=== PATIENT | male | born 1945 | race Caucasian/White ===

== ENCOUNTER 2019-05-09 08:42 | Emergency (ER) | payer MEDICARE ==
[~2019-05-09] VITALS: Ht 188 cm; Wt 81.6 kg
[2019-05-09] MEDS ORDERED: LIDOCAINE JELLY 2% 10ML URO-JET ONE (09:53)
[2019-05-09 10:19] LABS: BILIRUBIN,URINE NEGATIVE (NEGATIVE); CLARITY,URINE CLOUDY (CLEAR); COLOR,URINE ORANGE (YELLOW); KETONES,URINE NEGATIVE (NEGATIVE); LEUKOCYTE ESTERASE ,URINE NEGATIVE (NEGATIVE); NITRITE,URINE POSITIVE (NEGATIVE); PROTEIN,URINE DIPSTICK 1+ (NEGATIVE); URINE UROBILINOGEN 2 mg/dL (0.2 - 1)
[2019-05-09 10:24] LABS: BASOPHILS % 0.6 % (0.0-1.0); EOSINOPHILS % 0.6 % (0.0-6.0); HEMATOCRIT 43.6 % (38.2-49.6); HEMOGLOBIN 14.6 g/dL (14.0-18.0); LYMPHOCYTES # (AUTO) 0.9 (1.0-3.2); LYMPHOCYTES % 13.4 % (18.0-39.1); MEAN CORPUSCULAR HEMOGLOBIN 30.9 pg (28-32); MEAN CORPUSCULAR HGB CONC 33.5 g/dL (31-35); MEAN CORPUSCULAR VOLUME 92.4 fL (81-99); MONOCYTES # (AUTO) 0.5 (0.2-0.8); MONOCYTES % 7.9 % (4.4-11.3); NEUTROPHILS % 77.2 % (38.7-80.0); PLATELET COUNT 195 x10e3/uL (140-360); RED BLOOD COUNT 4.72 x10e6/uL (4.3-5.7); RED CELL DISTRIBUTION WIDTH 13.3 % (11.7-14.4)
[2019-05-09 10:34] LABS: INR 0.94; PROTHROMBIN TIME 13.1 seconds (11.9-14.5)
[2019-05-09 10:37] LABS: PARTIAL THROMBOPLASTIN TIME 31.8 seconds (23.8-35.5)
[2019-05-09 10:52] LABS: ANION GAP 16.5 mmol/L (8-16); CALCIUM 10.1 mg/dL (8.4-10.2); CREATININE, SERUM 1.51 mg/dL (0.72-1.25); POTASSIUM 3.5 mmol/L (3.5-5.1)
[2019-05-09 10:55] LABS: BACTERIA,URINE RARE /HPF; EPITHELIAL CELLS,URINE RARE /LPF
[2019-05-09] MEDS ORDERED: CEFUROXIME250 MG PO (11:18)
[2019-05-09] MEDS ORDERED: FLOMAX0.4 MG PO (11:18)
[2019-05-09 11:57] VITALS: BP 113/79
== END 2019-05-09 12:29 | disposition home or self-care (01) ==
LOC: ER 08:42
DX: R33.9 Retention of urine, unspecified (principal); N40.1 Benign prostatic hyperplasia with lower urinary tract symptoms; N30.91 Cystitis, unspecified with hematuria
CPT/HCPCS: 36415; 51700; 80053; 81001; 85025; 85610; 85730; 87086; 99283

== ENCOUNTER 2019-09-28 18:11 | Emergency (ER) | payer MEDICARE ==
[~2019-09-28] VITALS: Ht 188 cm; Wt 86.2 kg
[~2019-09-28 18:11] MED LIST: CEFUROXIME250 MG PO; FLOMAX0.4 MG PO
--- OUTSIDE RECORDS SUMMARY | 2019-09-28 18:13 | XMS REPORT ---
Author Author [facility] Address Unknown Phone Unavailable Care Team Providers Care Public Address System Operator Name Role Phone Unavailable Unavailable Payers Payer Name Policy Type Policy Number Effective Date Expiration Date Problems This patient has no known problems. Allergies, Adverse Reactions, Alerts Allergy Name Allergy Type Status Severity Reaction(s) Onset Date Inactive Date Treating Clinician Comments No Known Allergies DA Active U 2019-07-11 00:00:00 Medications This patient has no known medications. Results Test Description Test Time Test Comments Text Results Atomic Results Result Comments BASIC METABOLIC PANEL 2019-07-19 05:05:00 SODIUM (test code=NA) 142 mmol/L 136-145 POTASSIUM (test code=K) 4.6 mmol/L 3.5-5.1 CHLORIDE (test code=CL) 110.0 mmol/L 98-107 CARBON DIOXIDE (test code=CO2) 23.0 mmol/L 21-32 ANION GAP (test code=GAP) 13.6 10-20 GLUCOSE (test code=GLU) 138 mg/dL 74-106 BLOOD UREA NITROGEN (test code=BUN) 12 mg/dL 7-18 GLOMERULAR FILTRATION RATE (test code=GFR) > 60 mL/min >=60 Estimated GFR by using Modified MDRD formula.Chronic kidney disease is defined as either kidney damageor GFR <60 mL/min/1.73 m2 for >3 months. CREATININE (test code=CREAT) 0.90 mg/dL 0.7-1.3 BUN/CREATININE RATIO (test code=BUN/CREA) 13.3 10-20 CALCIUM (test code=CA) 8.7 mg/dL 8.5-10.1 BASIC METABOLIC [id number] 04:52:00* Test Item Value Reference Range Comments SODIUM (test code=NA) 142 mmol/L 136-145 POTASSIUM (test code=K) 4.6 mmol/L 3.5-5.1 CHLORIDE (test code=CL) 110.0 mmol/L 98-107 CARBON DIOXIDE (test code=CO2) mmol/L 21-32 ANION GAP (test code=GAP) 10-20 GLUCOSE (test code=GLU) mg/dL 74-106 BLOOD UREA NITROGEN (test code=BUN) mg/dL 7-18 GLOMERULAR FILTRATION RATE (test code=GFR) mL/min >=60 CREATININE (test code=CREAT) mg/dL 0.7-1.3 BUN/CREATININE RATIO (test code=BUN/CREA) 10-20 CALCIUM (test code=CA) mg/dL 8.5-10.1 CBC W/AUTO [id number] 04:27:00* Test Item Value Reference Range Comments WHITE BLOOD CELL (test code=WBC) 9.3 K/mm3 4.5-12.5 RED BLOOD CELL (test code=RBC) 3.58 mill/mm3 4.0-5.8 HEMOGLOBIN (test code=HGB) 11.0 gram/dL 13.0-17.5 HEMATOCRIT (test code=HCT) 34.1 % 42.0-52.0 MEAN CELL VOLUME (test code=MCV) 95.3 fL 80-98 MEAN CELL HGB (test code=MCH) 30.7 picogram 27.0-33.0 MEAN CELL HGB CONCETRATION (test code=MCHC) 32.3 gram/dL 33.0-36.0 RED CELL DISTRIBUTION WIDTH (test code=RDW) 13.2 % 11.6-16.2 RED CELL DISTRIBUTION WIDTH SD (test code=RDW-SD) 45.6 fL 37.0-51.0 PLATELET COUNT (test code=PLT) 296 K/mm3 150-450 MEAN PLATELET VOLUME (test code=MPV) 9.9 fL 6.7-11.0 NEUTROPHIL % (test code=NT%) 81.0 % 39.0-69.0 IMMATURE GRANULOCYTE % (test code=IG%) 1.3 % 0.0-5.0 LYMPHOCYTE % (test code=LY%) 9.3 % 25.0-55.0 MONOCYTE % (test code=MO%) 6.2 % 0.0-10.0 EOSINOPHIL % (test code=EO%) 1.7 % 0.0-5.0 BASOPHIL % (test code=BA%) 0.5 % 0.0-1.0 NUCLEATED RBC % (test code=NRBC%) 0.0 % 0-0 NEUTROPHIL # (test code=NT#) 7.55 K/mm3 1.8-7.7 IMMATURE GRANULOCYTE # (test code=IG#) 0.12 x10 3/uL 0-0.03 LYMPHOCYTE # (test code=LY#) 0.87 K/mm3 1.0-5.0 MONOCYTE # (test code=MO#) 0.58 K/mm3 0-0.8 EOSINOPHIL # (test code=EO#) 0.16 K/mm3 0.0-0.5 BASOPHIL # (test code=BA#) 0.05 K/mm3 0.0-0.2 NUCLEATED RBC # (test code=NRBC#) 0.00 K/mm3 0.0-0.1 MANUAL DIFF REQUIRED (test code=MDIFF) NO [id number] 12:26:00* Test Item Value Reference Range Comments GLUBED (test code=GLUBED) 167 mg/dL 74-106 Performed by certified radial saw operator at [facility] BASIC METABOLIC [id number] 05:39:00* Test Item Value Reference Range Comments SODIUM (test code=NA) 142 mmol/L 136-145 POTASSIUM (test code=K) 3.9 mmol/L 3.5-5.1 CHLORIDE (test code=CL) 111.0 mmol/L 98-107 CARBON DIOXIDE (test code=CO2) 24.0 mmol/L 21-32 ANION GAP (test code=GAP) 10.9 10-20 GLUCOSE (test code=GLU) 143 mg/dL 74-106 BLOOD UREA NITROGEN (test code=BUN) 15 mg/dL 7-18 GLOMERULAR FILTRATION RATE (test code=GFR) > 60 mL/min >=60 Estimated GFR by using Modified MDRD formula.Chronic kidney disease is defined as either kidney damageor GFR <60 mL/min/1.73 m2 for >3 months. CREATININE (test code=CREAT) 1.10 mg/dL 0.7-1.3 BUN/CREATININE RATIO (test code=BUN/CREA) 13.9 10-20 CALCIUM (test code=CA) 8.1 mg/dL 8.5-10.1 BASIC METABOLIC [id number] 05:29:00* Test Item Value Reference Range Comments SODIUM (test code=NA) 142 mmol/L 136-145 POTASSIUM (test code=K) 3.9 mmol/L 3.5-5.1 CHLORIDE (test code=CL) 111.0 mmol/L 98-107 CARBON DIOXIDE (test code=CO2) mmol/L 21-32 ANION GAP (test code=GAP) 10-20 GLUCOSE (test code=GLU) mg/dL 74-106 BLOOD UREA NITROGEN (test code=BUN) mg/dL 7-18 GLOMERULAR FILTRATION RATE (test code=GFR) mL/min >=60 CREATININE (test code=CREAT) mg/dL 0.7-1.3 BUN/CREATININE RATIO (test code=BUN/CREA) 10-20 CALCIUM (test code=CA) mg/dL 8.5-10.1 CBC W/AUTO [id number] 05:09:00* Test Item Value Reference Range Comments WHITE BLOOD CELL (test code=WBC) 13.7 K/mm3 4.5-12.5 RED BLOOD CELL (test code=RBC) 3.61 mill/mm3 4.0-5.8 HEMOGLOBIN (test code=HGB) 11.3 gram/dL 13.0-17.5 HEMATOCRIT (test code=HCT) 34.1 % 42.0-52.0 MEAN CELL VOLUME (test code=MCV) 94.5 fL 80-98 MEAN CELL HGB (test code=MCH) 31.3 picogram 27.0-33.0 MEAN CELL HGB CONCETRATION (test code=MCHC) 33.1 gram/dL 33.0-36.0 RED CELL DISTRIBUTION WIDTH (test code=RDW) 13.0 % 11.6-16.2 RED CELL DISTRIBUTION WIDTH SD (test code=RDW-SD) 45.2 fL 37.0-51.0 PLATELET COUNT (test code=PLT) 218 K/mm3 150-450 MEAN PLATELET VOLUME (test code=MPV) 10.5 fL 6.7-11.0 NEUTROPHIL % (test code=NT%) 82.6 % 39.0-69.0 IMMATURE GRANULOCYTE % (test code=IG%) 0.9 % 0.0-5.0 LYMPHOCYTE % (test code=LY%) 7.5 % 25.0-55.0 MONOCYTE % (test code=MO%) 8.6 % 0.0-10.0 EOSINOPHIL % (test code=EO%) 0.1 % 0.0-5.0 BASOPHIL % (test code=BA%) 0.3 % 0.0-1.0 NUCLEATED RBC % (test code=NRBC%) 0.0 % 0-0 NEUTROPHIL # (test code=NT#) 11.30 K/mm3 1.8-7.7 IMMATURE GRANULOCYTE # (test code=IG#) 0.12 x10 3/uL 0-0.03 LYMPHOCYTE # (test code=LY#) 1.02 K/mm3 1.0-5.0 MONOCYTE # (test code=MO#) 1.17 K/mm3 0-0.8 EOSINOPHIL # (test code=EO#) 0.01 K/mm3 0.0-0.5 BASOPHIL # (test code=BA#) 0.04 K/mm3 0.0-0.2 NUCLEATED RBC # (test code=NRBC#) 0.00 K/mm3 0.0-0.1 MANUAL DIFF REQUIRED (test code=MDIFF) NO [id number] 18:46:00* Test Item Value Reference Range Comments GLUBED (test code=GLUBED) 104 mg/dL 74-106 Performed by certified radial saw operator at [facility] COMPREHENSIVE METABOLIC [id number] 06:36:00* Test Item Value Reference Range Comments SODIUM (test code=NA) 143 mmol/L 136-145 POTASSIUM (test code=K) 3.6 mmol/L 3.5-5.1 CHLORIDE (test code=CL) 108.0 mmol/L 98-107 CARBON DIOXIDE (test code=CO2) 26.0 mmol/L 21-32 ANION GAP (test code=GAP) 12.6 10-20 GLUCOSE (test code=GLU) 104 mg/dL 74-106 BLOOD UREA NITROGEN (test code=BUN) 22 mg/dL 7-18 GLOMERULAR FILTRATION RATE (test code=GFR) > 60 mL/min >=60 Estimated GFR by using Modified MDRD formula.Chronic kidney disease is defined as either kidney damageor GFR <60 mL/min/1.73 m2 for >3 months. CREATININE (test code=CREAT) 0.90 mg/dL 0.7-1.3 BUN/CREATININE RATIO (test code=BUN/CREA) 24.4 10-20 TOTAL PROTEIN (test code=PROT) 5.9 gram/dL 6.4-8.2 ALBUMIN (test code=ALB) 2.4 g/dL 3.4-5.0 GLOBULIN (test code=GLOB) 3.5 gram/dL 2.7-4.2 ALBUMIN/GLOBULIN RATIO (test code=A/G) 0.7 0.75-1.50 CALCIUM (test code=CA) 8.4 mg/dL 8.5-10.1 BILIRUBIN TOTAL (test code=BILT) 1.20 mg/dL 0.0-1.0 SGOT/AST (test code=AST) 27 IUnit/L 15-37 SGPT/ALT (test code=ALT) 26 IUnit/L 12-78 ALKALINE PHOSPHATASE TOTAL (test code=ALKP) 236 IUnit/L 45-117 Note change in reference range due to change in reagent. COMPREHENSIVE METABOLIC [id number] 06:23:00* Test Item Value Reference Range Comments SODIUM (test code=NA) 143 mmol/L 136-145 POTASSIUM (test code=K) 3.6 mmol/L 3.5-5.1 CHLORIDE (test code=CL) 108.0 mmol/L 98-107 CARBON DIOXIDE (test code=CO2) mmol/L 21-32 ANION GAP (test code=GAP) 10-20 GLUCOSE (test code=GLU) mg/dL 74-106 BLOOD UREA NITROGEN (test code=BUN) mg/dL 7-18 GLOMERULAR FILTRATION RATE (test code=GFR) mL/min >=60 CREATININE (test code=CREAT) mg/dL 0.7-1.3 BUN/CREATININE RATIO (test code=BUN/CREA) 10-20 TOTAL PROTEIN (test code=PROT) gram/dL 6.4-8.2 ALBUMIN (test code=ALB) g/dL 3.4-5.0 GLOBULIN (test code=GLOB) gram/dL 2.7-4.2 ALBUMIN/GLOBULIN RATIO (test code=A/G) 0.75-1.50 CALCIUM (test code=CA) mg/dL 8.5-10.1 BILIRUBIN TOTAL (test code=BILT) mg/dL 0.0-1.0 SGOT/AST (test code=AST) IUnit/L 15-37 SGPT/ALT (test code=ALT) IUnit/L 12-78 ALKALINE PHOSPHATASE TOTAL (test code=ALKP) IUnit/L 45-117 CBC W/AUTO [id number] 06:03:00* Test Item Value Reference Range Comments WHITE BLOOD CELL (test code=WBC) 12.4 K/mm3 4.5-12.5 RED BLOOD CELL (test code=RBC) 3.79 mill/mm3 4.0-5.8 HEMOGLOBIN (test code=HGB) 11.9 gram/dL 13.0-17.5 HEMATOCRIT (test code=HCT) 35.6 % 42.0-52.0 MEAN CELL VOLUME (test code=MCV) 93.9 fL 80-98 MEAN CELL HGB (test code=MCH) 31.4 picogram 27.0-33.0 MEAN CELL HGB CONCETRATION (test code=MCHC) 33.4 gram/dL 33.0-36.0 RED CELL DISTRIBUTION WIDTH (test code=RDW) 12.9 % 11.6-16.2 RED CELL DISTRIBUTION WIDTH SD (test code=RDW-SD) 44.3 fL 37.0-51.0 PLATELET COUNT (test code=PLT) 145 K/mm3 150-450 MEAN PLATELET VOLUME (test code=MPV) 11.1 fL 6.7-11.0 NEUTROPHIL % (test code=NT%) 85.8 % 39.0-69.0 IMMATURE GRANULOCYTE % (test code=IG%) 0.9 % 0.0-5.0 LYMPHOCYTE % (test code=LY%) 7.0 % 25.0-55.0 MONOCYTE % (test code=MO%) 5.7 % 0.0-10.0 EOSINOPHIL % (test code=EO%) 0.4 % 0.0-5.0 BASOPHIL % (test code=BA%) 0.2 % 0.0-1.0 NUCLEATED RBC % (test code=NRBC%) 0.0 % 0-0 NEUTROPHIL # (test code=NT#) 10.59 K/mm3 1.8-7.7 IMMATURE GRANULOCYTE # (test code=IG#) 0.11 x10 3/uL 0-0.03 LYMPHOCYTE # (test code=LY#) 0.87 K/mm3 1.0-5.0 MONOCYTE # (test code=MO#) 0.70 K/mm3 0-0.8 EOSINOPHIL # (test code=EO#) 0.05 K/mm3 0.0-0.5 BASOPHIL # (test code=BA#) 0.03 K/mm3 0.0-0.2 NUCLEATED RBC # (test code=NRBC#) 0.00 K/mm3 0.0-0.1 MANUAL DIFF REQUIRED (test code=MDIFF) NO BASIC METABOLIC [id number] 23:03:00* Test Item Value Reference Range Comments SODIUM (test code=NA) 139 mmol/L 136-145 POTASSIUM (test code=K) 3.5 mmol/L 3.5-5.1 CHLORIDE (test code=CL) 106.0 mmol/L 98-107 CARBON DIOXIDE (test code=CO2) 26.0 mmol/L 21-32 ANION GAP (test code=GAP) 10.5 10-20 GLUCOSE (test code=GLU) 130 mg/dL 74-106 BLOOD UREA NITROGEN (test code=BUN) 24 mg/dL 7-18 GLOMERULAR FILTRATION RATE (test code=GFR) > 60 mL/min >=60 Estimated GFR by using Modified MDRD formula.Chronic kidney disease is defined as either kidney damageor GFR <60 mL/min/1.73 m2 for >3 months. CREATININE (test code=CREAT) 1.00 mg/dL 0.7-1.3 BUN/CREATININE RATIO (test code=BUN/CREA) 24.0 10-20 CALCIUM (test code=CA) 8.4 mg/dL 8.5-10.1 CBC W/AUTO [id number] 22:09:00* Test Item Value Reference Range Comments WHITE BLOOD CELL (test code=WBC) 13.1 K/mm3 4.5-12.5 RED BLOOD CELL (test code=RBC) 3.76 mill/mm3 4.0-5.8 HEMOGLOBIN (test code=HGB) 11.7 gram/dL 13.0-17.5 HEMATOCRIT (test code=HCT) 35.2 % 42.0-52.0 MEAN CELL VOLUME (test code=MCV) 93.6 fL 80-98 MEAN CELL HGB (test code=MCH) 31.1 picogram 27.0-33.0 MEAN CELL HGB CONCETRATION (test code=MCHC) 33.2 gram/dL 33.0-36.0 RED CELL DISTRIBUTION WIDTH (test code=RDW) 13.0 % 11.6-16.2 RED CELL DISTRIBUTION WIDTH SD (test code=RDW-SD) 44.7 fL 37.0-51.0 PLATELET COUNT (test code=PLT) 149 K/mm3 150-450 MEAN PLATELET VOLUME (test code=MPV) 10.4 fL 6.7-11.0 NEUTROPHIL % (test code=NT%) 85.3 % 39.0-69.0 IMMATURE GRANULOCYTE % (test code=IG%) 0.9 % 0.0-5.0 LYMPHOCYTE % (test code=LY%) 7.2 % 25.0-55.0 MONOCYTE % (test code=MO%) 6.2 % 0.0-10.0 EOSINOPHIL % (test code=EO%) 0.2 % 0.0-5.0 BASOPHIL % (test code=BA%) 0.2 % 0.0-1.0 NUCLEATED RBC % (test code=NRBC%) 0.0 % 0-0 NEUTROPHIL # (test code=NT#) 11.12 K/mm3 1.8-7.7 IMMATURE GRANULOCYTE # (test code=IG#) 0.12 x10 3/uL 0-0.03 LYMPHOCYTE # (test code=LY#) 0.94 K/mm3 1.0-5.0 MONOCYTE # (test code=MO#) 0.81 K/mm3 0-0.8 EOSINOPHIL # (test code=EO#) 0.03 K/mm3 0.0-0.5 BASOPHIL # (test code=BA#) 0.03 K/mm3 0.0-0.2 NUCLEATED RBC # (test code=NRBC#) 0.00 K/mm3 0.0-0.1 MANUAL DIFF REQUIRED (test code=MDIFF) NO [id number] 02:01:00* Test Item Value Reference Range Comments TROPONIN-I (test code=TROPI) 0.028 ng/mL 0-0.045 COMMENTS TO BUSINESS OPERATIONS DIRECTOR: COLLECT 3 HOURS AFTER PREVIOUS [id number] 22:29:00* Test Item Value Reference Range Comments TROPONIN-I (test code=TROPI) 0.026 ng/mL 0-0.045 COMMENTS TO BUSINESS OPERATIONS DIRECTOR: COLLECT 3 HOURS AFTER PREVIOUS SAMPLEURINALYSIS [id number] 16:35:00* Test Item Value Reference Range Comments UA COLOR (test code=COLU) YELLOW YELLOW UA APPEARANCE (test code=APPU) Cloudy CLEAR UA GLUCOSE DIPSTICK (test code=DGLUU) NEGATIVE mg/dL NEGATIVE UA BILIRUBIN DIPSTICK (test code=BILU) NEGATIVE mg/dL NEGATIVE UA KETONE DIPSTICK (test code=KETU) NEGATIVE mg/dL NEGATIVE UA SPECIFIC GRAVITY (test code=SGU) 1.014 1.001-1.035 UA BLOOD DIPSTICK (test code=JESSICA) 0.2 mg/dL (2+) mg/dL NEGATIVE UA PH DIPSTICK (test code=NICOLLE) 5.5 5.0-8.0 UA PROTEIN DIPSTICK (test code=PROU) 100 (2+) mg/dL NEGATIVE UA UROBILINIOGEN DIPSTICK (test code=URO) 2.0 (1+) mg/dL NEGATIVE UA NITRITE DIPSTICK (test code=KASSIE) POSITIVE NEGATIVE UA LEUKOCYTE ESTERASE W REFLEX (test code=LEUUR) 250 Antoinette/uL (2+) Antoinette/uL NEGATIVE UA WBC (test code=WBCU) 21-50 per HPF 0-5 UA RBC (test code=RBCU) 6-10 #/HPF 0-5 UA EPITHELIAL CELLS (test code=EPIU) FEW per HPF FEW UA BACTERIA (test code=BACU) MANY #/HPF NONE UA MUCUS (test code=MUCU) FEW #/LPF FEW UA AMORPHOUS SEDIMENT (test code=AMORU) FEW #/LPF Urine Source? Clean CatchDRUGS OF ABUSE SCREEN [id number] 16:35:00* Test Item Value Reference Range Comments URN COCAINE (test code=COCAURN) NEGATIVE <300 ng/mL URN CANNABINOIDS (test code=CANNABURN) NEGATIVE <50 ng/mL URN AMPHETAMINE (test code=AMPHETURN) NEGATIVE <1000 ng/mL URN BARBITURATE (test code=BARBITURN) NEGATIVE <200 ng/mL URN BENZODIAZEPINE (test code=BENZOURN) NEGATIVE <200 ng/mL URN OPIATES (test code=OPIATURN) NEGATIVE <300 ng/mL URN PHENCYCLIDINE (PCP) (test code=PHENCURN) NEGATIVE <25 ng/mL URN METHADONE (test code=METHAURN) NEGATIVE <300 ng/mL Urine Source? Clean CatchURINALYSIS [id number] 16:22:00* Test Item Value Reference Range Comments UA COLOR (test code=COLU) YELLOW YELLOW UA APPEARANCE (test code=APPU) Cloudy CLEAR UA GLUCOSE DIPSTICK (test code=DGLUU) NEGATIVE mg/dL NEGATIVE UA BILIRUBIN DIPSTICK (test code=BILU) NEGATIVE mg/dL NEGATIVE UA KETONE DIPSTICK (test code=KETU) NEGATIVE mg/dL NEGATIVE UA SPECIFIC GRAVITY (test code=SGU) 1.014 1.001-1.035 UA BLOOD DIPSTICK (test code=JESSICA) 0.2 mg/dL (2+) mg/dL NEGATIVE UA PH DIPSTICK (test code=NICOLLE) 5.5 5.0-8.0 UA PROTEIN DIPSTICK (test code=PROU) 100 (2+) mg/dL NEGATIVE UA UROBILINIOGEN DIPSTICK (test code=URO) 2.0 (1+) mg/dL NEGATIVE UA NITRITE DIPSTICK (test code=KASSIE) POSITIVE NEGATIVE UA LEUKOCYTE ESTERASE W REFLEX (test code=LEUUR) 250 Antoinette/uL (2+) Antoinette/uL NEGATIVE UA WBC (test code=WBCU) per HPF 0-5 UA RBC (test code=RBCU) per HPF 0-5 UA EPITHELIAL CELLS (test code=EPIU) per HPF Few UA BACTERIA (test code=BACU) per HPF NONE Urine Source? Clean CatchDRUGS OF ABUSE SCREEN [id number] 16:22:00* Test Item Value Reference Range Comments URN COCAINE (test code=COCAURN) NEGATIVE <300 ng/mL URN CANNABINOIDS (test code=CANNABURN) NEGATIVE <50 ng/mL URN AMPHETAMINE (test code=AMPHETURN) NEGATIVE <1000 ng/mL URN BARBITURATE (test code=BARBITURN) NEGATIVE <200 ng/mL URN BENZODIAZEPINE (test code=BENZOURN) NEGATIVE <200 ng/mL URN OPIATES (test code=OPIATURN) NEGATIVE <300 ng/mL URN PHENCYCLIDINE (PCP) (test code=PHENCURN) NEGATIVE <25 ng/mL URN METHADONE (test code=METHAURN) NEGATIVE <300 ng/mL Urine Source? Clean Catch- CT C-SPINE W/O [id number] 16:21:00 Name: EVANS DANIELSON [facility] : 1945 Age/S: 74 / M [address] [facility] Unit #: [id number] Loc: [place] [address] Phys: Zaid Retana MD Acct: [id number] Di s Date: Status: REG ER PHONE #: Exam Date: 07/11/2019 1534 FAX #: Reason: fall EXAMS: CPT CODE: [id number] CT C-SPINE W/O CONTRAST 22340 HISTORY: fall TECHNIQUE: Noncontrast 2.[address] of the head. Examination acquired within 24 hours of arrival. Automated exposure control for dose reduction. COMPARISON: MRI of the brain May 10, 2018 FINDINGS: No lacerations or contusions of the scalp or facial soft tissues.. Calvarium and skull base are intact. No acute hemorrhage. No intracranial mass, mass effect, or midline shift. No effacement of the sulci or ruiz-white matter interface to suggest acute infarct. Extensive cortical atrophy with microvascular ischemic changes of the white matter. No hydrocephalus.. No extra-axial fluid collection. Visualized paranasal sinuses are clear. Mastoid air cells and middle ear cavities are clear. There is a copious amount of cerumen in the bilateral external auditory canals. Orbital contents are unremarkable. No acute fracture of the cervical spine. No subluxation. Degenerative changes are seen throughout the facet joints in the cervical spine. Vertebral body heights are preserved however there is height loss of multiple intervertebral discs which is most pronounced at C3-C4, C5-C6, and C6-C7. Mild left-sided foraminal narrowing at C2-C 3. Moderate bilateral foraminal narrowing at C3-C4. Severe right-sided for aminal narrowing at C4-C5. Severe bilateral foraminal narrowing at C5-C6 w ith mild central canal narrowing. Severe bilateral foraminal narrowing at C6-C7. No prevertebral or paraspinal soft tissue abnormality. Lung apices are clear. There is diffuse bone demineralization in the spine. PAGE 1 Signed Report (CONTINUED) Name: EVANS DANIELSON [facility] : 1945 Age/S: 74 / M [address] Unit #: [id number] Loc: [place] [address] Phys: Maeve Retana MD Acct: [id number] Dis Date: Status: REG ER PHONE #: [phone] Exam Date: 07/11/20191536 FAX #: [phone] Reason: fall EXAMS: CPT CODE: [id number] CT C-SPINE W/O CONTRAST 05200 < Continued> IMPRESSION: No acute intracranial process. 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 Correlate with physical exam for cortical atrophy. No fracture or subluxation is seen however. at 1621 Reported and signed by: Kael Lobato MD CC: Justen Hahn; Maeve Retana MD Technologist:Catalina Miller RT(R),CT; CTDI: DLP: Trnscb Date/Time: 07/11/2019 (1621) [email or web address] Orig Print D/T: S: 07/11/2019 (5993) PAGE 2 Signed Report - CT HEAD/BRAIN W/O [id number] 16:21:00 Name: EVANS DANIELSON [facility] : 1945 Age/S: 74 / M [address] [facility] Unit #: [id number] Loc: [place] [address] Phys: Maeve Retana MD Acct: [id number] Dis Date: Status: REG ER PHONE #: [phone] Exam Date: 07/11/2019 153 FAX #: [phone] Reason: fall EXAMS: CPT CODE: [id number] CT HEAD/BRAIN W/O CONT 27986 HISTORY: fall TECHNIQUE: Noncontrast 2.[address] of the head. Examination acquired within 24 hours of arrival. Automated exposure control for dose reduction. COMPARISON: MRI of the brain May 10, 2018 FINDINGS: No lacerations or contusions of the scalp or facial soft tissues.. Calvarium and skull base are intact. No acute hemorrhage. No intracranial mass, mass effect, or midline shift. No effacement of the sulci or ruiz-white matter interface to suggest acute infarct. Extensive cortical atrophy with microvascular ischemic changes of the white matter. No hydrocephalus.. No extra-axial fluid collection. Visualized paranasal sinuses are clear. Mastoid air cells and middle ear cavities are clear. There is a copious amount of cerumen in the bilateral external auditory canals. Orbital contents are unremarkable. No acute fracture of the cervical spine. No subluxation. Degenerative changes are seen throughout the facet joints in the cervical spine. Vertebral body heights are preserved however there is height loss of multiple intervertebral discs which is most pronounced at C3-C4, C5-C6, and C6-C7. Mild left-sided foraminal narrowing at C2-C3. Moderate bilateral foraminal narrowing at C3-C4. Severe right-sided foraminal narrowing at C4-C5. Severe bilateral foraminal narrowing at C5-C6 with mild central canal narrowing. Severe bilateral foraminal narrowing at C6-C7. No prevertebral or paraspinal soft tissue abnormality. Lung apices are clear. There is diffuse bone demineralization in the spine. PAGE 1 Signed Report (CONTINUED) Name: EVANS DANIELSON [facility] : 1945 Age/S: 74 / M [address] [facility] Unit #: [id number] Loc: [place] [address] Phys: Maeve Retana MD Acct: [id number] Dis Date: Status: REG ER PHONE #: [phone] Exam Date: 07/11/2019 1537 FAX #: [phone] Reason: fall EXAMS: CPT CODE: [id number] CT HEAD/BRAIN W/O CONT 31990 < Continued> IMPRESSION: No acute intracranial process. 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 Correlate with physical exam for cortical atrophy. No fracture or subluxation is seen however. at 1621 Reported and signed by: Kael Lobato MD CC: Justen Hahn; Maeve Retana MD Technologist:Catalina Miller RT(R),CT; CTDI: DLP: Trnscb Date/Time: 07/11/2019 (328) [email or web address] Orig Print D/T: S: 07/11/2019 (5037) PAGE 2 Signed Report URINALYSIS [id number] 16:07:00* Test Item Value Reference Range Comments UA COLOR (test code=COLU) YELLOW YELLOW UA APPEARANCE (test code=APPU) Cloudy CLEAR UA GLUCOSE DIPSTICK (test code=DGLUU) NEGATIVE mg/dL NEGATIVE UA BILIRUBIN DIPSTICK (test code=BILU) NEGATIVE mg/dL NEGATIVE UA KETONE DIPSTICK (test code=KETU) NEGATIVE mg/dL NEGATIVE UA SPECIFIC GRAVITY (test code=SGU) 1.014 1.001-1.035 UA BLOOD DIPSTICK (test code=JESSICA) 0.2 mg/dL (2+) mg/dL NEGATIVE UA PH DIPSTICK (test code=NICOLLE) 5.5 5.0-8.0 UA PROTEIN DIPSTICK (test code=PROU) 100 (2+) mg/dL NEGATIVE UA UROBILINIOGEN DIPSTICK (test code=URO) 2.0 (1+) mg/dL NEGATIVE UA NITRITE DIPSTICK (test code=KASSIE) POSITIVE NEGATIVE UA LEUKOCYTE ESTERASE W REFLEX (test code=LEUUR) 250 Antoinette/uL (2+) Antoinette/uL NEGATIVE UA WBC (test code=WBCU) per HPF 0-5 UA RBC (test code=RBCU) per HPF 0-5 UA EPITHELIAL CELLS (test code=EPIU) per HPF Few UA BACTERIA (test code=BACU) per HPF NONE Urine Source? Clean CatchDRUGS OF ABUSE SCREEN [id number] 16:07:00* Test Item Value Reference Range Comments URN COCAINE (test code=COCAURN) <300 ng/mL URN CANNABINOIDS (test code=CANNABURN) <50 ng/mL URN AMPHETAMINE (test code=AMPHETURN) <1000 ng/mL URN BARBITURATE (test code=BARBITURN) <200 ng/mL URN BENZODIAZEPINE (test code=BENZOURN) <200 ng/mL URN OPIATES (test code=OPIATURN) <300 ng/mL URN PHENCYCLIDINE (PCP) (test code=PHENCURN) <25 ng/mL URN METHADONE (test code=METHAURN) <300 ng/mL Urine Source? Clean CatchLACTIC [id number] 15:50:00* Test Item Value Reference Range Comments LACTIC ACID (test code=LACT) 2.4 mmol/L 0.4-1.9 Results called to [email or web address] 07/11/19 1550Critical results verified and read back by Nurse? Y BASIC METABOLIC [id number] 15:50:00* Test Item Value Reference Range Comments SODIUM (test code=NA) 137 mmol/L 136-145 POTASSIUM (test code=K) 3.0 mmol/L 3.5-5.1 CHLORIDE (test code=CL) 101.0 mmol/L 98-107 CARBON DIOXIDE (test code=CO2) 25.0 mmol/L 21-32 ANION GAP (test code=GAP) 14.0 10-20 GLUCOSE (test code=GLU) 132 mg/dL 74-106 BLOOD UREA NITROGEN (test code=BUN) 21 mg/dL 7-18 GLOMERULAR FILTRATION RATE (test code=GFR) 59 mL/min >=60 Estimated GFR by using Modified MDRD formula.Chronic kidney disease is defined as either kidney damageor GFR <60 mL/min/1.73 m2 for >3 months. CREATININE (test code=CREAT) 1.20 mg/dL 0.7-1.3 BUN/CREATININE RATIO (test code=BUN/CREA) 17.5 10-20 CALCIUM (test code=CA) 9.2 mg/dL 8.5-10.1 HEPATIC FUNCTION [id number] 15:50:00* Test Item Value Reference Range Comments TOTAL PROTEIN (test code=PROT) 7.5 gram/dL 6.4-8.2 ALBUMIN (test code=ALB) 3.0 g/dL 3.4-5.0 GLOBULIN (test code=GLOB) 4.5 gram/dL 2.7-4.2 ALBUMIN/GLOBULIN RATIO (test code=A/G) 0.7 0.75-1.50 BILIRUBIN TOTAL (test code=BILT) 2.30 mg/dL 0.0-1.0 BILIRUBIN DIRECT (test code=BILD) 1.15 mg/dL 0.0-0.20 SGOT/AST (test code=AST) 17 IUnit/L 15-37 SGPT/ALT (test code=ALT) 21 IUnit/L 12-78 ALKALINE PHOSPHATASE TOTAL (test code=ALKP) 239 IUnit/L 45-117 Note change in reference range due to change in reagent. [id number] 15:50:00* Test Item Value Reference Range Comments LIPASE (test code=LIP) 64 U/L 73.0-393.0 [id number] 15:50:00* Test Item Value Reference Range Comments TROPONIN-I (test code=TROPI) 0.021 ng/mL 0-0.045 [id number] 15:50:00* Test Item Value Reference Range Comments ALCOHOL (test code=ALC) < 3 mg/dL 0.0-3.0 INTERPRETIVE DATA NOTE: POSITIVE SCREENING RESULTS SHOULD BE CONSIDERED PRESUMPTIVE.WHEN COLLECTED FOR MEDICAL PURPOSES ONLY. SPECIMEN WILL NOTBE COLLECTED BY CHAIN OF CUSTODY.IF A CONFIRMATION OF POSITIVE RESULTS IS DESIRED, ACONFIRMATION TEST MUST BE REQUESTED BY THE PHYSICIAN AT ANADDITIONAL CHARGE TO THE PATIENT. PROTHROMBIN [id number] 15:41:00* Test Item Value Reference Range Comments PROTHROMBIN TIME PATIENT (test code=PTP) 14.2 seconds 9.0-14.0 INTERNATIONAL NORMAL RATIO (test code=INR) 1.2 0.8-1.2 The therapeutic range for oral anticoagulant therapy formost indications is an international normalized ratio (INR)of between 2.0 and 3.0. The recommended therapeutic INRrange for various clinical situations is listed below: Clinical Situation INR range Pulmonary e mbolism treatment (2.0-3.0)Venous thrombosis treatmentVenous thrombosis prophylaxis (high risk surgery)Prevention of systemic embolism from: Acute myocardial infarction Valvular heart disease Atrial fibrillation Mechanical prosthetic heart valves (2.5-3.5) IS PATIENT ON ANTICOAGULANTS? NTHROMBOPLASTIN TIME [id number] 15:41:00* Test Item Value Reference Range Comments THROMBOPLASTIN TIME PARTIAL (test code=PTT) 32.4 seconds 25.0-36.5 IS PATIENT ON ANTICOAGULANTS? NCBC W/O [id number] 15:33:00* Test Item Value Reference Range Comments WHITE BLOOD CELL (test code=WBC) 18.5 K/mm3 4.5-12.5 RED BLOOD CELL (test code=RBC) 4.07 mill/mm3 4.0-5.8 HEMOGLOBIN (test code=HGB) 12.6 gram/dL 13.0-17.5 HEMATOCRIT (test code=HCT) 37.7 % 42.0-52.0 MEAN CELL VOLUME (test code=MCV) 92.6 fL 80-98 MEAN CELL HGB (test code=MCH) 31.0 picogram 27.0-33.0 MEAN CELL HGB CONCETRATION (test code=MCHC) 33.4 gram/dL 33.0-36.0 RED CELL DISTRIBUTION WIDTH (test code=RDW) 13.0 % 11.6-16.2 PLATELET COUNT (test code=PLT) 156 K/mm3 150-450 MEAN PLATELET VOLUME (test code=MPV) 10.7 fL 6.7-11.0 - MRI ABDOMEN W WO [id number] 13:08:00 FAX: Justen Bartlett MD [phone] [place]: B St: REG Name: EVANS LANDIS [facility] : [birth year] Age/S: 74/M [address] [facility] Unit #: [id number] Loc: V.MRI [place], [place] [address] Phys: Justen Hahn MD Acct: [id number] Dis Date: Status: REG CLI PHONE #: [phone] Exam Date: 05/27/2019 1130 FAX #: [phone] Reason: R74.8 EXAMS: CPT CODE: [id number] MRI ABDOMEN W WO CONT 05616 HISTORY: Elevated alkaline phospha tase. COMPARISON: None available. MRI abdomen with a nd without contrast: The liver measured 14 cm in length. Homogeneo us enhancement following gadolinium. No architectural distortion. No discr ete mass. No perihepatic fluid. Portal vein and hepatic artery remain silva nt. Gallbladder appears unremarkable. Spleen is not enlarged either at 11 cm. Homogeneous enhancement of the spleen. The stomach diste nds incompletely with small hiatal hernia. Pancreas enhanced homog eneously and is unremarkable. Right adrenal is unremarkable. Hyperplastic left adrenal demonstrated fat suppression on the out of phase sequence sug gesting fatty content. Both kidneys are free from hydroureteroneph rosis. Homogeneous enhancement is noted. Subcentimeter bilateral punctate Bosniak 1 lesions. No perinephric collections. No pathologic adenopathy. Well-opacified abdominal vasculature. No bowel obstruction. M ild wall thickening of the transverse colon and the right colon suggesting mild colitis. Correlate with white cell count. Small bowel loops are unre markable. No free fluid or free air or abscess collection. The subcutaneou s tissues and the musculature demonstrated normal signal. Bone marrow sign al is normal as well. IMPRESSION: Unremarkable liver with homogeneous enhancement. No discrete parenchymal mass or nod ules or architectural distortion. No intra or extrahepatic biliary ducta l dilatation. Incidental note made of circumferential wall thi ckening of the right colon and transverse colon suggesting colitis. Poncho elate clinically. No free fluid or free air or abscess. No pathologic ad enopathy. Small hiatal hernia. at 1308 Reported and signed by: Keven Egnland M.D. PAGE 1 Signed Report (CONTINUED) FAX: Justen Bartlett MD [phone] [facility] [place] [address] [place]: REG Name: EVANS DANIELSON [facility] : 1945 Age/S: 74/M [address] [facility] Unit #: [id number] Loc: V.MRI [place] [address] Ph ys: Justen Hahn MD Acct: [id number] Dis Date: Status: REG CLI PHONE #: [phone] Exam Date: 05/27/2019 1130 FAX #: [phone] Reason: R74.8 EXAMS: CPT CODE: [id number] MRI ABDOMEN W WO CONT 77940 <Continued> CC: Justen Hahn Technologist: PEDRO LUIS HENRIQUEZRT - MRI Trnvtrd Date/Time/By: 05/27/2019 (9295) : By: [email or web address] Orig Print D/T: S: 05/27/2019 (2799) PAGE 2 Signed Report CREATININE W ESTIMATED [id number] 10:01:00* Test Item Value Reference Range Comments BEDSIDE CREATININE (test code=CREATBED) mg/dL 0.7-1.3 GLOMERULAR FILTRATION RATE POC (test code=GFRBED) 57 >60 CREATININE W ESTIMATED [id number] 10:01:00* Test Item Value Reference Range Comments BEDSIDE CREATININE (test code=CREATBED) 1.24 mg/dL 0.7-1.3 GLOMERULAR FILTRATION RATE POC (test code=GFRBED) 60 >60 Previously reported result: 57 Edited by: ANSELMO on 05/27/19:580013 1001: GFRBED previously reported as: 57 *L
[2019-09-28] MEDS ORDERED: MECLIZINE HCL 12.5 MG TAB PO STA (19:14)
[2019-09-28] MEDS ORDERED: MECLIZINE HCL 12.5 MG TAB ONE (19:24)
--- NOTE | 2019-09-28 20:36 | Diagnostic Imaging Report ---
EXAMINATION: CXR 2 VIEW - HOPD INDICATION: Dizziness. COMPARISON: None FINDINGS: TUBES and LINES: None. LUNGS/PLEURA: There are bilateral calcified pleural plaques, left greater than right. Prominent calcified plaque in the left mid hemithorax. There are patchy opacities throughout the left lung. There are bilateral interstitial opacities. HEART AND MEDIASTINUM: No enlargement of the cardiac silhouette. There are atherosclerotic calcifications within the aorta. Tortuous and ectatic thoracic aorta. Small hiatal hernia. BONES AND SOFT TISSUES: No acute osseous abnormality. Diffuse osteopenia. UPPER ABDOMEN: No free air under the diaphragm. IMPRESSION: Findings suggestive of chronic asbestos exposure with pleural based calcified plaques. Patchy opacities within the left lung with bilateral interstitial opacities, which may reflect chronic fibrosis, although superimposed infection is a possibility. A follow-up CT, which could be performed non-emergently, is recommended. Signed by: Dr. Jamar Olivarez MD on 09/28/2019 8:33 PM
--- NOTE | 2019-09-28 20:40 | Diagnostic Imaging Report ---
History: Fall, pain and dizziness Comparison studies:None Technique: Axial images were obtained from the brain and cervical spine. Coronal and sagittal images reconstructed from the axial data. Intravenous contrast: None Dose modulation, iterative reconstruction, and/or weight based adjustment of the mA/kV was utilized to reduce the radiation dose to as low as reasonably achievable. Findings: Head CT: Scalp/skull: No abnormalities. No fractures, blastic or lytic lesions. Brain sulci: Mildly prominent. Ventricles: Mild compensatory dilatation. No hydrocephalus. Parenchyma: Scattered small hypodensities in the supratentorial white matter are small vessel ischemic changes. Left periventricular occipital encephalomalacia. Small chronic lacunar infarcts at the bilateral thalami. No masses, hemorrhage, acute or chronic cortical vascular insults. Sellar/suprasellar region: No abnormalities. Craniocervical junction: Patent foramen magnum. No Chiari one malformation. Incidental findings: Atherosclerotic calcifications in the carotid siphons . Cervical spine CT: Fractures: None. Soft tissues: No gross abnormalities. Atlantoaxial articulation: Degenerative changes without acute abnormality. Alignment: Straightening of the normal lordosis. Minimal grade 1 anterolisthesis of C4 over C5. No scoliosis. Cervicomedullary junction: No abnormalities. Patent foramen magnum. Vertebrae: No infection or neoplasm. Degenerative changes: Obliterated intervertebral space at C3-4 and C5-6. Decreased intervertebral space at C6-7. Degenerative foraminal narrowing, severe right and C4-5, moderate right and severe left at C5-6.. Incidental findings: Calcified pleural subcentimeter nodule at the right apex. Scarring at the left apex.. Impression: Head CT: 1. No acute intracranial abnormality. Cervical spine CT: 1. No acute abnormalities. 2. Cannot exclude ligament, spinal cord and or vascular abnormalities on the basis of this examination. Signed by: DR Reyes Guevara M.D. on 09/28/2019 8:37 PM
[2019-09-28] MEDS ORDERED: POTASSIUM CHLORIDE 20 MEQ TAB CR PO STA (20:54)
[2019-09-28] MEDS ORDERED: POTASSIUM CHLORIDE 20 MEQ TAB CR PO ONE (21:20)
[2019-09-28 21:44] VITALS: BP 180/79
== END 2019-09-28 21:46 | disposition left against medical advice (07) ==
LOC: FSED 18:11
DX: R42 Dizziness and giddiness (principal); S06.0X0A Concussion without loss of consciousness, initial encounter; I48.92 Unspecified atrial flutter; K52.9 Noninfective gastroenteritis and colitis, unspecified; W18.30XA Fall on same level, unspecified, initial encounter; Y92.015 Private garage of single-family (private) house as the place of occurrence of the external cause; E87.6 Hypokalemia; I10 Essential (primary) hypertension; E11.9 Type 2 diabetes mellitus without complications; J44.9 Chronic obstructive pulmonary disease, unspecified; E78.5 Hyperlipidemia, unspecified; F17.210 Nicotine dependence, cigarettes, uncomplicated
CPT/HCPCS: 70450; 71046; 72125; 80053; 81003; 82553; 84484; 85025; 93005; 99284; J8597

== ENCOUNTER 2019-12-02 09:45 | Emergency (ER) | payer MEDICARE ==
[~2019-12-02] VITALS: Ht 188 cm; Wt 81.6 kg
--- NOTE | 2019-12-02 10:25 | NUR ---
ATTEMPTED TO FLUSH CALDWELL WITH IRRIGATION UNABLE TO FLUSH, REMOVED CALDWELL, CALDWELL INTACT, PLACED NEW 18FRENCH CALDWELL, BLADDER DRAINING WITH LIGHT JIM URINE WITH SEDIMENT, 750MLS DRAINED, PT VERBALIZES RELIEF, PT STATED PAIN IS BETTER.
== END 2019-12-02 11:01 | disposition home or self-care (01) ==
LOC: FSED 09:45
DX: R33.9 Retention of urine, unspecified (principal); N40.1 Benign prostatic hyperplasia with lower urinary tract symptoms
CPT/HCPCS: 51700; 51702; 99283

== ENCOUNTER 2019-12-13 18:36 | Emergency (ER) | payer MEDICARE ==
[~2019-12-13] VITALS: Ht 188 cm; Wt 83.2 kg
--- NOTE | 2019-12-13 19:19 | NUR ---
jang cath repositions and is now draining yellow urine. pt states he is to have surgery within a month.
--- NOTE | 2019-12-13 19:30 | NUR ---
jang leg bag changed. jang cath is draining at this time
[2019-12-13] MEDS ORDERED: CEFDINIR300 MG PO (20:51)
[2019-12-13] MEDS ORDERED: CEPHALEXIN 500 MG CAP PO SCH (21:00)
== END 2019-12-13 21:27 | disposition home or self-care (01) ==
LOC: FSED 18:36
DX: R33.9 Retention of urine, unspecified (principal); N30.91 Cystitis, unspecified with hematuria; N40.1 Benign prostatic hyperplasia with lower urinary tract symptoms; E11.65 Type 2 diabetes mellitus with hyperglycemia; I10 Essential (primary) hypertension; F17.210 Nicotine dependence, cigarettes, uncomplicated
CPT/HCPCS: 87086; 87186; 99282

== ENCOUNTER 2020-01-01 09:18 | Observation (INO) | payer MEDICARE ==
[2019-12-30 15:46] LABS: BASOPHILS % 0.4 % (0.0-1.0); EOSINOPHILS # (AUTO) 0.2 (0.0-0.4); EOSINOPHILS % 2.6 % (0.0-6.0); HEMATOCRIT 41.7 % (38.2-49.6); HEMOGLOBIN 13.8 g/dL (14.0-18.0); LYMPHOCYTES # (AUTO) 1.2 (1.0-3.2); LYMPHOCYTES % 15.1 % (18.0-39.1); MEAN CORPUSCULAR HEMOGLOBIN 30.1 pg (28-32); MEAN CORPUSCULAR HGB CONC 33.1 g/dL (31-35); MEAN CORPUSCULAR VOLUME 90.8 fL (81-99); MONOCYTES # (AUTO) 0.6 (0.2-0.8); MONOCYTES % 8.1 % (4.4-11.3); NEUTROPHILS # (AUTO) 5.8 (2.1-6.9); NEUTROPHILS % 73.4 % (38.7-80.0); PLATELET COUNT 199 x10e3/uL (140-360); RED BLOOD COUNT 4.59 x10e6/uL (4.3-5.7); RED CELL DISTRIBUTION WIDTH 14.3 % (11.7-14.4)
[2019-12-30 16:00] LABS: INR 1.06; PARTIAL THROMBOPLASTIN TIME 34.5 seconds (23.8-35.5); PROTHROMBIN TIME 14.5 seconds (11.9-14.5)
[2019-12-30 16:08] LABS: ALBUMIN 3.8 g/dL (3.5-5.0); CALCIUM 9.9 mg/dL (8.4-10.2); CREATININE, SERUM 1.36 mg/dL (0.72-1.25)
--- NOTE | 2019-12-30 16:30 | NUR ---
Dr. Rodriguez notified of creatinine 1.36 and eGFR 51. No new orders at this time.
[~2020-01-01] VITALS: Ht 188 cm; Wt 81.6 kg
[2020-01-01] VITALS (13 sets, daily range): BP systolic 112–197; BP diastolic 69–100
[~2020-01-01 09:18] MED LIST changes: +ASPIRIN325 MG PO; +ATORVASTATIN CA20 MG PO; +CEFDINIR300 MG PO; +EFFER-K 10 MEQ10 MEQ PO; +METOPROLOL TART25 MG PO; +VITAMIN D PO
[2020-01-01] MEDS ORDERED: POTASSIUM CHLO10 ME1 PO (11:07)
[2020-01-01] MEDS ORDERED: ASPIRIN 325 MG TAB ONE (11:40)
--- NOTE | 2020-01-01 12:00 | NUR ---
1200 Complete and ready for procedure. Handoff to Marcelo PRITCHARD ds/rn
[2020-01-01] MEDS ORDERED: FENTANYL CITRATE/PF 100MCG/2 ML INJ ONE (12:06)
[2020-01-01] MEDS ORDERED: MIDAZOLAM HCL 2 MG/2 ML VIAL ONE (12:06)
[2020-01-01] MEDS ORDERED: LIDOCAINE HCL 2% LOCAL 20 ML VIAL ONE (12:06)
[2020-01-01] MEDS ORDERED: IOPAMIDOL 370 MG/ML 200 ML INFUS..BTL INJ ONE (12:07)
[2020-01-01] MEDS ORDERED: SODIUM CHLORIDE 0.9% 1000ML 1,000 ML ONE (12:07)
[2020-01-01] MEDS ORDERED: HEPARIN SOD/SOD CHLORIDE 2,000 ML ONE (12:07)
[2020-01-01] MEDS ORDERED: VERAPAMIL HCL 2.5 MG/ML 2 ML VIAL ONE (12:08)
--- NOTE | 2020-01-01 16:00 | NUR ---
1600p spoke with Dr Rodriguez pt may pull sheath below 180. Ok to have light snack. Report agitation Bladder bag drawing urine. Iv positonal to lseft arm but patent. 1430 ACT 255 1530 ACT 195 Tele Obsv. bed ordered for remainder down time ds/rn
--- NOTE | 2020-01-01 16:30 | NUR ---
1630P Act 175 Notified staff forester. Pt has no gross issues pain,pallor. Bp a little elevated in diastolic do to agitation off and on wanting to eat. House Supv. has bed 109 available. Carole PRITCHARD cath Nursing policy change clerks supervisor aware of situation. ramírez/rn
--- NOTE | 2020-01-01 17:00 | NUR ---
1700p Act 162 informed Labor Arbitrator. Technologist Sheath pull performed 20 min manual pull and Tegaderm dressing and 2x2 applied. Stasis achieved. No gross issues pain,pallor b/p alittle elevated and floor nurse will start home medication for b/p. Aware to call Dr Rodriguez for further assistance.Transported to floor per stretcher Tele report given and handoff to Ezekiel Gtz .Left pt in room with call light at bedside there and bed lock in low position. DC plans given to and reviewed groin site care. Has copies of CD and Md diagram and aware of importance of f/o care. Left iv infused and site to left ac patent.No further flluids necessary. Diet tray in room and will assist aware down till 845pm and may dc home.ramírez/ezekiel
--- NOTE | 2020-01-01 18:15 | NUR ---
received to room pt aaox3 no distress noted updated on poc voiced understanding, dsg to right groin c/d/i, soft nontender, pedal pulses palpable, l ac 20g no ss of infiltration noted, denies pain at this time, call light in reach will continue to monitor
[2020-01-01] MEDS ORDERED: METOPROLOL TARTRATE 25 MG TAB PO SCH (18:45)
--- NOTE | 2020-01-01 19:22 | NUR ---
Received bedside report from day nurse. Patient resting flat in bed, no s/s of distress, bleeding, or c/o pain at this time. All safety measures in place. Family at bedside. Will continue to monitor.
[2020-01-01] MEDS ORDERED: ATORVASTATIN 20 MG TAB PO SCH (21:00)
--- NOTE | 2020-01-01 21:02 | NUR ---
Per MD's written orders, patient okay to DC home after 2044. Patient in stable condition, no s/s of distress or c/o pain at this time. All safety measures in place. Family at bedside. Pending DC home.
[2020-01-02] MEDS ORDERED: POTASSIUM CHLORIDE 10MEQ EA PO SCH (09:00)
[2020-01-02] MEDS ORDERED: ASPIRIN 325 MG TAB PO SCH (09:00)
--- NOTE | 2020-01-02 10:52 | Operative Report ---
DATE OF PROCEDURE: 01/01/2020 SURGEON: Trevor Johnson MD INDICATION: Angina pectoris and abnormal stress test with severe systolic heart failure. PROCEDURE PERFORMED: 1. Left heart catheterization. 2. Selective coronary angiography. ESTIMATED BLOOD LOSS: Less than 15 mL. PROCEDURE SUMMARY: After consent was obtained, the patient was prepped and draped in a sterile fashion. The right femoral site was locally infiltrated with 2% lidocaine and with micropuncture kit, a 6-Latvian sheath was placed. A pigtail catheter was used to cross the aortic valve for the left main, several catheters were used due to wide ascending aorta and with horizontalized position. The following catheters were used, JL4, JL5, XBLAD 4.0. Guide catheters were also attempted, AL2 and AL1. JR4 6-Latvian catheter was used for the right coronary artery. FINDINGS: These were the following findings: 1. LV pressure was 160/8 with end-diastolic pressure of 27. 2. Aortic pressure was 153/86. 3. The ascending aorta seems somewhat dilated and calcified. 4. Left main is large in caliber with luminal irregularities giving an LAD and circumflex. 5. LAD after 1st small caliber diagonal has an area of 70% tubular stenosis following which a medium caliber 2nd diagonal and additional septal perforators arise. The LAD courses to the apex where it wraps around and ends. 6. The left main also gives rise to a circumflex artery, which is medium in caliber with luminal irregularities and gives an obtuse marginal. 7. The right coronary artery is large in caliber in the proximal to mid segment, it has an area of focal eccentric 60 to 70% stenosis. It gives a left posterior descending artery and left PDA. 8. LV-gram reveals severe impairment in left ventricular systolic function with left ventricular ejection fraction of 25%. CONCLUSION: 1. Peripheral arterial disease and severe multivessel coronary artery disease with 70% LAD, 60 to 70% eccentric RCA. 2. Severe systolic heart failure. RECOMMENDATIONS: Outpatient surgical evaluation for consideration of aortocoronary bypass versus high risk PCI with mechanical support. Complex anatomy of left main engagement achieved with some difficulty using an AL2 with best alignment of all other attempted guides. Trevor Johnson MD AFV/JAELYN /[id number]
== END 2020-01-01 21:18 | disposition home or self-care (01) ==
LOC: CATH LAB 09:18 → MED/SURG 16:18
PROVIDERS: ADMIT Internal Medicine Cardiovascular Disease; ATTEND Internal Medicine Cardiovascular Disease
DX: I25.119 Atherosclerotic heart disease of native coronary artery with unspecified angina pectoris (principal); I73.9 Peripheral vascular disease, unspecified; I11.0 Hypertensive heart disease with heart failure; I50.20 Unspecified systolic (congestive) heart failure; E78.5 Hyperlipidemia, unspecified; Z01.812 Encounter for preprocedural laboratory examination; Z79.82 Long term (current) use of aspirin
CPT/HCPCS: 36415; 80053; 80061; 82948; 85025; 85610; 85730; 93458; 99152; 99153; C1769; G0378; J2001; J2250; J3010; J7030; Q9967

== ENCOUNTER 2020-02-22 17:56 | Emergency (ER) | payer MEDICARE ==
[~2020-02-22] VITALS: Ht 188 cm; Wt 81.6 kg
[~2020-02-22 17:56] MED LIST changes: +POTASSIUM CHLO10 ME1 PO
--- NOTE | 2020-02-22 19:05 | NUR ---
REC'D REPORT FROM OFF GOING NS.
[2020-02-22] MEDS ORDERED: GENTAMICIN 80MG/NS 100 ML 50 ML IV SCH (21:00)
[2020-02-22] MEDS ORDERED: AMOXICILLIN/CLAVULANATE K 500 MG TAB PO SCH (21:00)
[2020-02-22] MEDS ORDERED: AMOXICILLIN/CLAVULANATE K 875 MG TAB ONE (21:16)
[2020-02-22] MEDS ORDERED: AMOXICILLIN/CLAVULANATE K 875 MG TAB PO STA (21:28)
[2020-02-22] MEDS ORDERED: GENTAMICIN 80MG/NS 100 ML 200 ML IV SCH (21:30)
[2020-02-22] MEDS ORDERED: GENTAMICIN SULFATE 40 MG/ML 2 ML VIAL ONE (21:36)
[2020-02-22] MEDS ORDERED: GENTAMICIN 80MG/NS 100 ML 100 ML IV SCH (22:00)
[2020-02-22] MEDS ORDERED: SODIUM CHLORIDE 0.9% 200 ML ONE (22:18)
[2020-02-22] MEDS ORDERED: AUGMENTIN 875-1 EACH PO (22:42)
[2020-02-22 23:50] VITALS: BP 161/90
== END 2020-02-22 23:50 | disposition home or self-care (01) ==
LOC: FSED 17:56
DX: R33.9 Retention of urine, unspecified (principal); N30.91 Cystitis, unspecified with hematuria; N40.0 Benign prostatic hyperplasia without lower urinary tract symptoms; I50.22 Chronic systolic (congestive) heart failure; I10 Essential (primary) hypertension
CPT/HCPCS: 80048; 80076; 81003; 85025; 87086; 87186; 96365; 99283; J1580; J7050

== ENCOUNTER 2020-05-28 06:46 | Emergency (ER) | payer MEDICARE ==
[~2020-05-28] VITALS: Ht 188 cm; Wt 81.6 kg
[~2020-05-28 06:46] MED LIST changes: +AUGMENTIN 875-1 EACH PO
[2020-05-28] MEDS ORDERED: SODIUM CHLORIDE 0.9% 500ML 500 ML IV STA (07:27)
[2020-05-28] MEDS ORDERED: MORPHINE SULFATE INJ 4 MG/ML INJ 1ML IV STA (07:27)
[2020-05-28] MEDS ORDERED: PIPER-TAZ 3.375 GM 50 ML IV ONE (07:30)
[2020-05-28] MEDS ORDERED: ONDANSETRON HCL INJ 2MG/ML 2ML 2 MG/ML VIAL IV ONE (07:30)
[2020-05-28] MEDS ORDERED: KETOROLAC TROMETHAMINE 30 MG/ML VIAL IV ONE (07:30)
--- NOTE | 2020-05-28 07:35 | Emergency Department Note ---
History of Present Illnes History of Present Illness Chief Complaint: Genitourinary History of Present Illness This is a 75 year old male hx of UTI, BPH c/o severe bladder pain for several days. Past Medical History Hypertension, Diabetes, CHF, A-Fib Other Medical History BPH Past Surgical History: None . Arrival Mode: Car Litigation Legal Secretary Required: No Onset (how long ago): day(s) Radiation: Reports distal Severity: severe Duration (how long): hour(s) Progression: worsening Relieving factors: none Exacerbating factors: none Treatments prior to arrival: none Previous service: medications given, tests performed Past Medical/Family History Physician Review I have reviewed the patient's past medical and family history. Any updates have been documented here. Past Medical History Recent Fever: No Clinical Suspicion of Infectio: No New/Unexplained Change in Ment: No Past Medical History: Hypertension, Diabetes, CHF, A-Fib Other Medical History: BPH Past Surgical History: None Social History Smoking Cessation: Current every day smoker Counseling Performed: No Alcohol Use: None Any Illegal Drug Use: No Physically hurt or threatened: No Other Last Tetanus: utd Any Pre-Existing Lines (PICC,: No Review of Systems Review of Systems Constitutional: Reports no symptoms EENTM: Reports no symptoms Cardiovascular: Reports no symptoms Respiratory: Reports no symptoms Gastrointestinal: Reports no symptoms Genitourinary: Reports as per HPI, Reports dysuria, Reports pain Musculoskeletal: Reports no symptoms Integumentary: Reports no symptoms Neurological: Reports no symptoms Psychological: Reports no symptoms Endocrine: Reports no symptoms Hematological/Lymphatic: Reports no symptoms Physical Exam Related Data Allergies: Coded Allergies: No Known Allergies (Unverified , 05/09/19) Vital signs reviewed: Yes Physical Exam CONSTITUTIONAL Constitutional: Present well-developed, Present distressed HENT HENT: Present normocephalic, Present atraumatic, Present oropharynx clear/moist, Present nose normal HENT L/R: Present left ext ear normal, Present right ext ear normal EYES Eyes: Reports PERRL, Reports conjunctivae normal NECK Neck: Present ROM normal PULMONARY Pulmonary: Present effort normal, Present breath sounds normal CARDIOVASCULAR Cardiovascular: Present irregular rhythm, Present heart sounds normal, Present capillary refill normal, Present normal rate GASTROINTESTINAL Abdominal: Present soft, Present nontender, Present bowel sounds normal GENITOURINARY Genitourinary: Present penis normal, Present other (Caldwell not flushing) SKIN Skin: Present warm, Present dry MUSCULOSKELETAL Musculoskeletal: Present ROM normal NEUROLOGICAL Neurological: Present alert, Present oriented x 3, Present no gross motor or sensory deficits PSYCHOLOGICAL Psychological: Present mood/affect normal, Present judgement normal Results Laboratory Lab results reviewed: Yes Laboratory comments UTI Assessment & Plan Medical Decision Making MDM MALFUNCTION CALDWELL, NEEDS REPLACEMENT Reassessment Reassessment time: 08:42 Reassessment doing much better after the Caldwell replaced and flushed well Assessment & Plan Final Impression: (1) Hemorrhagic cystitis (2) Obstructed Caldwell catheter Depart Disposition: HOME, SELF-skilled nursing Meds Active Scripts Ondansetron Hcl* (ZOFRAN*) 4 Mg Tablet, 4 MG SL Q6H PRN for NAUSEA, #14 MG 0 Refills Prov:LILY BRIAN MD 05/28/20 Ibuprofen (IBUPROFEN IB) 200 Mg Tablet, 3 TAB PO Q6H PRN for pain, #90 Prov:LILY BRIAN MD 05/28/20 Acetaminophen/Codeine* (TYLENOL # 3*) 1 Ea Tab, 1 TAB PO Q4HR PRN for pain or cough, #30 Prov:LILY BRIAN MD 05/28/20 Amoxicillin/Potassium Clav (AUGMENTIN 875-125 TABLET) 1 Each Tablet, 500 TAB PO TID for urinary tract infection for 10 Days, #30 TAB 0 Refills Prov:JULIA ROMAN MD 02/22/20 Reported Medications Potassium Chloride (POTASSIUM CHLORIDE) 10 Meq Tab.er.prt, 10 MEQ PO DAILY, TAB 01/01/20 Atorvastatin Calcium (ATORVASTATIN CALCIUM) 20 Mg Tablet, 40 MG PO DAILY, #30 TAB 12/30/19 Metoprolol Tartrate (METOPROLOL TARTRATE) 25 Mg Tablet, 25 MG PO BID, TAB 12/30/19 Aspirin (ASPIRIN) 325 Mg Tablet, 325 MG PO DAILY, #30 TAB 12/30/19 Physician Attestation Provider Attestation MANAGER SAP Rx score: no record LILY BRIAN MD May 28, 2020 07:35
[2020-05-28] MEDS ORDERED: ZOFRAN4 MG SL (07:39)
[2020-05-28] MEDS ORDERED: IBUPROFEN IB200 MG PO (07:39)
[2020-05-28] MEDS ORDERED: TYLENOL # 31 EA PO (07:39)
[2020-05-28] MEDS ORDERED: SODIUM CHLORIDE 0.9% 500ML 500 ML ONE (07:44)
--- NOTE | 2020-05-28 08:00 | NUR ---
attempted to flush jang with 20cc ns, unable to flush. MD informed and order to change cath given. after new 18f jang placed 450 cc of dark urine flowing. pt states relief noted.
[2020-05-28 08:49] VITALS: BP 108/70
--- OUTSIDE RECORDS SUMMARY | 2020-05-29 20:32 | XMS REPORT | Continuity of Care Document ---
Author Author [facility] t Organization [facility] Address [address] [place] [address] Phone Unavailable Care Team Providers Care Grain Origination Specialist Name Role Phone MD Benny KRUEGER MD PCP DELPHINE KRAFT Unavailable Payers Payer Name Policy Type Policy Number Effective Date Expiration Date Benny Khan Medicare Replacement [id number] 2017 00:00:00 [facility] Problems Condition Name Condition Details Condition Category Status Onset Date Resolution Date Last Treatment Date Treating Clinician Comments Source Hemorrhagic cystitis Problem Active [facility] Allergies, Adverse Reactions, Alerts Allergy Name Allergy Type Status Severity Reaction(s) Onset Date Inacti ve Date Treating Clinician Comments Source No Known Allergies DA Active U 2019-07-11 00:00:00 [facility] Social History Social Habit Start Date Stop Date Quantity Comments Source Sex Assigned At [birth year] 00[birth year]:00 Male [facility] Medications Ordered Medication Name Filled Medication Name Start Date Stop Da te Current Medication? Ordering Clinician Indication Dosage Frequency Signature (SIG) Comments Components Source Acetaminophen/Codeine Phosphate (Tylenol # 3*) 1 Ea TA B Acetaminophen/Codeine Phosphate (Tylenol # 3*) 1 Ea TAB 2020-05-28 07:39:00 Yes 1 Every 4 Hours as needed for Pain Or Cough [facility] Ibuprofen (Ibuprofen Ib) 200 Mg TABLET Ibuprofen (Ibuprofen Ib) 200 Mg TABLET 2020-05-28 07:39:00 Yes 3 Every 6 Hours as n eeded for Pain [facility] Ondansetron Hcl (Zofran*) 4 Mg TABLET Ondansetron Hcl (Zofra n*) 4 Mg TABLET 2020-05-28 07:39:00 Yes 4 Every 6 Hours as n eeded for Nausea [facility] Amoxicillin/Potassium Clav (Augmentin 875-125 Tablet) 1 Each TABLET Amoxicillin/Potassium Clav (Augmentin 875-125 Tablet) 1 Each TABLET 2020-02-22 22:42:00 Yes 500 Three Times A Day for Urinary Tract Infection [facility] Cefdinir (Omnicef) 300 Mg CAPSULE Cefdinir (Omnicef) 300 Mg CAPSULE 2019-12-13 19:51:00 2019-12-30 00:00:00 No 300 Twice A Day [facility] Cefuroxime Axetil (Cefuroxime) 250 Mg TABLET Cefuroxim e Axetil (Cefuroxime) 250 Mg TABLET 2019-05-09 11:18:00 2019-12-30 00:00:00 No 250 Every 12 Hours [facility] Tamsulosin Hcl (Flomax*) 0.4 Mg CAP Tamsulosin Hcl (Flomax*) 0.4 Mg CAP 2019-05-09 11:18:00 2019-12-30 00:00:00 No .4 Daily [facility] Aspirin Aspirin Yes 325 Daily [facility] Atorvastatin Calcium Atorvastatin Calcium Yes 40 Daily [facility] Metoprolol Tartrate Metoprolol Tartrate Yes 25 Twice A Day [facility] Potassium Chloride Potassium Chloride Yes 10 Da christie [facility] Potassium Bicarbonate/Cit Ac (Effer-K 10 Meq Tablet Ef f) 10 Meq TABLET.EFF Potassium Bicarbonate/Cit Ac (Effer-K 10 Meq Tablet Eff) 10 Meq TABLET.EFF 2020-01-01 00:00:00 No 1 Daily [facility] Tamsulosin Hcl (Flomax*) 0.4 Mg CAP Tamsulosin Hcl (Flomax*) 0.4 Mg CAP 2020-01-01 00:00:00 No .4 Daily [facility] Vitamin D Vitamin D 2019-12-30 00:00:00 No [id number] [facility] Vital Signs Vital Name Observation Time Observation Value Comments Source Weight 2020-05-28 07:27:00 180 [lb_av] [facility] BMI (Body Mass Index) 2020-05-28 07:27:00 23.1 kg/m2 [facility] Body Temperature 2020-02-22 23:50:00 98.6 [degF] [facility] Procedures Procedure Date / Time Performed Performing Clinician Chandu e L HRT ARTERY/VENTRICLE ANGIO 2020-01-01 00:00:00 [facility] INSERT TEMP BLADDER CATH 2019-12-13 00:00:00 [facility] Plan of Care Planned Activity Planned Date Details Comments Source Instructions Urena Catheter Care [facility] Instructions Urinary Tract Infection - Men [facility] Encounters Start Date/Time End Date/Time Encounter Type Admission Type [facility] Care Department Encounter ID Source 2020-05-28 07:35:00 2020-05-28 08:51:00 Departed Emergency Room [facility] [id number] [facility] 2020-02-22 17:56:00 2020-02-22 23:50:00 Departed Emergency Room [facility] [id number] [facility] 2020-01-01 15:18:00 2020-01-01 20:18:00 Discharged Inpatient (obs) [facility] [id number] [facility] edical [place] 2019-12-13 17:36:00 2019-12-13 20:27:00 Departed Emergency Room [facility] [id number] [facility] 2019-12-02 08:45:00 2019-12-02 10:01:00 Departed Emergency Room [facility] [id number] [facility] 2019-09-28 17:11:00 2019-09-28 20:46:00 Departed Emergency Room 1 DELPHINE KRAFT [facility] [id number] JOSE GUADALUPE I [facility] 2019-05-09 08:42:00 2019-05-09 12:29:[address] [facility] [id number] [facility] Results Test Description Test Time Test Comments Results Result Comments Source GLUBED 2020-03-11 15:29:00 Test Item GLUBED (test code = GLUBED) 123 mg/dL 74-106 H Performed by certified pile operator at [facility] [id number] 05:27:00* Test Item Value Reference Range Interpretation Comments GLUBED (test code = GLUBED) 165 mg/dL 74-106 H Performed by certified pile operator at [facility] BASIC METABOLIC [id number] 18:56:00* Test Item Value Reference Range Interpretation Comments SODIUM (test code = NA) 146 mmol/L 136-145 H POTASSIUM (test code = K) 4.1 mmol/L 3.5-5.1 N CHLORIDE (test code = CL) 113.0 mmol/L 98-107 H CARBON DIOXIDE (test code = CO2) 28.0 mmol/L 21-32 N ANION GAP (test code = GAP) 9.1 10-20 L GLUCOSE (test code = GLU) 101 mg/dL 74-106 N BLOOD UREA NITROGEN (test code = BUN) 19 mg/dL 7-18 H GLOMERULAR FILTRATION RATE (test code = GFR) > 60 mL/min >=60 Estimated GFR by using Modified MDRD formula.Chronic kidney disease is defined as either kidney damageor GFR <60 mL/min/1.73 m2 for >3 months. CREATININE (test code = CREAT) 1.10 mg/dL 0.7-1.3 N BUN/CREATININE RATIO (test code = BUN/CREA) 17.3 10-20 N CALCIUM (test code = CA) 8.8 mg/dL 8.5-10.1 N CBC W/AUTO [id number] 18:42:00* Test Item Value Reference Range Interpretation Comments WHITE BLOOD CELL (test code = WBC) 6.2 K/mm3 4.5-12.5 N RED BLOOD CELL (test code = RBC) 4.47 mill/mm3 4.0-5.8 N HEMOGLOBIN (test code = HGB) 13.3 gram/dL 13.0-17.5 N HEMATOCRIT (test code = HCT) 40.8 % 42.0-52.0 L MEAN CELL VOLUME (test code = MCV) 91.3 fL 80-98 N MEAN CELL HGB (test code = MCH) 29.8 picogram 27.0-33.0 N MEAN CELL HGB CONCETRATION (test code = MCHC) 32.6 gram/dL 33.0-36. 0 L RED CELL DISTRIBUTION WIDTH (test code = RDW) 14.2 % 11.6-16. 2 N RED CELL DISTRIBUTION WIDTH SD (test code = RDW-SD) 46.7 fL 37 .0-51.0 N PLATELET COUNT (test code = PLT) 151 K/mm3 150-450 N MEAN PLATELET VOLUME (test code = MPV) 10.3 fL 6.7-11.0 N NEUTROPHIL % (test code = NT%) 67.1 % 39.0-69.0 N IMMATURE GRANULOCYTE % (test code = IG%) 0.5 % 0.0-5.0 N LYMPHOCYTE % (test code = LY%) 20.0 % 25.0-55.0 L MONOCYTE % (test code = MO%) 8.7 % 0.0-10.0 N EOSINOPHIL % (test code = EO%) 3.1 % 0.0-5.0 N BASOPHIL % (test code = BA%) 0.6 % 0.0-1.0 N NUCLEATED RBC % (test code = NRBC%) 0.0 % 0-0 N NEUTROPHIL # (test code = NT#) 4.17 K/mm3 1.8-7.7 N IMMATURE GRANULOCYTE # (test code = IG#) 0.03 x10 3/uL 0-0.03 N LYMPHOCYTE # (test code = LY#) 1.24 K/mm3 1.0-5.0 N MONOCYTE # (test code = MO#) 0.54 K/mm3 0-0.8 N EOSINOPHIL # (test code = EO#) 0.19 K/mm3 0.0-0.5 N BASOPHIL # (test code = BA#) 0.04 K/mm3 0.0-0.2 N NUCLEATED RBC # (test code = NRBC#) 0.00 K/mm3 0.0-0.1 N [id number] 17:59:00* Test Item Value Reference Range Interpretation Comments GLUBED (test code = GLUBED) 91 mg/dL 74-106 N Performed by certified pile operator at [facility] [id number] 13:40:00* Test Item Value Reference Range Interpretation Comments GLUBED (test code = GLUBED) 140 mg/dL 74-106 H Performed by certified pile operator at [facility] Novel Coronavirus 2019 [id number] 13:40:00* Test Item Value Reference Range Interpretation Comments Novel Coronavirus 2019 Inhouse (test code = COVNONPUI) Negative Negative Testing Criteria: Preprocedure ScreeningNovel Coronavirus 2019 Inhouse 2020-03-10 13:40:00* Test Item Value Reference Range Interpretation Comments Novel Coronavirus 2019 Inhouse (test code = COVNONPUI) Negative Negative SENT TO 03/09/20Testing Criteria: Preprocedure ScreeningTesting Criteria: Preprocedure ScreeningCOAGULATION TIME [id number] 11:58:00* Test Item Value Reference Range Interpretation Comments COAGULATION TIME ACTIVATED (test code = ACT) 275 seconds 62.8-88.0 H COAGULATION TIME [id number] 11:58:00* Test Item Value Reference Range Interpretation Comments COAGULATION TIME ACTIVATED (test code = ACT) 286 seconds 62.8-88.0 H [id number] 10:48:00* Test Item Value Reference Range Interpretation Comments GLUBED (test code = GLUBED) 99 mg/dL 74-106 N Performed by certified pile operator at [facility] Coronavirus 2019 nCoV [id number] 10:01:00* Test Item Value Reference Range Interpretation Comments Coronavirus 2019 nCoV Bedside (test code = COVNONPUIBED) Negative COMPREHENSIVE METABOLIC [id number] 11:21:00* Test Item Value Reference Range Interpretation Comments SODIUM (test code = NA) 140 mmol/L 136-145 N POTASSIUM (test code = K) 3.7 mmol/L 3.5-5.1 N CHLORIDE (test code = CL) 106.0 mmol/L 98-107 N CARBON DIOXIDE (test code = CO2) 27.0 mmol/L 21-32 N ANION GAP (test code = GAP) 10.7 10-20 N GLUCOSE (test code = GLU) 110 mg/dL 74-106 H BLOOD UREA NITROGEN (test code = BUN) 17 mg/dL 7-18 N GLOMERULAR FILTRATION RATE (test code = GFR) 59 mL/min >=60 Estimated GFR by using Modified MDRD formula.Chronic kidney disease is defined as either kidney damageor GFR <60 mL/min/1.73 m2 for >3 months. CREATININE (test code = CREAT) 1.20 mg/dL 0.7-1.3 N BUN/CREATININE RATIO (test code = BUN/CREA) 14.2 10-20 N TOTAL PROTEIN (test code = PROT) 8.4 gram/dL 6.4-8.2 H ALBUMIN (test code = ALB) 3.9 g/dL 3.4-5.0 N GLOBULIN (test code = GLOB) 4.5 gram/dL 2.7-4.2 H ALBUMIN/GLOBULIN RATIO (test code = A/G) 0.9 0.75-1.50 N CALCIUM (test code = CA) 9.4 mg/dL 8.5-10.1 N BILIRUBIN TOTAL (test code = BILT) 0.90 mg/dL 0.0-1.0 N SGOT/AST (test code = AST) 28 IUnit/L 15-37 N SGPT/ALT (test code = ALT) 26 IUnit/L 12-78 N ALKALINE PHOSPHATASE TOTAL (test code = ALKP) 246 IUnit/L 45-117 H Note change in reference range due to change in reagent. LIPID PROFILE (CORONARY RISK)2020-03-09 11:21:00* Test Item Value Reference Range Interpretation Comments TRIGLYCERIDES (test code = TRIG) 100 mg/dL 20-150 N CHOLESTEROL (test code = CHOL) 122 mg/dL 0-200 N CHOLESTEROL/HDL RATIO (test code = CHOLHDL) 2.0 RATIO 0-4.9 N RISK ASSOCIATED WITH CHOL/HDL RATIOS: Risk Male Female1/2 AVERAGE 3.43 3.27AVERAGE 4.97 4.442X AVERAGE 9.55 7.053X AVERAGE 23.39 11.04 REFERENCE VALUE IS RELATED TO RISK LEVELS ASRECOMMENDED BY THE [facility]. HEART, LUNG, AND BLOOD INST. HDL CHOLESTEROL (test code = HDL) 42 mg/dL 40-60 N LIPOPROTEIN LDL (test code = LDL) 64 mg/dL 100-129 L Reference Interval: mg/dL mmol/L Optimal <100 <2.6Near/above optimal 100-129 2.6- 3.3Borderline High 130-159 3.4-4.1High 160-189 4.1-4.9Very High >=190 >=4.9========= This LDL result is a direct measurement.========= PROTHROMBIN [id number] 11:17:00* Test Item Value Reference Range Interpretation Comments PROTHROMBIN TIME PATIENT (test code = PTP) 12.9 seconds 9.0-14.0 N INTERNATIONAL NORMAL RATIO (test code = INR) 1.1 0.8-1.2 N The therapeutic range for oral anticoagulant therapy [...] (2.5-3.5) IS PATIENT ON ANTICOAGULANTS? NTHROMBOPLASTIN TIME [id number] 11:17:00* Test Item Value Reference Range Interpretation Comments THROMBOPLASTIN TIME PARTIAL (test code = PTT) 37.0 seconds 23.0-37. 0 N IS PATIENT ON ANTICOAGULANTS? NCOMPREHENSIVE METABOLIC [id number] 11:06:00 * Test Item Value Reference Range Interpretation Comments SODIUM (test code = NA) 140 mmol/L 136-145 N POTASSIUM (test code = K) 3.7 mmol/L 3.5-5.1 N CHLORIDE (test code = CL) 106.0 mmol/L 98-107 N CARBON DIOXIDE (test code = CO2) mmol/L 21-32 ANION GAP (test code = GAP) 10-20 GLUCOSE (test code = GLU) mg/dL 74-106 BLOOD UREA NITROGEN (test code = BUN) mg/dL 7-18 GLOMERULAR FILTRATION RATE (test code = GFR) mL/min >=60 CREATININE (test code = CREAT) mg/dL 0.7-1.3 BUN/CREATININE RATIO (test code = BUN/CREA) 10-20 TOTAL PROTEIN (test code = PROT) gram/dL 6.4-8.2 ALBUMIN (test code = ALB) g/dL 3.4-5.0 GLOBULIN (test code = GLOB) gram/dL 2.7-4.2 ALBUMIN/GLOBULIN RATIO (test code = A/G) 0.75-1.50 CALCIUM (test code = CA) mg/dL 8.5-10.1 BILIRUBIN TOTAL (test code = BILT) mg/dL 0.0-1.0 SGOT/AST (test code = AST) IUnit/L 15-37 SGPT/ALT (test code = ALT) IUnit/L 12-78 ALKALINE PHOSPHATASE TOTAL (test code = ALKP) IUnit/L 45-117 LIPID PROFILE (CORONARY RISK)2020-03-09 11:06:00* Test Item Value Reference Range Interpretation Comments TRIGLYCERIDES (test code = TRIG) mg/dL 20-150 CHOLESTEROL (test code = CHOL) mg/dL 0-200 CHOLESTEROL/HDL RATIO (test code = CHOLHDL) RATIO 0-4.9 HDL CHOLESTEROL (test code = HDL) mg/dL 40-60 LIPOPROTEIN LDL (test code = LDL) mg/dL 100-129 CBC W/AUTO [id number] 11:05:00* Test Item Value Reference Range Interpretation Comments WHITE BLOOD CELL (test code = WBC) 7.1 K/mm3 4.5-12.5 N RED BLOOD CELL (test code = RBC) 5.01 mill/mm3 4.0-5.8 N HEMOGLOBIN (test code = HGB) 14.8 gram/dL 13.0-17.5 N HEMATOCRIT (test code = HCT) 44.8 % 42.0-52.0 N MEAN CELL VOLUME (test code = MCV) 89.4 fL 80-98 N MEAN CELL HGB (test code = MCH) 29.5 picogram 27.0-33.0 N MEAN CELL HGB CONCETRATION (test code = MCHC) 33.0 gram/dL 33.0-36. 0 N RED CELL DISTRIBUTION WIDTH (test code = RDW) 13.9 % 11.6-16. 2 N RED CELL DISTRIBUTION WIDTH SD (test code = RDW-SD) 44.9 fL 37 .0-51.0 N PLATELET COUNT (test code = PLT) 182 K/mm3 150-450 N MEAN PLATELET VOLUME (test code = MPV) 10.6 fL 6.7-11.0 N NEUTROPHIL % (test code = NT%) 73.2 % 39.0-69.0 H IMMATURE GRANULOCYTE % (test code = IG%) 0.3 % 0.0-5.0 N LYMPHOCYTE % (test code = LY%) 17.0 % 25.0-55.0 L MONOCYTE % (test code = MO%) 7.0 % 0.0-10.0 N EOSINOPHIL % (test code = EO%) 1.8 % 0.0-5.0 N BASOPHIL % (test code = BA%) 0.7 % 0.0-1.0 N NUCLEATED RBC % (test code = NRBC%) 0.0 % 0-0 N NEUTROPHIL # (test code = NT#) 5.20 K/mm3 1.8-7.7 N IMMATURE GRANULOCYTE # (test code = IG#) 0.02 x10 3/uL 0-0.03 N LYMPHOCYTE # (test code = LY#) 1.21 K/mm3 1.0-5.0 N MONOCYTE # (test code = MO#) 0.50 K/mm3 0-0.8 N EOSINOPHIL # (test code = EO#) 0.13 K/mm3 0.0-0.5 N BASOPHIL # (test code = BA#) 0.05 K/mm3 0.0-0.2 N NUCLEATED RBC # (test code = NRBC#) 0.00 K/mm3 0.0-0.1 N MANUAL DIFF REQUIRED (test code = MDIFF) NO CBC W/AUTO [id number] 11:04:00* Test Item Value Reference Range Interpretation Comments WHITE BLOOD CELL (test code = WBC) K/mm3 4.5-12.5 RED BLOOD CELL (test code = RBC) mill/mm3 4.0-5.8 HEMOGLOBIN (test code = HGB) 14.8 gram/dL 13.0-17.5 N HEMATOCRIT (test code = HCT) 44.8 % 42.0-52.0 N MEAN CELL VOLUME (test code = MCV) fL 80-98 MEAN CELL HGB (test code = MCH) picogram 27.0-33.0 MEAN CELL HGB CONCETRATION (test code = MCHC) gram/dL 33.0-36. 0 RED CELL DISTRIBUTION WIDTH (test code = RDW) % 11.6-16. 2 RED CELL DISTRIBUTION WIDTH SD (test code = RDW-SD) fL 37 .0-51.0 PLATELET COUNT (test code = PLT) K/mm3 150-450 MEAN PLATELET VOLUME (test code = MPV) fL 6.7-11.0 NEUTROPHIL % (test code = NT%) % 39.0-69.0 IMMATURE GRANULOCYTE % (test code = IG%) % 0.0-5.0 LYMPHOCYTE % (test code = LY%) % 25.0-55.0 MONOCYTE % (test code = MO%) % 0.0-10.0 EOSINOPHIL % (test code = EO%) % 0.0-5.0 BASOPHIL % (test code = BA%) % 0.0-1.0 NEUTROPHIL # (test code = NT#) K/mm3 1.8-7.7 LYMPHOCYTE # (test code = LY#) K/mm3 1.0-5.0 MONOCYTE # (test code = MO#) K/mm3 0-0.8 EOSINOPHIL # (test code = EO#) K/mm3 0.0-0.5 BASOPHIL # (test code = BA#) K/mm3 0.0-0.2 Bacterial urine [id number] 20:36:00* Test Item Value Reference Range Interpretation Comments Urine Culture (test code = 630-4) PSEUDOMONAS AERUGINOSA [facility] [id number] 20:29:00* Test Item Value Reference Range Interpretation Comments Bedside Glucose (test code = 92835-6) 175 70-120 H Meter ID: [id number] General HospitalCapillary blood glucose measurement by glucometer (mass/volume)2020-01-01 18:03:00* Test Item Value Reference Range Interpretation Comments Bedside Glucose (test code = 12102-4) 175 70-120 Meter ID: [id number] General HospitalTriglycerides Level 2019-12-30 16:21:00* Test Item Value Reference Range Interpretation Comments Triglycerides Level (test code = 2571-8) 81 0-149 [facility] HospitalCholesterol [id number] 16:21:00* Test Item Value Reference Range Interpretation Comments Cholesterol Level (test code = 2093-3) 112 0-199 Less than 200 mg/dL Low Gnvt362 - 239 mg/dL Borderline Arka901 m g/dl and greater High Risk [facility] HospitalLDL [id number] 16:21:00* Test Item Value Reference Range Interpretation Comments LDL Cholesterol (test code = 2089-1) 59 60-130 L [facility] HospitalHDL [id number] 16:21:00* Test Item Value Reference Range Interpretation Comments HDL Cholesterol (test code = 2085-9) 37 40-60 L [facility] HospitalCholesterol/HDL [id number] 16:21:00 * Test Item Value Reference Range Interpretation Comments Cholesterol/HDL Ratio (test code = 9830-1) 3.0 3.9-4.7 [facility] [id number] 16:18:00* Test Item Value Reference Range Interpretation Comments Sodium Level (test code = 2951-2) 137 136-145 [facility] HospitalPotassium [id number] 16:18:00* Test Item Value Reference Range Interpretation Comments Potassium Level (test code = 2823-3) 4.0 3.5-5.1 [facility] HospitalChloride [id number] 16:18:00* Test Item Value Reference Range Interpretation Comments Chloride Level (test code = 2075-0) 104 98-107 [facility] HospitalCarbon Dioxide [id number] 16:18:00* Test Item Value Reference Range Interpretation Comments Carbon Dioxide Level (test code = 2028-9) 26 22-29 [facility] HospitalAnion [id number] 16:18:00* Test Item Value Reference Range Interpretation Comments Anion Gap (test code = 01336-1) 11.0 8-16 [facility] HospitalBlood Urea [id number] 16:18:00* Test Item Value Reference Range Interpretation Comments Blood Urea Nitrogen (test code = 3094-0) 19 7-26 [facility] HospitalCreatinine2020-03-02 16:18:00* Test Item Value Reference Range Interpretation Comments Creatinine (test code = 2160-0) 1.36 0.72-1.25 H [facility] HospitalBUN/Creatinine [id number] 16:18:00* Test Item Value Reference Range Interpretation Comments BUN/Creatinine Ratio (test code = 3097-3) 14 6-25 [facility] HospitalEstimat Glomerular Filtration Rate 2019-12-30 16:18:00* Test Item Value Reference Range Interpretation Comments Estimat Glomerular Filtration Rate (test code = 310908165) 51 >60 L Ranges were taken from the National Kidney Disease Education Program and the [facility] literature.Reference ranges:60 or greater: Vxjkkl19-93 ( for 3 consecutive months): Chronic kidney disease 15 or less: Kidney failureNocona General HospitalGlucose Pnnku2029-80-99 16:18:00* Test Item Value Reference Range Interpretation Comments Glucose Level (test code = SYV5629) 214 74-118 H [facility] HospitalCalcium [id number] 16:18:00* Test Item Value Reference Range Interpretation Comments Calcium Level (test code = 83538-9) 9.9 8.4-10.2 [facility] HospitalTotal Iwudourjg9980-95-85 16:18:00* Test Item Value Reference Range Interpretation Comments Total Bilirubin (test code = 1975-2) 0.8 0.2-1.2 [facility] HospitalAspartate Amino Transf (AST/SGOT) 2019-12-30 16:18:00* Test Item Value Reference Range Interpretation Comments Aspartate Amino Transf (AST/SGOT) (test code = Aspartate Amino Transf (AST/SGOT)) 21 5-34 [facility] HospitalAlanine Aminotransferase (ALT/SGPT) 2019-12-30 16:18:00* Test Item Value Reference Range Interpretation Comments Alanine Aminotransferase (ALT/SGPT) (test code = 1742-6) 18 0-55 [facility] HospitalTotal [id number] 16:18:00* Test Item Value Reference Range Interpretation Comments Total Protein (test code = 2885-2) 7.7 6.5-8.1 [facility] HospitalAlbumin2020-03-02 16:18:00* Test Item Value Reference Range Interpretation Comments Albumin (test code = 1751-7) 3.8 3.5-5.0 [facility] HospitalGlobulin2020-03-02 16:18:00* Test Item Value Reference Range Interpretation Comments Globulin (test code = 74634-0) 3.9 2.3-3.5 H [facility] HospitalAlbumin/Globulin [id number] 16:18:00 * Test Item Value Reference Range Interpretation Comments Albumin/Globulin Ratio (test code = 1759-0) 1.0 0.8-2.0 [facility] HospitalAlkaline Tjhgbdblkhw6544-47-13 16:18:00* Test Item Value Reference Range Interpretation Comments Alkaline Phosphatase (test code = 6768-6) 280 40-150 H [facility] HospitalProthrombin [id number] 16:01:00* Test Item Value Reference Range Interpretation Comments Prothrombin Time (test code = 5902-2) 14.5 11.9-14.5 [facility] HospitalProthromb Time International Ratio 2019-12-30 16:01:00* Test Item Value Reference Range Interpretation Comments Prothromb Time International Ratio (test code = 6301-6) 1.06 Oral Anticoagulant Therapy INR Values:1. Low Intensity Therapy 1.5 - 2.02 . Moderate Intensity Therapy 2.0 - 3.03. High Intensity Therapy(1) 2.5 - 3. 54. High Intensity Therapy(2) 3.0 - 4.05. Panic Value INR > 5.0 [facility] HospitalActivated Partial Thromboplast Time 2019-12-30 16:01:00* Test Item Value Reference Range Interpretation Comments Activated Partial Thromboplast Time (test code = 07152-0) 34.5 23.8-35.5 [facility] HospitalWhite Blood Hoxsa4099-97-69 15:54:00* Test Item Value Reference Range Interpretation Comments White Blood Count (test code = 6690-2) 7.94 4.8-10.8 [facility] HospitalRed Blood Fctoq7189-43-66 15:54:00* Test Item Value Reference Range Interpretation Comments Red Blood Count (test code = 789-8) 4.59 4.3-5.7 [facility] HospitalHemoglobin2020-03-02 15:54:00* Test Item Value Reference Range Interpretation Comments Hemoglobin (test code = 40241-7) 13.8 14.0-18.0 L [facility] HospitalHematocrit2020-03-02 15:54:00* Test Item Value Reference Range Interpretation Comments Hematocrit (test code = 4544-3) 41.7 38.2-49.6 [facility] HospitalMean Corpuscular Vejhsz2385-10-29 15:54:00* Test Item Value Reference Range Interpretation Comments Mean Corpuscular Volume (test code = 787-2) 90.8 81-99 [facility] HospitalMean Corpuscular Ggntewvrup9379-98-82 15:54:00* Test Item Value Reference Range Interpretation Comments Mean Corpuscular Hemoglobin (test code = 785-6) 30.1 28-32 [facility] HospitalMean Corpuscular Hemoglobin Concent 2019-12-30 15:54:00* Test Item Value Reference Range Interpretation Comments Mean Corpuscular Hemoglobin Concent (test code = 786-4) 33.1 31-35 [facility] [id number] 15:54:00* Test Item Value Reference Range Interpretation Comments Red Cell Distribution Width (test code = 00128-0) 14.3 11.7 -14.4 [facility]Plate[facility] [id number] 15:54:00* Test Item Value Reference Range Interpretation Comments Platelet Count (test code = 777-3) 199 140-360 [facility]ils (%) (Auto)2019-12-30 15:54:00 * Test Item Value Reference Range Interpretation Comments Neutrophils (%) (Auto) (test code = 56062-7) 73.4 38.7-80.0 [facility] HospitalLymphocytes (%) (Auto)2019-12-30 15:54:00 * Test Item Value Reference Range Interpretation Comments Lymphocytes (%) (Auto) (test code = 736-9) 15.1 18.0-39.1 L [facility] (%) (Auto)2019-12-30 15:54:00* Test Item Value Reference Range Interpretation Comments Monocytes (%) (Auto) (test code = 5905-5) 8.1 4.4-11.3 [facility]Eosinophils (%) (Auto)2019-12-30 15:54:00 * Test Item Value Reference Range Interpretation Comments Eosinophils (%) (Auto) (test code = 713-8) 2.6 0.0-6.0 [facility]Basophils (%) (Auto)2019-12-30 15:54:00* Test Item Value Reference Range Interpretation Comments Basophils (%) (Auto) (test code = 706-2) 0.4 0.0-1.0 [facility] HospitalIM GRANULOCYTES %2019-12-30 15:54:00* Test Item Value Reference Range Interpretation Comments IM GRANULOCYTES % (test code = IM GRANULOCYTES %) 0.4 0.0- 1.0 [facility] HospitalNeutrophils # (Auto)2019-12-30 15:54:00* Test Item Value Reference Range Interpretation Comments Neutrophils # (Auto) (test code = 751-8) 5.8 2.1-6.9 [facility] HospitalLymphocytes # (Auto)2019-12-30 15:54:00* Test Item Value Reference Range Interpretation Comments Lymphocytes # (Auto) (test code = 04579-5) 1.2 1.0-3.2 [facility] HospitalMonocytes # (Auto)2019-12-30 15:54:00* Test Item Value Reference Range Interpretation Comments Monocytes # (Auto) (test code = 742-7) 0.6 0.2-0.8 [facility]Eosinophils # (Auto)2019-12-30 15:54:00* Test Item Value Reference Range Interpretation Comments Eosinophils # (Auto) (test code = 711-2) 0.2 0.0-0.4 [facility]Basophils # (Auto)2019-12-30 15:54:00* Test Item Value Reference Range Interpretation Comments Basophils # (Auto) (test code = 704-7) 0.0 0.0-0.1 [facility] HospitalAbsolute Immature Granulocyte (auto 2019-12-30 15:54:00* Test Item Value Reference Range Interpretation Comments Absolute Immature Granulocyte (auto (sara t code = Absolute Immature Granulocyte (auto) 0.03 0-0.1 [facility] HospitalBlood leukocytes automated count (number/volume)2019-12-30 14:20:00* Test Item Value Reference Range Interpretation Comments White Blood Count (test code = 6690-2) 7.94 4.8-10.8 [facility] HospitalBlood erythrocytes automated count (number/volume)2019-12-30 14:20:00* Test Item Value Reference Range Interpretation Comments Red Blood Count (test code = 789-8) 4.59 4.3-5.7 [facility] hemoglobin measurement (moles/volume)2019-12-30 14:20:00* Test Item Value Reference Range Interpretation Comments Hemoglobin (test code = 75656-4) 13.8 14.0-18.0 [facility] HospitalAutomated blood hematocrit (volume fraction)2019-12-30 14:20:00* Test Item Value Reference Range Interpretation Comments Hematocrit (test code = 4544-3) 41.7 38.2-49.6 [facility] HospitalAutomated erythrocyte mean corpuscular ursfav9198-26-51 14:20:00* Test Item Value Reference Range Interpretation Comments Mean Corpuscular Volume (test code = 787-2) 90.8 81-99 [facility] HospitalAutomated erythrocyte mean corpuscular hemoglobin (mass per erythrocyte)2019-12-30 14:20:00* Test Item Value Reference Range Interpretation Comments Mean Corpuscular Hemoglobin (test code = 785-6) 30.1 28-32 [facility] HospitalAutomated erythrocyte mean corpuscular hemoglobin concentration measurement (mass/volume)2019-12-30 14:20:00* Test Item Value Reference Range Interpretation Comments Mean Corpuscular Hemoglobin Concent (test code = 786-4) 33.1 31-35 [facility] HospitalRDW QltZc-Vwl5577-95-02 14:20:00* Test Item Value Reference Range Interpretation Comments Red Cell Distribution Width (test code = 21116-4) 14.3 11.7 -14.4 [facility] HospitalAutw[facility] hospitaled blood platelet count (count/volume)2019-12-30 14:20:00* Test Item Value Reference Range Interpretation Comments Platelet Count (test code = 777-3) 199 140-360 [facility] segmented neutrophil count as percentage of total dlkhikuixa8482-24-77 14:20:00* Test Item Value Reference Range Interpretation Comments Neutrophils (%) (Auto) (test code = 82622-4) 73.4 38.7-80.0 [facility] HospitalAutomated blood lymphocyte count as percentage ot total xinxbznwsr7357-76-25 14:20:00* Test Item Value Reference Range Interpretation Comments Lymphocytes (%) (Auto) (test code = 736-9) 15.1 18.0-39.1 [facility] HospitalAutomated blood monocyte count as percentage of total cqzkzyprro1478-74-97 14:20:00* Test Item Value Reference Range Interpretation Comments Monocytes (%) (Auto) (test code = 5905-5) 8.1 4.4-11.3 [facility] HospitalAutomated blood eosinophil count as percentage of total zacaoiyplg3742-64-98 14:20:00* Test Item Value Reference Range Interpretation Comments Eosinophils (%) (Auto) (test code = 713-8) 2.6 0.0-6.0 [facility] HospitalAutomated blood basophil count as percentage of total qmntbokggl9596-54-03 14:20:00* Test Item Value Reference Range Interpretation Comments Basophils (%) (Auto) (test code = 706-2) 0.4 0.0-1.0 [facility] HospitalFluoroscopic procedure less than one hour sipaqlbh8254-59-78 14:20:00* Test Item Value Reference Range Interpretation Comments IM GRANULOCYTES % (test code = IM GRANULOCYTES %) 0.4 0.0- 1.0 [facility] HospitalAutomated blood neutrophil count 2019-12-30 14:20:00* Test Item Value Reference Range Interpretation Comments Neutrophils # (Auto) (test code = 751-8) 5.8 2.1-6.9 [facility] HospitalBlood lymphocytes count (number/volume) 2019-12-30 14:20:00* Test Item Value Reference Range Interpretation Comments Lymphocytes # (Auto) (test code = 38750-3) 1.2 1.0-3.2 [facility] HospitalBlood monocytes automated count (number/volume)2019-12-30 14:20:00* Test Item Value Reference Range Interpretation Comments Monocytes # (Auto) (test code = 742-7) 0.6 0.2-0.8 [facility] HospitalAutomated blood eosinophil count 2019-12-30 14:20:00* Test Item Value Reference Range Interpretation Comments Eosinophils # (Auto) (test code = 711-2) 0.2 0.0-0.4 [facility] HospitalAutomated blood basophil count (count/volume)2019-12-30 14:20:00* Test Item Value Reference Range Interpretation Comments Basophils # (Auto) (test code = 704-7) 0.0 0.0-0.1 [facility] HospitalFluoroscopic procedure less than one hour nqirpxxc2263-53-54 14:20:00* Test Item Value Reference Range Interpretation Comments Absolute Immature Granulocyte (auto (sara t code = Absolute Immature Granulocyte (auto) 0.03 0-0.1 [facility] HospitalProthrombin time (PT) in platelet poor plasma by coagulation nejhv8770-07-28 14:20:00* Test Item Value Reference Range Interpretation Comments Prothrombin Time (test code = 5902-2) 14.5 11.9-14.5 [facility] HospitalINR in Platelet poor plasma by Coagulation pyzqk5958-78-87 14:20:00* Test Item Value Reference Range Interpretation Comments Prothromb Time International Ratio (test code = 6301-6) 1.06 Oral Anticoagulant Therapy INR Values:1. Low Intensity Therapy 1.5 - 2.02 . Moderate Intensity Therapy 2.0 - 3.03. High Intensity Therapy(1) 2.5 - 3. 54. High Intensity Therapy(2) 3.0 - 4.05. Panic Value INR > 5.0 [facility] HospitalActivated partial thromboplastin time (aPTT) in platelet poor plasma by coagulation vudwq5431-68-32 14:20:00* Test Item Value Reference Range Interpretation Comments Activated Partial Thromboplast Time (test code = 97985-7) 34.5 23.8-35.5 [facility] sodium measurement (moles/volume)2019-12-30 14:20:00* Test Item Value Reference Range Interpretation Comments Sodium Level (test code = 2951-2) 137 136-145 [facility] Hospitalerum or plasma potassium measurement (moles/volume)2019-12-30 14:20:00* Test Item Value Reference Range Interpretation Comments Potassium Level (test code = 2823-3) 4.0 3.5-5.1 [facility] Hospitalerum or plasma chloride measurement (moles/volume)2019-12-30 14:20:00* Test Item Value Reference Range Interpretation Comments Chloride Level (test code = 2075-0) 104 98-107 [facility] Hospitalerum or plasma carbon dioxide, total measurement (moles/volume)2019-12-30 14:20:00* Test Item Value Reference Range Interpretation Comments Carbon Dioxide Level (test code = 2028-9) 26 22-29 [facility] Hospitalerum or plasma anion tvo1200-64-16 14:20:00* Test Item Value Reference Range Interpretation Comments Anion Gap (test code = 84563-4) 11.0 8-16 [facility] Hospitalerum or plasma urea nitrogen measurement (mass/volume)2019-12-30 14:20:00* Test Item Value Reference Range Interpretation Comments Blood Urea Nitrogen (test code = 3094-0) 19 7-26 [facility] Hospitalerum or plasma creatinine measurement (mass/volume)2019-12-30 14:20:00* Test Item Value Reference Range Interpretation Comments Creatinine (test code = 2160-0) 1.36 0.72-1.25 [facility] Hospitalerum or plasma urea nitrogen/creatinine mass gknbj7199-98-34 14:20:00* Test Item Value Reference Range Interpretation Comments BUN/Creatinine Ratio (test code = 3097-3) 14 6-25 [facility] HospitalEstimated glomerular filtration rate (GFR) tsgaamcvvmjkh6623-48-55 14:20:00* Test Item Value Reference Range Interpretation Comments Estimat Glomerular Filtration Rate (test code = 025281763) 51 >60 Ranges were taken from the National Kidney Disease Education Program and the [facility] literature.Reference ranges:60 or greater: Qcksoj12-56 ( for 3 consecutive months): Chronic kidney disease 15 or less: Kidney failureNocona General HospitalGlucose kqulkygxxwu3100-22-02 14:20:00* Test Item Value Reference Range Interpretation Comments Glucose Level (test code = SHY3244) 214 74-118 [facility] Hospitalerum or plasma calcium measurement (mass/volume)2019-12-30 14:20:00* Test Item Value Reference Range Interpretation Comments Calcium Level (test code = 21802-9) 9.9 8.4-10.2 [facility] Hospitalerum or plasma total bilirubin measurement (mass/volume)2019-12-30 14:20:00* Test Item Value Reference Range Interpretation Comments Total Bilirubin (test code = 1975-2) 0.8 0.2-1.2 [facility] HospitalFluoroscopic procedure less than one hour ohlkhhkz6011-66-68 14:20:00* Test Item Value Reference Range Interpretation Comments Aspartate Amino Transf (AST/SGOT) (test code = Aspartate Amino Transf (AST/SGOT)) 21 5-34 [facility] Hospitalerum or plasma alanine aminotransferase measurement (enzymatic activity/volume)2019-12-30 14:20:00* Test Item Value Reference Range Interpretation Comments Alanine Aminotransferase (ALT/SGPT) (test code = 1742-6) 18 0-55 [facility] Hospitalerum or plasma protein measurement (mass/volume)2019-12-30 14:20:00* Test Item Value Reference Range Interpretation Comments Total Protein (test code = 2885-2) 7.7 6.5-8.1 [facility] Hospitalerum or plasma albumin measurement (mass/volume)2019-12-30 14:20:00* Test Item Value Reference Range Interpretation Comments Albumin (test code = 1751-7) 3.8 3.5-5.0 [facility] HospitalPlasma globulin measurement (mass/volume) 2019-12-30 14:20:00* Test Item Value Reference Range Interpretation Comments Globulin (test code = 73192-9) 3.9 2.3-3.5 [facility] Hospitalerum or plasma albumin/globulin mass xfoca5788-66-74 14:20:00* Test Item Value Reference Range Interpretation Comments Albumin/Globulin Ratio (test code = 1759-0) 1.0 0.8-2.0 [facility] Hospitalerum or plasma alkaline phosphatase measurement (enzymatic activity/volume)2019-12-30 14:20:00* Test Item Value Reference Range Interpretation Comments Alkaline Phosphatase (test code = 6768-6) 280 40-150 [facility] Hospitalerum or plasma triglyceride measurement (mass/volume)2019-12-30 14:20:00* Test Item Value Reference Range Interpretation Comments Triglycerides Level (test code = 2571-8) 81 0-149 [facility] Hospitalerum or plasma cholesterol measurement (mass/volume)2019-12-30 14:20:00* Test Item Value Reference Range Interpretation Comments Cholesterol Level (test code = 2093-3) 112 0-199 Less than 200 mg/dL Low Asko033 - 239 mg/dL Borderline Lavv898 m g/dl and greater High Risk [facility] Hospitalerum or plasma cholesterol in LDL measurement (mass/volume) 2019-12-30 14:20:00* Test Item Value Reference Range Interpretation Comments LDL Cholesterol (test code = 2089-1) 59 60-130 [facility] Hospitalerum or plasma cholesterol in HDL measurement (mass/volume)2019-12-30 14:20:00* Test Item Value Reference Range Interpretation Comments HDL Cholesterol (test code = 2085-9) 37 40-60 [facility] Hospitalerum or plasma total cholesterol/cholesterol in HDL mass zrorj8081-64-31 14:20:00* Test Item Value Reference Range Interpretation Comments Cholesterol/HDL Ratio (test code = 9830-1) 3.0 3.9-4.7 [facility] HospitalUrine Zhbwocg9747-23-78 11:43:00* Test Item Value Reference Range Interpretation Comments Urine Culture (test code = 630-4) No Result Data Provided [facility] HospitalBacterial urine pkydnil8753-16-18 01:21:00* Test Item Value Reference Range Interpretation Comments Urine Culture (test code = 630-4) PSEUDOMONAS AERUGINOSA [facility] HospitalCT C-SPINE W/O - [id number] 20:28:00 [facility] [address] [address] Patient Name: EVANS DANIELSON MR #: [id number] : [birth year] Age/Sex: 74/M Req #: [id number] Adm Physician: Ordered by: DELPHINE KRAFT MD Report #: [id number] Location: [facility] Room/Bed: Procedure: [id number] H OPD/CT C-SPINE W/O - HOPD Exam Date: 09/28/19 Exam T gisela: 1952 REPORT STATUS: Signed History: Fall, pain and dizziness Comparison studies:None Technique: Ax ial images were obtained from the brain and cervical spine. Coronal and sagitt al images reconstructed from the axial data. Intravenous contrast: None Dose modulation, iterative reconstruction, and/or weight based adjustment of the m A/kV was utilized to reduce the radiation dose to as low as reasonably achieva ble. Findings: Head CT: Scalp/skull: No abnormalities. No frac tures, blastic or lytic lesions. Brain sulci: Mildly prominent. Ventricle s: Mild compensatory dilatation. No hydrocephalus. Parenchyma: Scattered small hypodensities in the supratentorial white matter are small vessel ische dunia changes. Left periventricular occipital encephalomalacia. 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 No masses, hemorrhage, acute or chron ic cortical vascular insults. Sellar/suprasellar region: No abnormalities. Craniocervical junction: Patent foramen magnum. No Chiari one malformation. Incidental findings: Atherosclerotic calcifications in the carotid siphons . Cervical spine CT: Fractures: None. Soft tissues: No gross abn ormalities. Atlantoaxial articulation: Degenerative changes without acute a bnormality. Alignment: Straightening of the normal lordosis. Minimal grade 1 anterolisthesis of C4 over C5. No scoliosis. Cervicomedullary junction: No ab normalities. Patent foramen magnum. Vertebrae: No infection or neoplasm. Degenerative changes: Obliterated intervertebral space at C3-4 and C5-6 . Decreased intervertebral space at C6-7. Degenerative foraminal narrowing, se [place] right and C4-5, moderate right and severe left at C5-6.. Incidental findings: Calcified pleural subcentimeter nodule at the right apex. Scarring a t the left apex.. Impression: Head CT: 1. No acute intracranial a bnormality. Cervical spine CT: 1. No acute abnormalities. 2. Reyes ot exclude ligament, spinal cord and or vascular abnormalities on the basis of this examination. Signed by: DR Reyes Guevara M.D. on 09/28/2019 8 :37 PM Dictated By: REYES ROMERO MD 36 Transcribed By: DAGMAR on 09/28/192036 COPY TO: DELPHINE KRAFT MD CT BRAIN [id number] 20:28:00 [address] [address] Patient Name: EVANS DANIELSON MR #: [id number] : 1945 Age/Sex: 74/M Req #: [id number] Adm Physician: Ordered by: DELPHINE KRAFT MD Report #: [id number] Location: [facility] Room/Bed: Procedure: [id number] H OPD/CT BRAIN WO-HOPD Exam Date: 09/28/19 Exam Time: 1949 REPORT STATUS: Signed Histo ry: Fall, pain and dizziness Comparison studies:None Technique: Axial i mages were obtained from the brain and cervical spine. Coronal and sagittal im ages reconstructed from the axial data. Intravenous contrast: None Dose modu lation, iterative reconstruction, and/or weight based adjustment of the mA/kV was utilized to reduce the radiation dose to as low as reasonably achievable. Findings: Head CT: Scalp/skull: No abnormalities. No fractures , blastic or lytic lesions. Brain sulci: Mildly prominent. Ventricles: Mi ld compensatory dilatation. No hydrocephalus. Parenchyma: Scattered smal l hypodensities in the supratentorial white matter are small vessel ischemic c hanges. Left periventricular occipital encephalomalacia. Small chronic lacunar infarcts at the bilateral thalami. No masses, hemorrhage, acute or chronic co rtical vascular insults. Sellar/suprasellar region: No abnormalities. [place] niocervical junction: Patent foramen magnum. No Chiari one malformation. I ncidental findings: Atherosclerotic calcifications in the carotid siphons . Cervical spine CT: Fractures: None. Soft tissues: No gross abnormal ities. Atlantoaxial articulation: Degenerative changes without acute abnorm ality. Alignment: Straightening of the normal lordosis. Minimal grade 1 ante rolisthesis of C4 over C5. No scoliosis. Cervicomedullary junction: No abnorma lities. Patent foramen magnum. Vertebrae: No infection or neoplasm. Degenerative changes: Obliterated intervertebral space at C3-4 and C5-6. Dec reased intervertebral space at C6-7. Degenerative foraminal narrowing, severe right and C4-5, moderate right and severe left at C5-6.. Incidental findi ngs: Calcified pleural subcentimeter nodule at the right apex. Scarring at the left apex.. Impression: Head CT: 1. No acute intracranial abnorm ality. Cervical spine CT: 1. No acute abnormalities. 2. Cannot ex clude ligament, spinal cord and or vascular abnormalities on the basis of this examination. Signed by: DR Reyes Guevara M.D. on 09/28/2019 8:37 P M Dictated By: REYES ROMERO MD 36 Transcribed By: DAGMAR on 09/28/192036 CO PY TO: DELPHINE KRAFT MD CXR 2 VIEW - [id number] 20:24:00 [facility] [address] [address] Patient Name: EVANS DANIELSON MR #: [id number] : 1945 Age/Sex: 74/M Req #: [id number] Adm Physician: Ordered by: DELPHINE KRAFT MD Report #: [id number] Location: [facility] Room/Bed: Procedure: [id number] H OPD/CXR 2 VIEW - HOPD Exam Date: 09/28/19 Exam Time: 1949 REPORT STATUS: Signed EXAM INATION: CXR 2 VIEW - HOPD INDICATION: Dizziness. COMPARISON: N one FINDINGS: TUBES and LINES: None. LUNGS/PLEURA: There are b ilateral calcified pleural plaques, left greater than right. Prominent calcifi ed plaque in the left mid hemithorax. There are patchy opacities throughout th e left lung. There are bilateral interstitial opacities. HEART AND MEDIASTI NUM: No enlargement of the cardiac silhouette. There are atherosclerotic calci fications within the aorta. Tortuous and ectatic thoracic aorta. Small hiatal hernia. BONES AND SOFT TISSUES: No acute osseous abnormality. Diffuse oste openia. UPPER ABDOMEN: No free air under the diaphragm. IMPRESSION : Findings suggestive of chronic asbestos exposure with pleural based calcifi ed plaques. Patchy opacities within the left lung with bilateral interstitial opacities, which may reflect chronic fibrosis, although superimposed infection is a possibility. A follow-up CT, which could be performed non-emergently, is recommended. Signed by: Dr. Tennille Mohan MD on 09/28/2019 8:33 PM Dictated By: TENNILLE MOHAN MD 32 Transcribed By: DAGMAR on 09/28/192032 COPY TO: DELPHINE KRAFT MD BASIC METABOLIC [id number] 05:05:00* Test Item Value Reference Range Interpretation Comments SODIUM (test code = NA) 142 mmol/L 136-145 N POTASSIUM (test code = K) 4.6 mmol/L 3.5-5.1 N CHLORIDE (test code = CL) 110.0 mmol/L 98-107 H CARBON DIOXIDE (test code = CO2) 23.0 mmol/L 21-32 N ANION GAP (test code = GAP) 13.6 10-20 N GLUCOSE (test code = GLU) 138 mg/dL 74-106 H BLOOD UREA NITROGEN (test code = BUN) 12 mg/dL 7-18 N GLOMERULAR FILTRATION RATE (test code = GFR) > 60 mL/min >=60 Estimated GFR by using Modified MDRD formula.Chronic kidney disease is defined as either kidney damageor GFR <60 mL/min/1.73 m2 for >3 months. CREATININE (test code = CREAT) 0.90 mg/dL 0.7-1.3 N BUN/CREATININE RATIO (test code = BUN/CREA) 13.3 10-20 N CALCIUM (test code = CA) 8.7 mg/dL 8.5-10.1 N BASIC METABOLIC [id number] 04:52:00* Test Item Value Reference Range Interpretation Comments SODIUM (test code = NA) 142 mmol/L 136-145 N POTASSIUM (test code = K) 4.6 mmol/L 3.5-5.1 N CHLORIDE (test code = CL) 110.0 mmol/L 98-107 H CARBON DIOXIDE (test code = CO2) mmol/L 21-32 ANION GAP (test code = GAP) 10-20 GLUCOSE (test code = GLU) mg/dL 74-106 BLOOD UREA NITROGEN (test code = BUN) mg/dL 7-18 GLOMERULAR FILTRATION RATE (test code = GFR) mL/min >=60 CREATININE (test code = CREAT) mg/dL 0.7-1.3 BUN/CREATININE RATIO (test code = BUN/CREA) 10-20 CALCIUM (test code = CA) mg/dL 8.5-10.1 CBC W/AUTO [id number] 04:27:00* Test Item Value Reference Range Interpretation Comments WHITE BLOOD CELL (test code = WBC) 9.3 K/mm3 4.5-12.5 N RED BLOOD CELL (test code = RBC) 3.58 mill/mm3 4.0-5.8 L HEMOGLOBIN (test code = HGB) 11.0 gram/dL 13.0-17.5 L HEMATOCRIT (test code = HCT) 34.1 % 42.0-52.0 L MEAN CELL VOLUME (test code = MCV) 95.3 fL 80-98 N MEAN CELL HGB (test code = MCH) 30.7 picogram 27.0-33.0 N MEAN CELL HGB CONCETRATION (test code = MCHC) 32.3 gram/dL 33.0-36. 0 L RED CELL DISTRIBUTION WIDTH (test code = RDW) 13.2 % 11.6-16. 2 N RED CELL DISTRIBUTION WIDTH SD (test code = RDW-SD) 45.6 fL 37 .0-51.0 N PLATELET COUNT (test code = PLT) 296 K/mm3 150-450 N MEAN PLATELET VOLUME (test code = MPV) 9.9 fL 6.7-11.0 N NEUTROPHIL % (test code = NT%) 81.0 % 39.0-69.0 H IMMATURE GRANULOCYTE % (test code = IG%) 1.3 % 0.0-5.0 N LYMPHOCYTE % (test code = LY%) 9.3 % 25.0-55.0 L MONOCYTE % (test code = MO%) 6.2 % 0.0-10.0 N EOSINOPHIL % (test code = EO%) 1.7 % 0.0-5.0 N BASOPHIL % (test code = BA%) 0.5 % 0.0-1.0 N NUCLEATED RBC % (test code = NRBC%) 0.0 % 0-0 N NEUTROPHIL # (test code = NT#) 7.55 K/mm3 1.8-7.7 N IMMATURE GRANULOCYTE # (test code = IG#) 0.12 x10 3/uL 0-0.03 H LYMPHOCYTE # (test code = LY#) 0.87 K/mm3 1.0-5.0 L MONOCYTE # (test code = MO#) 0.58 K/mm3 0-0.8 N EOSINOPHIL # (test code = EO#) 0.16 K/mm3 0.0-0.5 N BASOPHIL # (test code = BA#) 0.05 K/mm3 0.0-0.2 N NUCLEATED RBC # (test code = NRBC#) 0.00 K/mm3 0.0-0.1 N MANUAL DIFF REQUIRED (test code = MDIFF) NO [id number] 12:26:00* Test Item Value Reference Range Interpretation Comments GLUBED (test code = GLUBED) 167 mg/dL 74-106 H Performed by certified pile operator at [facility] BASIC METABOLIC [id number] 05:39:00* Test Item Value Reference Range Interpretation Comments SODIUM (test code = NA) 142 mmol/L 136-145 N POTASSIUM (test code = K) 3.9 mmol/L 3.5-5.1 N CHLORIDE (test code = CL) 111.0 mmol/L 98-107 H CARBON DIOXIDE (test code = CO2) 24.0 mmol/L 21-32 N ANION GAP (test code = GAP) 10.9 10-20 N GLUCOSE (test code = GLU) 143 mg/dL 74-106 H BLOOD UREA NITROGEN (test code = BUN) 15 mg/dL 7-18 N GLOMERULAR FILTRATION RATE (test code = GFR) > 60 mL/min >=60 Estimated GFR by using Modified MDRD formula.Chronic kidney disease is defined as either kidney damageor GFR <60 mL/min/1.73 m2 for >3 months. CREATININE (test code = CREAT) 1.10 mg/dL 0.7-1.3 N BUN/CREATININE RATIO (test code = BUN/CREA) 13.9 10-20 N CALCIUM (test code = CA) 8.1 mg/dL 8.5-10.1 L BASIC METABOLIC [id number] 05:29:00* Test Item Value Reference Range Interpretation Comments SODIUM (test code = NA) 142 mmol/L 136-145 N POTASSIUM (test code = K) 3.9 mmol/L 3.5-5.1 N CHLORIDE (test code = CL) 111.0 mmol/L 98-107 H CARBON DIOXIDE (test code = CO2) mmol/L 21-32 ANION GAP (test code = GAP) 10-20 GLUCOSE (test code = GLU) mg/dL 74-106 BLOOD UREA NITROGEN (test code = BUN) mg/dL 7-18 GLOMERULAR FILTRATION RATE (test code = GFR) mL/min >=60 CREATININE (test code = CREAT) mg/dL 0.7-1.3 BUN/CREATININE RATIO (test code = BUN/CREA) 10-20 CALCIUM (test code = CA) mg/dL 8.5-10.1 CBC W/AUTO [id number] 05:09:00* Test Item Value Reference Range Interpretation Comments WHITE BLOOD CELL (test code = WBC) 13.7 K/mm3 4.5-12.5 H RED BLOOD CELL (test code = RBC) 3.61 mill/mm3 4.0-5.8 L HEMOGLOBIN (test code = HGB) 11.3 gram/dL 13.0-17.5 L HEMATOCRIT (test code = HCT) 34.1 % 42.0-52.0 L MEAN CELL VOLUME (test code = MCV) 94.5 fL 80-98 N MEAN CELL HGB (test code = MCH) 31.3 picogram 27.0-33.0 N MEAN CELL HGB CONCETRATION (test code = MCHC) 33.1 gram/dL 33.0-36. 0 N RED CELL DISTRIBUTION WIDTH (test code = RDW) 13.0 % 11.6-16. 2 N RED CELL DISTRIBUTION WIDTH SD (test code = RDW-SD) 45.2 fL 37 .0-51.0 N PLATELET COUNT (test code = PLT) 218 K/mm3 150-450 N MEAN PLATELET VOLUME (test code = MPV) 10.5 fL 6.7-11.0 N NEUTROPHIL % (test code = NT%) 82.6 % 39.0-69.0 H IMMATURE GRANULOCYTE % (test code = IG%) 0.9 % 0.0-5.0 N LYMPHOCYTE % (test code = LY%) 7.5 % 25.0-55.0 L MONOCYTE % (test code = MO%) 8.6 % 0.0-10.0 N EOSINOPHIL % (test code = EO%) 0.1 % 0.0-5.0 N BASOPHIL % (test code = BA%) 0.3 % 0.0-1.0 N NUCLEATED RBC % (test code = NRBC%) 0.0 % 0-0 N NEUTROPHIL # (test code = NT#) 11.30 K/mm3 1.8-7.7 H IMMATURE GRANULOCYTE # (test code = IG#) 0.12 x10 3/uL 0-0.03 H LYMPHOCYTE # (test code = LY#) 1.02 K/mm3 1.0-5.0 N MONOCYTE # (test code = MO#) 1.17 K/mm3 0-0.8 H EOSINOPHIL # (test code = EO#) 0.01 K/mm3 0.0-0.5 N BASOPHIL # (test code = BA#) 0.04 K/mm3 0.0-0.2 N NUCLEATED RBC # (test code = NRBC#) 0.00 K/mm3 0.0-0.1 N MANUAL DIFF REQUIRED (test code = MDIFF) NO [id number] 18:46:00* Test Item Value Reference Range Interpretation Comments GLUBED (test code = GLUBED) 104 mg/dL 74-106 N Performed by certified pile operator at [facility] COMPREHENSIVE METABOLIC [id number] 06:36:00* Test Item Value Reference Range Interpretation Comments SODIUM (test code = NA) 143 mmol/L 136-145 N POTASSIUM (test code = K) 3.6 mmol/L 3.5-5.1 N CHLORIDE (test code = CL) 108.0 mmol/L 98-107 H CARBON DIOXIDE (test code = CO2) 26.0 mmol/L 21-32 N ANION GAP (test code = GAP) 12.6 10-20 N GLUCOSE (test code = GLU) 104 mg/dL 74-106 N BLOOD UREA NITROGEN (test code = BUN) 22 mg/dL 7-18 H GLOMERULAR FILTRATION RATE (test code = GFR) > 60 mL/min >=60 Estimated GFR by using Modified MDRD formula.Chronic kidney disease is defined as either kidney damageor GFR <60 mL/min/1.73 m2 for >3 months. CREATININE (test code = CREAT) 0.90 mg/dL 0.7-1.3 N BUN/CREATININE RATIO (test code = BUN/CREA) 24.4 10-20 H TOTAL PROTEIN (test code = PROT) 5.9 gram/dL 6.4-8.2 L ALBUMIN (test code = ALB) 2.4 g/dL 3.4-5.0 L GLOBULIN (test code = GLOB) 3.5 gram/dL 2.7-4.2 N ALBUMIN/GLOBULIN RATIO (test code = A/G) 0.7 0.75-1.50 L CALCIUM (test code = CA) 8.4 mg/dL 8.5-10.1 L BILIRUBIN TOTAL (test code = BILT) 1.20 mg/dL 0.0-1.0 H SGOT/AST (test code = AST) 27 IUnit/L 15-37 N SGPT/ALT (test code = ALT) 26 IUnit/L 12-78 N ALKALINE PHOSPHATASE TOTAL (test code = ALKP) 236 IUnit/L 45-117 H Note change in reference range due to change in reagent. COMPREHENSIVE METABOLIC [id number] 06:23:00* Test Item Value Reference Range Interpretation Comments SODIUM (test code = NA) 143 mmol/L 136-145 N POTASSIUM (test code = K) 3.6 mmol/L 3.5-5.1 N CHLORIDE (test code = CL) 108.0 mmol/L 98-107 H CARBON DIOXIDE (test code = CO2) mmol/L 21-32 ANION GAP (test code = GAP) 10-20 GLUCOSE (test code = GLU) mg/dL 74-106 BLOOD UREA NITROGEN (test code = BUN) mg/dL 7-18 GLOMERULAR FILTRATION RATE (test code = GFR) mL/min >=60 CREATININE (test code = CREAT) mg/dL 0.7-1.3 BUN/CREATININE RATIO (test code = BUN/CREA) 10-20 TOTAL PROTEIN (test code = PROT) gram/dL 6.4-8.2 ALBUMIN (test code = ALB) g/dL 3.4-5.0 GLOBULIN (test code = GLOB) gram/dL 2.7-4.2 ALBUMIN/GLOBULIN RATIO (test code = A/G) 0.75-1.50 CALCIUM (test code = CA) mg/dL 8.5-10.1 BILIRUBIN TOTAL (test code = BILT) mg/dL 0.0-1.0 SGOT/AST (test code = AST) IUnit/L 15-37 SGPT/ALT (test code = ALT) IUnit/L 12-78 ALKALINE PHOSPHATASE TOTAL (test code = ALKP) IUnit/L 45-117 CBC W/AUTO [id number] 06:03:00* Test Item Value Reference Range Interpretation Comments WHITE BLOOD CELL (test code = WBC) 12.4 K/mm3 4.5-12.5 N RED BLOOD CELL (test code = RBC) 3.79 mill/mm3 4.0-5.8 L HEMOGLOBIN (test code = HGB) 11.9 gram/dL 13.0-17.5 L HEMATOCRIT (test code = HCT) 35.6 % 42.0-52.0 L MEAN CELL VOLUME (test code = MCV) 93.9 fL 80-98 N MEAN CELL HGB (test code = MCH) 31.4 picogram 27.0-33.0 N MEAN CELL HGB CONCETRATION (test code = MCHC) 33.4 gram/dL 33.0-36. 0 N RED CELL DISTRIBUTION WIDTH (test code = RDW) 12.9 % 11.6-16. 2 N RED CELL DISTRIBUTION WIDTH SD (test code = RDW-SD) 44.3 fL 37 .0-51.0 N PLATELET COUNT (test code = PLT) 145 K/mm3 150-450 L MEAN PLATELET VOLUME (test code = MPV) 11.1 fL 6.7-11.0 H NEUTROPHIL % (test code = NT%) 85.8 % 39.0-69.0 H IMMATURE GRANULOCYTE % (test code = IG%) 0.9 % 0.0-5.0 N LYMPHOCYTE % (test code = LY%) 7.0 % 25.0-55.0 L MONOCYTE % (test code = MO%) 5.7 % 0.0-10.0 N EOSINOPHIL % (test code = EO%) 0.4 % 0.0-5.0 N BASOPHIL % (test code = BA%) 0.2 % 0.0-1.0 N NUCLEATED RBC % (test code = NRBC%) 0.0 % 0-0 N NEUTROPHIL # (test code = NT#) 10.59 K/mm3 1.8-7.7 H IMMATURE GRANULOCYTE # (test code = IG#) 0.11 x10 3/uL 0-0.03 H LYMPHOCYTE # (test code = LY#) 0.87 K/mm3 1.0-5.0 L MONOCYTE # (test code = MO#) 0.70 K/mm3 0-0.8 N EOSINOPHIL # (test code = EO#) 0.05 K/mm3 0.0-0.5 N BASOPHIL # (test code = BA#) 0.03 K/mm3 0.0-0.2 N NUCLEATED RBC # (test code = NRBC#) 0.00 K/mm3 0.0-0.1 N MANUAL DIFF REQUIRED (test code = MDIFF) NO BASIC METABOLIC [id number] 23:03:00* Test Item Value Reference Range Interpretation Comments SODIUM (test code = NA) 139 mmol/L 136-145 N POTASSIUM (test code = K) 3.5 mmol/L 3.5-5.1 N CHLORIDE (test code = CL) 106.0 mmol/L 98-107 N CARBON DIOXIDE (test code = CO2) 26.0 mmol/L 21-32 N ANION GAP (test code = GAP) 10.5 10-20 N GLUCOSE (test code = GLU) 130 mg/dL 74-106 H BLOOD UREA NITROGEN (test code = BUN) 24 mg/dL 7-18 H GLOMERULAR FILTRATION RATE (test code = GFR) > 60 mL/min >=60 Estimated GFR by using Modified MDRD formula.Chronic kidney disease is defined as either kidney damageor GFR <60 mL/min/1.73 m2 for >3 months. CREATININE (test code = CREAT) 1.00 mg/dL 0.7-1.3 N BUN/CREATININE RATIO (test code = BUN/CREA) 24.0 10-20 H CALCIUM (test code = CA) 8.4 mg/dL 8.5-10.1 L CBC W/AUTO [id number] 22:09:00* Test Item Value Reference Range Interpretation Comments WHITE BLOOD CELL (test code = WBC) 13.1 K/mm3 4.5-12.5 H RED BLOOD CELL (test code = RBC) 3.76 mill/mm3 4.0-5.8 L HEMOGLOBIN (test code = HGB) 11.7 gram/dL 13.0-17.5 L HEMATOCRIT (test code = HCT) 35.2 % 42.0-52.0 L MEAN CELL VOLUME (test code = MCV) 93.6 fL 80-98 N MEAN CELL HGB (test code = MCH) 31.1 picogram 27.0-33.0 N MEAN CELL HGB CONCETRATION (test code = MCHC) 33.2 gram/dL 33.0-36. 0 N RED CELL DISTRIBUTION WIDTH (test code = RDW) 13.0 % 11.6-16. 2 N RED CELL DISTRIBUTION WIDTH SD (test code = RDW-SD) 44.7 fL 37 .0-51.0 N PLATELET COUNT (test code = PLT) 149 K/mm3 150-450 L MEAN PLATELET VOLUME (test code = MPV) 10.4 fL 6.7-11.0 N NEUTROPHIL % (test code = NT%) 85.3 % 39.0-69.0 H IMMATURE GRANULOCYTE % (test code = IG%) 0.9 % 0.0-5.0 N LYMPHOCYTE % (test code = LY%) 7.2 % 25.0-55.0 L MONOCYTE % (test code = MO%) 6.2 % 0.0-10.0 N EOSINOPHIL % (test code = EO%) 0.2 % 0.0-5.0 N BASOPHIL % (test code = BA%) 0.2 % 0.0-1.0 N NUCLEATED RBC % (test code = NRBC%) 0.0 % 0-0 N NEUTROPHIL # (test code = NT#) 11.12 K/mm3 1.8-7.7 H IMMATURE GRANULOCYTE # (test code = IG#) 0.12 x10 3/uL 0-0.03 H LYMPHOCYTE # (test code = LY#) 0.94 K/mm3 1.0-5.0 L MONOCYTE # (test code = MO#) 0.81 K/mm3 0-0.8 H EOSINOPHIL # (test code = EO#) 0.03 K/mm3 0.0-0.5 N BASOPHIL # (test code = BA#) 0.03 K/mm3 0.0-0.2 N NUCLEATED RBC # (test code = NRBC#) 0.00 K/mm3 0.0-0.1 N MANUAL DIFF REQUIRED (test code = MDIFF) NO [id number] 02:01:00* Test Item Value Reference Range Interpretation Comments TROPONIN-I (test code = TROPI) 0.028 ng/mL 0-0.045 N COMMENTS TO DIETARY COOK: COLLECT 3 HOURS AFTER PREVIOUS [id number] 22:29:00* Test Item Value Reference Range Interpretation Comments TROPONIN-I (test code = TROPI) 0.026 ng/mL 0-0.045 N COMMENTS TO DIETARY COOK: COLLECT 3 HOURS AFTER PREVIOUS SAMPLEURINALYSIS [id number] 16:35:00* Test Item Value Reference Range Interpretation Comments UA COLOR (test code = COLU) YELLOW YELLOW UA APPEARANCE (test code = APPU) Cloudy CLEAR A UA GLUCOSE DIPSTICK (test code = DGLUU) NEGATIVE mg/dL NEGATIVE UA BILIRUBIN DIPSTICK (test code = BILU) NEGATIVE mg/dL NEGATIVE UA KETONE DIPSTICK (test code = KETU) NEGATIVE mg/dL NEGATIVE UA SPECIFIC GRAVITY (test code = SGU) 1.014 1.001-1.035 UA BLOOD DIPSTICK (test code = JESSICA) 0.2 mg/dL (2+) mg/dL NEGATIVE A UA PH DIPSTICK (test code = NICOLLE) 5.5 5.0-8.0 UA PROTEIN DIPSTICK (test code = PROU) 100 (2+) mg/dL NEGATIVE A UA UROBILINIOGEN DIPSTICK (test code = URO) 2.0 (1+) mg/dL NEGATIVE A UA NITRITE DIPSTICK (test code = KASSIE) POSITIVE NEGATIVE A UA LEUKOCYTE ESTERASE W REFLEX (test code = LEUUR) 250 Antoinette/u L (2+) Antoinette/uL NEGATIVE A UA WBC (test code = WBCU) 21-50 per HPF 0-5 A UA RBC (test code = RBCU) 6-10 #/HPF 0-5 A UA EPITHELIAL CELLS (test code = EPIU) FEW per HPF FEW UA BACTERIA (test code = BACU) MANY #/HPF NONE A UA MUCUS (test code = MUCU) FEW #/LPF FEW UA AMORPHOUS SEDIMENT (test code = AMORU) FEW #/LPF Urine Source? Clean CatchDRUGS OF ABUSE SCREEN [id number] 16:35:00* Test Item Value Reference Range Interpretation Comments URN COCAINE (test code = COCAURN) NEGATIVE <300 ng/mL URN CANNABINOIDS (test code = CANNABURN) NEGATIVE <50 ng/mL URN AMPHETAMINE (test code = AMPHETURN) NEGATIVE <1000 ng/mL URN BARBITURATE (test code = BARBITURN) NEGATIVE <200 ng/mL URN BENZODIAZEPINE (test code = BENZOURN) NEGATIVE <200 ng/mL URN OPIATES (test code = OPIATURN) NEGATIVE <300 ng/mL URN PHENCYCLIDINE (PCP) (test code = PHENCURN) NEGATIVE <25 ng/ mL URN METHADONE (test code = METHAURN) NEGATIVE <300 ng/mL Urine Source? Clean CatchURINALYSIS [id number] 16:22:00* Test Item Value Reference Range Interpretation Comments UA COLOR (test code = COLU) YELLOW YELLOW UA APPEARANCE (test code = APPU) Cloudy CLEAR A UA GLUCOSE DIPSTICK (test code = DGLUU) NEGATIVE mg/dL NEGATIVE UA BILIRUBIN DIPSTICK (test code = BILU) NEGATIVE mg/dL NEGATIVE UA KETONE DIPSTICK (test code = KETU) NEGATIVE mg/dL NEGATIVE UA SPECIFIC GRAVITY (test code = SGU) 1.014 1.001-1.035 UA BLOOD DIPSTICK (test code = JESSICA) 0.2 mg/dL (2+) mg/dL NEGATIVE A UA PH DIPSTICK (test code = NICOLLE) 5.5 5.0-8.0 UA PROTEIN DIPSTICK (test code = PROU) 100 (2+) mg/dL NEGATIVE A UA UROBILINIOGEN DIPSTICK (test code = URO) 2.0 (1+) mg/dL NEGATIVE A UA NITRITE DIPSTICK (test code = KASSIE) POSITIVE NEGATIVE A UA LEUKOCYTE ESTERASE W REFLEX (test code = LEUUR) 250 Antoinette/u L (2+) Antoinette/uL NEGATIVE A UA WBC (test code = WBCU) per HPF 0-5 UA RBC (test code = RBCU) per HPF 0-5 UA EPITHELIAL CELLS (test code = EPIU) per HPF Few UA BACTERIA (test code = BACU) per HPF NONE Urine Source? Clean CatchDRUGS OF ABUSE SCREEN [id number] 16:22:00* Test Item Value Reference Range Interpretation Comments URN COCAINE (test code = COCAURN) NEGATIVE <300 ng/mL URN CANNABINOIDS (test code = CANNABURN) NEGATIVE <50 ng/mL URN AMPHETAMINE (test code = AMPHETURN) NEGATIVE <1000 ng/mL URN BARBITURATE (test code = BARBITURN) NEGATIVE <200 ng/mL URN BENZODIAZEPINE (test code = BENZOURN) NEGATIVE <200 ng/mL URN OPIATES (test code = OPIATURN) NEGATIVE <300 ng/mL URN PHENCYCLIDINE (PCP) (test code = PHENCURN) NEGATIVE <25 ng/ mL URN METHADONE (test code = METHAURN) NEGATIVE <300 ng/mL Urine Source? Clean Catch- CT C-SPINE W/O [id number] 16:21:00 Name: EVANS DANIELSON [facility] : 1945 Age/S: 74 / M [address] [facility] Unit #: [id number] Loc: [place], [place] [address] Phys: Zaid Retana MD Acct: [id number] Di s Date: Status: REG ER PHONE #: [phone] Exam Date: 07/11/2019 1539 FAX #: Reason: fall EXAMS: CPT CODE: [id number] CT C-SPINE W/ O CONTRAST 11987 HISTORY: fall TECHNIQUE: Noncontrast 2.[address] of the head. Examination acquir ed within 24 hours of arrival. Automated exposure control for dose reducti on. COMPARISON: MRI of the brain May 10, 2018 FINDI NGS: No lacerations or contusions of the scalp or facial soft tiss ues.. Calvarium and skull base are intact. No acute hemorrh age. No intracranial mass, mass effect, or midline shift. No effacement of the sulci or ruiz-white matter interface to suggest acute infarct. Extensive cortical atrophy with microvascular ischemic changes of the white matter. No hydrocephalus.. No extra-axial fluid collect ion. Visualized paranasal sinuses are clear. Mastoid air c ells and middle ear cavities are clear. There is a copious amount of cerum en in the bilateral external auditory canals. Orbital contents are unremar kable. No acute fracture of the cervical spine. No subluxation. Degenerative changes are seen throughout the facet joints in the cerv ical spine. Vertebral body heights are preserved however [...] C6-C7. No prevertebral or paraspinal soft tissue abnormality . Lung apices are clear. There is diffuse bone demineralization in the spine. PAGE 1 Signed Report (CONTINUED) Name: EVANS DANIELSON [facility] : 1945 Age/S: 74 / M [address] [place] Unit #: [id number] Loc: [place] [address] Phys: Maeve Retana MD Acct: [id number] Dis Date: Status: REG ER PHONE #: [phone] Exam Date: 07/11/2019 1537 FAX #: [phone] Reason: fall EXAMS: CPT CODE: [id number] CT C-SPINE W/O CONTRAST 32726 < Continued> IMPRESSION: No acute intracranial process. 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 Correlate with physical exam for cortical atrophy. No fracture or subluxation is seen however. at 1621 Reported and signed by: Kael Lobato MD CC: Justen Krueger; Maeve Retana MD Technologist:Catalina Miller RT(R),CT; CTDI: DLP: Trnscb Date/Time: 07/11/2019 (1621) [email or web address] Orig Print D/T: S: 07/11/2019 (2332) PAGE 2 Signed Report - CT HEAD/BRAIN W/O [id number] 16:21:00 Name: EVANS DANIELSON [facility] : 1945 Age/S: 74 / M [address] [place] Unit #: [id number] Loc: [place] [address] Phys: Maeve Retana MD Acct: [id number] Dis Date: Status: REG ER PHONE #: [phone] Exam Date: 07/11/2019 1536 FAX #: [phone] Reason: fall EXAMS: CPT CODE: [id number] CT HEAD/BRAIN W/O CONT 85236 HISTORY: fall TECHNIQUE: Noncontrast 2.5 mm axial [...] shift. No effacement of the sulci or ruiz- white matter interface to suggest acute infarct. Extensive [...] discs which is most pronounced at C3-C4, C5- C6, and C6-C7. Mild left-sided foraminal narrowing at [...] 1 Signed Report (CONTINUED) Name: EVANS DANIELSON [facility] : 1945 Age/S: 74 / M [address] [facility] Unit #: [id number] Loc: [place] [address] Phys: Maeve Retana MD Acct: [id number] Dis Date: Status: REG ER PHONE #: [phone] Exam Date: 07/11/2019 6405 FAX #: [phone] Reason: fall EXAMS: CPT CODE: [id number] CT HEAD/BRAIN W/O CONT 83587 < Continued> IMPRESSION: No acute intracranial process. 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 Correlate with physical exam for cortical atrophy. No fracture or subluxation is seen however. at 1621 Reported and signed by: Kael Lobato MD CC: Justen Krueger Jessica D MD Technologist:Catalina Miller RT(R),CT; CTDI: DLP: Trnscb Date/Time: 07/11/2019 (4373) [id number] Orig Print D/T: S: 07/11/2019 (0820) PAGE 2 Signed Report URINALYSIS [id number] 16:07:00* Test Item Value Reference Range Interpretation Comments UA COLOR (test code = COLU) YELLOW YELLOW UA APPEARANCE (test code = APPU) Cloudy CLEAR A UA GLUCOSE DIPSTICK (test code = DGLUU) NEGATIVE mg/dL NEGATIVE UA BILIRUBIN DIPSTICK (test code = BILU) NEGATIVE mg/dL NEGATIVE UA KETONE DIPSTICK (test code = KETU) NEGATIVE mg/dL NEGATIVE UA SPECIFIC GRAVITY (test code = SGU) 1.014 1.001-1.035 UA BLOOD DIPSTICK (test code = JESSICA) 0.2 mg/dL (2+) mg/dL NEGATIVE A UA PH DIPSTICK (test code = NICOLLE) 5.5 5.0-8.0 UA PROTEIN DIPSTICK (test code = PROU) 100 (2+) mg/dL NEGATIVE A UA UROBILINIOGEN DIPSTICK (test code = URO) 2.0 (1+) mg/dL NEGATIVE A UA NITRITE DIPSTICK (test code = KASSIE) POSITIVE NEGATIVE A UA LEUKOCYTE ESTERASE W REFLEX (test code = LEUUR) 250 Antoinette/u L (2+) Antoinette/uL NEGATIVE A UA WBC (test code = WBCU) per HPF 0-5 UA RBC (test code = RBCU) per HPF 0-5 UA EPITHELIAL CELLS (test code = EPIU) per HPF Few UA BACTERIA (test code = BACU) per HPF NONE Urine Source? Clean CatchDRUGS OF ABUSE SCREEN [id number] 16:07:00* Test Item Value Reference Range Interpretation Comments URN COCAINE (test code = COCAURN) <300 ng/mL URN CANNABINOIDS (test code = CANNABURN) <50 ng/mL URN AMPHETAMINE (test code = AMPHETURN) <1000 ng/mL URN BARBITURATE (test code = BARBITURN) <200 ng/mL URN BENZODIAZEPINE (test code = BENZOURN) <200 ng/mL URN OPIATES (test code = OPIATURN) <300 ng/mL URN PHENCYCLIDINE (PCP) (test code = PHENCURN) <25 ng/ mL URN METHADONE (test code = METHAURN) <300 ng/mL Urine Source? Clean CatchLACTIC [id number] 15:50:00* Test Item Value Reference Range Interpretation Comments LACTIC ACID (test code = LACT) 2.4 mmol/L 0.4-1.9 HH Results called to [email or web address] [email or web address] 07/11/19 1550Critical results verified and read back by Nurse? Y BASIC METABOLIC [id number] 15:50:00* Test Item Value Reference Range Interpretation Comments SODIUM (test code = NA) 137 mmol/L 136-145 N POTASSIUM (test code = K) 3.0 mmol/L 3.5-5.1 L CHLORIDE (test code = CL) 101.0 mmol/L 98-107 N CARBON DIOXIDE (test code = CO2) 25.0 mmol/L 21-32 N ANION GAP (test code = GAP) 14.0 10-20 N GLUCOSE (test code = GLU) 132 mg/dL 74-106 H BLOOD UREA NITROGEN (test code = BUN) 21 mg/dL 7-18 H GLOMERULAR FILTRATION RATE (test code = GFR) 59 mL/min >=60 Estimated GFR by using Modified MDRD formula.Chronic kidney disease is defined as either kidney damageor GFR <60 mL/min/1.73 m2 for >3 months. CREATININE (test code = CREAT) 1.20 mg/dL 0.7-1.3 N BUN/CREATININE RATIO (test code = BUN/CREA) 17.5 10-20 N CALCIUM (test code = CA) 9.2 mg/dL 8.5-10.1 N HEPATIC FUNCTION [id number] 15:50:00* Test Item Value Reference Range Interpretation Comments TOTAL PROTEIN (test code = PROT) 7.5 gram/dL 6.4-8.2 N ALBUMIN (test code = ALB) 3.0 g/dL 3.4-5.0 L GLOBULIN (test code = GLOB) 4.5 gram/dL 2.7-4.2 H ALBUMIN/GLOBULIN RATIO (test code = A/G) 0.7 0.75-1.50 L BILIRUBIN TOTAL (test code = BILT) 2.30 mg/dL 0.0-1.0 H BILIRUBIN DIRECT (test code = BILD) 1.15 mg/dL 0.0-0.20 H SGOT/AST (test code = AST) 17 IUnit/L 15-37 N SGPT/ALT (test code = ALT) 21 IUnit/L 12-78 N ALKALINE PHOSPHATASE TOTAL (test code = ALKP) 239 IUnit/L 45-117 H Note change in reference range due to change in reagent. [id number] 15:50:00* Test Item Value Reference Range Interpretation Comments LIPASE (test code = LIP) 64 U/L 73.0-393.0 L [id number] 15:50:00* Test Item Value Reference Range Interpretation Comments TROPONIN-I (test code = TROPI) 0.021 ng/mL 0-0.045 N [id number] 15:50:00* Test Item Value Reference Range Interpretation Comments ALCOHOL (test code = ALC) < 3 mg/dL 0.0-3.0 N -- INTERPRETIVE DATA NOTE: POSITIVE SCREENING RESULTS SHOULD BE CONSIDERED PRESUMPTIVE.WHEN COLLECTED FOR MEDICAL PURPOSES ONLY. SPECIMEN WILL NOTBE COLLECTED BY CHAIN OF CUSTODY.IF A CONFIRMATION OF POSITIVE RESULTS IS DESIRED, ACONFIRMATION TEST MUST BE REQUESTED BY THE PHYSICIAN AT ANADDITIONAL CHARGE TO THE PATIENT. PROTHROMBIN [id number] 15:41:00* Test Item Value Reference Range Interpretation Comments PROTHROMBIN TIME PATIENT (test code = PTP) 14.2 seconds 9.0-14.0 H INTERNATIONAL NORMAL RATIO (test code = INR) 1.2 0.8-1.2 N The therapeutic range for oral anticoagulant therapy [...] (2.5-3.5) IS PATIENT ON ANTICOAGULANTS? NTHROMBOPLASTIN TIME [id number] 15:41:00* Test Item Value Reference Range Interpretation Comments THROMBOPLASTIN TIME PARTIAL (test code = PTT) 32.4 seconds 25.0-36. 5 N IS PATIENT ON ANTICOAGULANTS? NCBC W/O [id number] 15:33:00* Test Item Value Reference Range Interpretation Comments WHITE BLOOD CELL (test code = WBC) 18.5 K/mm3 4.5-12.5 H RED BLOOD CELL (test code = RBC) 4.07 mill/mm3 4.0-5.8 N HEMOGLOBIN (test code = HGB) 12.6 gram/dL 13.0-17.5 L HEMATOCRIT (test code = HCT) 37.7 % 42.0-52.0 L MEAN CELL VOLUME (test code = MCV) 92.6 fL 80-98 N MEAN CELL HGB (test code = MCH) 31.0 picogram 27.0-33.0 N MEAN CELL HGB CONCETRATION (test code = MCHC) 33.4 gram/dL 33.0-36. 0 N RED CELL DISTRIBUTION WIDTH (test code = RDW) 13.0 % 11.6-16. 2 N PLATELET COUNT (test code = PLT) 156 K/mm3 150-450 N MEAN PLATELET VOLUME (test code = MPV) 10.7 fL 6.7-11.0 N - MRI ABDOMEN W WO [id number] 13:08:00 FAX: Justen Bartlett MD [phone] [place]: B St: REG Name: [facility] : [birth year] Age/S: 74/M [address] [facility] Unit #: [id number] Loc: [place] [address] Phys: Justen Krueger MD Acct: [id number] Dis Date: Status: REG CLI PHONE #: [phone] Exam Date: 05/27/2019 1130 FAX #: [phone] Reason: R74.8 EXAMS: CPT CODE: [id number] MRI ABDOMEN W [place] CONT [id number] HISTORY: Elevated alkaline phospha tase. COMPARISON: None [...] at 1308 Reported and signed by: Keven England M.D. PAGE 1 Signed Report (CONTINUED) FAX: Justen Bartlett MD [phone] [facility] s: B St: REG Name: [facility] : 1945 Age/S: 74/M [address] [facility] Unit #: [id number] Loc: [place] [address] Ph ys: Justen Krueger MD Acct: [id number] Dis Date: Status: REG CLI PHONE #: [phone] Exam Date: 05/27/2019 1130 FAX #: [phone] Reason: R74.8 EXAMS: CPT CODE: [id number] MRI ABDOMEN W WO CONT [id number] <Continued> CC: Justen Krueger Technologist: PEDRO LUIS HENRIQUEZRT - MRI Trnscrd Date/Time/By: 05/27/2019 (9500) : By: [email or web address] Orig Print D/T: S: 05/27/2019 (4036) PAGE 2 Signed Report CREATININE W ESTIMATED GFR 2019-05-27 10:01:00* Test Item Value Reference Range Interpretation Comments BEDSIDE CREATININE (test code = CREATBED) mg/dL 0.7-1.3 N GLOMERULAR FILTRATION RATE POC (test code = GFRBED) 57 >6 0 LL CREATININE W ESTIMATED [id number] 10:01:00* Test Item Value Reference Range Interpretation Comments BEDSIDE CREATININE (test code = CREATBED) 1.24 mg/dL 0.7-1.3 N GLOMERULAR FILTRATION RATE POC (test code = GFRBED) 60 >6 0 Previously reported result: 57 Edited by: ANSELMO on 05/27/19:484148 1001: GFRBED previously reported as: 57 *L Sodium [id number] 10:56:00* Test Item Value Reference Range Interpretation Comments Sodium Level (test code = 2951-2) 141 136-145 [facility] Thwka1012-39-59 10:56:00* Test Item Value Reference Range Interpretation Comments Potassium Level (test code = 2823-3) 3.5 3.5-5.1 [facility] Asmit9125-31-32 10:56:00* Test Item Value Reference Range Interpretation Comments Chloride Level (test code = 2075-0) 104 98-107 [facility] Dioxide Oqqat0951-58-33 10:56:00* Test Item Value Reference Range Interpretation Comments Carbon Dioxide Level (test code = 2028-9) 24 22-29 [facility] [id number] 10:56:00* Test Item Value Reference Range Interpretation Comments Anion Gap (test code = 14067-6) 16.5 8-16 [facility] Urea Mxkxamxb8677-77-19 10:56:00* Test Item Value Reference Range Interpretation Comments Blood Urea Nitrogen (test code = 3094-0) 27 7-26 [facility]2019-07-11 10:56:00* Test Item Value Reference Range Interpretation Comments Creatinine (test code = 2160-0) 1.51 0.72-1.25 [facility]Creatinine Hyedp3456-85-10 10:56:00* Test Item Value Reference Range Interpretation Comments BUN/Creatinine Ratio (test code = 3097-3) 18 6-25 [facility] Glomerular Filtration Rate 2019-05-09 10:56:00* Test Item Value Reference Range Interpretation Comments Estimat Glomerular Filtration Rate (test code = 942417592) 45 >60 L Ranges were taken from the National Kidney Disease Education Program and the [place] [facility] literature.Reference ranges:60 or greater: Bbewjt40-77 ( for 3 consecutive months): Chronic kidney disease 15 or less: Kid[facility] failureCH[facility] CenterGlucose Drqaf2090-65-04 10:56:00* Test Item Value Reference Range Interpretation Comments Glucose Level (test code = EVP5693) 156 74-118 [facility]Cal[facility] Kdpma6370-98-17 10:56:00* Test Item Value Reference Range Interpretation Comments Calcium Level (test code = 92789-3) 10.1 8.4-10.2 [facility] Cyjnfzmdr6643-43-05 10:56:00* Test Item Value Reference Range Interpretation Comments Total Bilirubin (test code = 1975-2) 1.2 0.2-1.2 [facility] HospitalAspartate Amino Transf (AST/SGOT) 2019-05-09 10:56:00* Test Item Value Reference Range Interpretation Comments Aspartate Amino Transf (AST/SGOT) (test code = Aspartate Amino Transf (AST/SGOT)) 26 5-34 [facility] HospitalAlanine Aminotransferase (ALT/SGPT) 2019-05-09 10:56:00* Test Item Value Reference Range Interpretation Comments Alanine Aminotransferase (ALT/SGPT) (test code = 1742-6) 21 0-55 [facility]Total Jpruvlr6806-88-27 10:56:00* Test Item Value Reference Range Interpretation Comments Total Protein (test code = 2885-2) 7.9 6.5-8.1 [facility] HospitalAlbumin2019-07-11 10:56:00* Test Item Value Reference Range Interpretation Comments Albumin (test code = 1751-7) 4.0 3.5-5.0 [facility] HospitalGlobulin2019-07-11 10:56:00* Test Item Value Reference Range Interpretation Comments Globulin (test code = 23521-5) 3.9 2.3-3.5 [facility] HospitalAlbumin/Globulin Nbtjl7896-50-13 10:56:00 * Test Item Value Reference Range Interpretation Comments Albumin/Globulin Ratio (test code = 1759-0) 1.0 0.8-2.0 [facility] HospitalAlkaline Xirzdcrlrho7181-80-47 10:56:00* Test Item Value Reference Range Interpretation Comments Alkaline Phosphatase (test code = 6768-6) 253 40-150 [facility] Enzqm1155-24-78 10:56:00* Test Item Value Reference Range Interpretation Comments Sodium Level (test code = 2951-2) 141 136-145 [facility]Potassium Gfroh2935-00-24 10:56:00* Test Item Value Reference Range Interpretation Comments Potassium Level (test code = 2823-3) 3.5 3.5-5.1 [facility] HospitalChloride Qqhyc4419-79-32 10:56:00* Test Item Value Reference Range Interpretation Comments Chloride Level (test code = 2075-0) 104 98-107 [facility] HospitalCarbon Dioxide Llsnb3706-34-83 10:56:00* Test Item Value Reference Range Interpretation Comments Carbon Dioxide Level (test code = 2028-9) 24 22-29 [facility] HospitalAnion Xyq0546-23-43 10:56:00* Test Item Value Reference Range Interpretation Comments Anion Gap (test code = 20410-8) 16.5 8-16 [facility] HospitalBlood Urea Inchqall7818-81-26 10:56:00* Test Item Value Reference Range Interpretation Comments Blood Urea Nitrogen (test code = 3094-0) 27 7-26 [facility] HospitalCreatinine2019-07-11 10:56:00* Test Item Value Reference Range Interpretation Comments Creatinine (test code = 2160-0) 1.51 0.72-1.25 [facility] HospitalBUN/Creatinine Fcdgm8807-81-46 10:56:00* Test Item Value Reference Range Interpretation Comments BUN/Creatinine Ratio (test code = 3097-3) 18 6-25 [facility] HospitalEstimat Glomerular Filtration Rate 2019-05-09 10:56:00* Test Item Value Reference Range Interpretation Comments Estimat Glomerular Filtration Rate (test code = 267818222) 45 >60 L Ranges were taken from the National Kidney Disease Education Program and the [place] [facility] literature.Reference ranges:60 or greater: Wbtmas98-51 ( for 3 consecutive months): Chronic kidney disease 15 or less: Kidney failureNocona [facility] HospitalGlucose Fwmfh1532-85-02 10:56:00* Test Item Value Reference Range Interpretation Comments Glucose Level (test code = XCA9090) 156 74-118 [facility] HospitalCalcium Twxif9030-30-62 10:56:00* Test Item Value Reference Range Interpretation Comments Calcium Level (test code = 21459-9) 10.1 8.4-10.2 [facility]Total Mkugrxapj7376-00-63 10:56:00* Test Item Value Reference Range Interpretation Comments Total Bilirubin (test code = 1975-2) 1.2 0.2-1.2 [facility] HospitalAspartate Amino Transf (AST/SGOT) 2019-05-09 10:56:00* Test Item Value Reference Range Interpretation Comments Aspartate Amino Transf (AST/SGOT) (test code = Aspartate Amino Transf (AST/SGOT)) 26 5-34 [facility] HospitalAlanine Aminotransferase (ALT/SGPT) 2019-05-09 10:56:00* Test Item Value Reference Range Interpretation Comments Alanine Aminotransferase (ALT/SGPT) (test code = 1742-6) 21 0-55 [facility] Wrdnhqu5290-21-57 10:56:00* Test Item Value Reference Range Interpretation Comments Total Protein (test code = 2885-2) 7.9 6.5-8.1 [facility] HospitalAlbumin2019-07-11 10:56:00* Test Item Value Reference Range Interpretation Comments Albumin (test code = 1751-7) 4.0 3.5-5.0 [facility] HospitalGlobulin2019-07-11 10:56:00* Test Item Value Reference Range Interpretation Comments Globulin (test code = 24790-4) 3.9 2.3-3.5 [facility] HospitalAlbumin/Globulin Rcrjp1780-44-96 10:56:00 * Test Item Value Reference Range Interpretation Comments Albumin/Globulin Ratio (test code = 1759-0) 1.0 0.8-2.0 [facility] HospitalAlkaline Zravyjlmozt0383-89-31 10:56:00* Test Item Value Reference Range Interpretation Comments Alkaline Phosphatase (test code = 6768-6) 253 40-150 [facility] Lddlw2859-65-92 10:56:00* Test Item Value Reference Range Interpretation Comments Sodium Level (test code = 2951-2) 141 136-145 [facility] HospitalPotassium Gwaiu5092-88-84 10:56:00* Test Item Value Reference Range Interpretation Comments Potassium Level (test code = 2823-3) 3.5 3.5-5.1 [facility] HospitalChloride Vjkjn6347-47-56 10:56:00* Test Item Value Reference Range Interpretation Comments Chloride Level (test code = 2075-0) 104 98-107 [facility] HospitalCarbon Dioxide Qqyiz2285-46-21 10:56:00* Test Item Value Reference Range Interpretation Comments Carbon Dioxide Level (test code = 2028-9) 24 22-29 [facility] HospitalAnion Sme8919-50-34 10:56:00* Test Item Value Reference Range Interpretation Comments Anion Gap (test code = 60786-3) 16.5 8-16 [facility] HospitalBlood Urea Ekmejvkf6556-09-68 10:56:00* Test Item Value Reference Range Interpretation Comments Blood Urea Nitrogen (test code = 3094-0) 27 7-26 [facility] HospitalCreatinine2019-07-11 10:56:00* Test Item Value Reference Range Interpretation Comments Creatinine (test code = 2160-0) 1.51 0.72-1.25 [facility] HospitalBUN/Creatinine Qvtrk7907-29-28 10:56:00* Test Item Value Reference Range Interpretation Comments BUN/Creatinine Ratio (test code = 3097-3) 18 6-25 [facility] HospitalEstimat Glomerular Filtration Rate 2019-05-09 10:56:00* Test Item Value Reference Range Interpretation Comments Estimat Glomerular Filtration Rate (test code = 324023673) 45 >60 L Ranges were taken from the National Kidney Disease Education Program and the [facility] literature.Reference ranges:60 or greater: Ehlvdx17-59 ( for 3 consecutive months): Chronic kidney disease 15 or less: Kidney failureNocona General HospitalGlucose Zasfc6555-28-67 10:56:00* Test Item Value Reference Range Interpretation Comments Glucose Level (test code = YMB8553) 156 74-118 [facility] HospitalCalcium Wmcyw4830-43-75 10:56:00* Test Item Value Reference Range Interpretation Comments Calcium Level (test code = 96104-5) 10.1 8.4-10.2 [facility] HospitalTotal Onzwcpaol5143-74-36 10:56:00* Test Item Value Reference Range Interpretation Comments Total Bilirubin (test code = 1975-2) 1.2 0.2-1.2 [facility] HospitalAspartate Amino Transf (AST/SGOT) 2019-05-09 10:56:00* Test Item Value Reference Range Interpretation Comments Aspartate Amino Transf (AST/SGOT) (test code = Aspartate Amino Transf (AST/SGOT)) 26 5-34 [facility] HospitalAlanine Aminotransferase (ALT/SGPT) 2019-05-09 10:56:00* Test Item Value Reference Range Interpretation Comments Alanine Aminotransferase (ALT/SGPT) (test code = 1742-6) 21 0-55 [facility] Fepqade2315-60-18 10:56:00* Test Item Value Reference Range Interpretation Comments Total Protein (test code = 2885-2) 7.9 6.5-8.1 [facility] HospitalAlbumin2019-07-11 10:56:00* Test Item Value Reference Range Interpretation Comments Albumin (test code = 1751-7) 4.0 3.5-5.0 [facility] HospitalGlobulin2019-07-11 10:56:00* Test Item Value Reference Range Interpretation Comments Globulin (test code = 60520-8) 3.9 2.3-3.5 [facility] HospitalAlbumin/Globulin Nqkzq4289-86-94 10:56:00 * Test Item Value Reference Range Interpretation Comments Albumin/Globulin Ratio (test code = 1759-0) 1.0 0.8-2.0 [facility] HospitalAlkaline Bfqhsveahxi3588-40-92 10:56:00* Test Item Value Reference Range Interpretation Comments Alkaline Phosphatase (test code = 6768-6) 253 40-150 [facility]odium Dhlnm2324-76-07 10:56:00* Test Item Value Reference Range Interpretation Comments Sodium Level (test code = 2951-2) 141 136-145 [facility] HospitalPotassium Mzuhi8424-23-11 10:56:00* Test Item Value Reference Range Interpretation Comments Potassium Level (test code = 2823-3) 3.5 3.5-5.1 [facility] HospitalChloride Iboak2417-91-33 10:56:00* Test Item Value Reference Range Interpretation Comments Chloride Level (test code = 2075-0) 104 98-107 [facility] HospitalCarbon Dioxide Sjqdt3803-43-29 10:56:00* Test Item Value Reference Range Interpretation Comments Carbon Dioxide Level (test code = 2028-9) 24 22-29 [facility] HospitalAnion Eod0513-57-08 10:56:00* Test Item Value Reference Range Interpretation Comments Anion Gap (test code = 70541-4) 16.5 8-16 [facility] HospitalBlood Urea Ijpgqsvf6881-61-59 10:56:00* Test Item Value Reference Range Interpretation Comments Blood Urea Nitrogen (test code = 3094-0) 27 7-26 [facility] HospitalCreatinine2019-07-11 10:56:00* Test Item Value Reference Range Interpretation Comments Creatinine (test code = 2160-0) 1.51 0.72-1.25 [facility] HospitalBUN/Creatinine Ftatg6467-42-28 10:56:00* Test Item Value Reference Range Interpretation Comments BUN/Creatinine Ratio (test code = 3097-3) 18 6-25 [facility] HospitalEstimat Glomerular Filtration Rate 2019-05-09 10:56:00* Test Item Value Reference Range Interpretation Comments Estimat Glomerular Filtration Rate (test code = 671869929) 45 >60 L Ranges were taken from the National Kidney Disease Education Program and the [place] [facility] Kidney Foundation literature.Reference ranges:60 or greater: Ovkfjv98-33 ( for 3 consecutive months): Chronic kidney disease 15 or less: Kidney failureNocona General HospitalGlucose Nsfvu8777-93-42 10:56:00* Test Item Value Reference Range Interpretation Comments Glucose Level (test code = MLH7350) 156 74-118 [facility] HospitalCalcium Xqaaa7692-59-19 10:56:00* Test Item Value Reference Range Interpretation Comments Calcium Level (test code = 96427-5) 10.1 8.4-10.2 [facility] HospitalTotal Memahgnei2732-97-24 10:56:00* Test Item Value Reference Range Interpretation Comments Total Bilirubin (test code = 1975-2) 1.2 0.2-1.2 [facility] HospitalAspartate Amino Transf (AST/SGOT) 2019-05-09 10:56:00* Test Item Value Reference Range Interpretation Comments Aspartate Amino Transf (AST/SGOT) (test code = Aspartate Amino Transf (AST/SGOT)) 26 5-34 [facility] HospitalAlanine Aminotransferase (ALT/SGPT) 2019-05-09 10:56:00* Test Item Value Reference Range Interpretation Comments Alanine Aminotransferase (ALT/SGPT) (test code = 1742-6) 21 0-55 [facility] HospitalTotal Xeysrru1362-03-18 10:56:00* Test Item Value Reference Range Interpretation Comments Total Protein (test code = 2885-2) 7.9 6.5-8.1 [facility] HospitalAlbumin2019-07-11 10:56:00* Test Item Value Reference Range Interpretation Comments Albumin (test code = 1751-7) 4.0 3.5-5.0 [facility] HospitalGlobulin2019-07-11 10:56:00* Test Item Value Reference Range Interpretation Comments Globulin (test code = 58197-2) 3.9 2.3-3.5 [facility] HospitalAlbumin/Globulin Bicti2825-02-67 10:56:00 * Test Item Value Reference Range Interpretation Comments Albumin/Globulin Ratio (test code = 1759-0) 1.0 0.8-2.0 [facility] HospitalAlkaline Yzpzzbczhqb7796-50-07 10:56:00* Test Item Value Reference Range Interpretation Comments Alkaline Phosphatase (test code = 6768-6) 253 40-150 [facility] HospitalUrine SPN3674-53-33 10:55:00* Test Item Value Reference Range Interpretation Comments Urine WBC (test code = 5821-4) NONE 0-5 [facility] HospitalU[facility] JGB3750-76-43 10:55:00* Test Item Value Reference Range Interpretation Comments Urine RBC (test code = 54572-8) 6-10 0-5 [facility] HospitalUrine Ncxojqit8402-82-19 10:55:00* Test Item Value Reference Range Interpretation Comments Urine Bacteria (test code = 26150-8) RARE NONE [facility] HospitalU[facility] Epithelial Bizem3461-53-33 10:55:00 * Test Item Value Reference Range Interpretation Comments Urine Epithelial Cells (test code = 77587-2) RARE NONE [facility] HospitalU[facility] Hyaline Cjplw6882-30-68 10:55:00* Test Item Value Reference Range Interpretation Comments Urine Hyaline Casts (test code = 71293-8) 2-5 0-1 [facility] HospitalU[facility] YKH8524-62-22 10:55:00* Test Item Value Reference Range Interpretation Comments Urine WBC (test code = 5821-4) NONE 0-5 [facility] HospitalU[facility] CUK0311-72-47 10:55:00* Test Item Value Reference Range Interpretation Comments Urine RBC (test code = 16366-5) 6-10 0-5 [facility] HospitalU[facility] Qypqxfey4415-46-16 10:55:00* Test Item Value Reference Range Interpretation Comments Urine Bacteria (test code = 34657-8) RARE NONE [facility] Epithelial Vafrq3476-73-73 10:55:00 * Test Item Value Reference Range Interpretation Comments Urine Epithelial Cells (test code = 82166-0) RARE NONE [facility] Hyaline Afeyc8547-29-26 10:55:00* Test Item Value Reference Range Interpretation Comments Urine Hyaline Casts (test code = 75627-0) 2-5 0-1 [facility] HospitalU[facility] VNA5948-86-18 10:55:00* Test Item Value Reference Range Interpretation Comments Urine WBC (test code = 5821-4) NONE 0-5 [facility] UKT3542-63-98 10:55:00* Test Item Value Reference Range Interpretation Comments Urine RBC (test code = 08529-4) 6-10 0-5 [facility] HospitalU[facility] Ezzifjxo5598-51-50 10:55:00* Test Item Value Reference Range Interpretation Comments Urine Bacteria (test code = 64308-4) RARE NONE [facility] Epithelial Htdbs3898-22-64 10:55:00 * Test Item Value Reference Range Interpretation Comments Urine Epithelial Cells (test code = 42934-7) RARE NONE [facility] HospitalU[facility] Hyaline Yfepr9651-51-97 10:55:00* Test Item Value Reference Range Interpretation Comments Urine Hyaline Casts (test code = 23645-6) 2-5 0-1 [facility] HospitalU[facility] XIR1206-09-12 10:55:00* Test Item Value Reference Range Interpretation Comments Urine WBC (test code = 5821-4) NONE 0-5 [facility] OFK8721-21-67 10:55:00* Test Item Value Reference Range Interpretation Comments Urine RBC (test code = 70253-4) 6-10 0-5 [facility] Hemejhly8713-63-10 10:55:00* Test Item Value Reference Range Interpretation Comments Urine Bacteria (test code = 31052-5) RARE NONE [facility] Epithelial Xtvef7640-95-76 10:55:00 * Test Item Value Reference Range Interpretation Comments Urine Epithelial Cells (test code = 72982-4) RARE NONE [facility] Hyaline Nbzgq5878-31-46 10:55:00* Test Item Value Reference Range Interpretation Comments Urine Hyaline Casts (test code = 02931-0) 2-5 0-1 [facility] PPD1156-77-72 10:55:00* Test Item Value Reference Range Interpretation Comments Urine WBC (test code = 5821-4) NONE 0-5 [facility] RGI4158-85-41 10:55:00* Test Item Value Reference Range Interpretation Comments Urine RBC (test code = 76712-4) 6-10 0-5 [facility] Switqhxw1136-11-80 10:55:00* Test Item Value Reference Range Interpretation Comments Urine Bacteria (test code = 93571-0) RARE NONE [facility] Epithelial Ghqli8142-23-09 10:55:00 * Test Item Value Reference Range Interpretation Comments Urine Epithelial Cells (test code = 60503-8) RARE NONE [facility] Hyaline Kwnkh3559-61-03 10:55:00* Test Item Value Reference Range Interpretation Comments Urine Hyaline Casts (test code = 78060-5) 2-5 0-1 [facility] Xcfzy0337-91-75 10:47:00* Test Item Value Reference Range Interpretation Comments Urine Color (test code = 5778-6) ORANGE YELLOW [facility] Wtddrvg2799-93-88 10:47:00* Test Item Value Reference Range Interpretation Comments Urine Clarity (test code = 28426-9) CLOUDY CLEAR [facility] HospitalU[facility] Specific Kxqkfuq8025-22-48 10:47:00 * Test Item Value Reference Range Interpretation Comments Urine Specific [place] (test code = 5811-5) 1.010 1.010-1.02 5 [facility] rZ9794-32-87 10:47:00* Test Item Value Reference Range Interpretation Comments Urine pH (test code = 57314-7) 5.5 5-7 [facility] Leukocyte Lzvpclqj0195-68-86 10:47:00* Test Item Value Reference Range Interpretation Comments Urine Leukocyte Esterase (test code = 48755-8) NEGATIVE NEGATIV E [facility] Srayyrd1548-07-36 10:47:00* Test Item Value Reference Range Interpretation Comments Urine Nitrite (test code = 18018-4) POSITIVE NEGATIVE H [facility] Tjwxlvo7687-06-59 10:47:00* Test Item Value Reference Range Interpretation Comments Urine Protein (test code = 17090-7) 1+ NEGATIVE [facility] Glucose (UA)2019-05-09 10:47:00* Test Item Value Reference Range Interpretation Comments Urine Glucose (UA) (test code = 79945-4) 1+ NEGATIVE [facility] Yxosjbv4223-93-81 10:47:00* Test Item Value Reference Range Interpretation Comments Urine Ketones (test code = 57206-3) NEGATIVE NEGATIVE [facility] Dmvkcyajwgkz0644-69-63 10:47:00* Test Item Value Reference Range Interpretation Comments Urine Urobilinogen (test code = 60097-9) 2 0.2-1 [facility] Zgffamynk3278-78-38 10:47:00* Test Item Value Reference Range Interpretation Comments Urine Bilirubin (test code = 1977-8) NEGATIVE NEGATIVE [facility] Dgjxb0555-38-22 10:47:00* Test Item Value Reference Range Interpretation Comments Urine Blood (test code = 52965-3) TRACE NEGATIVE [facility] Chqns2511-08-86 10:47:00* Test Item Value Reference Range Interpretation Comments Urine Color (test code = 5778-6) ORANGE YELLOW [facility] Zbwtitv4764-83-90 10:47:00* Test Item Value Reference Range Interpretation Comments Urine Clarity (test code = 24005-7) CLOUDY CLEAR H [facility] Specific Hviawip1654-46-31 10:47:00 * Test Item Value Reference Range Interpretation Comments Urine Specific [place] (test code = 5811-5) 1.010 1.010-1.02 5 [facility] qH7597-23-87 10:47:00* Test Item Value Reference Range Interpretation Comments Urine pH (test code = 50242-1) 5.5 5-7 [facility] Leukocyte Ednlkolt9661-71-40 10:47:00* Test Item Value Reference Range Interpretation Comments Urine Leukocyte Esterase (test code = 72600-9) NEGATIVE NEGATIV E [facility] Dofecsj8626-44-44 10:47:00* Test Item Value Reference Range Interpretation Comments Urine Nitrite (test code = 66137-6) POSITIVE NEGATIVE H [facility] Iihwjks3899-91-08 10:47:00* Test Item Value Reference Range Interpretation Comments Urine Protein (test code = 28733-7) 1+ NEGATIVE [facility] Glucose (UA)2019-05-09 10:47:00* Test Item Value Reference Range Interpretation Comments Urine Glucose (UA) (test code = 78097-3) 1+ NEGATIVE [facility] Yqbveet1446-21-11 10:47:00* Test Item Value Reference Range Interpretation Comments Urine Ketones (test code = 71237-8) NEGATIVE NEGATIVE [facility] Ivmuxsydyqcm3441-54-96 10:47:00* Test Item Value Reference Range Interpretation Comments Urine Urobilinogen (test code = 95340-2) 2 0.2-1 [facility] Lggyygtsw7232-22-68 10:47:00* Test Item Value Reference Range Interpretation Comments Urine Bilirubin (test code = 1977-8) NEGATIVE NEGATIVE [facility] Nquav2301-34-89 10:47:00* Test Item Value Reference Range Interpretation Comments Urine Blood (test code = 52041-9) TRACE NEGATIVE [facility] Oafff3697-18-58 10:47:00* Test Item Value Reference Range Interpretation Comments Urine Color (test code = 5778-6) ORANGE YELLOW [facility] Mdqcpqz9573-64-41 10:47:00* Test Item Value Reference Range Interpretation Comments Urine Clarity (test code = 64448-5) CLOUDY CLEAR H [facility] Specific Pijbbco8390-44-16 10:47:00 * Test Item Value Reference Range Interpretation Comments Urine Specific [place] (test code = 5811-5) 1.010 1.010-1.02 5 [facility] cC4312-08-13 10:47:00* Test Item Value Reference Range Interpretation Comments Urine pH (test code = 26180-8) 5.5 5-7 [facility] Leukocyte Clnfzcpk6648-38-63 10:47:00* Test Item Value Reference Range Interpretation Comments Urine Leukocyte Esterase (test code = 91801-4) NEGATIVE NEGATIV E [facility] Kxcqbej9453-93-64 10:47:00* Test Item Value Reference Range Interpretation Comments Urine Nitrite (test code = 41574-3) POSITIVE NEGATIVE [facility] Clvptit8085-37-87 10:47:00* Test Item Value Reference Range Interpretation Comments Urine Protein (test code = 43946-5) 1+ NEGATIVE [facility] Glucose (UA)2019-05-09 10:47:00* Test Item Value Reference Range Interpretation Comments Urine Glucose (UA) (test code = 66935-3) 1+ NEGATIVE [facility] Cnxjhgl4236-82-10 10:47:00* Test Item Value Reference Range Interpretation Comments Urine Ketones (test code = 41701-4) NEGATIVE NEGATIVE [facility] Ztavcvuqbhlm2934-54-07 10:47:00* Test Item Value Reference Range Interpretation Comments Urine Urobilinogen (test code = 87209-4) 2 0.2-1 [facility] Gsdqjhvet0610-61-06 10:47:00* Test Item Value Reference Range Interpretation Comments Urine Bilirubin (test code = 1977-8) NEGATIVE NEGATIVE [facility] Ooxyz3627-40-50 10:47:00* Test Item Value Reference Range Interpretation Comments Urine Blood (test code = 85344-6) TRACE NEGATIVE [facility] Bdptk3229-80-10 10:47:00* Test Item Value Reference Range Interpretation Comments Urine Color (test code = 5778-6) ORANGE YELLOW H [facility] Frbszem4588-92-75 10:47:00* Test Item Value Reference Range Interpretation Comments Urine Clarity (test code = 62567-3) CLOUDY CLEAR H [facility] Specific Fhgtxgb8972-53-35 10:47:00 * Test Item Value Reference Range Interpretation Comments Urine Specific [place] (test code = 5811-5) 1.010 1.010-1.02 5 [facility] mK8556-87-54 10:47:00* Test Item Value Reference Range Interpretation Comments Urine pH (test code = 01283-3) 5.5 5-7 [facility] Leukocyte Qjjlqirb7369-51-18 10:47:00* Test Item Value Reference Range Interpretation Comments Urine Leukocyte Esterase (test code = 98281-1) NEGATIVE NEGATIV E [facility] Eghceux1578-93-79 10:47:00* Test Item Value Reference Range Interpretation Comments Urine Nitrite (test code = 13265-6) POSITIVE NEGATIVE H [facility] Pdwsquk2872-67-21 10:47:00* Test Item Value Reference Range Interpretation Comments Urine Protein (test code = 70017-8) 1+ NEGATIVE H [facility] Glucose (UA)2019-05-09 10:47:00* Test Item Value Reference Range Interpretation Comments Urine Glucose (UA) (test code = 00861-9) 1+ [facility]GATIVE [facility] Oqlqkcv0620-72-35 10:47:00* Test Item Value Reference Range Interpretation Comments Urine Ketones (test code = 79220-3) NEGATIVE NEGATIVE [facility] Ctiimhybdyum0311-42-56 10:47:00* Test Item Value Reference Range Interpretation Comments Urine Urobilinogen (test code = 06966-1) 2 0.2-1 [facility] Yczpcqnqi9636-03-94 10:47:00* Test Item Value Reference Range Interpretation Comments Urine Bilirubin (test code = 1977-8) NEGATIVE NEGATIVE [facility] Iorxy3674-19-45 10:47:00* Test Item Value Reference Range Interpretation Comments Urine Blood (test code = 00632-8) TRACE NEGATIVE [facility] Lxaxn9850-59-51 10:47:00* Test Item Value Reference Range Interpretation Comments Urine Color (test code = 5778-6) ORANGE YELLOW H [facility] Obofmvc9256-71-20 10:47:00* Test Item Value Reference Range Interpretation Comments Urine Clarity (test code = 24072-2) CLOUDY CLEAR H [facility] Specific Akmieph4964-73-66 10:47:00 * Test Item Value Reference Range Interpretation Comments Urine Specific [place] (test code = 5811-5) 1.010 1.010-1.02 5 [facility] jY3600-75-42 10:47:00* Test Item Value Reference Range Interpretation Comments Urine pH (test code = 48056-1) 5.5 5-7 [facility] Leukocyte Thrsfwwn1532-44-57 10:47:00* Test Item Value Reference Range Interpretation Comments Urine Leukocyte Esterase (test code = 46986-9) NEGATIVE NEGATIV E [facility] Nebyyvk3717-81-34 10:47:00* Test Item Value Reference Range Interpretation Comments Urine Nitrite (test code = 89537-6) POSITIVE NEGATIVE H [facility] Tcdqzqc1365-24-15 10:47:00* Test Item Value Reference Range Interpretation Comments Urine Protein (test code = 91806-7) 1+ NEGATIVE H [facility] Glucose (UA)2019-05-09 10:47:00* Test Item Value Reference Range Interpretation Comments Urine Glucose (UA) (test code = 19237-8) 1+ NEGATIVE H [facility] Krxzgiz8855-75-03 10:47:00* Test Item Value Reference Range Interpretation Comments Urine Ketones (test code = 24176-8) NEGATIVE NEGATIVE [facility] Jznwvdgpsyvm9255-56-81 10:47:00* Test Item Value Reference Range Interpretation Comments Urine Urobilinogen (test code = 99800-0) 2 0.2-1 [facility] Lzjimgbnj3256-57-72 10:47:00* Test Item Value Reference Range Interpretation Comments Urine Bilirubin (test code = 1977-8) NEGATIVE NEGATIVE [facility] Wxnef3108-13-00 10:47:00* Test Item Value Reference Range Interpretation Comments Urine Blood (test code = 42005-1) TRACE NEGATIVE [facility] HospitalProthrombin Ftwj3780-21-64 10:46:00* Test Item Value Reference Range Interpretation Comments Prothrombin Time (test code = 5902-2) 13.1 11.9-14.5 [facility] HospitalProthromb Time International Ratio 2019-05-09 10:46:00* Test Item Value Reference Range Interpretation Comments Prothromb Time International Ratio (test code = 6301-6) 0.94 Oral Anticoagulant Therapy INR Values:1. Low Intensity Therapy 1.5 - 2.02 . Moderate Intensity Therapy 2.0 - 3.03. High Intensity Therapy(1) 2.5 - 3. 54. High Intensity Therapy(2) 3.0 - 4.05. Panic Value INR > 5.0 [facility] HospitalActivated Partial Thromboplast Time 2019-05-09 10:46:00* Test Item Value Reference Range Interpretation Comments Activated Partial Thromboplast Time (test code = 49030-3) 31.8 23.8-35.5 [facility] HospitalProthrombin Nicy6488-94-69 10:46:00* Test Item Value Reference Range Interpretation Comments Prothrombin Time (test code = 5902-2) 13.1 11.9-14.5 [facility] HospitalProthromb Time International Ratio 2019-05-09 10:46:00* Test Item Value Reference Range Interpretation Comments Prothromb Time International Ratio (test code = 6301-6) 0.94 Oral Anticoagulant Therapy INR Values:1. Low Intensity Therapy 1.5 - 2.02 . Moderate Intensity Therapy 2.0 - 3.03. High Intensity Therapy(1) 2.5 - 3. 54. High Intensity Therapy(2) 3.0 - 4.05. Panic Value INR > 5.0 [facility] HospitalAct[facility] Partial Thromboplast Time 2019-05-09 10:46:00* Test Item Value Reference Range Interpretation Comments Activated Partial Thromboplast Time (test code = 83945-3) 31.8 23.8-35.5 [facility] HospitalProthrombin Mike7253-51-81 10:46:00* Test Item Value Reference Range Interpretation Comments Prothrombin Time (test code = 5902-2) 13.1 11.9-14.5 [facility] HospitalProthromb Time International Ratio 2019-05-09 10:46:00* Test Item Value Reference Range Interpretation Comments Prothromb Time International Ratio (test code = 6301-6) 0.94 Oral Anticoagulant Therapy INR Values:1. Low Intensity Therapy 1.5 - 2.02 . Moderate Intensity Therapy 2.0 - 3.03. High Intensity Therapy(1) 2.5 - 3. 54. High Intensity Therapy(2) 3.0 - 4.05. Panic Value INR > 5.0 [facility] HospitalAct[facility] Partial Thromboplast Time 2019-05-09 10:46:00* Test Item Value Reference Range Interpretation Comments Activated Partial Thromboplast Time (test code = 95066-1) 31.8 23.8-35.5 [facility] HospitalProthrombin Eqts9044-25-56 10:46:00* Test Item Value Reference Range Interpretation Comments Prothrombin Time (test code = 5902-2) 13.1 11.9-14.5 [facility] HospitalProthromb Time International Ratio 2019-05-09 10:46:00* Test Item Value Reference Range Interpretation Comments Prothromb Time International Ratio (test code = 6301-6) 0.94 Oral Anticoagulant Therapy INR Values:1. Low Intensity Therapy 1.5 - 2.02 . Moderate Intensity Therapy 2.0 - 3.03. High Intensity Therapy(1) 2.5 - 3. 54. High Intensity Therapy(2) 3.0 - 4.05. Panic Value INR > 5.0 [facility] HospitalAct[facility] Partial Thromboplast Time 2019-05-09 10:46:00* Test Item Value Reference Range Interpretation Comments Activated Partial Thromboplast Time (test code = 42327-6) 31.8 23.8-35.5 [facility] HospitalWhite Blood Pddmy8445-26-62 10:41:00* Test Item Value Reference Range Interpretation Comments White Blood Count (test code = 6690-2) 6.48 4.8-10.8 [facility] HospitalRed Blood Cesmt5749-92-64 10:41:00* Test Item Value Reference Range Interpretation Comments Red Blood Count (test code = 789-8) 4.72 4.3-5.7 [facility] HospitalHemoglobin2019-07-11 10:41:00* Test Item Value Reference Range Interpretation Comments Hemoglobin (test code = 36843-5) 14.6 14.0-18.0 [facility] HospitalHematocrit2019-07-11 10:41:00* Test Item Value Reference Range Interpretation Comments Hematocrit (test code = 4544-3) 43.6 38.2-49.6 [facility] HospitalMean Corpuscular Sduxfa1356-64-93 10:41:00* Test Item Value Reference Range Interpretation Comments Mean Corpuscular Volume (test code = 787-2) 92.4 81-99 [facility] HospitalMean Corpuscular Zmdnpikwat4678-51-61 10:41:00* Test Item Value Reference Range Interpretation Comments Mean Corpuscular Hemoglobin (test code = 785-6) 30.9 28-32 [facility] HospitalMean Corpuscular Hemoglobin Concent 2019-05-09 10:41:00* Test Item Value Reference Range Interpretation Comments Mean Corpuscular Hemoglobin Concent (test code = 786-4) 33.5 31-35 [facility] HospitalRed Cell Distribution Wiqzo7421-73-48 10:41:00* Test Item Value Reference Range Interpretation Comments Red Cell Distribution Width (test code = 32541-8) 13.3 11.7 -14.4 [facility] HospitalPlatelet Aqcpo8625-28-61 10:41:00* Test Item Value Reference Range Interpretation Comments Platelet Count (test code = 777-3) 195 140-360 [facility] HospitalNeutrophils (%) (Auto)2019-05-09 10:41:00 * Test Item Value Reference Range Interpretation Comments Neutrophils (%) (Auto) (test code = 12673-4) 77.2 38.7-80.0 [facility] HospitalLymphocytes (%) (Auto)2019-05-09 10:41:00 * Test Item Value Reference Range Interpretation Comments Lymphocytes (%) (Auto) (test code = 736-9) 13.4 18.0-39.1 L [facility] HospitalMonocytes (%) (Auto)2019-05-09 10:41:00* Test Item Value Reference Range Interpretation Comments Monocytes (%) (Auto) (test code = 5905-5) 7.9 4.4-11.3 [facility] HospitalEosinophils (%) (Auto)2019-05-09 10:41:00 * Test Item Value Reference Range Interpretation Comments Eosinophils (%) (Auto) (test code = 713-8) 0.6 0.0-6.0 [facility] HospitalBasophils (%) (Auto)2019-05-09 10:41:00* Test Item Value Reference Range Interpretation Comments Basophils (%) (Auto) (test code = 706-2) 0.6 0.0-1.0 [facility] HospitalIM GRANULOCYTES %2019-05-09 10:41:00* Test Item Value Reference Range Interpretation Comments IM GRANULOCYTES % (test code = IM GRANULOCYTES %) 0.3 0.0- 1.0 [facility] HospitalNeutrophils # (Auto)2019-05-09 10:41:00* Test Item Value Reference Range Interpretation Comments Neutrophils # (Auto) (test code = 751-8) 5.0 2.1-6.9 [facility] HospitalLymphocytes # (Auto)2019-05-09 10:41:00* Test Item Value Reference Range Interpretation Comments Lymphocytes # (Auto) (test code = 19194-8) 0.9 1.0-3.2 L [facility] HospitalMonocytes # (Auto)2019-05-09 10:41:00* Test Item Value Reference Range Interpretation Comments Monocytes # (Auto) (test code = 742-7) 0.5 0.2-0.8 [facility] HospitalEosinophils # (Auto)2019-05-09 10:41:00* Test Item Value Reference Range Interpretation Comments Eosinophils # (Auto) (test code = 711-2) 0.0 0.0-0.4 [facility] HospitalBasophils # (Auto)2019-05-09 10:41:00* Test Item Value Reference Range Interpretation Comments Basophils # (Auto) (test code = 704-7) 0.0 0.0-0.1 [facility] HospitalAbsolute Immature Granulocyte (auto 2019-05-09 10:41:00* Test Item Value Reference Range Interpretation Comments Absolute Immature Granulocyte (auto (sara t code = Absolute Immature Granulocyte (auto) 0.02 0-0.1 [facility] HospitalWhite Blood Kwghb9043-22-12 10:41:00* Test Item Value Reference Range Interpretation Comments White Blood Count (test code = 6690-2) 6.48 4.8-10.8 [facility] HospitalRed Blood Jnuyc6200-10-59 10:41:00* Test Item Value Reference Range Interpretation Comments Red Blood Count (test code = 789-8) 4.72 4.3-5.7 [facility] HospitalHemoglobin2019-07-11 10:41:00* Test Item Value Reference Range Interpretation Comments Hemoglobin (test code = 11941-7) 14.6 14.0-18.0 [facility] HospitalHematocrit2019-07-11 10:41:00* Test Item Value Reference Range Interpretation Comments Hematocrit (test code = 4544-3) 43.6 38.2-49.6 [facility] HospitalMean Corpuscular Byuzpw5844-78-77 10:41:00* Test Item Value Reference Range Interpretation Comments Mean Corpuscular Volume (test code = 787-2) 92.4 81-99 [facility] HospitalMean Corpuscular Nxmjzlwbaq9109-28-12 10:41:00* Test Item Value Reference Range Interpretation Comments Mean Corpuscular Hemoglobin (test code = 785-6) 30.9 28-32 [facility] HospitalMean Corpuscular Hemoglobin Concent 2019-05-09 10:41:00* Test Item Value Reference Range Interpretation Comments Mean Corpuscular Hemoglobin Concent (test code = 786-4) 33.5 31-35 [facility] HospitalRed Cell Distribution Tpwyv9712-53-27 10:41:00* Test Item Value Reference Range Interpretation Comments Red Cell Distribution Width (test code = 42321-9) 13.3 11.7 -14.4 [facility] HospitalPlatelet Uyjll3761-39-76 10:41:00* Test Item Value Reference Range Interpretation Comments Platelet Count (test code = 777-3) 195 140-360 [facility] HospitalNeutrophils (%) (Auto)2019-05-09 10:41:00 * Test Item Value Reference Range Interpretation Comments Neutrophils (%) (Auto) (test code = 82337-4) 77.2 38.7-80.0 [facility] HospitalLymphocytes (%) (Auto)2019-05-09 10:41:00 * Test Item Value Reference Range Interpretation Comments Lymphocytes (%) (Auto) (test code = 736-9) 13.4 18.0-39.1 L [facility] HospitalMonocytes (%) (Auto)2019-05-09 10:41:00* Test Item Value Reference Range Interpretation Comments Monocytes (%) (Auto) (test code = 5905-5) 7.9 4.4-11.3 [facility] HospitalEosinophils (%) (Auto)2019-05-09 10:41:00 * Test Item Value Reference Range Interpretation Comments Eosinophils (%) (Auto) (test code = 713-8) 0.6 0.0-6.0 [facility] HospitalBasophils (%) (Auto)2019-05-09 10:41:00* Test Item Value Reference Range Interpretation Comments Basophils (%) (Auto) (test code = 706-2) 0.6 0.0-1.0 [facility] HospitalIM GRANULOCYTES %2019-05-09 10:41:00* Test Item Value Reference Range Interpretation Comments IM GRANULOCYTES % (test code = IM GRANULOCYTES %) 0.3 0.0- 1.0 [facility] HospitalNeutrophils # (Auto)2019-05-09 10:41:00* Test Item Value Reference Range Interpretation Comments Neutrophils # (Auto) (test code = 751-8) 5.0 2.1-6.9 [facility] HospitalLymphocytes # (Auto)2019-05-09 10:41:00* Test Item Value Reference Range Interpretation Comments Lymphocytes # (Auto) (test code = 78298-1) 0.9 1.0-3.2 L [facility] HospitalMonocytes # (Auto)2019-05-09 10:41:00* Test Item Value Reference Range Interpretation Comments Monocytes # (Auto) (test code = 742-7) 0.5 0.2-0.8 [facility] HospitalEosinophils # (Auto)2019-05-09 10:41:00* Test Item Value Reference Range Interpretation Comments Eosinophils # (Auto) (test code = 711-2) 0.0 0.0-0.4 [facility] HospitalBasophils # (Auto)2019-05-09 10:41:00* Test Item Value Reference Range Interpretation Comments Basophils # (Auto) (test code = 704-7) 0.0 0.0-0.1 [facility] HospitalAbsolute Immature Granulocyte (auto 2019-05-09 10:41:00* Test Item Value Reference Range Interpretation Comments Absolute Immature Granulocyte (auto (sara t code = Absolute Immature Granulocyte (auto) 0.02 0-0.1 [facility] HospitalWhite Blood Nedvc6508-79-26 10:41:00* Test Item Value Reference Range Interpretation Comments White Blood Count (test code = 6690-2) 6.48 4.8-10.8 [facility] HospitalRed Blood Qevne6911-79-76 10:41:00* Test Item Value Reference Range Interpretation Comments Red Blood Count (test code = 789-8) 4.72 4.3-5.7 [facility] HospitalHemoglobin2019-07-11 10:41:00* Test Item Value Reference Range Interpretation Comments Hemoglobin (test code = 89455-3) 14.6 14.0-18.0 [facility] HospitalHematocrit2019-07-11 10:41:00* Test Item Value Reference Range Interpretation Comments Hematocrit (test code = 4544-3) 43.6 38.2-49.6 [facility] HospitalMean Corpuscular Vknjll8789-87-91 10:41:00* Test Item Value Reference Range Interpretation Comments Mean Corpuscular Volume (test code = 787-2) 92.4 81-99 [facility] HospitalMean Corpuscular Utsvvvsddi6186-97-80 10:41:00* Test Item Value Reference Range Interpretation Comments Mean Corpuscular Hemoglobin (test code = 785-6) 30.9 28-32 [facility] HospitalMean Corpuscular Hemoglobin Concent 2019-05-09 10:41:00* Test Item Value Reference Range Interpretation Comments Mean Corpuscular Hemoglobin Concent (test code = 786-4) 33.5 31-35 [facility] HospitalRed Cell Distribution Agoop2104-53-42 10:41:00* Test Item Value Reference Range Interpretation Comments Red Cell Distribution Width (test code = 76447-4) 13.3 11.7 -14.4 [facility] HospitalPlatelet Fvtlg3151-90-38 10:41:00* Test Item Value Reference Range Interpretation Comments Platelet Count (test code = 777-3) 195 140-360 [facility] HospitalNeutrophils (%) (Auto)2019-05-09 10:41:00 * Test Item Value Reference Range Interpretation Comments Neutrophils (%) (Auto) (test code = 75325-0) 77.2 38.7-80.0 [facility] HospitalLymphocytes (%) (Auto)2019-05-09 10:41:00 * Test Item Value Reference Range Interpretation Comments Lymphocytes (%) (Auto) (test code = 736-9) 13.4 18.0-39.1 L [facility] HospitalMonocytes (%) (Auto)2019-05-09 10:41:00* Test Item Value Reference Range Interpretation Comments Monocytes (%) (Auto) (test code = 5905-5) 7.9 4.4-11.3 [facility] HospitalEosinophils (%) (Auto)2019-05-09 10:41:00 * Test Item Value Reference Range Interpretation Comments Eosinophils (%) (Auto) (test code = 713-8) 0.6 0.0-6.0 [facility] HospitalBasophils (%) (Auto)2019-05-09 10:41:00* Test Item Value Reference Range Interpretation Comments Basophils (%) (Auto) (test code = 706-2) 0.6 0.0-1.0 [facility] HospitalIM GRANULOCYTES %2019-05-09 10:41:00* Test Item Value Reference Range Interpretation Comments IM GRANULOCYTES % (test code = IM GRANULOCYTES %) 0.3 0.0- 1.0 [facility] HospitalNeutrophils # (Auto)2019-05-09 10:41:00* Test Item Value Reference Range Interpretation Comments Neutrophils # (Auto) (test code = 751-8) 5.0 2.1-6.9 [facility] HospitalLymphocytes # (Auto)2019-05-09 10:41:00* Test Item Value Reference Range Interpretation Comments Lymphocytes # (Auto) (test code = 89916-0) 0.9 1.0-3.2 L [facility] HospitalMonocytes # (Auto)2019-05-09 10:41:00* Test Item Value Reference Range Interpretation Comments Monocytes # (Auto) (test code = 742-7) 0.5 0.2-0.8 [facility] HospitalEosinophils # (Auto)2019-05-09 10:41:00* Test Item Value Reference Range Interpretation Comments Eosinophils # (Auto) (test code = 711-2) 0.0 0.0-0.4 [facility] HospitalBasophils # (Auto)2019-05-09 10:41:00* Test Item Value Reference Range Interpretation Comments Basophils # (Auto) (test code = 704-7) 0.0 0.0-0.1 [facility] HospitalAbsolute Immature Granulocyte (auto 2019-05-09 10:41:00* Test Item Value Reference Range Interpretation Comments Absolute Immature Granulocyte (auto (sara t code = Absolute Immature Granulocyte (auto) 0.02 0-0.1 [facility] HospitalWhite Blood Sukhf3119-43-57 10:41:00* Test Item Value Reference Range Interpretation Comments White Blood Count (test code = 6690-2) 6.48 4.8-10.8 [facility] HospitalRed Blood Yzmlc8872-49-32 10:41:00* Test Item Value Reference Range Interpretation Comments Red Blood Count (test code = 789-8) 4.72 4.3-5.7 [facility] HospitalHemoglobin2019-07-11 10:41:00* Test Item Value Reference Range Interpretation Comments Hemoglobin (test code = 87547-6) 14.6 14.0-18.0 [facility] HospitalHematocrit2019-07-11 10:41:00* Test Item Value Reference Range Interpretation Comments Hematocrit (test code = 4544-3) 43.6 38.2-49.6 [facility] HospitalMean Corpuscular Zzuelc1894-33-44 10:41:00* Test Item Value Reference Range Interpretation Comments Mean Corpuscular Volume (test code = 787-2) 92.4 81-99 [facility] HospitalMean Corpuscular Ynrirxinql2859-75-33 10:41:00* Test Item Value Reference Range Interpretation Comments Mean Corpuscular Hemoglobin (test code = 785-6) 30.9 28-32 [facility] HospitalMean Corpuscular Hemoglobin Concent 2019-05-09 10:41:00* Test Item Value Reference Range Interpretation Comments Mean Corpuscular Hemoglobin Concent (test code = 786-4) 33.5 31-35 [facility] HospitalRed Cell Distribution Nrmah8529-95-99 10:41:00* Test Item Value Reference Range Interpretation Comments Red Cell Distribution Width (test code = 80917-4) 13.3 11.7 -14.4 [facility] HospitalPlatelet Mzjuo4988-50-98 10:41:00* Test Item Value Reference Range Interpretation Comments Platelet Count (test code = 777-3) 195 140-360 [facility] HospitalNeutrophils (%) (Auto)2019-05-09 10:41:00 * Test Item Value Reference Range Interpretation Comments Neutrophils (%) (Auto) (test code = 21926-0) 77.2 38.7-80.0 [facility] HospitalLymphocytes (%) (Auto)2019-05-09 10:41:00 * Test Item Value Reference Range Interpretation Comments Lymphocytes (%) (Auto) (test code = 736-9) 13.4 18.0-39.1 L [facility] HospitalMonocytes (%) (Auto)2019-05-09 10:41:00* Test Item Value Reference Range Interpretation Comments Monocytes (%) (Auto) (test code = 5905-5) 7.9 4.4-11.3 [facility] HospitalEosinophils (%) (Auto)2019-05-09 10:41:00 * Test Item Value Reference Range Interpretation Comments Eosinophils (%) (Auto) (test code = 713-8) 0.6 0.0-6.0 [facility] HospitalBasophils (%) (Auto)2019-05-09 10:41:00* Test Item Value Reference Range Interpretation Comments Basophils (%) (Auto) (test code = 706-2) 0.6 0.0-1.0 [facility] HospitalIM GRANULOCYTES %2019-05-09 10:41:00* Test Item Value Reference Range Interpretation Comments IM GRANULOCYTES % (test code = IM GRANULOCYTES %) 0.3 0.0- 1.0 [facility] HospitalNeutrophils # (Auto)2019-05-09 10:41:00* Test Item Value Reference Range Interpretation Comments Neutrophils # (Auto) (test code = 751-8) 5.0 2.1-6.9 [facility] HospitalLymphocytes # (Auto)2019-05-09 10:41:00* Test Item Value Reference Range Interpretation Comments Lymphocytes # (Auto) (test code = 59973-6) 0.9 1.0-3.2 L [facility] HospitalMonocytes # (Auto)2019-05-09 10:41:00* Test Item Value Reference Range Interpretation Comments Monocytes # (Auto) (test code = 742-7) 0.5 0.2-0.8 [facility] HospitalEosinophils # (Auto)2019-05-09 10:41:00* Test Item Value Reference Range Interpretation Comments Eosinophils # (Auto) (test code = 711-2) 0.0 0.0-0.4 [facility] HospitalBasophils # (Auto)2019-05-09 10:41:00* Test Item Value Reference Range Interpretation Comments Basophils # (Auto) (test code = 704-7) 0.0 0.0-0.1 [facility] HospitalAbsolute Immature Granulocyte (auto 2019-05-09 10:41:00* Test Item Value Reference Range Interpretation Comments Absolute Immature Granulocyte (auto (sara t code = Absolute Immature Granulocyte (auto) 0.02 0-0.1 [facility]
== END 2020-05-28 08:51 | disposition home or self-care (01) ==
LOC: FSED 07:35
DX: T83.091A Other mechanical complication of indwelling urethral catheter, initial encounter (principal); N30.91 Cystitis, unspecified with hematuria; I10 Essential (primary) hypertension; E11.9 Type 2 diabetes mellitus without complications; I48.91 Unspecified atrial fibrillation; I50.9 Heart failure, unspecified; F17.210 Nicotine dependence, cigarettes, uncomplicated
CPT/HCPCS: 51702; 80053; 81003; 85025; 87086; 87186; 96374; 96375; 96376; 99284; J1885; J2270; J2405; J2543; J7040; 51700

== ENCOUNTER → 2020-06-26 | Day surgery (SDC) | payer MEDICARE, OTHER ==
--- NOTE | 2020-06-24 14:05 | Diagnostic Imaging Report ---
EXAMINATION: CHEST 2 VIEWS INDICATION: Pre-operative COMPARISON: Chest radiograph 09/28/2019 FINDINGS: LINES/TUBES:None LUNGS:The lungs are well-inflated. No focal consolidation or pulmonary edema. PLEURA:Unchanged bilateral calcified pleural plaques. Unchanged left apical pleural parenchymal thickening/scarring. MEDIASTINUM:The cardiomediastinal silhouette appears normal in size and shape. BONES/SOFT TISSUES:No acute osseous injury. ABDOMEN:No free air under the diaphragm. IMPRESSION: Unchanged bilateral pleural-based calcifications and left apical pleural parenchymal thickening/scarring. No focal pneumonia or pulmonary edema. Signed by: Mathieu Mccarthy MD on 06/24/2020 2:02 PM
[2020-06-24 14:06] LABS: BASOPHILS # (AUTO) 0.1 (0.0-0.1); BASOPHILS % 0.8 % (0.0-1.0); EOSINOPHILS # (AUTO) 0.3 (0.0-0.4); EOSINOPHILS % 4.1 % (0.0-6.0); HEMATOCRIT 43.6 % (38.2-49.6); HEMOGLOBIN 14.2 g/dL (14.0-18.0); LYMPHOCYTES # (AUTO) 1.3 (1.0-3.2); LYMPHOCYTES % 20.6 % (18.0-39.1); MEAN CORPUSCULAR HEMOGLOBIN 29.8 pg (28-32); MEAN CORPUSCULAR HGB CONC 32.6 g/dL (31-35); MEAN CORPUSCULAR VOLUME 91.6 fL (81-99); MONOCYTES # (AUTO) 0.6 (0.2-0.8); MONOCYTES % 8.6 % (4.4-11.3); NEUTROPHILS # (AUTO) 4.2 (2.1-6.9); NEUTROPHILS % 65.6 % (38.7-80.0); PLATELET COUNT 166 x10e3/uL (140-360); RED BLOOD COUNT 4.76 x10e6/uL (4.3-5.7); RED CELL DISTRIBUTION WIDTH 14.3 % (11.7-14.4)
[2020-06-24 14:23] LABS: ANION GAP 16.7 mmol/L (8-16); CALCIUM 9.8 mg/dL (8.4-10.2); CREATININE, SERUM 1.21 mg/dL (0.72-1.25); POTASSIUM 3.7 mmol/L (3.5-5.1)
[~2020-06-26] MED LIST changes: +B&O 60MG R/S 60 MG SUPP PR ONE; +ETOMIDATE 2 MG/ML 10 ML INJ IV ONE; +FENTANYL CITRATE/PF 100MCG/2 ML INJ ONE; +GENTAMICIN 80MG/NS 100 ML 100 ML IV ONE; +IBUPROFEN IB200 MG PO; +IOPAMIDOL 300MG/ML 50ML INFUS..BTL IV ONE; +LIDOCAINE HCL 2% JELLY 5 ML TUBE ONE; +LOSARTAN POTASS25 MG PO; +MIDAZOLAM HCL 2 MG/2 ML VIAL ONE; +MULTI-VITAMIN1 EACH PO; +PIPER-TAZ 3.375 GM 50 ML ONE; +PLAVIX75 MG PO; +SEVOFLURANE INHAL SOLN 250 ML PEN BTL ONE; +TYLENOL # 31 EA PO; +VIT D PO; +ZOFRAN4 MG SL; +[UNRECOGNIZED DRUG - OTHER]
[2020-06-26 15:54] VITALS: BP 177/93
--- NOTE | 2020-06-27 04:12 | Operative Report ---
DATE OF PROCEDURE: 06/26/2020 SURGEON: Kwesi Block MD POSTOPERATIVE DIAGNOSES: 1. Obstructive benign prostatic hypertrophy. 2. Urinary tract infections. POSTOPERATIVE DIAGNOSES: 1. Obstructive benign prostatic hypertrophy. 2. Urinary tract infections. 3. 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 4. Potential for renal colic due to resection of bladder tumor near the ureteral orifice. OPERATIONS PERFORMED: 1. Cystourethroscopy with bilateral ureteral catheterization and retrograde ureteropyelography (separate procedure performed for the urinary tract infections). 2. Interpretation of retrograde ureteropyelography, no radiologist present. 3. Supervision of fluoroscopy, no radiologist was present. 4. Cystourethroscopy with transurethral resection of small bladder tumor (separate procedure performed for the diagnosis of bladder tumor). 5. Cystourethroscopy with insertion of right indwelling ureteral stent (separate procedure performed to prevent renal colic from bladder tumor management). 6. Cystourethroscopy with photoselective vaporization of the prostate utilizing the GreenLight laser (separately procedure performed for the obstructive BPH). ANESTHESIA: General. COMPLICATIONS: None. CLINICAL SUMMARY: Jovani Kenney is a 75-year-old man with the above preoperative diagnoses. He has urinary retention and Urena catheter in situ. He has failed voiding trial, but does seem to have bladder function on urodynamic study. He is brought for laser prostatectomy in hopes of rendering him catheter free. He has significant cardiac disease and is believed to be as optimized as possible for this procedure. He is aware of the risks of bleeding, infection, injury to adjacent structures, incontinence, impotence, retrograde ejaculation, need for additional procedures and elected to proceed. PROCEDURE IN DETAIL: Informed consent was verified. Jovani Kenney was properly identified, taken to the operating room, placed on the cystoscopy table in supine position. Anesthesia was uneventfully begun. The patient was then carefully and gently repositioned in the dorsal lithotomy position. All pressure points were padded. His genitalia were prepared and draped in usual sterile fashion. The continuous-flow cystoscope sheath was inserted under direct vision. It was guided down the unremarkable urethra through the normal sphincteric region into the prostate bed, which was significant for trilobar prostatic hypertrophy with obstructing median lobe. We entered the patient's bladder where there were grade 1-2 trabeculations, normal left ureteral orifice. The right ureteral orifice was not easily seen due to papillary tumor in its vicinity. 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 Ureteral catheter was used to cannulate each ureter and retrograde ureteropyelograms were performed. With cystoscopic and fluoroscopic guidance, a right-sided indwelling ureteral stent was then placed. It was coiled to the patient's kidneys as well as the patient's bladder. We then utilized cold cup biopsy forceps to resect the superficial tumor right next to the stent. We utilized the GreenLight laser on the coagulation setting in order to fulgurate the region where we resected. Care was taken to avoid injuring the ureteral orifice directly. We then utilized the GreenLight laser to vaporize the median lobe and eliminated. We then worked on both lateral lobes from the bladder neck to maneuver past the verumontanum. We worked on this patient for a total of an hour prior to determining that we should adhere to the predetermined 1 hour long surgery time, especially in light of his cardiac history. We had a relatively open prostatic bed with excellent hemostasis after delivering 59,884 joules of energy over total laser time of 13 minutes and 39 seconds. The cystoscope was withdrawn. Urena catheter was placed. It was irrigated to and fro to ensure it worked properly. It was placed on continuous irrigation for the recovery room in plan. A belladonna and Opium suppository were placed revealing a large prostate, smooth, nonfluctuant without any nodules. The patient was then uneventfully reversed from anesthesia and taken to recovery room in stable condition. There were no complications to the procedure. The patient tolerated the procedure well. Explicit postop instructions were given. We will bring the patient back to the office in a couple of weeks to follow up on his pathology report and remove his Urena catheter. Plans will be at that visit to proceed with a filling of the bladder and perform uroflowmetry and bladder ultrasonography. The patient will need to return to the operating room to remove his stent. He may need additional laser prostatectomy in the future as the time constraints prevented us from being able to fully open up his prostatic urethra. Kwesi Block MD [facility]/MODL /[id number] cc: Justen Hahn MD
== END | disposition home or self-care (01) ==
LOC: OR 10:17
PROVIDERS: ATTEND Urology
DX: N40.0 Benign prostatic hyperplasia without lower urinary tract symptoms (principal); N13.8 Other obstructive and reflux uropathy; C67.9 Malignant neoplasm of bladder, unspecified; N39.0 Urinary tract infection, site not specified; E11.22 Type 2 diabetes mellitus with diabetic chronic kidney disease; I13.0 Hypertensive heart and chronic kidney disease with heart failure and stage 1 through stage 4 chronic kidney disease, or unspecified chronic kidney disease; N18.9 Chronic kidney disease, unspecified; I50.9 Heart failure, unspecified; J44.9 Chronic obstructive pulmonary disease, unspecified; I25.10 Atherosclerotic heart disease of native coronary artery without angina pectoris; I48.91 Unspecified atrial fibrillation; I25.2 Old myocardial infarction; M19.90 Unspecified osteoarthritis, unspecified site; H91.90 Unspecified hearing loss, unspecified ear; F32.9 Major depressive disorder, single episode, unspecified; Z01.810 Encounter for preprocedural cardiovascular examination; Z01.812 Encounter for preprocedural laboratory examination; Z01.818 Encounter for other preprocedural examination; Z11.59 Encounter for screening for other viral diseases; Z79.02 Long term (current) use of antithrombotics/antiplatelets; Z79.82 Long term (current) use of aspirin; D49.4 Neoplasm of unspecified behavior of bladder; Z86.73 Personal history of transient ischemic attack (TIA), and cerebral infarction without residual deficits
CPT/HCPCS: 36415 ×2; 52234; 52332; 52648; 71046; 74420; 80048; 82948; 85025; 88307; 93005; C1758; C1769; C2617; J1580; J2001; J2250; J2543; J3010; Q9967; U0002; 88305

== ENCOUNTER 2020-07-01 12:37 | Emergency (ER) | payer MEDICARE, OTHER ==
[~2020-07-01] VITALS: Ht 188 cm; Wt 81.6 kg
[~2020-07-01 12:37] MED LIST changes: -B&O 60MG R/S 60 MG SUPP PR ONE; -ETOMIDATE 2 MG/ML 10 ML INJ IV ONE; -FENTANYL CITRATE/PF 100MCG/2 ML INJ ONE; -GENTAMICIN 80MG/NS 100 ML 100 ML IV ONE; -IOPAMIDOL 300MG/ML 50ML INFUS..BTL IV ONE; -LIDOCAINE HCL 2% JELLY 5 ML TUBE ONE; -MIDAZOLAM HCL 2 MG/2 ML VIAL ONE; -PIPER-TAZ 3.375 GM 50 ML ONE; -SEVOFLURANE INHAL SOLN 250 ML PEN BTL ONE; -[UNRECOGNIZED DRUG - OTHER]
[2020-07-01] MEDS ORDERED: SODIUM CHLORIDE 0.9% 500ML 500 ML IV STA (13:28)
--- OUTSIDE RECORDS SUMMARY | 2020-07-01 13:32 | XMS REPORT | Continuity of Care Document ---
Author Author [facility] t Organization [facility] Address [address] [place] [address] Phone Unavailable Care Team Providers Care Web Marketing Coordinator Name Role Phone MD Benny KRUEGER MD PCP NAFISA YODER Attphys Unavailable DELPHINE KRAFT Attphys Unavailable Payers Payer Name Policy Type Policy Number Effective Date Expiration Date Benny Khan Medicare Replacement [id number] 2017 00:00:00 [facility] Problems Condition Name Condition Details Condition Category Status Onset Date Resolution Date Last Treatment Date Treating Clinician Comments Source Hemorrhagic cystitis Problem Active [facility] Allergies, Adverse Reactions, Alerts Allergy Name Allergy Type Status Severity Reaction(s) Onset Date Inacti ve Date Treating Clinician Comments Source No Known Allergies DA Active U 2019-07-11 00:00:00 [facility] Social History Social Habit Start Date Stop Date Quantity Comments Source Sex Assigned At 1945 00:00:00 1945 00[birth year]:00 Male [facility] Medications Ordered Medication Name Filled Medication Name Start Date Stop Da te Current Medication? Ordering Clinician Indication Dosage Frequency Signature (SIG) Comments Components Source Acetaminophen/Codeine Phosphate (Tylenol # 3*) 1 Ea TA B Acetaminophen/Codeine Phosphate (Tylenol # 3*) 1 Ea TAB 2020-05-28 07:39:00 Yes 1 Every 4 Hours as needed for Pain Or Cough [facility] Ibuprofen (Ibuprofen Ib) 200 Mg TABLET Ibuprofen (Ibuprofen Ib) 200 Mg TABLET 2020-05-28 07:39:00 Yes 3 Every 6 Hours as n eeded for Pain [facility] Ondansetron Hcl (Zofran*) 4 Mg TABLET Ondansetron Hcl (Zofra n*) 4 Mg TABLET 2020-05-28 07:39:00 Yes 4 Every 6 Hours as n eeded for Nausea [facility] Amoxicillin/Potassium Clav (Augmentin 875-125 Tablet) 1 Each TABLET Amoxicillin/Potassium Clav (Augmentin 875-125 Tablet) 1 Each TABLET 2020-02-22 22:42:00 Yes 500 Three Times A Day for Urinary Tract Infection [facility] Cefdinir (Omnicef) 300 Mg CAPSULE Cefdinir (Omnicef) 300 Mg CAPSULE 2019-12-13 19:51:00 2019-12-30 00:00:00 No 300 Twice A Day [facility] Cefuroxime Axetil (Cefuroxime) 250 Mg TABLET Cefuroxim e Axetil (Cefuroxime) 250 Mg TABLET 2019-05-09 11:18:00 2019-12-30 00:00:00 No 250 Every 12 Hours [facility] Tamsulosin Hcl (Flomax*) 0.4 Mg CAP Tamsulosin Hcl (Flomax*) 0.4 Mg CAP 2019-05-09 11:18:00 2019-12-30 00:00:00 No .4 Daily [facility] Aspirin Aspirin Yes 325 Daily [facility] Atorvastatin Calcium Atorvastatin Calcium Yes 40 Daily [facility] Metoprolol Tartrate Metoprolol Tartrate Yes 25 Twice A Day [facility] Potassium Chloride Potassium Chloride Yes 10 [place] [facility] Potassium Bicarbonate/Cit Ac (Effer-K 10 Meq Tablet Ef f) 10 Meq TABLET.EFF Potassium Bicarbonate/Cit Ac (Effer-K 10 Meq Tablet Eff) 10 Meq TABLET.EFF 2020-01-01 00:00:00 No 1 Daily [facility] Tamsulosin Hcl (Flomax*) 0.4 Mg CAP Tamsulosin Hcl (Flomax*) 0.4 Mg CAP 2020-01-01 00:00:00 No .4 Daily [facility] Vitamin D Vitamin D 2019-12-30 00:00:00 No [address] [facility] Vital Signs Vital Name Observation Time Observation Value Comments Source Weight 2020-05-28 07:27:00 180 [lb_av] [facility] BMI (Body Mass Index) 2020-05-28 07:27:00 23.1 kg/m2 [facility] Body Temperature 2020-02-22 23:50:00 98.6 [degF] [facility] Procedures Procedure Date / Time Performed Performing Clinician Chandu e L HRT ARTERY/VENTRICLE ANGIO 2020-01-01 00:00:00 [facility] INSERT TEMP BLADDER CATH 2019-12-13 00:00:00 [facility] Plan of Care Planned Activity Planned Date Details Comments Source Instructions Urena Catheter Care [facility] Instructions Urinary Tract Infection - Men [facility] Encounters Start Date/Time End Date/Time En[facility] ID Source 2020-05-28 07:35:00 2020-05-28 08:51:00 Departed Emergency Room [facility] [id number] [facility] 2020-02-22 17:56:00 2020-02-22 23:50:00 Departed Emergency Room [facility] [id number] [facility] 2020-01-01 15:18:00 2020-01-01 20:18:00 Discharged Inpatient (obs) [facility] [id number] [facility] [place] 2019-12-13 17:36:00 2019-12-13 20:27:00 Departed Emergency Room [facility] [id number] [facility] 2019-12-02 08:45:00 2019-12-02 10:01:00 Departed Emergency Room [facility] [id number] [facility] 2019-09-28 17:11:00 2019-09-28 20:46:00 Departed Emergency Room 1 DELPHINE KRAFT [facility] [id number] [facility] 2019-05-09 08:42:00 2019-05-09 12:29:00 Departed Emergency Room [facility] [id number] [facility] Results Test Description Test Time Test Comments Results Result Comments Source CHEST 2 VIEWS 2020-06-24 14:00:00 [place] [address] Patient Name: EVANS DANIELSON MR #: [id number] : 1945 Age/Sex: 75/M Req #: [id number] Adm Physician: Ordered by: NAFISA YODER MD Report #: [id number] Location: OR Room/Bed: Procedure: [id number] DX/CHEST 2 VIEWS Exam Date: 06/24/20 Exam Time: 1340 REPORT STATUS: Signed EXAMINATION: CHEST 2 VIEWS INDICATION: Pre-operative COMPARISON: Chest radiograph 09/28/2019 FINDINGS: LINES/TUBES:None LUNGS:The lungs are well-inflated. No focal consolidation or pulmonary edema. PLEURA:Unchanged bilateral calcified pleural plaques. Unchanged left apical pleural parenchymal thickening/scarring. MEDIASTINUM:The cardiomediastinal silhouette appears normal in size and shape. BONES/SOFT TISSUES:No acute osseous injury. ABDOMEN:No free air under the diaphragm. IMPRESSION: Unchanged bilateral pleural-based calcifications and left apical pleural parenchymal thickening/scarring. No focal pneumonia or pulmonary edema. Signed by: Tushar Tang MD on 06/24/2020 2:02 PM Dictated By: TUSHAR TANG MD 01 Transcribed By: DAGMAR on 06/24/201401 COPY TO: NAFISA YODER MD GLUBED 2020-03-11 15:29:00 Test Item GLUBED (test code = GLUBED) 123 mg/dL 74-106 H Performed by certified photocopy operator at [facility] [id number] 05:27:00* Test Item Value Reference Range Interpretation Comments GLUBED (test code = GLUBED) 165 mg/dL 74-106 H Performed by certified photocopy operator at [facility] BASIC METABOLIC [id number] 18:56:00* Test Item Value Reference Range Interpretation [...] CA) 8.8 mg/dL 8.5-10.1 N CBC W/AUTO [id number] 18:42:00* Test Item Value Reference Range Interpretation [...] code = NRBC#) 0.00 K/mm3 0.0-0.1 N [id number] 17:59:00* Test Item Value Reference Range Interpretation Comments GLUBED (test code = GLUBED) 91 mg/dL 74-106 N Performed by certified photocopy operator at [facility] [id number] 13:40:00* Test Item Value Reference Range Interpretation Comments GLUBED (test code = GLUBED) 140 mg/dL 74-106 H Performed by certified photocopy operator at [facility] Novel Coronavirus 2019 [id number] 13:40:00* Test Item Value Reference Range Interpretation Comments Novel Coronavirus 2019 Inhouse (test code = COVNONPUI) Negative Negative Testing Criteria: Preprocedure ScreeningNovel Coronavirus 2019 Inhouse 2020-03-10 13:40:00* Test Item Value Reference Range Interpretation Comments Novel Coronavirus 2019 Inhouse (test code = COVNONPUI) Negative Negative SENT TO 03/09/20Testing Criteria: Preprocedure ScreeningTesting Criteria: Preprocedure ScreeningCOAGULATION TIME [id number] 11:58:00* Test Item Value Reference Range Interpretation Comments COAGULATION TIME ACTIVATED (test code = ACT) 275 seconds 62.8-88.0 H COAGULATION TIME [id number] 11:58:00* Test Item Value Reference Range Interpretation Comments COAGULATION TIME ACTIVATED (test code = ACT) 286 seconds 62.8-88.0 H [id number] 10:48:00* Test Item Value Reference Range Interpretation Comments GLUBED (test code = GLUBED) 99 mg/dL 74-106 N Performed by certified photocopy operator at [facility] Coronavirus 2019 nCoV [id number] 10:01:00* Test Item Value Reference Range Interpretation Comments Coronavirus 2019 nCoV Bedside (test code = COVNONPUIBED) Negative COMPREHENSIVE METABOLIC [id number] 11:21:00* Test Item Value Reference Range Interpretation [...] LDL result is a direct measurement.========= PROTHROMBIN [id number] 11:17:00* Test Item Value Reference Range Interpretation [...] (2.5-3.5) IS PATIENT ON ANTICOAGULANTS? NTHROMBOPLASTIN TIME [id number] 11:17:00* Test Item Value Reference Range Interpretation Comments THROMBOPLASTIN TIME PARTIAL (test code = PTT) 37.0 seconds 23.0-37. 0 N IS PATIENT ON ANTICOAGULANTS? NCOMPREHENSIVE METABOLIC [id number] 11:06:00 * Test Item Value Reference Range [...] code = LDL) mg/dL 100-129 CBC W/AUTO [id number] 11:05:00* Test Item Value Reference Range Interpretation [...] (test code = MDIFF) NO CBC W/AUTO [id number] 11:04:00* Test Item Value Reference Range Interpretation [...] code = BA#) K/mm3 0.0-0.2 Bacterial urine [id number] 20:36:00* Test Item Value Reference Range Interpretation Comments Urine Culture (test code = 630-4) PSEUDOMONAS AERUGINOSA [facility] CenterBedside Ypfoeiz4085-97-08 20:29:00* Test Item Value Reference Range Interpretation Comments Bedside Glucose (test code = 68926-7) 175 70-120 H Meter ID: [id number] [facility] CenterCapillary blood glucose measurement by glucometer (mass/volume)2020-01-01 18:03:00* Test Item Value Reference Range Interpretation Comments Bedside Glucose (test code = 47267-6) 175 70-120 Meter ID: [id number] [facility] CenterTriglycerides Level 2019-12-30 16:21:00* Test Item Value Reference Range Interpretation Comments Triglycerides Level (test code = 2571-8) 81 0-149 [facility] CenterCholesterol [id number] 16:21:00* Test Item Value Reference Range Interpretation Comments Cholesterol Level (test code = 2093-3) 112 0-199 Less than 200 mg/dL Low Cytc297 - 239 mg/dL Borderline Fzjo892 m g/dl and greater High Risk [facility] CenterLDL Qdypfcsmghv8828-89-75 16:21:00* Test Item Value Reference Range Interpretation Comments LDL Cholesterol (test code = 2089-1) 59 60-130 L [facility] CenterHDL Bohjqlqyywq1879-88-18 16:21:00* Test Item Value Reference Range Interpretation Comments HDL Cholesterol (test code = 2085-9) 37 40-60 L [facility] CenterCholesterol/HDL Ywzhr1616-06-26 16:21:00 * Test Item Value Reference Range Interpretation Comments Cholesterol/HDL Ratio (test code = 9830-1) 3.0 3.9-4.7 L [facility]leodium [id number] 16:18:00* Test Item Value Reference Range Interpretation Comments Sodium Level (test code = 2951-2) 137 136-145 [facility] CenterPotassium Uvaap5389-86-88 16:18:00* Test Item Value Reference Range Interpretation Comments Potassium Level (test code = 2823-3) 4.0 3.5-5.1 [facility] CenterChloride Tgksa4721-30-91 16:18:00* Test Item Value Reference Range Interpretation Comments Chloride Level (test code = 2075-0) 104 98-107 [facility] CenterCarbon Dioxide Ibovc2086-09-12 16:18:00* Test Item Value Reference Range Interpretation Comments Carbon Dioxide Level (test code = 2028-9) 26 22-29 [facility] CenterAnion [id number] 16:18:00* Test Item Value Reference Range Interpretation Comments Anion Gap (test code = 84418-7) 11.0 8-16 [facility] CenterBlood Urea Vrmybgdw2394-93-40 16:18:00* Test Item Value Reference Range Interpretation Comments Blood Urea Nitrogen (test code = 3094-0) 19 7-26 [facility] CenterCreatinine2020-03-02 16:18:00* Test Item Value Reference Range Interpretation Comments Creatinine (test code = 2160-0) 1.36 0.72-1.25 H [facility] CenterBUN/Creatinine Pqypm6279-27-15 16:18:00* Test Item Value Reference Range Interpretation Comments BUN/Creatinine Ratio (test code = 3097-3) 14 6-25 [facility] CenterEstimat Glomerular Filtration Rate 2019-12-30 16:18:00* Test Item Value Reference Range Interpretation Comments Estimat Glomerular Filtration Rate (test code = 398980102) 51 >60 L Ranges were taken from the National Kidney Disease Education Program and the [facility] [facility] [employer] literature.Reference ranges:60 or greater: Fvmgxz74-36 ( for 3 consecutive months): Chronic kidney disease 15 or less: Kidney failureThe Hospital at Westlake Medical CenterGlucose Ugffr3284-16-06 16:18:00* Test Item Value Reference Range Interpretation Comments Glucose Level (test code = FRY4884) 214 74-118 H [facility] CenterCalcium Vzpvp5845-78-29 16:18:00* Test Item Value Reference Range Interpretation Comments Calcium Level (test code = 84991-1) 9.9 8.4-10.2 [facility] CenterTotal Lzqntaqxr2771-71-34 16:18:00* Test Item Value Reference Range Interpretation Comments Total Bilirubin (test code = 1975-2) 0.8 0.2-1.2 [facility] CenterAspartate Amino Transf (AST/SGOT) 2019-12-30 16:18:00* Test Item Value Reference Range Interpretation Comments Aspartate Amino Transf (AST/SGOT) (test code = Aspartate Amino Transf (AST/SGOT)) 21 5-34 [facility] CenterAlanine Aminotransferase (ALT/SGPT) 2019-12-30 16:18:00* Test Item Value Reference Range Interpretation Comments Alanine Aminotransferase (ALT/SGPT) (test code = 1742-6) 18 0-55 [facility] CenterTotal Mvwwtwv6826-40-35 16:18:00* Test Item Value Reference Range Interpretation Comments Total Protein (test code = 2885-2) 7.7 6.5-8.1 [facility] CenterAlbumin2020-03-02 16:18:00* Test Item Value Reference Range Interpretation Comments Albumin (test code = 1751-7) 3.8 3.5-5.0 [facility] CenterGlobulin2020-03-02 16:18:00* Test Item Value Reference Range Interpretation Comments Globulin (test code = 60675-8) 3.9 2.3-3.5 H [facility] CenterAlbumin/Globulin Mherc6089-87-10 16:18:00 * Test Item Value Reference Range Interpretation Comments Albumin/Globulin Ratio (test code = 1759-0) 1.0 0.8-2.0 [facility] CenterAlkaline Zoudmaertvp4063-16-68 16:18:00* Test Item Value Reference Range Interpretation Comments Alkaline Phosphatase (test code = 6768-6) 280 40-150 H [facility] CenterProthrombin Hklo0298-90-64 16:01:00* Test Item Value Reference Range Interpretation Comments Prothrombin Time (test code = 5902-2) 14.5 11.9-14.5 [facility] CenterProthromb Time International Ratio 2019-12-30 16:01:00* Test Item Value Reference Range Interpretation Comments Prothromb Time International Ratio (test code = 6301-6) 1.06 Oral Anticoagulant Therapy INR Values:1. Low Intensity Therapy 1.5 - 2.02 . Moderate Intensity Therapy 2.0 - 3.03. High Intensity Therapy(1) 2.5 - 3. 54. High Intensity Therapy(2) 3.0 - 4.05. Panic Value INR > 5.0 [facility] CenterActivated Partial Thromboplast Time 2019-12-30 16:01:00* Test Item Value Reference Range Interpretation Comments Activated Partial Thromboplast Time (test code = 09465-2) 34.5 23.8-35.5 [facility] CenterWhite Blood Ukuqk3053-30-90 15:54:00* Test Item Value Reference Range Interpretation Comments White Blood Count (test code = 6690-2) 7.94 4.8-10.8 [facility] CenterRed Blood Rbmar6137-57-76 15:54:00* Test Item Value Reference Range Interpretation Comments Red Blood Count (test code = 789-8) 4.59 4.3-5.7 [facility] CenterHemoglobin2020-03-02 15:54:00* Test Item Value Reference Range Interpretation Comments Hemoglobin (test code = 16269-0) 13.8 14.0-18.0 L [facility] CenterHematocrit2020-03-02 15:54:00* Test Item Value Reference Range Interpretation Comments Hematocrit (test code = 4544-3) 41.7 38.2-49.6 [facility] CenterMean Corpuscular Hmztne3467-53-51 15:54:00* Test Item Value Reference Range Interpretation Comments Mean Corpuscular Volume (test code = 787-2) 90.8 81-99 [facility] CenterMean Corpuscular Rbfdebjaar2466-69-88 15:54:00* Test Item Value Reference Range Interpretation Comments Mean Corpuscular Hemoglobin (test code = 785-6) 30.1 28-32 [facility] CenterMean Corpuscular Hemoglobin Concent 2019-12-30 15:54:00* Test Item Value Reference Range Interpretation Comments Mean Corpuscular Hemoglobin Concent (test code = 786-4) 33.1 31-35 [facility] CenterRed Cell Distribution Ognlb3814-51-23 15:54:00* Test Item Value Reference Range Interpretation Comments Red Cell Distribution Width (test code = 71611-8) 14.3 11.7 -14.4 [facility] CenterPlatelet Wpcxu9250-70-42 15:54:00* Test Item Value Reference Range Interpretation Comments Platelet Count (test code = 777-3) 199 140-360 [facility] CenterNeutrophils (%) (Auto)2019-12-30 15:54:00 * Test Item Value Reference Range Interpretation Comments Neutrophils (%) (Auto) (test code = 61702-2) 73.4 38.7-80.0 [facility] CenterLymphocytes (%) (Auto)2019-12-30 15:54:00 * Test Item Value Reference Range Interpretation Comments Lymphocytes (%) (Auto) (test code = 736-9) 15.1 18.0-39.1 L [facility] CenterMonocytes (%) (Auto)2019-12-30 15:54:00* Test Item Value Reference Range Interpretation Comments Monocytes (%) (Auto) (test code = 5905-5) 8.1 4.4-11.3 [facility] CenterEosinophils (%) (Auto)2019-12-30 15:54:00 * Test Item Value Reference Range Interpretation Comments Eosinophils (%) (Auto) (test code = 713-8) 2.6 0.0-6.0 [facility] CenterBasophils (%) (Auto)2019-12-30 15:54:00* Test Item Value Reference Range Interpretation Comments Basophils (%) (Auto) (test code = 706-2) 0.4 0.0-1.0 [facility] CenterIM GRANULOCYTES %2019-12-30 15:54:00* Test Item Value Reference Range Interpretation Comments IM GRANULOCYTES % (test code = IM GRANULOCYTES %) 0.4 0.0- 1.0 [facility] CenterNeutrophils # (Auto)2019-12-30 15:54:00* Test Item Value Reference Range Interpretation Comments Neutrophils # (Auto) (test code = 751-8) 5.8 2.1-6.9 [facility] CenterLymphocytes # (Auto)2019-12-30 15:54:00* Test Item Value Reference Range Interpretation Comments Lymphocytes # (Auto) (test code = 93200-8) 1.2 1.0-3.2 [facility] CenterMonocytes # (Auto)2019-12-30 15:54:00* Test Item Value Reference Range Interpretation Comments Monocytes # (Auto) (test code = 742-7) 0.6 0.2-0.8 [facility] CenterEosinophils # (Auto)2019-12-30 15:54:00* Test Item Value Reference Range Interpretation Comments Eosinophils # (Auto) (test code = 711-2) 0.2 0.0-0.4 [facility] CenterBasophils # (Auto)2019-12-30 15:54:00* Test Item Value Reference Range Interpretation Comments Basophils # (Auto) (test code = 704-7) 0.0 0.0-0.1 [facility] CenterAbsolute Immature Granulocyte (auto 2019-12-30 15:54:00* Test Item Value Reference Range Interpretation Comments Absolute Immature Granulocyte (auto (sara t code = Absolute Immature Granulocyte (auto) 0.03 0-0.1 [facility] CenterBlood leukocytes automated count (number/volume)2019-12-30 14:20:00* Test Item Value Reference Range Interpretation Comments White Blood Count (test code = 6690-2) 7.94 4.8-10.8 [facility] CenterBlood erythrocytes automated count (number/volume)2019-12-30 14:20:00* Test Item Value Reference Range Interpretation Comments Red Blood Count (test code = 789-8) 4.59 4.3-5.7 [facility] CenterBlood hemoglobin measurement (moles/volume)2019-12-30 14:20:00* Test Item Value Reference Range Interpretation Comments Hemoglobin (test code = 29622-4) 13.8 14.0-18.0 [facility] CenterAutomated blood hematocrit (volume fraction)2019-12-30 14:20:00* Test Item Value Reference Range Interpretation Comments Hematocrit (test code = 4544-3) 41.7 38.2-49.6 [facility] CenterAutomated erythrocyte mean corpuscular wgapef1349-40-28 14:20:00* Test Item Value Reference Range Interpretation Comments Mean Corpuscular Volume (test code = 787-2) 90.8 81-99 [facility] CenterAutomated erythrocyte mean corpuscular hemoglobin (mass per erythrocyte)2019-12-30 14:20:00* Test Item Value Reference Range Interpretation Comments Mean Corpuscular Hemoglobin (test code = 785-6) 30.1 28-32 [facility] CenterAutomated erythrocyte mean corpuscular hemoglobin concentration measurement (mass/volume)2019-12-30 14:20:00* Test Item Value Reference Range Interpretation Comments Mean Corpuscular Hemoglobin Concent (test code = 786-4) 33.1 31-35 [facility] CenterRDW PbhYr-Nwp8694-70-02 14:20:00* Test Item Value Reference Range Interpretation Comments Red Cell Distribution Width (test code = 42274-0) 14.3 11.7 -14.4 [facility] CenterAutomated blood platelet count (count/volume)2019-12-30 14:20:00* Test Item Value Reference Range Interpretation Comments Platelet Count (test code = 777-3) 199 140-360 [facility] neutrophil count as percentage of total esenrjrdmm0452-25-39 14:20:00* Test Item Value Reference Range Interpretation Comments Neutrophils (%) (Auto) (test code = 45722-4) 73.4 38.7-80.0 [facility] CenterAutomated blood lymphocyte count as percentage ot total enksoezuqd2471-64-53 14:20:00* Test Item Value Reference Range Interpretation Comments Lymphocytes (%) (Auto) (test code = 736-9) 15.1 18.0-39.1 [facility] CenterAutomated blood monocyte count as percentage of total rrxuzrwdhf3975-44-84 14:20:00* Test Item Value Reference Range Interpretation Comments Monocytes (%) (Auto) (test code = 5905-5) 8.1 4.4-11.3 [facility] CenterAutomated blood eosinophil count as percentage of total cjdihlzsid0230-36-41 14:20:00* Test Item Value Reference Range Interpretation Comments Eosinophils (%) (Auto) (test code = 713-8) 2.6 0.0-6.0 [facility] CenterAutomated blood basophil count as percentage of total elazdsbhzy2193-76-57 14:20:00* Test Item Value Reference Range Interpretation Comments Basophils (%) (Auto) (test code = 706-2) 0.4 0.0-1.0 [facility] CenterFluoroscopic procedure less than one hour mjqjcvhs4463-03-80 14:20:00* Test Item Value Reference Range Interpretation Comments IM GRANULOCYTES % (test code = IM GRANULOCYTES %) 0.4 0.0- 1.0 [facility] CenterAutomated blood neutrophil count 2019-12-30 14:20:00* Test Item Value Reference Range Interpretation Comments Neutrophils # (Auto) (test code = 751-8) 5.8 2.1-6.9 [facility] CenterBlood lymphocytes count (number/volume) 2019-12-30 14:20:00* Test Item Value Reference Range Interpretation Comments Lymphocytes # (Auto) (test code = 93983-9) 1.2 1.0-3.2 [facility] CenterBlood monocytes automated count (number/volume)2019-12-30 14:20:00* Test Item Value Reference Range Interpretation Comments Monocytes # (Auto) (test code = 742-7) 0.6 0.2-0.8 [facility] CenterAutomated blood eosinophil count 2019-12-30 14:20:00* Test Item Value Reference Range Interpretation Comments Eosinophils # (Auto) (test code = 711-2) 0.2 0.0-0.4 [facility] CenterAutomated blood basophil count (count/volume)2019-12-30 14:20:00* Test Item Value Reference Range Interpretation Comments Basophils # (Auto) (test code = 704-7) 0.0 0.0-0.1 [facility] CenterFluoroscopic procedure less than one hour rtzkrjmc7151-80-08 14:20:00* Test Item Value Reference Range Interpretation Comments Absolute Immature Granulocyte (auto (sara t code = Absolute Immature Granulocyte (auto) 0.03 0-0.1 [facility] CenterProthrombin time (PT) in platelet poor plasma by coagulation wokch5327-86-94 14:20:00* Test Item Value Reference Range Interpretation Comments Prothrombin Time (test code = 5902-2) 14.5 11.9-14.5 [facility] CenterINR in Platelet poor plasma by Coagulation zuszv4264-15-46 14:20:00* Test Item Value Reference Range Interpretation Comments Prothromb Time International Ratio (test code = 6301-6) 1.06 Oral Anticoagulant Therapy INR Values:1. Low Intensity Therapy 1.5 - 2.02 . Moderate Intensity Therapy 2.0 - 3.03. High Intensity Therapy(1) 2.5 - 3. 54. High Intensity Therapy(2) 3.0 - 4.05. Panic Value INR > 5.0 [facility] CenterActivated partial thromboplastin time (aPTT) in platelet poor plasma by coagulation xakoh4556-17-12 14:20:00* Test Item Value Reference Range Interpretation Comments Activated Partial Thromboplast Time (test code = 64289-1) 34.5 23.8-35.5 [facility]le[facility] plasma sodium measurement (moles/volume)2019-12-30 14:20:00* Test Item Value Reference Range Interpretation Comments Sodium Level (test code = 2951-2) 137 136-145 [facility]leerum or plasma potassium measurement (moles/volume)2019-12-30 14:20:00* Test Item Value Reference Range Interpretation Comments Potassium Level (test code = 2823-3) 4.0 3.5-5.1 [facility]leerum or plasma chloride measurement (moles/volume)2019-12-30 14:20:00* Test Item Value Reference Range Interpretation Comments Chloride Level (test code = 2075-0) 104 98-107 [facility] Azleerum or plasma carbon dioxide, total measurement (moles/volume)2019-12-30 14:20:00* Test Item Value Reference Range Interpretation Comments Carbon Dioxide Level (test code = 2028-9) 26 22-29 [facility] Azleerum or plasma anion oov9444-49-26 14:20:00* Test Item Value Reference Range Interpretation Comments Anion Gap (test code = 61658-2) 11.0 8-16 [facility]leerum or plasma urea nitrogen measurement (mass/volume)2019-12-30 14:20:00* Test Item Value Reference Range Interpretation Comments Blood Urea Nitrogen (test code = 3094-0) 19 7-26 [facility]leerum or plasma creatinine measurement (mass/volume)2019-12-30 14:20:00* Test Item Value Reference Range Interpretation Comments Creatinine (test code = 2160-0) 1.36 0.72-1.25 [facility]leerum or plasma urea nitrogen/creatinine mass oyzhb0276-13-20 14:20:00* Test Item Value Reference Range Interpretation Comments BUN/Creatinine Ratio (test code = 3097-3) 14 6-25 [facility] CenterEstimated glomerular filtration rate (GFR) nvuwclqogiake9005-12-14 14:20:00* Test Item Value Reference Range Interpretation Comments Estimat Glomerular Filtration Rate (test code = 075438901) 51 >60 Ranges were taken from the National Kidney Disease Education Program and the [place] [facility] literature.Reference ranges:60 or greater: Hdcjrr13-60 ( for 3 consecutive months): Chronic kidney disease 15 or less: Kidney failureThe [facility] CenterGlucose bwzocdtjscp3589-27-27 14:20:00* Test Item Value Reference Range Interpretation Comments Glucose Level (test code = LRZ4679) 214 74-118 [facility] Azleerum or plasma calcium measurement (mass/volume)2019-12-30 14:20:00* Test Item Value Reference Range Interpretation Comments Calcium Level (test code = 15697-1) 9.9 8.4-10.2 [facility]leerum or plasma total bilirubin measurement (mass/volume)2019-12-30 14:20:00* Test Item Value Reference Range Interpretation Comments Total Bilirubin (test code = 1975-2) 0.8 0.2-1.2 [facility] CenterFluoroscopic procedure less than one hour zztlrokv8850-90-73 14:20:00* Test Item Value Reference Range Interpretation Comments Aspartate Amino Transf (AST/SGOT) (test code = Aspartate Amino Transf (AST/SGOT)) 21 5-34 [facility] Azleerum or plasma alanine aminotransferase measurement (enzymatic activity/volume)2019-12-30 14:20:00* Test Item Value Reference Range Interpretation Comments Alanine Aminotransferase (ALT/SGPT) (test code = 1742-6) 18 0-55 [facility] Azleerum or plasma protein measurement (mass/volume)2019-12-30 14:20:00* Test Item Value Reference Range Interpretation Comments Total Protein (test code = 2885-2) 7.7 6.5-8.1 [facility] Azleerum or plasma albumin measurement (mass/volume)2019-12-30 14:20:00* Test Item Value Reference Range Interpretation Comments Albumin (test code = 1751-7) 3.8 3.5-5.0 [facility] CenterPlasma globulin measurement (mass/volume) 2019-12-30 14:20:00* Test Item Value Reference Range Interpretation Comments Globulin (test code = 35577-7) 3.9 2.3-3.5 [facility]leerum or plasma albumin/globulin mass tsfod7370-96-35 14:20:00* Test Item Value Reference Range Interpretation Comments Albumin/Globulin Ratio (test code = 1759-0) 1.0 0.8-2.0 [facility]leerum or plasma alkaline phosphatase measurement (enzymatic activity/volume)2019-12-30 14:20:00* Test Item Value Reference Range Interpretation Comments Alkaline Phosphatase (test code = 6768-6) 280 40-150 [facility] Azleerum or plasma triglyceride measurement (mass/volume)2019-12-30 14:20:00* Test Item Value Reference Range Interpretation Comments Triglycerides Level (test code = 2571-8) 81 0-149 [facility] Azleerum or plasma cholesterol measurement (mass/volume)2019-12-30 14:20:00* Test Item Value Reference Range Interpretation Comments Cholesterol Level (test code = 2093-3) 112 0-199 Less than 200 mg/dL Low Dgch968 - 239 mg/dL Borderline Kkpu235 m g/dl and greater High Risk [facility] Azleerum or plasma cholesterol in LDL measurement (mass/volume) 2019-12-30 14:20:00* Test Item Value Reference Range Interpretation Comments LDL Cholesterol (test code = 2089-1) 59 60-130 [facility] Azleerum or plasma cholesterol in HDL measurement (mass/volume)2019-12-30 14:20:00* Test Item Value Reference Range Interpretation Comments HDL Cholesterol (test code = 2085-9) 37 40-60 [facility] Azleerum or plasma total cholesterol/cholesterol in HDL mass kaxtv7057-19-08 14:20:00* Test Item Value Reference Range Interpretation Comments Cholesterol/HDL Ratio (test code = 9830-1) 3.0 3.9-4.7 [facility] CenterUrine Fkbueir3452-39-12 11:43:00* Test Item Value Reference Range Interpretation Comments Urine Culture (test code = 630-4) No Result Data Provided [facility] CenterBacterial urine ynbithj6746-90-05 01:21:00* Test Item Value Reference Range Interpretation Comments Urine Culture (test code = 630-4) PSEUDOMONAS AERUGINOSA [facility] CenterCT C-SPINE W/O - VRGN1504-78-18 20:28:00 [facility] [address] [address] Patient Name: EVANS DANIELSON MR #: [id number] : [birth year] Age/Sex: 74/M Req #: [id number] [facility] Physician: Ordered by: DELPHINE KRAFT MD Report #: [id number] Location: [facility] Room/Bed: Procedure: [id number] H OPD/CT C-SPINE W/O - HOPD Exam [...] COPY TO: DELPHINE KRAFT MD CT BRAIN WD-LFFL9846-43-30 20:28:[address] [address] Patient Name: EVANS DANIELSON MR #: [id number] : 1945 Age/Sex: 74/M Req #: [id number] Adm Physician: Ordered by: DELPHINE KRAFT MD Report #: [id number] Location: [facility] Room/Bed: Procedure: [id number] H OPD/CT BRAIN WO-HOPD Exam Date: 09/28/19 [...] rtical vascular insults. Sellar/suprasellar region: No abnormalities. Website Admin niocervical junction: Patent foramen magnum. No Chiari [...] DELPHINE KRAFT MD CXR 2 VIEW - INFU4220-31-11 20:24:00 [address] [address] Patient Name: EVANS DANIELSON MR #: [id number] : 1945 Age/Sex: 74/M Req #: [id number] Adm Physician: Ordered by: DELPHINE KRAFT MD Report #: [id number] Location: [facility] Room/Bed: Procedure: [id number] H OPD/CXR 2 VIEW - HOPD Exam [...] COPY TO: DELPHINE KRAFT MD BASIC METABOLIC ZUWHY3430-11-45 05:05:00* Test Item Value Reference Range Interpretation [...] CA) 8.7 mg/dL 8.5-10.1 N BASIC METABOLIC SIYFH1993-27-33 04:52:00* Test Item Value Reference Range Interpretation [...] code = CA) mg/dL 8.5-10.1 CBC W/AUTO PRAW6835-17-77 04:27:00* Test Item Value Reference Range Interpretation [...] DIFF REQUIRED (test code = MDIFF) NO ITMELA3620-86-99 12:26:00* Test Item Value Reference Range Interpretation Comments GLUBED (test code = GLUBED) 167 mg/dL 74-106 H Performed by certified photocopy operator at [facility] BASIC METABOLIC KJGAN3627-52-35 05:39:00* Test Item Value Reference Range Interpretation [...] CA) 8.1 mg/dL 8.5-10.1 L BASIC METABOLIC BAQOX6916-31-30 05:29:00* Test Item Value Reference Range Interpretation [...] code = CA) mg/dL 8.5-10.1 CBC W/AUTO UPDD4113-20-42 05:09:00* Test Item Value Reference Range Interpretation [...] DIFF REQUIRED (test code = MDIFF) NO SQPZLG2186-65-24 18:46:00* Test Item Value Reference Range Interpretation Comments GLUBED (test code = GLUBED) 104 mg/dL 74-106 N Performed by certified photocopy operator at [facility]) COMPREHENSIVE METABOLIC LOLTX0134-86-70 06:36:00* Test Item Value Reference Range Interpretation [...] due to change in reagent. COMPREHENSIVE METABOLIC WSGPC1596-12-16 06:23:00* Test Item Value Reference Range Interpretation [...] code = ALKP) IUnit/L 45-117 CBC W/AUTO FQSQ0551-23-67 06:03:00* Test Item Value Reference Range Interpretation [...] (test code = MDIFF) NO BASIC METABOLIC MQMZA4017-89-09 23:03:00* Test Item Value Reference Range Interpretation [...] CA) 8.4 mg/dL 8.5-10.1 L CBC W/AUTO GWVC9550-92-90 22:09:00* Test Item Value Reference Range Interpretation [...] DIFF REQUIRED (test code = MDIFF) NO [id number]-[id number] 02:01:00* Test Item Value Reference Range Interpretation Comments TROPONIN-I (test code = TROPI) 0.028 ng/mL 0-0.045 N COMMENTS TO SUPERVISOR METAL FURNITURE FABRICATION: COLLECT 3 HOURS AFTER PREVIOUS THARSMYBTBRZHE-G5412-04-12 22:29:00* Test Item Value Reference Range Interpretation Comments TROPONIN-I (test code = TROPI) 0.026 ng/mL 0-0.045 N COMMENTS TO SUPERVISOR MET[employer] FURNITURE FABRICATION: COLLECT 3 HOURS AFTER PREVIOUS SAMPLEURINALYSIS ONTMUCJX2054-58-34 16:35:00* Test Item Value Reference Range Interpretation [...] Urine Source? Clean CatchDRUGS OF ABUSE SCREEN CU8882-30-09 16:35:00* Test Item Value Reference Range Interpretation [...] NEGATIVE <300 ng/mL Urine Source? Clean CatchURINALYSIS HADALSLF2332-90-66 16:22:00* Test Item Value Reference Range Interpretation [...] Urine Source? Clean CatchDRUGS OF ABUSE SCREEN EW1266-83-25 16:22:00* Test Item Value Reference Range Interpretation [...] Urine Source? Clean Catch- CT C-SPINE W/O MXYILERG5809-10-97 16:21:00 Name: EVANS DANIELSON [facility] : 1945 Age/S: 74 / M [address] Unit #: [id number] Loc: [place] [address] Phys: Zaid Retana MD Acct: [id number] Di s Date: Status: REG ER PHONE #: Exam Date: 07/11/2019 0445 FAX #: Reason: fall EXAMS: CPT CODE: [id number] CT C-SPINE W/ O CONTRAST 61422 HISTORY: fall TECHNIQUE: Noncontrast 2.5 mm axial [...] 1 Signed Report (CONTINUED) Name: EVANS DANIELSON [facility] : 1945 Age/S: 74 / M [address] Unit #: [id number] Loc: [place] [address] Phys: Maeve Retana MD Acct: [id number] Dis Date: Status: REG ER PHONE #: [phone] Exam Date: 07/11/2019 1537 FAX #: [phone] Reason: fall EXAMS: CPT CODE: [id number] CT C-SPINE W/O CONTRAST 05787 < Continued> IMPRESSION: No acute intracranial process. [...] Miller RT(R),CT; CTDI: DLP: Trnscb Date/Time: 07/11/2019 (4641) t.SDR.RR31 Orig Print D/T: S: 07/11/2019 (5504) PAGE 2 Signed Report - CT HEAD/BRAIN W/O [id number] 16:21:00 Name: EVANS DANIELSON [facility] : 1945 Age/S: 74 / M [address] [facility] Unit #: [id number] Loc: [place] [address] Phys: Maeve Retana MD Acct: [id number] Dis Date: Status: REG ER PHONE #: [phone] Exam Date: 07/11/2019 1537 FAX #: [phone] Reason: fall EXAMS: CPT CODE: [id number] CT HEAD/BRAIN W/O CONT 11802 HISTORY: fall TECHNIQUE: Noncontrast 2.5 mm axial [...] 1 Signed Report (CONTINUED) Name: EVANS DANIELSON [facility] : 1945 Age/S: 74 / M [address] [facility] Unit #: [id number] Loc: [place] [address] Phys: Maeve Retana MD Acct: [id number] Dis Date: Status: REG ER PHONE #: [phone] Exam Date: 07/11/2019 1537 FAX #: [phone] Reason: fall EXAMS: CPT CODE: [id number] CT HEAD/BRAIN W/O CONT 71719 < Continued> IMPRESSION: No acute intracranial process. [...] RT(R),CT; CTDI: DLP: Trnscb Date/Time: 07/11/2019 (1621) ShirleyRR31 Orig Print D/T: S: 07/11/2019 (0757) PAGE 2 Signed Report URINALYSIS [id number] 16:07:00* Test Item Value Reference Range Interpretation [...] Urine Source? Clean CatchDRUGS OF ABUSE SCREEN [id number] 16:07:00* Test Item Value Reference Range Interpretation [...] [place]) <300 ng/mL Urine Source? Clean CatchLACTIC BZYZ9508-98-66 15:50:00* Test Item Value Reference Range Interpretation Comments LACTIC ACID (test code = LACT) 2.4 mmol/L 0.4-1.9 HH Results called to [id number]/Jaylon Goel.LAB.SPR 07/11/19 1550Critical results verified and read back by Nurse? Y BASIC METABOLIC EUBGP8633-23-72 15:50:00* Test Item Value Reference Range Interpretation [...] CA) 9.2 mg/dL 8.5-10.1 N HEPATIC FUNCTION [id number] 15:50:00* Test Item Value Reference Range Interpretation [...] reference range due to change in reagent. VOEJZE4235-68-64 15:50:00* Test Item Value Reference Range Interpretation Comments LIPASE (test code = LIP) 64 U/L 73.0-393.0 L [id number]-[id number] 15:50:00* Test Item Value Reference Range Interpretation Comments TROPONIN-I (test code = TROPI) 0.021 ng/mL 0-0.045 N LVKLIPJ5677-69-05 15:50:00* Test Item Value Reference Range Interpretation [...] AT ANADDITIONAL CHARGE TO THE PATIENT. PROTHROMBIN [id number] 15:41:00* Test Item Value Reference Range Interpretation [...] (2.5-3.5) IS PATIENT ON ANTICOAGULANTS? NTHROMBOPLASTIN TIME PJTWMQJ7001-97-29 15:41:00* Test Item Value Reference Range Interpretation Comments THROMBOPLASTIN TIME PARTIAL (test code = PTT) 32.4 seconds 25.0-36. 5 N IS PATIENT ON ANTICOAGULANTS? NCBC W/O [id number] 15:33:00* Test Item Value Reference Range Interpretation [...] 6.7-11.0 N - MRI ABDOMEN W WO [id number] 13:08:00 FAX: Justen Bartlett MD [phone] [place]: B St: REG Name: EVANS LANDIS [facility]: [birth year] [facility]S: 74[facility] [address] [facility]: [id number] Loc: V.MRI [place], [place] [address] Phys: Justen Krueger MD Acct: [id number] Dis Date: Status: REG CLI PHONE #: [phone] Exam Date: 05/27/2019 1130 FAX #: [phone] Reason: R74.8 EXAMS: CPT CODE: [id number] MRI ABDOMEN W WO CONT 19347 HISTORY: Elevated alkaline phospha tase. COMPARISON: None [...] Signed Report (CONTINUED) FAX: Justen Bartlett MD [phone] [facility] s: B St: REG Name: EVANS DANIELSON [facility] : 1945 Age/S: 74/M [address] [facility] Unit #: [id number] Loc: [place] [address] Ph ys: Justen Krueger MD Acct: [id number] Dis Date: Status: REG CLI PHONE #: [phone] Exam Date: 05/27/2019 1130 FAX #: [phone] Reason: R74.8 EXAMS: CPT CODE: [id number] MRI ABDOMEN W WO CONT 29127 <Continued> CC: Justen Krueger Technologist: PEDRO LUIS HENRIQUEZRT - MRI Trnscrd Date/Time/By: 05/27/2019 (1308) : By: [email or web address] Orig Print D/T: S: 05/27/2019 (7505) PAGE 2 Signed Report CREATININE W ESTIMATED GFR 2019-05-27 10:01:00* Test Item Value Reference Range Interpretation Comments BEDSIDE CREATININE (test code = CREATBED) mg/dL 0.7-1.3 N GLOMERULAR FILTRATION RATE POC (test code = GFRBED) 57 >6 0 LL CREATININE W ESTIMATED [id number] 10:01:00* Test Item Value Reference Range Interpretation Comments BEDSIDE CREATININE (test code = CREATBED) 1.24 mg/dL 0.7-1.3 N GLOMERULAR FILTRATION RATE POC (test code = GFRBED) 60 >6 0 Previously reported result: 57 Edited by: ANSELMO on 05/27/19:012235 1001: GFRBED previously reported as: 57 *L Sodium Mqzae4431-67-54 10:56:00* Test Item Value Reference Range Interpretation Comments Sodium Level (test code = 2951-2) 141 136-145 [facility] CenterPotassium Htdmi0645-28-13 10:56:00* Test Item Value Reference Range Interpretation Comments Potassium Level (test code = 2823-3) 3.5 3.5-5.1 [facility] CenterChloride Hopoq2311-05-21 10:56:00* Test Item Value Reference Range Interpretation Comments Chloride Level (test code = 2075-0) 104 98-107 [facility] CenterCarbon Dioxide Jijvz9418-13-19 10:56:00* Test Item Value Reference Range Interpretation Comments Carbon Dioxide Level (test code = 2028-9) 24 22-29 [facility] CenterAnion Zsr0905-24-03 10:56:00* Test Item Value Reference Range Interpretation Comments Anion Gap (test code = 18958-4) 16.5 8-16 H [facility] CenterBlood Urea Nnljxiwk7664-70-63 10:56:00* Test Item Value Reference Range Interpretation Comments Blood Urea Nitrogen (test code = 3094-0) 27 7-26 H [facility] CenterCreatinine2019-07-11 10:56:00* Test Item Value Reference Range Interpretation Comments Creatinine (test code = 2160-0) 1.51 0.72-1.25 H [facility] CenterBUN/Creatinine Nidil9342-99-25 10:56:00* Test Item Value Reference Range Interpretation Comments BUN/Creatinine Ratio (test code = 3097-3) 18 6-25 [facility] CenterEstimat Glomerular Filtration Rate 2019-05-09 10:56:00* Test Item Value Reference Range Interpretation Comments Estimat Glomerular Filtration Rate (test code = 668739124) 45 >60 L Ranges were taken from the National Kidney Disease Education Program and the [place] [facility] literature.Reference ranges:60 or greater: Amveml62-87 ( for 3 consecutive months): Chronic kidney disease 15 or less: Kidney failureThe Hospital at Westlake Medical CenterGlucose Bpyri1557-73-46 10:56:00* Test Item Value Reference Range Interpretation Comments Glucose Level (test code = INM2839) 156 74-118 H [facility] CenterCalcium Duwjw6553-10-74 10:56:00* Test Item Value Reference Range Interpretation Comments Calcium Level (test code = 04735-9) 10.1 8.4-10.2 [facility] CenterTotal Njosukrbl4892-90-91 10:56:00* Test Item Value Reference Range Interpretation Comments Total Bilirubin (test code = 1975-2) 1.2 0.2-1.2 [facility] CenterAspartate Amino Transf (AST/SGOT) 2019-05-09 10:56:00* Test Item Value Reference Range Interpretation Comments Aspartate Amino Transf (AST/SGOT) (test code = Aspartate Amino Transf (AST/SGOT)) 26 5-34 [facility] CenterAlanine Aminotransferase (ALT/SGPT) 2019-05-09 10:56:00* Test Item Value Reference Range Interpretation Comments Alanine Aminotransferase (ALT/SGPT) (test code = 1742-6) 21 0-55 [facility] CenterTotal Basghjx4071-36-43 10:56:00* Test Item Value Reference Range Interpretation Comments Total Protein (test code = 2885-2) 7.9 6.5-8.1 [facility] CenterAlbumin2019-07-11 10:56:00* Test Item Value Reference Range Interpretation Comments Albumin (test code = 1751-7) 4.0 3.5-5.0 [facility] CenterGlobulin2019-07-11 10:56:00* Test Item Value Reference Range Interpretation Comments Globulin (test code = 52781-7) 3.9 2.3-3.5 H [facility] CenterAlbumin/Globulin Vrwle6128-25-53 10:56:00 * Test Item Value Reference Range Interpretation Comments Albumin/Globulin Ratio (test code = 1759-0) 1.0 0.8-2.0 [facility] CenterAlkaline Lknhucugwjf2168-81-20 10:56:00* Test Item Value Reference Range Interpretation Comments Alkaline Phosphatase (test code = 6768-6) 253 40-150 H [facility] Azleodium Xhpic1395-18-62 10:56:00* Test Item Value Reference Range Interpretation Comments Sodium Level (test code = 2951-2) 141 136-145 [facility] CenterPotassium Qtqvc4682-16-50 10:56:00* Test Item Value Reference Range Interpretation Comments Potassium Level (test code = 2823-3) 3.5 3.5-5.1 [facility] CenterChloride Garps8106-45-47 10:56:00* Test Item Value Reference Range Interpretation Comments Chloride Level (test code = 2075-0) 104 98-107 [facility] CenterCarbon Dioxide Bcaor8164-61-45 10:56:00* Test Item Value Reference Range Interpretation Comments Carbon Dioxide Level (test code = 2028-9) 24 22-29 [facility] CenterAnion Utn3634-40-08 10:56:00* Test Item Value Reference Range Interpretation Comments Anion Gap (test code = 45188-1) 16.5 8-16 H [facility] CenterBlood Urea Qpqpysxf5539-43-89 10:56:00* Test Item Value Reference Range Interpretation Comments Blood Urea Nitrogen (test code = 3094-0) 27 7-26 H [facility] CenterCreatinine2019-07-11 10:56:00* Test Item Value Reference Range Interpretation Comments Creatinine (test code = 2160-0) 1.51 0.72-1.25 H [facility] CenterBUN/Creatinine Ktczr8343-38-09 10:56:00* Test Item Value Reference Range Interpretation Comments BUN/Creatinine Ratio (test code = 3097-3) 18 6-25 [facility] CenterEstimat Glomerular Filtration Rate 2019-05-09 10:56:00* Test Item Value Reference Range Interpretation Comments Estimat Glomerular Filtration Rate (test code = 347618712) 45 >60 L Ranges were taken from the National Kidney Disease Education Program and the [place] [facility] literature.Reference ranges:60 or greater: Mtzdku61-98 ( for 3 consecutive months): Chronic kidney disease 15 or less: Kidney failureThe Hospital at Westlake Medical CenterGlucose Emsmf2160-39-79 10:56:00* Test Item Value Reference Range Interpretation Comments Glucose Level (test code = DQV7543) 156 74-118 H [facility] CenterCalcium Jqcze8995-38-43 10:56:00* Test Item Value Reference Range Interpretation Comments Calcium Level (test code = 92697-2) 10.1 8.4-10.2 [facility] CenterTotal Jnosjiful5376-00-83 10:56:00* Test Item Value Reference Range Interpretation Comments Total Bilirubin (test code = 1975-2) 1.2 0.2-1.2 [facility] CenterAspartate Amino Transf (AST/SGOT) 2019-05-09 10:56:00* Test Item Value Reference Range Interpretation Comments Aspartate Amino Transf (AST/SGOT) (test code = Aspartate Amino Transf (AST/SGOT)) 26 5-34 [facility] CenterAlanine Aminotransferase (ALT/SGPT) 2019-05-09 10:56:00* Test Item Value Reference Range Interpretation Comments Alanine Aminotransferase (ALT/SGPT) (test code = 1742-6) 21 0-55 [facility] Kdnarpt3782-20-62 10:56:00* Test Item Value Reference Range Interpretation Comments Total Protein (test code = 2885-2) 7.9 6.5-8.1 [facility] CenterAlbumin2019-07-11 10:56:00* Test Item Value Reference Range Interpretation Comments Albumin (test code = 1751-7) 4.0 3.5-5.0 [facility] CenterGlobulin2019-07-11 10:56:00* Test Item Value Reference Range Interpretation Comments Globulin (test code = 59780-5) 3.9 2.3-3.5 H [facility] CenterAlbumin/Globulin Dhvjd6862-77-20 10:56:00 * Test Item Value Reference Range Interpretation Comments Albumin/Globulin Ratio (test code = 1759-0) 1.0 0.8-2.0 [facility] CenterAlkaline Urvpuhgarzx2838-55-19 10:56:00* Test Item Value Reference Range Interpretation Comments Alkaline Phosphatase (test code = 6768-6) 253 40-150 [facility]odium Dyrga6685-82-11 10:56:00* Test Item Value Reference Range Interpretation Comments Sodium Level (test code = 2951-2) 141 136-145 [facility] CenterPotassium Spqsb5704-11-65 10:56:00* Test Item Value Reference Range Interpretation Comments Potassium Level (test code = 2823-3) 3.5 3.5-5.1 [facility] CenterChloride Cnqld3988-22-47 10:56:00* Test Item Value Reference Range Interpretation Comments Chloride Level (test code = 2075-0) 104 98-107 [facility] CenterCarbon Dioxide Bwvfq4600-39-87 10:56:00* Test Item Value Reference Range Interpretation Comments Carbon Dioxide Level (test code = 2028-9) 24 22-29 [facility] CenterAnion Nqr9023-58-46 10:56:00* Test Item Value Reference Range Interpretation Comments Anion Gap (test code = 63783-2) 16.5 8-16 H [facility] CenterBlood Urea Xnjyxhbv6930-62-83 10:56:00* Test Item Value Reference Range Interpretation Comments Blood Urea Nitrogen (test code = 3094-0) 27 7-26 H [facility] CenterCreatinine2019-07-11 10:56:00* Test Item Value Reference Range Interpretation Comments Creatinine (test code = 2160-0) 1.51 0.72-1.25 H [facility] CenterBUN/Creatinine Yehhy2762-57-57 10:56:00* Test Item Value Reference Range Interpretation Comments BUN/Creatinine Ratio (test code = 3097-3) 18 6-25 [facility] CenterEstimat Glomerular Filtration Rate 2019-05-09 10:56:00* Test Item Value Reference Range Interpretation Comments Estimat Glomerular Filtration Rate (test code = 229373547) 45 >60 L Ranges were taken from the National Kidney Disease Education Program and the [facility] literature.Reference ranges:60 or greater: Fcnkcv75-49 ( for 3 consecutive months): Chronic kidney disease 15 or less: Kidney failureThe [facility] at [facility] Medical CenterGlucose Sikxu5113-16-68 10:56:00* Test Item Value Reference Range Interpretation Comments Glucose Level (test code = ICN9770) 156 74-118 H [facility] CenterCalcium Fqejo6559-94-08 10:56:00* Test Item Value Reference Range Interpretation Comments Calcium Level (test code = 42007-7) 10.1 8.4-10.2 [facility] CenterTotal Lzehczoyx5202-43-06 10:56:00* Test Item Value Reference Range Interpretation Comments Total Bilirubin (test code = 1975-2) 1.2 0.2-1.2 [facility] CenterAspartate Amino Transf (AST/SGOT) 2019-05-09 10:56:00* Test Item Value Reference Range Interpretation Comments Aspartate Amino Transf (AST/SGOT) (test code = Aspartate Amino Transf (AST/SGOT)) 26 5-34 [facility] CenterAlanine Aminotransferase (ALT/SGPT) 2019-05-09 10:56:00* Test Item Value Reference Range Interpretation Comments Alanine Aminotransferase (ALT/SGPT) (test code = 1742-6) 21 0-55 [facility] CenterTotal Uchvmib0935-53-15 10:56:00* Test Item Value Reference Range Interpretation Comments Total Protein (test code = 2885-2) 7.9 6.5-8.1 [facility] CenterAlbumin2019-07-11 10:56:00* Test Item Value Reference Range Interpretation Comments Albumin (test code = 1751-7) 4.0 3.5-5.0 [facility] CenterGlobulin2019-07-11 10:56:00* Test Item Value Reference Range Interpretation Comments Globulin (test code = 32062-7) 3.9 2.3-3.5 H [facility] CenterAlbumin/Globulin Rrabg8774-60-78 10:56:00 * Test Item Value Reference Range Interpretation Comments Albumin/Globulin Ratio (test code = 1759-0) 1.0 0.8-2.0 [facility] CenterAlkaline Kjxchbsoafh6164-35-99 10:56:00* Test Item Value Reference Range Interpretation Comments Alkaline Phosphatase (test code = 6768-6) 253 40-150 [facility] Jxipr2910-70-05 10:56:00* Test Item Value Reference Range Interpretation Comments Sodium Level (test code = 2951-2) 141 136-145 [facility] CenterPotassium Snkrs8408-68-32 10:56:00* Test Item Value Reference Range Interpretation Comments Potassium Level (test code = 2823-3) 3.5 3.5-5.1 [facility] CenterChloride Siwyz0222-00-48 10:56:00* Test Item Value Reference Range Interpretation Comments Chloride Level (test code = 2075-0) 104 98-107 [facility] CenterCarbon Dioxide Qilxk0531-74-36 10:56:00* Test Item Value Reference Range Interpretation Comments Carbon Dioxide Level (test code = 2028-9) 24 22-29 [facility] CenterAnion Tva1803-65-75 10:56:00* Test Item Value Reference Range Interpretation Comments Anion Gap (test code = 79853-1) 16.5 8-16 H [facility] CenterBlood Urea Onstghqd9508-29-56 10:56:00* Test Item Value Reference Range Interpretation Comments Blood Urea Nitrogen (test code = 3094-0) 27 7-26 H [facility] CenterCreatinine2019-07-11 10:56:00* Test Item Value Reference Range Interpretation Comments Creatinine (test code = 2160-0) 1.51 0.72-1.25 H [facility] CenterBUN/Creatinine Etpij2816-87-48 10:56:00* Test Item Value Reference Range Interpretation Comments BUN/Creatinine Ratio (test code = 3097-3) 18 6-25 [facility] CenterEstimat Glomerular Filtration Rate 2019-05-09 10:56:00* Test Item Value Reference Range Interpretation Comments Estimat Glomerular Filtration Rate (test code = 155978189) 45 >60 L Ranges were taken from the National Kidney Disease Education Program and the [place] [facility] literature.Reference ranges:60 or greater: Csgpiw84-59 ( for 3 consecutive months): Chronic kidney disease 15 or less: Kidney failureThe [facility] at [facility] Medical CenterGlucose Poiqm2379-12-19 10:56:00* Test Item Value Reference Range Interpretation Comments Glucose Level (test code = RCP4697) 156 74-118 H [facility] CenterCalcium Iaxpd2216-51-86 10:56:00* Test Item Value Reference Range Interpretation Comments Calcium Level (test code = 38569-0) 10.1 8.4-10.2 [facility] CenterTotal Sggkxnfbm0655-68-95 10:56:00* Test Item Value Reference Range Interpretation Comments Total Bilirubin (test code = 1975-2) 1.2 0.2-1.2 [facility] CenterAspartate Amino Transf (AST/SGOT) 2019-05-09 10:56:00* Test Item Value Reference Range Interpretation Comments Aspartate Amino Transf (AST/SGOT) (test code = Aspartate Amino Transf (AST/SGOT)) 26 5-34 [facility] CenterAlanine Aminotransferase (ALT/SGPT) 2019-05-09 10:56:00* Test Item Value Reference Range Interpretation Comments Alanine Aminotransferase (ALT/SGPT) (test code = 1742-6) 21 0-55 [facility] CenterTotal Pwgzofx0665-57-71 10:56:00* Test Item Value Reference Range Interpretation Comments Total Protein (test code = 2885-2) 7.9 6.5-8.1 [facility] CenterAlbumin2019-07-11 10:56:00* Test Item Value Reference Range Interpretation Comments Albumin (test code = 1751-7) 4.0 3.5-5.0 [facility] CenterGlobulin2019-07-11 10:56:00* Test Item Value Reference Range Interpretation Comments Globulin (test code = 30347-7) 3.9 2.3-3.5 H [facility] CenterAlbumin/Globulin Cnlie7211-26-58 10:56:00 * Test Item Value Reference Range Interpretation Comments Albumin/Globulin Ratio (test code = 1759-0) 1.0 0.8-2.0 [facility] CenterAlkaline Bugleawrnhy4523-06-40 10:56:00* Test Item Value Reference Range Interpretation Comments Alkaline Phosphatase (test code = 6768-6) 253 40-150 H [facility] CenterUrine IQY3541-84-76 10:55:00* Test Item Value Reference Range Interpretation Comments Urine WBC (test code = 5821-4) NONE 0-5 [facility] CenterUrine AWG7443-89-04 10:55:00* Test Item Value Reference Range Interpretation Comments Urine RBC (test code = 87856-6) 6-10 0-5 H [facility] CenterUrine Wlxgcmrs6899-20-91 10:55:00* Test Item Value Reference Range Interpretation Comments Urine Bacteria (test code = 52523-5) RARE NONE [facility] CenterUrine Epithelial Txzsj0362-32-19 10:55:00 * Test Item Value Reference Range Interpretation Comments Urine Epithelial Cells (test code = 00902-5) RARE NONE [facility] CenterUrine Hyaline Cignm1245-70-94 10:55:00* Test Item Value Reference Range Interpretation Comments Urine Hyaline Casts (test code = 72691-5) 2-5 0-1 H [facility] CenterUrine QQE3984-03-27 10:55:00* Test Item Value Reference Range Interpretation Comments Urine WBC (test code = 5821-4) NONE 0-5 [facility] CenterUrine IGW0692-34-25 10:55:00* Test Item Value Reference Range Interpretation Comments Urine RBC (test code = 43991-2) 6-10 0-5 H [facility] CenterUrine Bbuzytjy8651-29-57 10:55:00* Test Item Value Reference Range Interpretation Comments Urine Bacteria (test code = 87555-4) RARE NONE [facility] CenterUrine Epithelial Iuhdf2423-38-59 10:55:00 * Test Item Value Reference Range Interpretation Comments Urine Epithelial Cells (test code = 19149-1) RARE NONE [facility] CenterUrine Hyaline Ikfux6529-88-82 10:55:00* Test Item Value Reference Range Interpretation Comments Urine Hyaline Casts (test code = 88648-4) 2-5 0-1 H [facility] IIZ6837-92-68 10:55:00* Test Item Value Reference Range Interpretation Comments Urine WBC (test code = 5821-4) NONE 0-5 [facility] CenterU[facility] MGE0270-39-72 10:55:00* Test Item Value Reference Range Interpretation Comments Urine RBC (test code = 20471-9) 6-10 0-5 H [facility] CenterUrine Mplfwwtx6809-47-71 10:55:00* Test Item Value Reference Range Interpretation Comments Urine Bacteria (test code = 64317-0) RARE NONE [facility] CenterU[facility] Epithelial Hfkwp0962-29-14 10:55:00 * Test Item Value Reference Range Interpretation Comments Urine Epithelial Cells (test code = 08494-8) RARE NONE [facility] CenterU[facility] Hyaline Gyzya3034-23-25 10:55:00* Test Item Value Reference Range Interpretation Comments Urine Hyaline Casts (test code = 09335-6) 2-5 0-1 H [facility] CenterUrine DBS4629-73-08 10:55:00* Test Item Value Reference Range Interpretation Comments Urine WBC (test code = 5821-4) NONE 0-5 [facility] CenterU[facility] ZXM5778-72-01 10:55:00* Test Item Value Reference Range Interpretation Comments Urine RBC (test code = 35520-5) 6-10 0-5 H [facility] CenterU[facility] Yuzijghw6468-01-84 10:55:00* Test Item Value Reference Range Interpretation Comments Urine Bacteria (test code = 06884-8) RARE NONE [facility] CenterU[facility] Epithelial Kxfsf9405-76-05 10:55:00 * Test Item Value Reference Range Interpretation Comments Urine Epithelial Cells (test code = 11729-2) RARE NONE [facility] CenterU[facility] Hyaline Ozqyk3640-89-04 10:55:00* Test Item Value Reference Range Interpretation Comments Urine Hyaline Casts (test code = 79902-7) 2-5 0-1 H [facility] VRS4907-28-37 10:55:00* Test Item Value Reference Range Interpretation Comments Urine WBC (test code = 5821-4) NONE 0-5 [facility] VXP1765-00-39 10:55:00* Test Item Value Reference Range Interpretation Comments Urine RBC (test code = 75409-0) 6-10 0-5 H [facility] CenterU[facility] Pbncydfq5983-52-12 10:55:00* Test Item Value Reference Range Interpretation Comments Urine Bacteria (test code = 06965-2) RARE NONE [facility] CenterU[facility] Epithelial Ewwji4581-63-88 10:55:00 * Test Item Value Reference Range Interpretation Comments Urine Epithelial Cells (test code = 17469-3) RARE NONE [facility] CenterU[facility] Hyaline Ezdgo3180-97-82 10:55:00* Test Item Value Reference Range Interpretation Comments Urine Hyaline Casts (test code = 54306-0) 2-5 0-1 H [facility] CenterU[facility] Gvuzk6799-11-55 10:47:00* Test Item Value Reference Range Interpretation Comments Urine Color (test code = 5778-6) ORANGE YELLOW H [facility] CenterUrine Eukwpcb6930-25-74 10:47:00* Test Item Value Reference Range Interpretation Comments Urine Clarity (test code = 23144-5) CLOUDY CLEAR H [facility] CenterUrine Specific Rxlryxx5888-31-31 10:47:00 * Test Item Value Reference Range Interpretation Comments Urine Specific Martin (test code = 5811-5) 1.010 1.010-1.02 5 [facility] CenterU[facility] nD5520-15-15 10:47:00* Test Item Value Reference Range Interpretation Comments Urine pH (test code = 20857-8) 5.5 5-7 [facility] CenterU[facility] Leukocyte Jgqmgyco4662-68-53 10:47:00* Test Item Value Reference Range Interpretation Comments Urine Leukocyte Esterase (test code = 90023-4) NEGATIVE NEGATIV E [facility] CenterU[facility] Pwqnomn2528-42-63 10:47:00* Test Item Value Reference Range Interpretation Comments Urine Nitrite (test code = 89572-0) POSITIVE NEGATIVE H [facility] CenterU[facility] Kfbysax2224-21-17 10:47:00* Test Item Value Reference Range Interpretation Comments Urine Protein (test code = 19586-2) 1+ NEGATIVE H [facility] CenterU[facility] Glucose (UA)2019-05-09 10:47:00* Test Item Value Reference Range Interpretation Comments Urine Glucose (UA) (test code = 82818-8) 1+ NEGATIVE H [facility] CenterU[facility] Sjejopd8208-73-72 10:47:00* Test Item Value Reference Range Interpretation Comments Urine Ketones (test code = 49213-2) NEGATIVE NEGATIVE [facility] CenterU[facility] Kxnectlwtzgf7177-20-58 10:47:00* Test Item Value Reference Range Interpretation Comments Urine Urobilinogen (test code = 84877-8) 2 0.2-1 [facility] CenterU[facility] Jsjxxyfnd3301-46-01 10:47:00* Test Item Value Reference Range Interpretation Comments Urine Bilirubin (test code = 1977-8) NEGATIVE NEGATIVE [facility] CenterU[facility] Tfeff3971-58-49 10:47:00* Test Item Value Reference Range Interpretation Comments Urine Blood (test code = 76017-6) TRACE NEGATIVE [facility] CenterU[facility] Pnqxs7377-95-21 10:47:00* Test Item Value Reference Range Interpretation Comments Urine Color (test code = 5778-6) ORANGE YELLOW H [facility] CenterU[facility] Kowtgmk5212-03-63 10:47:00* Test Item Value Reference Range Interpretation Comments Urine Clarity (test code = 79909-3) CLOUDY CLEAR H [facility] CenterU[facility] Specific Vnydwac1067-23-97 10:47:00 * Test Item Value Reference Range Interpretation Comments Urine Specific Martin (test code = 5811-5) 1.010 1.010-1.02 5 [facility] CenterU[facility] mG3372-19-01 10:47:00* Test Item Value Reference Range Interpretation Comments Urine pH (test code = 93190-5) 5.5 5-7 [facility] CenterU[facility] Leukocyte Tjvtgjtj7657-91-30 10:47:00* Test Item Value Reference Range Interpretation Comments Urine Leukocyte Esterase (test code = 85586-7) NEGATIVE NEGATIV E [facility] CenterU[facility] Gsmrvss9971-99-83 10:47:00* Test Item Value Reference Range Interpretation Comments Urine Nitrite (test code = 91547-6) POSITIVE NEGATIVE H [facility] CenterU[facility] Gyfbhds0405-71-06 10:47:00* Test Item Value Reference Range Interpretation Comments Urine Protein (test code = 63739-7) 1+ NEGATIVE H [facility] CenterU[facility] Glucose (UA)2019-05-09 10:47:00* Test Item Value Reference Range Interpretation Comments Urine Glucose (UA) (test code = 40722-6) 1+ NEGATIVE H [facility] CenterU[facility] Ofbvpmg7747-68-01 10:47:00* Test Item Value Reference Range Interpretation Comments Urine Ketones (test code = 30383-3) NEGATIVE NEGATIVE [facility] Zxnykdecixpv0972-94-79 10:47:00* Test Item Value Reference Range Interpretation Comments Urine Urobilinogen (test code = 60825-4) 2 0.2-1 [facility] Ifacqqppd2678-49-61 10:47:00* Test Item Value Reference Range Interpretation Comments Urine Bilirubin (test code = 1977-8) NEGATIVE NEGATIVE [facility] Meqpb4788-02-28 10:47:00* Test Item Value Reference Range Interpretation Comments Urine Blood (test code = 94175-6) TRACE NEGATIVE [facility] Center[facility] Uovbn1670-32-93 10:47:00* Test Item Value Reference Range Interpretation Comments Urine Color (test code = 5778-6) ORANGE YELLOW H [facility] CenterU[facility] Gcgmsby0918-40-22 10:47:00* Test Item Value Reference Range Interpretation Comments Urine Clarity (test code = 93551-8) CLOUDY CLEAR H [facility] CenterU[facility] Specific Svhfeqn4037-35-86 10:47:00 * Test Item Value Reference Range Interpretation Comments Urine Specific Martin (test code = 5811-5) 1.010 1.010-1.02 5 [facility] CenterU[facility] qU2017-69-66 10:47:00* Test Item Value Reference Range Interpretation Comments Urine pH (test code = 16219-3) 5.5 5-7 [facility] CenterU[facility] Leukocyte Dxqeooca6161-54-54 10:47:00* Test Item Value Reference Range Interpretation Comments Urine Leukocyte Esterase (test code = 82851-1) NEGATIVE NEGATIV E [facility] CenterU[facility] Lecncbj0133-08-61 10:47:00* Test Item Value Reference Range Interpretation Comments Urine Nitrite (test code = 18096-2) POSITIVE NEGATIVE H [facility] Sqikqjc5430-02-11 10:47:00* Test Item Value Reference Range Interpretation Comments Urine Protein (test code = 22214-4) 1+ NEGATIVE H [facility] Glucose (UA)2019-05-09 10:47:00* Test Item Value Reference Range Interpretation Comments Urine Glucose (UA) (test code = 95124-4) 1+ NEGATIVE H [facility] Center[facility] Tzkasns6854-52-91 10:47:00* Test Item Value Reference Range Interpretation Comments Urine Ketones (test code = 54488-3) NEGATIVE NEGATIVE [facility] Juhdjpdpjwic2598-91-11 10:47:00* Test Item Value Reference Range Interpretation Comments Urine Urobilinogen (test code = 38901-3) 2 0.2-1 [facility] Rvukcjqgr1489-90-71 10:47:00* Test Item Value Reference Range Interpretation Comments Urine Bilirubin (test code = 1977-8) NEGATIVE NEGATIVE [facility] Dotkg0336-27-83 10:47:00* Test Item Value Reference Range Interpretation Comments Urine Blood (test code = 91580-9) TRACE NEGATIVE [facility] Qdulr5886-11-72 10:47:00* Test Item Value Reference Range Interpretation Comments Urine Color (test code = 5778-6) ORANGE YELLOW H [facility] CenterU[facility] Bjkaglz8658-40-15 10:47:00* Test Item Value Reference Range Interpretation Comments Urine Clarity (test code = 34948-3) CLOUDY CLEAR H [facility] CenterU[facility] Specific Krzkfef9070-75-94 10:47:00 * Test Item Value Reference Range Interpretation Comments Urine Specific Martin (test code = 5811-5) 1.010 1.010-1.02 5 [facility] aY6277-34-20 10:47:00* Test Item Value Reference Range Interpretation Comments Urine pH (test code = 88809-3) 5.5 5-7 [facility] Leukocyte Doqhnvmh9501-25-08 10:47:00* Test Item Value Reference Range Interpretation Comments Urine Leukocyte Esterase (test code = 42087-2) NEGATIVE NEGATIV E [facility] Center[facility] Njvwomp8418-17-32 10:47:00* Test Item Value Reference Range Interpretation Comments Urine Nitrite (test code = 74395-5) POSITIVE NEGATIVE H [facility] Tgjofdc0437-02-47 10:47:00* Test Item Value Reference Range Interpretation Comments Urine Protein (test code = 93929-9) 1+ NEGATIVE H [facility] CenterU[facility] Glucose (UA)2019-05-09 10:47:00* Test Item Value Reference Range Interpretation Comments Urine Glucose (UA) (test code = 09518-1) 1+ NEGATIVE H [facility] Kpihnsz2692-21-35 10:47:00* Test Item Value Reference Range Interpretation Comments Urine Ketones (test code = 39630-8) NEGATIVE NEGATIVE [facility] CenterU[facility] Hpknybyvyyeo6538-49-03 10:47:00* Test Item Value Reference Range Interpretation Comments Urine Urobilinogen (test code = 64650-8) 2 0.2-1 [facility] Keufvoaar8647-18-76 10:47:00* Test Item Value Reference Range Interpretation Comments Urine Bilirubin (test code = 1977-8) NEGATIVE NEGATIVE [facility] Fnlqt4653-54-05 10:47:00* Test Item Value Reference Range Interpretation Comments Urine Blood (test code = 33981-5) TRACE NEGATIVE [facility] Wjfni3429-50-93 10:47:00* Test Item Value Reference Range Interpretation Comments Urine Color (test code = 5778-6) ORANGE YELLOW H [facility] CenterU[facility] Vatvzyu2621-80-91 10:47:00* Test Item Value Reference Range Interpretation Comments Urine Clarity (test code = 74964-2) CLOUDY CLEAR H [facility] CenterU[facility] Specific Swcnjyo1590-45-91 10:47:00 * Test Item Value Reference Range Interpretation Comments Urine Specific Martin (test code = 5811-5) 1.010 1.010-1.02 5 [facility] Center[facility] eL4505-30-00 10:47:00* Test Item Value Reference Range Interpretation Comments Urine pH (test code = 95995-4) 5.5 5-7 [facility] Leukocyte Facsahkt0749-68-98 10:47:00* Test Item Value Reference Range Interpretation Comments Urine Leukocyte Esterase (test code = 70108-7) NEGATIVE NEGATIV E [facility] Uavrqym1440-76-39 10:47:00* Test Item Value Reference Range Interpretation Comments Urine Nitrite (test code = 86914-2) POSITIVE NEGATIVE H [facility] Hfclquu7996-09-02 10:47:00* Test Item Value Reference Range Interpretation Comments Urine Protein (test code = 12970-8) 1+ NEGATIVE H [facility] Glucose (UA)2019-05-09 10:47:00* Test Item Value Reference Range Interpretation Comments Urine Glucose (UA) (test code = 22506-3) 1+ NEGATIVE H [facility] Lbafavz7494-17-11 10:47:00* Test Item Value Reference Range Interpretation Comments Urine Ketones (test code = 91596-3) NEGATIVE NEGATIVE [facility] Jxyzuvuhswia5920-09-25 10:47:00* Test Item Value Reference Range Interpretation Comments Urine Urobilinogen (test code = 77524-0) 2 0.2-1 [facility] Frjmapyjw1049-39-58 10:47:00* Test Item Value Reference Range Interpretation Comments Urine Bilirubin (test code = 1977-8) NEGATIVE NEGATIVE [facility] CenterUrine [id number] 10:47:00* Test Item Value Reference Range Interpretation Comments Urine Blood (test code = 27238-2) TRACE NEGATIVE [facility] CenterProthrombin [id number] 10:46:00* Test Item Value Reference Range Interpretation Comments Prothrombin Time (test code = 5902-2) 13.1 11.9-14.5 [facility] CenterProthromb Time International Ratio 2019-05-09 10:46:00* Test Item Value Reference Range Interpretation Comments Prothromb Time International Ratio (test code = 6301-6) 0.94 Oral Anticoagulant Therapy INR Values:1. Low Intensity Therapy 1.5 - 2.02 . Moderate Intensity Therapy 2.0 - 3.03. High Intensity Therapy(1) 2.5 - 3. 54. High Intensity Therapy(2) 3.0 - 4.05. Panic Value INR > 5.0 [facility] CenterActivated Partial Thromboplast Time 2019-05-09 10:46:00* Test Item Value Reference Range Interpretation Comments Activated Partial Thromboplast Time (test code = 47775-1) 31.8 23.8-35.5 [facility] CenterProthrombin Sgfp8110-12-40 10:46:00* Test Item Value Reference Range Interpretation Comments Prothrombin Time (test code = 5902-2) 13.1 11.9-14.5 [facility] CenterProthromb Time International Ratio 2019-05-09 10:46:00* Test Item Value Reference Range Interpretation Comments Prothromb Time International Ratio (test code = 6301-6) 0.94 Oral Anticoagulant Therapy INR Values:1. Low Intensity Therapy 1.5 - 2.02 . Moderate Intensity Therapy 2.0 - 3.03. High Intensity Therapy(1) 2.5 - 3. 54. High Intensity Therapy(2) 3.0 - 4.05. Panic Value INR > 5.0 [facility] CenterActivated Partial Thromboplast Time 2019-05-09 10:46:00* Test Item Value Reference Range Interpretation Comments Activated Partial Thromboplast Time (test code = 56154-1) 31.8 23.8-35.5 [facility] CenterProthrombin Wvgl0443-52-35 10:46:00* Test Item Value Reference Range Interpretation Comments Prothrombin Time (test code = 5902-2) 13.1 11.9-14.5 [facility] CenterProthromb Time International Ratio 2019-05-09 10:46:00* Test Item Value Reference Range Interpretation Comments Prothromb Time International Ratio (test code = 6301-6) 0.94 Oral Anticoagulant Therapy INR Values:1. Low Intensity Therapy 1.5 - 2.02 . Moderate Intensity Therapy 2.0 - 3.03. High Intensity Therapy(1) 2.5 - 3. 54. High Intensity Therapy(2) 3.0 - 4.05. Panic Value INR > 5.0 [facility] CenterActivated Partial Thromboplast Time 2019-05-09 10:46:00* Test Item Value Reference Range Interpretation Comments Activated Partial Thromboplast Time (test code = 52978-8) 31.8 23.8-35.5 [facility] CenterProthrombin Hosq9538-38-25 10:46:00* Test Item Value Reference Range Interpretation Comments Prothrombin Time (test code = 5902-2) 13.1 11.9-14.5 [facility] CenterProthromb Time International Ratio 2019-05-09 10:46:00* Test Item Value Reference Range Interpretation Comments Prothromb Time International Ratio (test code = 6301-6) 0.94 Oral Anticoagulant Therapy INR Values:1. Low Intensity Therapy 1.5 - 2.02 . Moderate Intensity Therapy 2.0 - 3.03. High Intensity Therapy(1) 2.5 - 3. 54. High Intensity Therapy(2) 3.0 - 4.05. Panic Value INR > 5.0 [facility] CenterActivated Partial Thromboplast Time 2019-05-09 10:46:00* Test Item Value Reference Range Interpretation Comments Activated Partial Thromboplast Time (test code = 43871-5) 31.8 23.8-35.5 [facility] CenterWhite Blood Svann2301-68-70 10:41:00* Test Item Value Reference Range Interpretation Comments White Blood Count (test code = 6690-2) 6.48 4.8-10.8 [facility] CenterRed Blood Qttnk3147-88-83 10:41:00* Test Item Value Reference Range Interpretation Comments Red Blood Count (test code = 789-8) 4.72 4.3-5.7 [facility] CenterHemoglobin2019-07-11 10:41:00* Test Item Value Reference Range Interpretation Comments Hemoglobin (test code = 06664-7) 14.6 14.0-18.0 [facility] CenterHematocrit2019-07-11 10:41:00* Test Item Value Reference Range Interpretation Comments Hematocrit (test code = 4544-3) 43.6 38.2-49.6 [facility] CenterMean Corpuscular Ivkzoc6087-91-14 10:41:00* Test Item Value Reference Range Interpretation Comments Mean Corpuscular Volume (test code = 787-2) 92.4 81-99 [facility] CenterMean Corpuscular Kedvobnwal7293-67-65 10:41:00* Test Item Value Reference Range Interpretation Comments Mean Corpuscular Hemoglobin (test code = 785-6) 30.9 28-32 [facility] CenterMean Corpuscular Hemoglobin Concent 2019-05-09 10:41:00* Test Item Value Reference Range Interpretation Comments Mean Corpuscular Hemoglobin Concent (test code = 786-4) 33.5 31-35 [facility] CenterRed Cell Distribution Rpdcd8638-99-47 10:41:00* Test Item Value Reference Range Interpretation Comments Red Cell Distribution Width (test code = 58843-8) 13.3 11.7 -14.4 [facility] CenterPlatelet Lwsyh2452-90-87 10:41:00* Test Item Value Reference Range Interpretation Comments Platelet Count (test code = 777-3) 195 140-360 [facility] CenterNeutrophils (%) (Auto)2019-05-09 10:41:00 * Test Item Value Reference Range Interpretation Comments Neutrophils (%) (Auto) (test code = 60853-3) 77.2 38.7-80.0 [facility] CenterLymphocytes (%) (Auto)2019-05-09 10:41:00 * Test Item Value Reference Range Interpretation Comments Lymphocytes (%) (Auto) (test code = 736-9) 13.4 18.0-39.1 L [facility] CenterMonocytes (%) (Auto)2019-05-09 10:41:00* Test Item Value Reference Range Interpretation Comments Monocytes (%) (Auto) (test code = 5905-5) 7.9 4.4-11.3 [facility] CenterEosinophils (%) (Auto)2019-05-09 10:41:00 * Test Item Value Reference Range Interpretation Comments Eosinophils (%) (Auto) (test code = 713-8) 0.6 0.0-6.0 [facility] CenterBasophils (%) (Auto)2019-05-09 10:41:00* Test Item Value Reference Range Interpretation Comments Basophils (%) (Auto) (test code = 706-2) 0.6 0.0-1.0 [facility] CenterIM GRANULOCYTES %2019-05-09 10:41:00* Test Item Value Reference Range Interpretation Comments IM GRANULOCYTES % (test code = IM GRANULOCYTES %) 0.3 0.0- 1.0 [facility] CenterNeutrophils # (Auto)2019-05-09 10:41:00* Test Item Value Reference Range Interpretation Comments Neutrophils # (Auto) (test code = 751-8) 5.0 2.1-6.9 [facility] CenterLymphocytes # (Auto)2019-05-09 10:41:00* Test Item Value Reference Range Interpretation Comments Lymphocytes # (Auto) (test code = 59879-6) 0.9 1.0-3.2 L [facility] CenterMonocytes # (Auto)2019-05-09 10:41:00* Test Item Value Reference Range Interpretation Comments Monocytes # (Auto) (test code = 742-7) 0.5 0.2-0.8 [facility] CenterEosinophils # (Auto)2019-05-09 10:41:00* Test Item Value Reference Range Interpretation Comments Eosinophils # (Auto) (test code = 711-2) 0.0 0.0-0.4 [facility] CenterBasophils # (Auto)2019-05-09 10:41:00* Test Item Value Reference Range Interpretation Comments Basophils # (Auto) (test code = 704-7) 0.0 0.0-0.1 [facility] CenterAbsolute Immature Granulocyte (auto 2019-05-09 10:41:00* Test Item Value Reference Range Interpretation Comments Absolute Immature Granulocyte (auto (sara t code = Absolute Immature Granulocyte (auto) 0.02 0-0.1 [facility] CenterWhite Blood Dmvhn0874-79-92 10:41:00* Test Item Value Reference Range Interpretation Comments White Blood Count (test code = 6690-2) 6.48 4.8-10.8 [facility] CenterRed Blood Ppyig0682-72-80 10:41:00* Test Item Value Reference Range Interpretation Comments Red Blood Count (test code = 789-8) 4.72 4.3-5.7 [facility] CenterHemoglobin2019-07-11 10:41:00* Test Item Value Reference Range Interpretation Comments Hemoglobin (test code = 36688-6) 14.6 14.0-18.0 [facility] CenterHematocrit2019-07-11 10:41:00* Test Item Value Reference Range Interpretation Comments Hematocrit (test code = 4544-3) 43.6 38.2-49.6 [facility] CenterMean Corpuscular Oxvivd3901-54-51 10:41:00* Test Item Value Reference Range Interpretation Comments Mean Corpuscular Volume (test code = 787-2) 92.4 81-99 [facility] CenterMean Corpuscular Lzovewzftj6815-03-62 10:41:00* Test Item Value Reference Range Interpretation Comments Mean Corpuscular Hemoglobin (test code = 785-6) 30.9 28-32 [facility] CenterMean Corpuscular Hemoglobin Concent 2019-05-09 10:41:00* Test Item Value Reference Range Interpretation Comments Mean Corpuscular Hemoglobin Concent (test code = 786-4) 33.5 31-35 [facility] CenterRed Cell Distribution Cecay8915-35-80 10:41:00* Test Item Value Reference Range Interpretation Comments Red Cell Distribution Width (test code = 34508-8) 13.3 11.7 -14.4 [facility] CenterPlatelet Rpfgs1731-47-29 10:41:00* Test Item Value Reference Range Interpretation Comments Platelet Count (test code = 777-3) 195 140-360 [facility] CenterNeutrophils (%) (Auto)2019-05-09 10:41:00 * Test Item Value Reference Range Interpretation Comments Neutrophils (%) (Auto) (test code = 74871-3) 77.2 38.7-80.0 [facility] CenterLymphocytes (%) (Auto)2019-05-09 10:41:00 * Test Item Value Reference Range Interpretation Comments Lymphocytes (%) (Auto) (test code = 736-9) 13.4 18.0-39.1 L [facility] CenterMonocytes (%) (Auto)2019-05-09 10:41:00* Test Item Value Reference Range Interpretation Comments Monocytes (%) (Auto) (test code = 5905-5) 7.9 4.4-11.3 [facility] CenterEosinophils (%) (Auto)2019-05-09 10:41:00 * Test Item Value Reference Range Interpretation Comments Eosinophils (%) (Auto) (test code = 713-8) 0.6 0.0-6.0 [facility] CenterBasophils (%) (Auto)2019-05-09 10:41:00* Test Item Value Reference Range Interpretation Comments Basophils (%) (Auto) (test code = 706-2) 0.6 0.0-1.0 [facility] CenterIM GRANULOCYTES %2019-05-09 10:41:00* Test Item Value Reference Range Interpretation Comments IM GRANULOCYTES % (test code = IM GRANULOCYTES %) 0.3 0.0- 1.0 [facility] CenterNeutrophils # (Auto)2019-05-09 10:41:00* Test Item Value Reference Range Interpretation Comments Neutrophils # (Auto) (test code = 751-8) 5.0 2.1-6.9 [facility] CenterLymphocytes # (Auto)2019-05-09 10:41:00* Test Item Value Reference Range Interpretation Comments Lymphocytes # (Auto) (test code = 48256-1) 0.9 1.0-3.2 L [facility] CenterMonocytes # (Auto)2019-05-09 10:41:00* Test Item Value Reference Range Interpretation Comments Monocytes # (Auto) (test code = 742-7) 0.5 0.2-0.8 [facility] CenterEosinophils # (Auto)2019-05-09 10:41:00* Test Item Value Reference Range Interpretation Comments Eosinophils # (Auto) (test code = 711-2) 0.0 0.0-0.4 [facility] CenterBasophils # (Auto)2019-05-09 10:41:00* Test Item Value Reference Range Interpretation Comments Basophils # (Auto) (test code = 704-7) 0.0 0.0-0.1 [facility] CenterAbsolute Immature Granulocyte (auto 2019-05-09 10:41:00* Test Item Value Reference Range Interpretation Comments Absolute Immature Granulocyte (auto (sara t code = Absolute Immature Granulocyte (auto) 0.02 0-0.1 [facility] CenterWhite Blood Iljuq5716-32-23 10:41:00* Test Item Value Reference Range Interpretation Comments White Blood Count (test code = 6690-2) 6.48 4.8-10.8 [facility] CenterRed Blood Mtafk8024-82-88 10:41:00* Test Item Value Reference Range Interpretation Comments Red Blood Count (test code = 789-8) 4.72 4.3-5.7 [facility] CenterHemoglobin2019-07-11 10:41:00* Test Item Value Reference Range Interpretation Comments Hemoglobin (test code = 13552-1) 14.6 14.0-18.0 [facility] CenterHematocrit2019-07-11 10:41:00* Test Item Value Reference Range Interpretation Comments Hematocrit (test code = 4544-3) 43.6 38.2-49.6 [facility] CenterMean Corpuscular Dnyjoa9359-88-74 10:41:00* Test Item Value Reference Range Interpretation Comments Mean Corpuscular Volume (test code = 787-2) 92.4 81-99 [facility] CenterMean Corpuscular Ycklbdwsmi4514-93-74 10:41:00* Test Item Value Reference Range Interpretation Comments Mean Corpuscular Hemoglobin (test code = 785-6) 30.9 28-32 [facility] CenterMean Corpuscular Hemoglobin Concent 2019-05-09 10:41:00* Test Item Value Reference Range Interpretation Comments Mean Corpuscular Hemoglobin Concent (test code = 786-4) 33.5 31-35 [facility] CenterRed Cell Distribution Ompin9165-64-04 10:41:00* Test Item Value Reference Range Interpretation Comments Red Cell Distribution Width (test code = 54734-8) 13.3 11.7 -14.4 [facility] CenterPlatelet Exlma1092-20-07 10:41:00* Test Item Value Reference Range Interpretation Comments Platelet Count (test code = 777-3) 195 140-360 [facility] CenterNeutrophils (%) (Auto)2019-05-09 10:41:00 * Test Item Value Reference Range Interpretation Comments Neutrophils (%) (Auto) (test code = 99494-8) 77.2 38.7-80.0 [facility] CenterLymphocytes (%) (Auto)2019-05-09 10:41:00 * Test Item Value Reference Range Interpretation Comments Lymphocytes (%) (Auto) (test code = 736-9) 13.4 18.0-39.1 L [facility] CenterMonocytes (%) (Auto)2019-05-09 10:41:00* Test Item Value Reference Range Interpretation Comments Monocytes (%) (Auto) (test code = 5905-5) 7.9 4.4-11.3 [facility] CenterEosinophils (%) (Auto)2019-05-09 10:41:00 * Test Item Value Reference Range Interpretation Comments Eosinophils (%) (Auto) (test code = 713-8) 0.6 0.0-6.0 [facility] CenterBasophils (%) (Auto)2019-05-09 10:41:00* Test Item Value Reference Range Interpretation Comments Basophils (%) (Auto) (test code = 706-2) 0.6 0.0-1.0 [facility] CenterIM GRANULOCYTES %2019-05-09 10:41:00* Test Item Value Reference Range Interpretation Comments IM GRANULOCYTES % (test code = IM GRANULOCYTES %) 0.3 0.0- 1.0 [facility] CenterNeutrophils # (Auto)2019-05-09 10:41:00* Test Item Value Reference Range Interpretation Comments Neutrophils # (Auto) (test code = 751-8) 5.0 2.1-6.9 [facility] CenterLymphocytes # (Auto)2019-05-09 10:41:00* Test Item Value Reference Range Interpretation Comments Lymphocytes # (Auto) (test code = 13755-6) 0.9 1.0-3.2 L [facility] CenterMonocytes # (Auto)2019-05-09 10:41:00* Test Item Value Reference Range Interpretation Comments Monocytes # (Auto) (test code = 742-7) 0.5 0.2-0.8 [facility] CenterEosinophils # (Auto)2019-05-09 10:41:00* Test Item Value Reference Range Interpretation Comments Eosinophils # (Auto) (test code = 711-2) 0.0 0.0-0.4 [facility] CenterBasophils # (Auto)2019-05-09 10:41:00* Test Item Value Reference Range Interpretation Comments Basophils # (Auto) (test code = 704-7) 0.0 0.0-0.1 [facility] CenterAbsolute Immature Granulocyte (auto 2019-05-09 10:41:00* Test Item Value Reference Range Interpretation Comments Absolute Immature Granulocyte (auto (sara t code = Absolute Immature Granulocyte (auto) 0.02 0-0.1 [facility] CenterWhite Blood Cflgv8095-63-69 10:41:00* Test Item Value Reference Range Interpretation Comments White Blood Count (test code = 6690-2) 6.48 4.8-10.8 [facility] CenterRed Blood Qwqst2438-79-56 10:41:00* Test Item Value Reference Range Interpretation Comments Red Blood Count (test code = 789-8) 4.72 4.3-5.7 [facility] CenterHemoglobin2019-07-11 10:41:00* Test Item Value Reference Range Interpretation Comments Hemoglobin (test code = 61965-3) 14.6 14.0-18.0 [facility] CenterHematocrit2019-07-11 10:41:00* Test Item Value Reference Range Interpretation Comments Hematocrit (test code = 4544-3) 43.6 38.2-49.6 [facility] CenterMean Corpuscular Aftkaa7449-70-39 10:41:00* Test Item Value Reference Range Interpretation Comments Mean Corpuscular Volume (test code = 787-2) 92.4 81-99 [facility] CenterMean Corpuscular Ujpcsgqtxh8638-81-14 10:41:00* Test Item Value Reference Range Interpretation Comments Mean Corpuscular Hemoglobin (test code = 785-6) 30.9 28-[address] [facility] Hemoglobin Concent 2019-05-09 10:41:00* Test Item Value Reference Range Interpretation Comments Mean Corpuscular Hemoglobin Concent (test code = 786-4) 33.5 31-35 [facility] CenterRed Cell Distribution Aotkh9327-93-65 10:41:00* Test Item Value Reference Range Interpretation Comments Red Cell Distribution Width (test code = 84076-6) 13.3 11.7 -14.4 [facility] CenterPlatelet Expss6297-89-39 10:41:00* Test Item Value Reference Range Interpretation Comments Platelet Count (test code = 777-3) 195 140-360 [facility] CenterNeutrophils (%) (Auto)2019-05-09 10:41:00 * Test Item Value Reference Range Interpretation Comments Neutrophils (%) (Auto) (test code = 45576-3) 77.2 38.7-80.0 [facility] CenterLymphocytes (%) (Auto)2019-05-09 10:41:00 * Test Item Value Reference Range Interpretation Comments Lymphocytes (%) (Auto) (test code = 736-9) 13.4 18.0-39.1 L [facility] CenterMonocytes (%) (Auto)2019-05-09 10:41:00* Test Item Value Reference Range Interpretation Comments Monocytes (%) (Auto) (test code = 5905-5) 7.9 4.4-11.3 [facility] CenterEosinophils (%) (Auto)2019-05-09 10:41:00 * Test Item Value Reference Range Interpretation Comments Eosinophils (%) (Auto) (test code = 713-8) 0.6 0.0-6.0 [facility] CenterBasophils (%) (Auto)2019-05-09 10:41:00* Test Item Value Reference Range Interpretation Comments Basophils (%) (Auto) (test code = 706-2) 0.6 0.0-1.0 [facility] CenterIM GRANULOCYTES %2019-05-09 10:41:00* Test Item Value Reference Range Interpretation Comments IM GRANULOCYTES % (test code = IM GRANULOCYTES %) 0.3 0.0- 1.0 [facility] CenterNeutrophils # (Auto)2019-05-09 10:41:00* Test Item Value Reference Range Interpretation Comments Neutrophils # (Auto) (test code = 751-8) 5.0 2.1-6.9 [facility] CenterLymphocytes # (Auto)2019-05-09 10:41:00* Test Item Value Reference Range Interpretation Comments Lymphocytes # (Auto) (test code = 23882-3) 0.9 1.0-3.2 L [facility] CenterMonocytes # (Auto)2019-05-09 10:41:00* Test Item Value Reference Range Interpretation Comments Monocytes # (Auto) (test code = 742-7) 0.5 0.2-0.8 [facility] CenterEosinophils # (Auto)2019-05-09 10:41:00* Test Item Value Reference Range Interpretation Comments Eosinophils # (Auto) (test code = 711-2) 0.0 0.0-0.4 [facility] CenterBasophils # (Auto)2019-05-09 10:41:00* Test Item Value Reference Range Interpretation Comments Basophils # (Auto) (test code = 704-7) 0.0 0.0-0.1 [facility] CenterAbsolute Immature Granulocyte (auto 2019-05-09 10:41:00* Test Item Value Reference Range Interpretation Comments Absolute Immature Granulocyte (auto (sara t code = Absolute Immature Granulocyte (auto) 0.02 0-0.1 [facility]
--- NOTE | 2020-07-01 14:02 | Emergency Department Note ---
History of Present Illnes History of Present Illness Chief Complaint: General Medicine Complaints History of Present Illness This is a 75 year old male Chief Complaint Comment 75y/o male presents to ED via with c/o of abdominal pain. Pt had bladder procedure with Dr. Block on the , pt now reports he has not had BM since. Pt reports only small little smears on undergarments. Pt asking for more pain medication. Historian: Patient, Family Member Nuclear Reactor Technician Required: No Onset (how long ago): day(s) (2) Location: Lower Quality: Sharp Radiation: Reports non-radiation Severity: mild Onset quality: gradual Duration (how long): day(s) (2) Timing of current episode: constant Progression: worsening Chronicity: new Context: Reports recent surgery; Denies recent illness Relieving factors: none Exacerbating factors: none Associated symptoms: Reports denies other symptoms Treatments prior to arrival: none Past Medical/Family History Physician Review I have reviewed the patient's past medical and family history. Any updates have been documented here. Past Medical History Recent Fever: No Clinical Suspicion of Infectio: No New/Unexplained Change in Ment: No Past Medical History: Hypertension, Diabetes, CHF, A-Fib Other Medical History: BPH Past Surgical History: None Social History Physically hurt or threatened: No Other Last Tetanus: utd Review of Systems Review of Systems Constitutional: Reports no symptoms EENTM: Reports no symptoms Cardiovascular: Reports no symptoms Respiratory: Reports no symptoms Gastrointestinal: Reports as per HPI, Reports abdominal pain Genitourinary: Reports no symptoms Musculoskeletal: Reports no symptoms Integumentary: Reports no symptoms Neurological: Reports no symptoms Psychological: Reports no symptoms Endocrine: Reports no symptoms Hematological/Lymphatic: Reports no symptoms Physical Exam Related Data Allergies: Coded Allergies: No Known Allergies (Unverified , 05/09/19) Triage Vital Signs Vital Signs Date Time Temp Pulse Resp B/P (MAP) Pulse Ox O2 Delivery O2 Flow Rate FiO2 07/01/20 13:31 98.2 104 20 125/81 100 Room Air Vital signs reviewed: Yes Physical Exam CONSTITUTIONAL Constitutional: Present well-developed, Present well-nourished HENT HENT: Present normocephalic, Present atraumatic, Present oropharynx clear/moist, Present nose normal HENT L/R: Present left ext ear normal, Present right ext ear normal EYES Eyes: Reports PERRL, Reports conjunctivae normal NECK Neck: Present ROM normal PULMONARY Pulmonary: Present effort normal, Present breath sounds normal CARDIOVASCULAR Cardiovascular: Present regular rhythm, Present heart sounds normal, Present capillary refill normal, Present normal rate GASTROINTESTINAL Abdominal: Present soft, Present nontender, Present bowel sounds normal, Present tender (Bilateral lower) GENITOURINARY Genitourinary: Present exam deferred SKIN Skin: Present warm, Present dry MUSCULOSKELETAL Musculoskeletal: Present ROM normal NEUROLOGICAL Neurological: Present alert, Present oriented x 3, Present no gross motor or sensory deficits PSYCHOLOGICAL Psychological: Present mood/affect normal, Present judgement normal Procedures 12 Lead ECG Interpretation ECG Interpretation : Nuclear Reactor Technician: Interpreted by ED physician Date: Jul 01, 2020 Prior ECG tracings: reviewed Rhythm: atrial fibrillation Ectopy: PVC's Rate: normal BPM: 82 QRS axis: normal ST segments normal: Yes T waves normal: Yes Clinical Impression: abnormal ECG Assessment & Plan Medical Decision Making MDM 75 y.o M presents for abd pain and constipation. recent urologic procedure w/ Dr. Block. CT scan shows constipation. He was given Mag Citrate and lactulose here in ED and instructed to take Miralax at home. Discussed with Dr. Block who agrees and will see him in 1 week. patient is appropriate for DC. Reassessment Reassessment time: 16:36 Reassessment Well appearing, NAD Assessment & Plan Final Impression: (1) Constipation Depart Disposition: HOME, SELF-CARE Last Vital Signs Date Time Temp Pulse Resp B/P (MAP) Pulse Ox O2 Delivery O2 Flow Rate FiO2 07/01/20 13:31 98.2 104 20 125/81 100 Room Air Home Meds Reported Medications Clopidogrel Bisulfate* (PLAVIX) 75 Mg Tablet, 75 MG PO DAILY, #30 TAB 06/24/20 Losartan Potassium (LOSARTAN POTASSIUM) 25 Mg Tablet, PO DAILY 06/24/20 Multivitamin (MULTI-VITAMIN DAILY) 1 Each Tablet, PO DAILY 06/24/20 [Vit D] No Conflict Check, PO DAILY 06/24/20 Potassium Chloride (POTASSIUM CHLORIDE) 10 Meq Tab.er.prt, 10 MEQ PO BID, TAB 01/01/20 Atorvastatin Calcium (ATORVASTATIN CALCIUM) 20 Mg Tablet, 40 MG PO DAILY, #30 TAB 12/30/19 Metoprolol Tartrate (METOPROLOL TARTRATE) 25 Mg Tablet, 25 MG PO BID, TAB 12/30/19 Aspirin (ASPIRIN) 325 Mg Tablet, 325 MG PO DAILY, #30 TAB 12/30/19 Discontinued Scripts Ondansetron Hcl* (ZOFRAN*) 4 Mg Tablet, 4 MG SL Q6H PRN for NAUSEA, #14 MG 0 Refills Prov:LILY BRIAN MD 05/28/20 Ibuprofen (IBUPROFEN IB) 200 Mg Tablet, 3 TAB PO Q6H PRN for pain, #90 Prov:LILY BRIAN MD 05/28/20 Acetaminophen/Codeine* (TYLENOL # 3*) 1 Ea Tab, 1 TAB PO Q4HR PRN for pain or cough, #30 Prov:LILY BRIAN MD 05/28/20 Amoxicillin/Potassium Clav (AUGMENTIN 875-125 TABLET) 1 Each Tablet, 500 TAB PO TID for urinary tract infection for 10 Days, #30 TAB 0 Refills Prov:JULIA ROMAN MD 02/22/20 Medications in the ED Sodium Chloride 500 ml @ 0 mls/hr Q0M STAT IV ; Start 07/01/20 at 13:28; Stop 07/01/20 at 13:30; Status DC TOY LESLIE MD Jul 01, 2020 14:02
[2020-07-01 14:11] LABS: BASOPHILS # (AUTO) 0.1 (0.0-0.1); BASOPHILS % 0.7 % (0.0-1.0); EOSINOPHILS # (AUTO) 0.2 (0.0-0.4); EOSINOPHILS % 2.5 % (0.0-6.0); HEMATOCRIT 41.2 % (38.2-49.6); HEMOGLOBIN 13.5 g/dL (14.0-18.0); LYMPHOCYTES # (AUTO) 0.8 (1.0-3.2); LYMPHOCYTES % 11.3 % (18.0-39.1); MEAN CORPUSCULAR HEMOGLOBIN 29.9 pg (28-32); MEAN CORPUSCULAR HGB CONC 32.8 g/dL (31-35); MEAN CORPUSCULAR VOLUME 91.2 fL (81-99); MONOCYTES # (AUTO) 0.6 (0.2-0.8); MONOCYTES % 8.5 % (4.4-11.3); NEUTROPHILS # (AUTO) 5.4 (2.1-6.9); NEUTROPHILS % 76.6 % (38.7-80.0); PLATELET COUNT 191 x10e3/uL (140-360); RED BLOOD COUNT 4.52 x10e6/uL (4.3-5.7); RED CELL DISTRIBUTION WIDTH 14.6 % (11.7-14.4)
[2020-07-01 14:29] LABS: CLARITY,URINE TURBID (CLEAR); COLOR,URINE RED (YELLOW)
[2020-07-01 14:30] LABS: BILIRUBIN,URINE NEGATIVE (NEGATIVE); KETONES,URINE NEGATIVE (NEGATIVE); LEUKOCYTE ESTERASE ,URINE 1+ (NEGATIVE); NITRITE,URINE NEGATIVE (NEGATIVE); PROTEIN,URINE DIPSTICK 3+ (NEGATIVE); URINE UROBILINOGEN 0.2 mg/dL (0.2 - 1)
[2020-07-01 14:33] LABS: ALBUMIN 4.2 g/dL (3.5-5.0); ALBUMIN/GLOBULIN RATIO 1.3 (0.8-2.0); ANION GAP 16.5 mmol/L (8-16); CALCIUM 9.4 mg/dL (8.4-10.2); CREATININE, SERUM 1.41 mg/dL (0.72-1.25); POTASSIUM 3.5 mmol/L (3.5-5.1)
[2020-07-01 14:44] LABS: BACTERIA,URINE FEW /HPF; RBC,URINE >50 /HPF (0-5)
[2020-07-01] MEDS ORDERED: IOPAMIDOL 370 MG/ML 200 ML INFUS..BTL INJ ONE (15:17)
[2020-07-01] MEDS ORDERED: SODIUM CHLORIDE 0.9% 50ML 50 ML ONE (15:17)
--- NOTE | 2020-07-01 16:03 | Diagnostic Imaging Report ---
CT of the abdomen and pelvis with contrast TECHNIQUE: CT of the abdomen and pelvis WITH intravenous contrast and WITHOUT oral contrast. Dose modulation, iterative reconstruction, and/or weight-based adjustment of the mA/kV was utilized to reduce the radiation dose to as low as reasonably achievable. IV CONTRAST: 100 mL of Isovue-370 ORAL CONTRAST: None RADIATION DOSE: Total DLP: 932 mGy*cm COMPLICATIONS: None INDICATION: ^abd pain ^[id number] ^1515. COMPARISON: None. FINDINGS: LOWER THORAX: Multiple calcified pleural plaques are noted at the lung bases. HEPATOBILIARY: No focal hepatic lesions. Gallbladder is unremarkable. No biliary ductal dilatation. SPLEEN: No splenomegaly. PANCREAS: No focal masses or ductal dilatation. ADRENALS: Left adrenal nodularity/thickening is noted. Right adrenal gland is unremarkable. No discrete measurable nodule is noted of the left adrenal gland. KIDNEYS/URETERS: Right double-J internal ureteral stent is noted with proximal and distal loops in appropriate position. There is moderate right and mild left hydronephrosis. Negative for perinephric fluid collection. Delayed imaging damages early excretion of contrast into the bilateral renal pelvises. PELVIC ORGANS/BLADDER: Postsurgical changes are identified within the pelvis from laser vaporization of the prostate. A Urena catheter is noted within the urinary bladder which is decompressed limiting evaluation. Posterior and to the left of the urinary bladder there is ill-defined area of hypoenhancement axial image 85 measuring up to 1.7 cm, nonspecific. PERITONEUM/RETROPERITONEUM: No free air or fluid. LYMPH NODES: No lymphadenopathy. VESSELS: Severe atherosclerotic changes of the infrarenal abdominal aorta are noted without aneurysmal dilatation. GI TRACT: Bowel loops are suboptimally evaluated without oral contrast. Normal appendix is noted. A large amount of stool is noted with the level of the rectum with questionable foci of air within the rectal wall. Negative for pneumoperitoneum. Negative for small bowel obstruction. No surrounding inflammatory changes are identified. BONES AND SOFT TISSUES: Negative for acute osseous abnormality. Mild to moderate multilevel degenerative changes of the lower thoracic and lumbar spine are noted. No suspicious lytic or blastic lesion. IMPRESSION: 1. Postsurgical changes from laser vaporization of the prostate. There is a hypoenhancing region within the left aspect of the surgical bed measuring up to 2.0 cm which is concerning for possible developing abscess versus normal postoperative change. 2. Indwelling Urena catheter within the decompressed bladder. Right double-J ureteral stent appears to be in anatomic positioning. Moderate right and mild left hydronephrosis is noted. The Urena catheter was clamped during the CT. Delayed imaging demonstrated early excretion of contrast into the renal pelvis however the ureters and bladder are not opacified by contrast. 3. Large amount of stool at the level of the rectum with moderate proximal colonic stool retention. Findings are concerning for constipation/possible impaction at the level of the rectum. 4. Calcified pleural plaques at the lung bases concerning for prior asbestos exposure. 5. Nonspecific left adrenal thickening. Signed by: Arturo Griffin MD on 07/01/2020 4:00 PM
[2020-07-01] MEDS ORDERED: LACTULOSE SYRUP 20 GM/30 ML UDC PO ONE (16:30)
[2020-07-01] MEDS ORDERED: CITRATE OF MAGNESIA 300ML BOTTLE PO ONE (17:00)
[2020-07-01] MEDS ORDERED: MINERAL OIL 132 ML BTL PR ONE (17:00)
[2020-07-01] MEDS ORDERED: SODIUM CHLORIDE 0.9% 500ML 500 ML ONE (17:01)
[2020-07-01 18:01] VITALS: BP 108/68
== END 2020-07-01 18:30 | disposition home or self-care (01) ==
LOC: ER 12:55
DX: K59.00 Constipation, unspecified (principal); I10 Essential (primary) hypertension; E11.9 Type 2 diabetes mellitus without complications; I50.9 Heart failure, unspecified; I48.91 Unspecified atrial fibrillation; R94.31 Abnormal electrocardiogram [ECG] [EKG]
CPT/HCPCS: 36415; 74177; 80053; 81001; 84484; 85025; 93005; 99284; J7040; Q9967

== ENCOUNTER 2020-07-07 12:42 | Inpatient (IN) | payer MEDICARE, OTHER ==
[~2020-07-07] VITALS: Ht 188 cm; Wt 79.4 kg
--- OUTSIDE RECORDS SUMMARY | 2020-07-07 13:39 | XMS REPORT | Continuity of Care Document ---
Author Author [facility] t Organization [facility] Address [address] [place] [address] Phone Unavailable Care Team Providers Care Tongue And Groove Machine Setter Name Role Phone MD Benny KRUEGER MD PCP Mumtaz Raymond Attphys Unavailable NAFISA YODER Attphys Unavailable DELPHINE KRAFT Attphys Unavailable Payers Payer Name Policy Type Policy Number Effective Date Expiration Date Benny daley Aegurpreet Medicare Replacement [id number] 2017 00:00:00 [facility] Cdc Review Covid19 [id number] [facility] Problems Condition Name Condition Details Condition Category Status Onset Date Resolution Date Last Treatment Date Treating Clinician Comments Source Hemorrhagic cystitis Problem Active [facility] Obstruction of Urena catheter Problem Active [facility] Constipation Problem Active [facility] Allergies, Adverse Reactions, Alerts Allergy Name Allergy Type Status Severity Reaction(s) Onset Date Inacti ve Date Treating Clinician Comments Source No Known Allergies DA Active U 2019-07-11 00:00:00 [facility] Social History Social Habit Start Date Stop Date Quantity Comments Source Sex Assigned At 1945 00:00:00 1945 00:[birth year]:00 Male [facility] Medications Ordered Medication Name Filled Medication Name Start Date Stop Da te Current Medication? Ordering Clinician Indication Dosage Frequency Signature (SIG) Comments Components Source Acetaminophen/Codeine Phosphate (Tylenol # 3*) 1 Ea TA B Acetaminophen/Codeine Phosphate (Tylenol # 3*) 1 Ea TAB 2020-05-28 07:39:00 2020-06-24 00:00:00 No 1 Every 4 Hours as needed for Pain Or Cough [facility] Ibuprofen (Ibuprofen Ib) 200 Mg TABLET Ibuprofen (Ibuprofen Ib) 200 Mg TABLET 2020-05-28 07:39:00 2020-06-24 00:00:00 No 3 Every 6 Hours as needed for Pain [facility] Ondansetron Hcl (Zofran*) 4 Mg TABLET Ondansetron Hcl (Zofra n*) 4 Mg TABLET 2020-05-28 07:39:00 2020-06-24 00:00:00 No 4 Every 6 Hours as needed for Nausea [facility] Amoxicillin/Potassium Clav (Augmentin 875-125 Tablet) 1 Each TABLET Amoxicillin/Potassium Clav (Augmentin 875-125 Tablet) 1 Each TABLET 2020-02-22 22:42:00 2020-06-24 00:00:00 No 500 Three Times A Day for Urinary Tract Infection [facility] Cefdinir (Omnicef) 300 Mg CAPSULE Cefdinir (Omnicef) 300 Mg CAPSULE 2019-12-13 19:51:00 2019-12-30 00:00:00 No 300 Twice A Day [facility] Cefuroxime Axetil (Cefuroxime) 250 Mg TABLET Cefuroxim e Axetil (Cefuroxime) 250 Mg TABLET 2019-05-09 11:18:00 2019-12-30 00:00:00 No 250 Every 12 Hours [facility] Tamsulosin Hcl (Flomax*) 0.4 Mg CAP Tamsulosin Hcl (Flomax*) 0.4 Mg CAP 2019-05-09 11:18:00 2019-12-30 00:00:00 No .4 Daily [facility] Aspirin Aspirin Yes 325 Daily [facility] Atorvastatin Calcium Atorvastatin Calcium Yes 40 Daily [facility] Clopidogrel Bisulfate (Plavix) 75 Mg TABLET Clopidogre l Bisulfate (Plavix) 75 Mg TABLET Yes 75 Daily [facility] Losartan Potassium Losartan Potassium Yes Da christie [facility] Metoprolol Tartrate Metoprolol Tartrate Yes 25 Twice A Day [facility] Multivitamin (Multi-Vitamin Daily) 1 Each TABLET Multi vitamin (Multi-Vitamin Daily) 1 Each TABLET Yes Daily [facility] Potassium Chloride Potassium Chloride Yes 10 Tw ice A Day [facility] Vit D Vit D Yes Daily [facility] Potassium Bicarbonate/Cit Ac (Effer-K 10 Meq Tablet Ef f) 10 Meq TABLET.EFF Potassium Bicarbonate/Cit Ac (Effer-K 10 Meq Tablet Eff) 10 Meq TABLET.EFF 2020-01-01 00:00:00 No 1 Daily [facility] Tamsulosin Hcl (Flomax*) 0.4 Mg CAP Tamsulosin Hcl (Flomax*) 0.4 Mg CAP 2020-01-01 00:00:00 No .4 Daily [facility] Vitamin D Vitamin D 2019-12-30 00:00:00 No [id number] [facility] Vital Signs Vital Name Observation Time Observation Value Comments Source Body Temperature 2020-07-01 18:01:00 98.7 [degF] [facility] Weight 2020-07-01 13:31:00 180 [lb_av] [facility] BMI (Body Mass Index) 2020-07-01 13:31:00 23.1 kg/m2 [facility] Weight 2020-05-28 07:27:00 180 [lb_av] [facility] BMI (Body Mass Index) 2020-05-28 07:27:00 23.1 kg/m2 [facility] Body Temperature 2020-02-22 23:50:00 98.6 [degF] [facility] Procedures Procedure Date / Time Performed Performing Clinician [facility] Computed tomography of abdomen and pelvis with contrast 00:00:00 [facility] X-ray of chest, two views 2020-06-24 00:00:00 [facility] INSERT TEMP BLADDER CATH 2020-05-28 00:00:00 [facility] L HRT ARTERY/VENTRICLE ANGIO 2020-01-01 00:00:00 [facility] INSERT TEMP BLADDER CATH 2019-12-13 00:00:00 [facility] Plan of Care Planned Activity Planned Date Details Comments Source Instructions Constipation - Adult [facility] Encounters Start Date/Time End Date/Time Encounter Type Admission Type [facility] Care Department Encounter ID Source 2020-07-01 12:55:00 2020-07-01 18:30:00 Departed Emergency Room 1 Toy Raymond [facility] [id number] [facility] 2020-06-26 10:17:00 2020-06-26 10:17:00 Registered Surgical Day Car e 3 NAFISA YODER [facility] [id number] [facility] 2020-05-28 07:35:00 2020-05-28 08:51:00 Departed Emergency Room [facility] [id number] [facility] 2020-02-22 17:56:00 2020-02-22 23:50:00 Departed Emergency Room [facility] [id number] [facility] 2020-01-01 15:18:00 2020-01-01 20:18:00 Discharged Inpatient (obs) [facility] [id number] [facility] [place] 2019-12-13 17:36:00 2019-12-13 20:27:00 Departed Emergency [facility] [id number] [facility] 2019-12-02 08:45:00 2019-12-02 10:01:00 Departed Emergency Room [facility] [id number] [facility]ical [place] 2019-09-28 17:11:00 2019-09-28 20:46:00 Departed Emergency Room 1 DELPHINE KRAFT [facility] [id number] [facility] 2019-05-09 08:42:00 2019-05-09 12:29:[address] [facility] [id number] [facility] Results Test Description Test Time Test Comments Results Result Comments Source CT ABDOMEN/PELVIS W 2020-07-01 15:44:00 [facility] [address] [address] Patient Name: EVANS DANIELSON MR #: [id number] : 1945 Age/Sex: 75/M Req #: [id number] Adm Physician: Ordered by: Toy Raymond MD Report #: [id number] Location: ER Room/Bed: Procedure: CT/CT ABDOMEN/PELVIS W Exam Date: 07/01/20 Exam Time: 1514 REPORT STATUS: Signed CT of the abdomen and pelvis with contrast TECHNIQUE: CT of the abdomen and pelvis WITH intravenous contrast and WITHOUT oral contrast. Dose modulation, iterative reconstruction, and/or weight-based adjustment of the mA/kV was utilized to reduce the ra diation dose to as low as reasonably achievable. IV CONTRAST: 100 mL of Isovue-370 ORAL CONTRAST: None RADIATION DOSE: Total DLP: 932 mGy*cm COMPLICATIONS: None INDICATION: abd pain 20200701. COMPARISON: None. FINDINGS: LOWER THORAX: Multiple calcified pleural plaques are noted at the lung bases. HEPATOBILIARY: No focal hepatic lesions. Gallbladder is unremarkable. No biliary ductal dilatation. SPLEEN: No splenomegaly. PANCREAS: No focal masses or ductal dilatation. ADRENALS: Left adrenal nodularity/thickening is noted. Right adrenal gland is unremarkable. No discrete measurable nodule is noted of the left adrenal gland. KIDNEYS/URETERS: Right double-J internal ureteral stent is noted with proximal and distal loops in appropriate position. There is moderate right and mild left hydronephrosis. Negative for perinephric fluid collection. Delayed imaging damages early excretion of contr ast into the bilateral renal pelvises. PELVIC ORGANS/BLADDER: Postsurgical changes are identified within the pelvis from laser vaporization of the prostate. A Urena catheter is noted within the urinary bladder which is decompressed limiting evaluation. Posterior and to the left of the urinary bladder there is ill-defined area of hypoenhancement axial image 85 measuring up to 1.7 cm, nonspecific. PERITONEUM/RETROPERITONEUM: No free air or fluid. LYMPH NODES: No lymphadenopathy. VESSELS: Severe atherosclerotic changes of the infrarenal abdominal aorta are noted without aneurysmal di latation. GI TRACT: Bowel loops are suboptimally evaluated without oral contrast. Normal appendix is noted. A large amount of stool is noted with the level of the rectum with questionable foci of air within the rectal wall. Negative for pneumoperitoneum. Negative for small bowel obstruction. No surrounding inflammatory changes are identified. BONES AND SOFT TISSUES: Negative for acute osseous abnormality. Mild to moderate multilevel degenerative changes of the lower thoracic and lumbar spine are noted. No suspicious lytic or blastic lesion. IMPRESSION: 1. Postsurgical changes from laser vaporization of the prostate. There is a hypoenhancing region within the left aspect of the surgical bed measuring up to 2.0 cm which is concerning for possible developing abscess versus normal postoperative change. 2. Indwelling Urena catheter within the decompressed bladder. Right double-J ureteral stent appears to be in anatomic positioning. Moderate right and mild left hydronephrosis is noted. The Urena catheter was clamped during the CT. Delayed imaging demonstrated early excretion of contrast into the renal pelvis however the ureters and bladder are not opacified by contrast. 3. Large amount of stool at the level of the rectum with moderate proximal colonic stool retention. Findings are concerning for constipation/possible impaction at the level of the rectum. 4. Calcified pleural plaques at the lung bases concerning for prior asbestos exposure. 5. Nonspecific left adrenal thickening. Signed by: Felix Griffin MD on 07/01/2020 4:00 PM Dictated By: FELIX GRIFFIN MD 1600 Transcribed By: DAGMAR on 07/01/20 1600 COPY TO: TOY RAYMOND MD Urine color determination 2020-07-01 14:08:00 Test Item Urine Color (test code = 5778-6) RED YELLOW [facility] [id number] 14:08:00* Test Item Value Reference Range Interpretation Comments Urine Clarity (test code = 08281-0) [facility]URBID CLEAR [facility] U[facility] by Test strip 2020-07-01 14:08:00* Test Item Value Reference Range Interpretation Comments Urine Specific Abercrombie (test code = 5811-5) 1.030 1.010-1.02 5 [facility] pH measurement by automated test [id number] 14:08:00* Test Item Value Reference Range Interpretation Comments Urine pH (test code = 08339-8) 6 5-7 [facility] leukocyte esterase detection by [id number] 14:08:00* Test Item Value Reference Range Interpretation Comments Urine Leukocyte Esterase (test code = 5799-2) 1+ NEGATIVE [facility] Hospital[facility] nitrite [id number] 14:08:00* Test Item Value Reference Range Interpretation Comments Urine Nitrite (test code = 99836-5) NEGATIVE NEGATIVE [facility] protein measurement by test strip (mass/volume)2020-07-01 14:08:00* Test Item Value Reference Range Interpretation Comments Urine Protein (test code = 5804-0) 3+ NEGATIVE [facility] HospitalU[facility] glucose [id number] 14:08:00* Test Item Value Reference Range Interpretation Comments Urine Glucose (UA) (test code = 2349-9) NEGATIVE NEGATIVE [facility] HospitalUrine ketones detection by automated test [id number] 14:08:00* Test Item Value Reference Range Interpretation Comments Urine Ketones (test code = 32540-5) NEGATIVE NEGATIVE [facility] Hospital[facility]rine urobilinogen measurement by test strip (mass/volume)2020-07-01 14:08:00* Test Item Value Reference Range Interpretation Comments Urine Urobilinogen (test code = 69683-4) 0.2 0.2-1 [facility] total bilirubin measurement (mass/volume)2020-07-01 14:08:00* Test Item Value Reference Range Interpretation Comments Urine Bilirubin (test code = 1978-6) NEGATIVE NEGATIVE [facility] Hospital[facility] erythrocytes [id number] 14:08:00* Test Item Value Reference Range Interpretation Comments Urine Blood (test code = 84912-4) 4+ NEGATIVE [facility] HospitalAutomated urine sediment leukocyte count by microscopy (number/high power field)2020-07-01 14:08:00* Test Item Value Reference Range Interpretation Comments Urine WBC (test code = 5821-4) 6-10 0-5 [facility] HospitalErythrocytes detection in urine sediment by light [id number] 14:08:00* Test Item Value Reference Range Interpretation Comments Urine RBC (test code = 17363-1) >50 0-5 [facility] HospitalBacteria detection in urine sediment by light [id number] 14:08:00* Test Item Value Reference Range Interpretation Comments Urine Bacteria (test code = 68004-3) FEW NONE [facility] HospitalEpithelial cells detection in urine sediment by light elclqhyiyx7728-33-56 14:08:00* Test Item Value Reference Range Interpretation Comments Urine Epithelial Cells (test code = 53008-7) NONE NONE [facility] HospitalBlood leukocytes automated count (number/volume)2020-07-01 13:50:00* Test Item Value Reference Range Interpretation Comments White Blood Count (test code = 6690-2) 7.06 4.8-10.8 [facility] HospitalBlood erythrocytes automated count (number/volume)2020-07-01 13:50:00* Test Item Value Reference Range Interpretation Comments Red Blood Count (test code = 789-8) 4.52 4.3-5.7 [facility] HospitalBlood hemoglobin measurement (moles/volume)2020-07-01 13:50:00* Test Item Value Reference Range Interpretation Comments Hemoglobin (test code = 01049-9) 13.5 14.0-18.0 [facility] HospitalAutomated blood hematocrit (volume fraction)2020-07-01 13:50:00* Test Item Value Reference Range Interpretation Comments Hematocrit (test code = 4544-3) 41.2 38.2-49.6 [facility] HospitalAutomated erythrocyte mean corpuscular selcak5894-43-43 13:50:00* Test Item Value Reference Range Interpretation Comments Mean Corpuscular Volume (test code = 787-2) 91.2 81-99 [facility] HospitalAutomated erythrocyte mean corpuscular hemoglobin (mass per erythrocyte)2020-07-01 13:50:00* Test Item Value Reference Range Interpretation Comments Mean Corpuscular Hemoglobin (test code = 785-6) 29.9 28-32 [facility] HospitalAutomated erythrocyte mean corpuscular hemoglobin concentration measurement (mass/volume)2020-07-01 13:50:00* Test Item Value Reference Range Interpretation Comments Mean Corpuscular Hemoglobin Concent (test code = 786-4) 32.8 31-35 [facility] HospitalRDW CaqXq-Rdm9881-02-02 13:50:00* Test Item Value Reference Range Interpretation Comments Red Cell Distribution Width (test code = 28306-2) 14.6 11.7 -14.4 [facility] HospitalAutomated blood platelet count (count/volume)2020-07-01 13:50:00* Test Item Value Reference Range Interpretation Comments Platelet Count (test code = 777-3) 191 140-360 [facility] HospitalAutomated blood segmented neutrophil count as percentage of total kfldgdctqb2865-20-84 13:50:00* Test Item Value Reference Range Interpretation Comments Neutrophils (%) (Auto) (test code = 21106-8) 76.6 38.7-80.0 [facility] HospitalAutlifecare hospitals of north carolinaed blood lymphocyte count as percentage ot total uotrhwecgy7109-43-08 13:50:00* Test Item Value Reference Range Interpretation Comments Lymphocytes (%) (Auto) (test code = 736-9) 11.3 18.0-39.1 [facility] HospitalAutomated blood monocyte count as percentage of total bqnjgppwzu8600-89-71 13:50:00* Test Item Value Reference Range Interpretation Comments Monocytes (%) (Auto) (test code = 5905-5) 8.5 4.4-11.3 [facility] HospitalAutomated blood eosinophil count as percentage of total nhrmjlucwq7446-80-83 13:50:00* Test Item Value Reference Range Interpretation Comments Eosinophils (%) (Auto) (test code = 713-8) 2.5 0.0-6.0 [facility] basophil count as percentage of total ihexryjmul0193-67-70 13:50:00* Test Item Value Reference Range Interpretation Comments Basophils (%) (Auto) (test code = 706-2) 0.7 0.0-1.0 [facility] HospitalFluoroscopic procedure less than one hour ylwgzenb1516-01-13 13:50:00* Test Item Value Reference Range Interpretation Comments IM GRANULOCYTES % (test code = IM GRANULOCYTES %) 0.4 0.0- 1.0 [facility] HospitalAutomated blood neutrophil count 2020-07-01 13:50:00* Test Item Value Reference Range Interpretation Comments Neutrophils # (Auto) (test code = 751-8) 5.4 2.1-6.9 [facility] HospitalBlood lymphocytes count (number/volume) 2020-07-01 13:50:00* Test Item Value Reference Range Interpretation Comments Lymphocytes # (Auto) (test code = 60227-7) 0.8 1.0-3.2 [facility] HospitalBlood monocytes automated count (number/volume)2020-07-01 13:50:00* Test Item Value Reference Range Interpretation Comments Monocytes # (Auto) (test code = 742-7) 0.6 0.2-0.8 [facility] HospitalAutomated blood eosinophil count 2020-07-01 13:50:00* Test Item Value Reference Range Interpretation Comments Eosinophils # (Auto) (test code = 711-2) 0.2 0.0-0.4 [facility] HospitalAutomated blood basophil count (count/volume)2020-07-01 13:50:00* Test Item Value Reference Range Interpretation Comments Basophils # (Auto) (test code = 704-7) 0.1 0.0-0.1 [facility] HospitalFluoroscopic procedure less than one hour lkxjvkpk2734-28-48 13:50:00* Test Item Value Reference Range Interpretation Comments Absolute Immature Granulocyte (auto (sara t code = Absolute Immature Granulocyte (auto) 0.03 0-0.1 [facility]erum or plasma sodium measurement (moles/volume)2020-07-01 13:50:00* Test Item Value Reference Range Interpretation Comments Sodium Level (test code = 2951-2) 143 136-145 [facility] Hospitalerum or plasma potassium measurement (moles/volume)2020-07-01 13:50:00* Test Item Value Reference Range Interpretation Comments Potassium Level (test code = 2823-3) 3.5 3.5-5.1 [facility] or plasma chloride measurement (moles/volume)2020-07-01 13:50:00* Test Item Value Reference Range Interpretation Comments Chloride Level (test code = 2075-0) 109 98-107 [facility] Hospitalerum or plasma carbon dioxide, total measurement (moles/volume)2020-07-01 13:50:00* Test Item Value Reference Range Interpretation Comments Carbon Dioxide Level (test code = 2028-9) 21 22-29 [facility] Hospitalerum or plasma anion [id number] 13:50:00* Test Item Value Reference Range Interpretation Comments Anion Gap (test code = 72282-1) 16.5 8-16 [facility]erum or plasma urea nitrogen measurement (mass/volume)2020-07-01 13:50:00* Test Item Value Reference Range Interpretation Comments Blood Urea Nitrogen (test code = 3094-0) 21 7-26 [facility]erum or plasma creatinine measurement (mass/volume)2020-07-01 13:50:00* Test Item Value Reference Range Interpretation Comments Creatinine (test code = 2160-0) 1.41 0.72-1.25 [facility] Hospitalerum or plasma urea nitrogen/creatinine mass [id number] 13:50:00* Test Item Value Reference Range Interpretation Comments BUN/Creatinine Ratio (test code = 3097-3) 15 6-25 [facility] HospitalEstimated glomerular filtration rate (GFR) cgmquyickntgm6880-40-46 13:50:00* Test Item Value Reference Range Interpretation Comments Estimat Glomerular Filtration Rate (test code = 330217573) 49 >60 Ranges were taken from the National Kidney Disease Education Program and the [facility] literature.Reference ranges:60 or greater: Hrzmtq12-69 ( for 3 consecutive months): Chronic kidney disease 15 or less: Kidney failureUT Southwestern [facility]. [facility]. University HospitalGlucose gncbjgtcqwp9307-38-81 13:50:00* Test Item Value Reference Range Interpretation Comments Glucose Level (test code = SEQ7528) 112 74-118 [facility] or plasma calcium measurement (mass/volume)2020-07-01 13:50:00* Test Item Value Reference Range Interpretation Comments Calcium Level (test code = 97507-6) 9.4 8.4-10.2 [facility]erum or plasma total bilirubin measurement (mass/volume)2020-07-01 13:50:00* Test Item Value Reference Range Interpretation Comments Total Bilirubin (test code = 1975-2) 1.6 0.2-1.2 [facility] HospitalFluoroscopic procedure less than one hour kxehxbxw0513-71-29 13:50:00* Test Item Value Reference Range Interpretation Comments Aspartate Amino Transf (AST/SGOT) (test code = Aspartate Amino Transf (AST/SGOT)) 24 5-34 [facility]erum or plasma alanine aminotransferase measurement (enzymatic activity/volume)2020-07-01 13:50:00* Test Item Value Reference Range Interpretation Comments Alanine Aminotransferase (ALT/SGPT) (test code = 1742-6) 21 0-55 [facility] Hospitalerum or plasma protein measurement (mass/volume)2020-07-01 13:50:00* Test Item Value Reference Range Interpretation Comments Total Protein (test code = 2885-2) 7.4 6.5-8.1 [facility] Hospitalerum or plasma albumin measurement (mass/volume)2020-07-01 13:50:00* Test Item Value Reference Range Interpretation Comments Albumin (test code = 1751-7) 4.2 3.5-5.0 [facility] HospitalPlasma globulin measurement (mass/volume) 2020-07-01 13:50:00* Test Item Value Reference Range Interpretation Comments Globulin (test code = 48361-6) 3.2 2.3-3.5 [facility]er[facility] or plasma albumin/globulin mass rmwtm0113-44-62 13:50:00* Test Item Value Reference Range Interpretation Comments Albumin/Globulin Ratio (test code = 1759-0) 1.3 0.8-2.0 [facility] Hospitalerum or plasma alkaline phosphatase measurement (enzymatic activity/volume)2020-07-01 13:50:00* Test Item Value Reference Range Interpretation Comments Alkaline Phosphatase (test code = 6768-6) 128 40-150 [facility] HospitalTroponin I measurement by highly sensitive enzyme qxnroaxoepp6307-07-27 13:50:00* Test Item Value Reference Range Interpretation Comments Troponin I (test code = 15600-9) 0.041 0-0.300 [facility] HospitalCapillary blood glucose measurement by glucometer (mass/volume)2020-06-26 11:50:00* Test Item Value Reference Range Interpretation Comments Bedside Glucose (test code = 68991-4) 120 70-120 Meter ID: [id number] [facility] HospitalFluoroscopic procedure less than one hour hmjlcuao5006-11-15 14:20:00* Test Item Value Reference Range Interpretation Comments Coronavirus (PCR) (test code = Coronavirus (PCR)) NOT DETECTED NOTD ETECTED SARS-COV2/RT-PCRNegative results do not preclude SARS-CoV-2 infection and should not be used as the sole basis for patient management decisions. Negative result s must be combined with clinical observations, patient history, and epidemiologi katerina information. A false negative result may occur if a specimen is improperly c ollected, transported or handled.The limit of detection for this assay is 250 co pies/mLThe SARS-CoV-2 test is a rapid, real-time RT-PCR test intended for the qu alitative detection of nucleic acid from SARS-CoV-2 in nasopharyngeal swab speci men collected from individuals suspected of COVID-19 by their healthcare provide r. This test has not been Food and Drug Administration (FDA) cleared or approved and has been authorized by FDA under an Emergency Use Authorization (EUA). This EUA will be effective until the declaration that circumstances exist justifying the authorization of the emergency use of in vitro diagnostic test for detectio n and or diagnosis of COVID-19 is terminated under section 564(b) of the Act, or the the EUA is revoked under 564(g) of the ACT.Testing performed by [address] 2 [id number] 14:00:00 [place] [address] Patient Name: EVANS DANIELSON MR #: [id number] : 1945 Age/Sex: 75/M Req #: [id number] Adm Physician: Ordered by: NAFISA YODER MD Report #: [id number] Location: OR Room/Bed: Procedure: [id number] DX/CHEST 2 VIEWS Exam Date: 06/24/20 Exam Time: 1340 REPORT STATUS: Signed EXAMINATION: CHEST 2 VIEW S INDICATION: Pre-operative COMPARISON: Chest radiograph 9 FINDINGS: LINES/TUBES:None LUNGS:The lungs are well-inflat ed. No focal consolidation or pulmonary edema. PLEURA:Unchanged bilateral c alcified pleural plaques. Unchanged left apical pleural parenchymal thickening /scarring. MEDIASTINUM:The cardiomediastinal silhouette appears normal in s ize and shape. BONES/SOFT TISSUES:No acute osseous injury. ABDOMEN:No free air under the diaphragm. IMPRESSION: Unchanged bilateral pleural -based calcifications and left apical pleural parenchymal thickening/scarring. No focal pneumonia or pulmonary edema. Signed by: Tushar Tang MD on 2:02 PM Dictated By: TUSHAR TANG MD 01 Transcribed By: DAGMAR on 06/24/201401 MUSICAL THERAPIST Y TO: NAFISA YODER MD Bacterial urine lprevoj1283-30-23 08:30:00* Test Item Value Reference Range Interpretation Comments Urine Culture (test code = 630-4) PROVIDESEANIA RETTGERI [facility] HospitalGLUBED2020-05-13 15:29:00* Test Item Value Reference Range Interpretation Comments GLUBED (test code = GLUBED) 123 mg/dL 74-106 H Performed by certified microfiche camera operator at [facility] [id number] 05:27:00* Test Item Value Reference Range Interpretation Comments GLUBED (test code = GLUBED) 165 mg/dL 74-106 H Performed by certified microfiche camera operator at [facility] BASIC METABOLIC [id number] 18:56:00* Test Item Value Reference Range Interpretation [...] CA) 8.8 mg/dL 8.5-10.1 N CBC W/AUTO [id number] 18:42:00* Test Item Value Reference Range Interpretation [...] code = NRBC#) 0.00 K/mm3 0.0-0.1 N [id number] 17:59:00* Test Item Value Reference Range Interpretation Comments GLUBED (test code = GLUBED) 91 mg/dL 74-106 N Performed by certified microfiche camera operator at [facility] [id number] 13:40:00* Test Item Value Reference Range Interpretation Comments GLUBED (test code = GLUBED) 140 mg/dL 74-106 H Performed by certified microfiche camera operator at [facility] Novel Coronavirus 2019 Rsvrrpj8120-87-28 13:40:00* Test Item Value Reference Range Interpretation Comments Novel Coronavirus 2019 Inhouse (test code = COVNONPUI) Negative Negative Testing Criteria: Preprocedure ScreeningNovel Coronavirus 2019 Inhouse 2020-03-10 13:40:00* Test Item Value Reference Range Interpretation Comments Novel Coronavirus 2019 Inhouse (test code = COVNONPUI) Negative Negative SENT TO 03/09/20Testing Criteria: Preprocedure ScreeningTesting Criteria: Preprocedure ScreeningCOAGULATION TIME [id number] 11:58:00* Test Item Value Reference Range Interpretation Comments COAGULATION TIME ACTIVATED (test code = ACT) 275 seconds 62.8-88.0 H COAGULATION TIME [id number] 11:58:00* Test Item Value Reference Range Interpretation Comments COAGULATION TIME ACTIVATED (test code = ACT) 286 seconds 62.8-88.0 H [id number] 10:48:00* Test Item Value Reference Range Interpretation Comments GLUBED (test code = GLUBED) 99 mg/dL 74-106 N Performed by certified microfiche camera operator at [facility] Coronavirus 2019 nCoV Xeucubt1143-43-03 10:01:00* Test Item Value Reference Range Interpretation Comments Coronavirus 2019 nCoV Bedside (test code = COVNONPUIBED) Negative COMPREHENSIVE METABOLIC [id number] 11:21:00* Test Item Value Reference Range Interpretation [...] LDL result is a direct measurement.========= PROTHROMBIN [id number] 11:17:00* Test Item Value Reference Range Interpretation [...] (2.5-3.5) IS PATIENT ON ANTICOAGULANTS? NTHROMBOPLASTIN TIME MQPKDML4807-96-29 11:17:00* Test Item Value Reference Range Interpretation Comments THROMBOPLASTIN TIME PARTIAL (test code = PTT) 37.0 seconds 23.0-37. 0 N IS PATIENT ON ANTICOAGULANTS? NCOMPREHENSIVE METABOLIC [id number] 11:06:00 * Test Item Value Reference Range [...] code = LDL) mg/dL 100-129 CBC W/AUTO [id number] 11:05:00* Test Item Value Reference Range Interpretation [...] (test code = MDIFF) NO CBC W/AUTO [id number] 11:04:00* Test Item Value Reference Range Interpretation [...] code = BA#) K/mm3 0.0-0.2 Bacterial urine iyvggpy6494-12-45 20:36:00* Test Item Value Reference Range Interpretation Comments Urine Culture (test code = 630-4) PSEUDOMONAS AERUGINOSA [facility] HospitalBacterial urine vvdxwqb6550-36-16 20:36:00* Test Item Value Reference Range Interpretation Comments Urine Culture (test code = 630-4) PSEUDOMONAS AERUGINOSA [facility] HospitalBedside Xfabqhv6368-02-77 20:29:00* Test Item Value Reference Range Interpretation Comments Bedside Glucose (test code = 57658-5) 175 70-120 H Meter ID: [id number] [facility] HospitalCapillary blood glucose measurement by glucometer (mass/volume)2020-01-01 18:03:00* Test Item Value Reference Range Interpretation Comments Bedside Glucose (test code = 99158-3) 175 70-120 Meter ID: [id number] [facility] HospitalTriglycerides Level 2019-12-30 16:21:00* Test Item Value Reference Range Interpretation Comments Triglycerides Level (test code = 2571-8) 81 0-149 [facility] HospitalCholesterol Pbvfw0594-10-67 16:21:00* Test Item Value Reference Range Interpretation Comments Cholesterol Level (test code = 2093-3) 112 0-199 Less than 200 mg/dL Low Tmhz715 - 239 mg/dL Borderline Pmvy660 m g/dl and greater High Risk [facility] HospitalLDL Vucidnyhewf6938-28-08 16:21:00* Test Item Value Reference Range Interpretation Comments LDL Cholesterol (test code = 2089-1) 59 60-130 L [facility] HospitalHDL Wzakuvsqrvr9563-86-21 16:21:00* Test Item Value Reference Range Interpretation Comments HDL Cholesterol (test code = 2085-9) 37 40-60 L [facility] HospitalCholesterol/HDL Aoddu4945-29-04 16:21:00 * Test Item Value Reference Range Interpretation Comments Cholesterol/HDL Ratio (test code = 9830-1) 3.0 3.9-4.[address] [facility] Hospitalodium Inlha1529-58-98 16:18:00* Test Item Value Reference Range Interpretation Comments Sodium Level (test code = 2951-2) 137 136-145 [facility] HospitalPotassium Eanuf7199-15-54 16:18:00* Test Item Value Reference Range Interpretation Comments Potassium Level (test code = 2823-3) 4.0 3.5-5.1 [facility] HospitalChloride Aolyx0126-03-90 16:18:00* Test Item Value Reference Range Interpretation Comments Chloride Level (test code = 2075-0) 104 98-107 [facility] HospitalCarbon Dioxide Eqjmu6091-40-94 16:18:00* Test Item Value Reference Range Interpretation Comments Carbon Dioxide Level (test code = 2028-9) 26 22-29 [facility] HospitalAnion [id number] 16:18:00* Test Item Value Reference Range Interpretation Comments Anion Gap (test code = 75220-1) 11.0 8-16 [facility] HospitalBlood Urea Kniddtox5550-09-12 16:18:00* Test Item Value Reference Range Interpretation Comments Blood Urea Nitrogen (test code = 3094-0) 19 7-26 [facility] HospitalCreatinine2020-03-02 16:18:00* Test Item Value Reference Range Interpretation Comments Creatinine (test code = 2160-0) 1.36 0.72-1.25 H [facility] HospitalBUN/Creatinine Tycyl6236-29-78 16:18:00* Test Item Value Reference Range Interpretation Comments BUN/Creatinine Ratio (test code = 3097-3) 14 6-25 [facility] HospitalEstimat Glomerular Filtration Rate 2019-12-30 16:18:00* Test Item Value Reference Range Interpretation Comments Estimat Glomerular Filtration Rate (test code = 681417664) 51 >60 L Ranges were taken from the National Kidney Disease Education Program and the [facility] literature.Reference ranges:60 or greater: Ivpxhe32-29 ( for 3 consecutive months): Chronic kidney disease 15 or less: Kidney failureUT Southwestern William P. Clements Jr. University HospitalGlucose Gqvhl8522-32-25 16:18:00* Test Item Value Reference Range Interpretation Comments Glucose Level (test code = VUJ3324) 214 74-118 H [facility] HospitalCalcium Jkvho5695-23-65 16:18:00* Test Item Value Reference Range Interpretation Comments Calcium Level (test code = 38748-4) 9.9 8.4-10.2 [facility] HospitalTotal Xqycypgsl1198-09-26 16:18:00* Test Item Value Reference Range Interpretation Comments Total Bilirubin (test code = 1975-2) 0.8 0.2-1.2 [facility] HospitalAspartate Amino Transf (AST/SGOT) 2019-12-30 16:18:00* Test Item Value Reference Range Interpretation Comments Aspartate Amino Transf (AST/SGOT) (test code = Aspartate Amino Transf (AST/SGOT)) 21 5-34 [facility] HospitalAlanine Aminotransferase (ALT/SGPT) 2019-12-30 16:18:00* Test Item Value Reference Range Interpretation Comments Alanine Aminotransferase (ALT/SGPT) (test code = 1742-6) 18 0-55 [facility] HospitalTotal Hpzliei4219-00-07 16:18:00* Test Item Value Reference Range Interpretation Comments Total Protein (test code = 2885-2) 7.7 6.5-8.1 [facility] HospitalAlbumin2020-03-02 16:18:00* Test Item Value Reference Range Interpretation Comments Albumin (test code = 1751-7) 3.8 3.5-5.0 [facility] HospitalGlobulin2020-03-02 16:18:00* Test Item Value Reference Range Interpretation Comments Globulin (test code = 13552-2) 3.9 2.3-3.5 H [facility] HospitalAlbumin/Globulin Mzhnf1189-13-27 16:18:00 * Test Item Value Reference Range Interpretation Comments Albumin/Globulin Ratio (test code = 1759-0) 1.0 0.8-2.0 [facility] HospitalAlkaline Kptrhamqigf0144-01-07 16:18:00* Test Item Value Reference Range Interpretation Comments Alkaline Phosphatase (test code = 6768-6) 280 40-150 H [facility] HospitalProthrombin Jboi5402-07-10 16:01:00* Test Item Value Reference Range Interpretation Comments Prothrombin Time (test code = 5902-2) 14.5 11.9-14.5 [facility] HospitalProthromb Time International Ratio 2019-12-30 16:01:00* Test Item Value Reference Range Interpretation Comments Prothromb Time International Ratio (test code = 6301-6) 1.06 Oral Anticoagulant Therapy INR Values:1. Low Intensity Therapy 1.5 - 2.02 . Moderate Intensity Therapy 2.0 - 3.03. High Intensity Therapy(1) 2.5 - 3. 54. High Intensity Therapy(2) 3.0 - 4.05. Panic Value INR > 5.0 [facility] HospitalActivated Partial Thromboplast Time 2019-12-30 16:01:00* Test Item Value Reference Range Interpretation Comments Activated Partial Thromboplast Time (test code = 68742-1) 34.5 23.8-35.5 [facility] HospitalWhite Blood Xeoni5980-13-61 15:54:00* Test Item Value Reference Range Interpretation Comments White Blood Count (test code = 6690-2) 7.94 4.8-10.8 [facility] HospitalRed Blood Zqjzr3139-08-24 15:54:00* Test Item Value Reference Range Interpretation Comments Red Blood Count (test code = 789-8) 4.59 4.3-5.7 [facility] HospitalHemoglobin2020-03-02 15:54:00* Test Item Value Reference Range Interpretation Comments Hemoglobin (test code = 83930-9) 13.8 14.0-18.0 L [facility] HospitalHematocrit2020-03-02 15:54:00* Test Item Value Reference Range Interpretation Comments Hematocrit (test code = 4544-3) 41.7 38.2-49.6 [facility] HospitalMean Corpuscular Msxfii4112-43-71 15:54:00* Test Item Value Reference Range Interpretation Comments Mean Corpuscular Volume (test code = 787-2) 90.8 81-99 [facility] HospitalMean Corpuscular Hiwfyunzwp9704-13-08 15:54:00* Test Item Value Reference Range Interpretation Comments Mean Corpuscular Hemoglobin (test code = 785-6) 30.1 28-32 [facility] HospitalMean Corpuscular Hemoglobin Concent 2019-12-30 15:54:00* Test Item Value Reference Range Interpretation Comments Mean Corpuscular Hemoglobin Concent (test code = 786-4) 33.1 31-35 [facility] HospitalRed Cell Distribution Wfwjq2825-90-07 15:54:00* Test Item Value Reference Range Interpretation Comments Red Cell Distribution Width (test code = 57356-1) 14.3 11.7 -14.4 [facility] HospitalPlatelet Guxna9296-65-37 15:54:00* Test Item Value Reference Range Interpretation Comments Platelet Count (test code = 777-3) 199 140-360 [facility] HospitalNeutrophils (%) (Auto)2019-12-30 15:54:00 * Test Item Value Reference Range Interpretation Comments Neutrophils (%) (Auto) (test code = 29355-6) 73.4 38.7-80.0 [facility] HospitalLymphocytes (%) (Auto)2019-12-30 15:54:00 * Test Item Value Reference Range Interpretation Comments Lymphocytes (%) (Auto) (test code = 736-9) 15.1 18.0-39.1 L [facility] HospitalMonocytes (%) (Auto)2019-12-30 15:54:00* Test Item Value Reference Range Interpretation Comments Monocytes (%) (Auto) (test code = 5905-5) 8.1 4.4-11.3 [facility] HospitalEosinophils (%) (Auto)2019-12-30 15:54:00 * Test Item Value Reference Range Interpretation Comments Eosinophils (%) (Auto) (test code = 713-8) 2.6 0.0-6.0 [facility] HospitalBasophils (%) (Auto)2019-12-30 15:54:00* Test Item Value Reference Range Interpretation Comments Basophils (%) (Auto) (test code = 706-2) 0.4 0.0-1.0 [facility] HospitalIM GRANULOCYTES %2019-12-30 15:54:00* Test Item Value Reference Range Interpretation Comments IM GRANULOCYTES % (test code = IM GRANULOCYTES %) 0.4 0.0- 1.0 [facility] HospitalNeutrophils # (Auto)2019-12-30 15:54:00* Test Item Value Reference Range Interpretation Comments Neutrophils # (Auto) (test code = 751-8) 5.8 2.1-6.9 [facility] HospitalLymphocytes # (Auto)2019-12-30 15:54:00* Test Item Value Reference Range Interpretation Comments Lymphocytes # (Auto) (test code = 20550-8) 1.2 1.0-3.2 [facility] HospitalMonocytes # (Auto)2019-12-30 15:54:00* Test Item Value Reference Range Interpretation Comments Monocytes # (Auto) (test code = 742-7) 0.6 0.2-0.8 [facility] HospitalEosinophils # (Auto)2019-12-30 15:54:00* Test Item Value Reference Range Interpretation Comments Eosinophils # (Auto) (test code = 711-2) 0.2 0.0-0.4 [facility] HospitalBasophils # (Auto)2019-12-30 15:54:00* Test Item Value Reference Range Interpretation Comments Basophils # (Auto) (test code = 704-7) 0.0 0.0-0.1 [facility] HospitalAbsolute Immature Granulocyte (auto 2019-12-30 15:54:00* Test Item Value Reference Range Interpretation Comments Absolute Immature Granulocyte (auto (sara t code = Absolute Immature Granulocyte (auto) 0.03 0-0.1 [facility] HospitalBlunited [facility] hospital leukocytes automated count (number/volume)2019-12-30 14:20:00* Test Item Value Reference Range Interpretation Comments White Blood Count (test code = 6690-2) 7.94 4.8-10.8 [facility] HospitalBlunited hospital district hospital erythrocytes automated count (number/volume)2019-12-30 14:20:00* Test Item Value Reference Range Interpretation Comments Red Blood Count (test code = 789-8) 4.59 4.3-5.7 [facility] HospitalBlood hemoglobin measurement (moles/volume)2019-12-30 14:20:00* Test Item Value Reference Range Interpretation Comments Hemoglobin (test code = 29127-3) 13.8 14.0-18.0 [facility] HospitalAutomated blood hematocrit (volume fraction)2019-12-30 14:20:00* Test Item Value Reference Range Interpretation Comments Hematocrit (test code = 4544-3) 41.7 38.2-49.6 [facility] HospitalAutomated erythrocyte mean corpuscular vxkjwu5719-60-87 14:20:00* Test Item Value Reference Range Interpretation Comments Mean Corpuscular Volume (test code = 787-2) 90.8 81-99 [facility] HospitalAutomated erythrocyte mean corpuscular hemoglobin (mass per erythrocyte)2019-12-30 14:20:00* Test Item Value Reference Range Interpretation Comments Mean Corpuscular Hemoglobin (test code = 785-6) 30.1 28-32 [facility] HospitalAutomated erythrocyte mean corpuscular hemoglobin concentration measurement (mass/volume)2019-12-30 14:20:00* Test Item Value Reference Range Interpretation Comments Mean Corpuscular Hemoglobin Concent (test code = 786-4) 33.1 31-35 [facility] HospitalRDW IbaFd-Mzj7829-83-02 14:20:00* Test Item Value Reference Range Interpretation Comments Red Cell Distribution Width (test code = 24685-7) 14.3 11.7 -14.4 [facility] HospitalAutomated blood platelet count (count/volume)2019-12-30 14:20:00* Test Item Value Reference Range Interpretation Comments Platelet Count (test code = 777-3) 199 140-360 [facility] HospitalAutomated blood segmented neutrophil count as percentage of total vjuckxlpop2887-60-35 14:20:00* Test Item Value Reference Range Interpretation Comments Neutrophils (%) (Auto) (test code = 77808-2) 73.4 38.7-80.0 [facility] HospitalAutomated blood lymphocyte count as percentage ot total cinglicrvq5683-02-87 14:20:00* Test Item Value Reference Range Interpretation Comments Lymphocytes (%) (Auto) (test code = 736-9) 15.1 18.0-39.1 [facility] HospitalAutomated blood monocyte count as percentage of total dekoldxzsd3436-03-04 14:20:00* Test Item Value Reference Range Interpretation Comments Monocytes (%) (Auto) (test code = 5905-5) 8.1 4.4-11.3 [facility] HospitalAutomated blood eosinophil count as percentage of total kxrmlpgvrl4701-33-28 14:20:00* Test Item Value Reference Range Interpretation Comments Eosinophils (%) (Auto) (test code = 713-8) 2.6 0.0-6.0 [facility] HospitalAutomated blood basophil count as percentage of total cdtdxhihbj3264-53-42 14:20:00* Test Item Value Reference Range Interpretation Comments Basophils (%) (Auto) (test code = 706-2) 0.4 0.0-1.0 [facility] HospitalFluoroscopic procedure less than one hour qpykhjsu7147-00-95 14:20:00* Test Item Value Reference Range Interpretation Comments IM GRANULOCYTES % (test code = IM GRANULOCYTES %) 0.4 0.0- 1.0 [facility] HospitalAutomated blood neutrophil count 2019-12-30 14:20:00* Test Item Value Reference Range Interpretation Comments Neutrophils # (Auto) (test code = 751-8) 5.8 2.1-6.9 [facility] HospitalBlood lymphocytes count (number/volume) 2019-12-30 14:20:00* Test Item Value Reference Range Interpretation Comments Lymphocytes # (Auto) (test code = 50627-0) 1.2 1.0-3.2 [facility] HospitalBlood monocytes automated count (number/volume)2019-12-30 14:20:00* Test Item Value Reference Range Interpretation Comments Monocytes # (Auto) (test code = 742-7) 0.6 0.2-0.8 [facility] HospitalAutomated blood eosinophil count 2019-12-30 14:20:00* Test Item Value Reference Range Interpretation Comments Eosinophils # (Auto) (test code = 711-2) 0.2 0.0-0.4 [facility] HospitalAutomated blood basophil count (count/volume)2019-12-30 14:20:00* Test Item Value Reference Range Interpretation Comments Basophils # (Auto) (test code = 704-7) 0.0 0.0-0.1 [facility] HospitalFluoroscopic procedure less than one hour shiwnmiw4318-29-55 14:20:00* Test Item Value Reference Range Interpretation Comments Absolute Immature Granulocyte (auto (sara t code = Absolute Immature Granulocyte (auto) 0.03 0-0.1 [facility] HospitalProthrombin time (PT) in platelet poor plasma by coagulation rigis5384-13-77 14:20:00* Test Item Value Reference Range Interpretation Comments Prothrombin Time (test code = 5902-2) 14.5 11.9-14.5 [facility] HospitalINR in Platelet poor plasma by Coagulation maquf0704-57-95 14:20:00* Test Item Value Reference Range Interpretation Comments Prothromb Time International Ratio (test code = 6301-6) 1.06 Oral Anticoagulant Therapy INR Values:1. Low Intensity Therapy 1.5 - 2.02 . Moderate Intensity Therapy 2.0 - 3.03. High Intensity Therapy(1) 2.5 - 3. 54. High Intensity Therapy(2) 3.0 - 4.05. Panic Value INR > 5.0 [facility] HospitalActivated partial thromboplastin time (aPTT) in platelet poor plasma by coagulation ldivu5220-57-35 14:20:00* Test Item Value Reference Range Interpretation Comments Activated Partial Thromboplast Time (test code = 84986-2) 34.5 23.8-35.5 [facility]er[facility] or plasma sodium measurement (moles/volume)2019-12-30 14:20:00* Test Item Value Reference Range Interpretation Comments Sodium Level (test code = 2951-2) 137 136-145 [facility]erum or plasma potassium measurement (moles/volume)2019-12-30 14:20:00* Test Item Value Reference Range Interpretation Comments Potassium Level (test code = 2823-3) 4.0 3.5-5.1 [facility] Hospitalerum or plasma chloride measurement (moles/volume)2019-12-30 14:20:00* Test Item Value Reference Range Interpretation Comments Chloride Level (test code = 2075-0) 104 98-107 [facility]erum or plasma carbon dioxide, total measurement (moles/volume)2019-12-30 14:20:00* Test Item Value Reference Range Interpretation Comments Carbon Dioxide Level (test code = 2028-9) 26 22-29 [facility] Hospitalerum or plasma anion vmr2318-40-80 14:20:00* Test Item Value Reference Range Interpretation Comments Anion Gap (test code = 50935-2) 11.0 8-16 [facility] Hospitalerum or plasma urea nitrogen measurement (mass/volume)2019-12-30 14:20:00* Test Item Value Reference Range Interpretation Comments Blood Urea Nitrogen (test code = 3094-0) 19 7-26 [facility]er[facility] or plasma creatinine measurement (mass/volume)2019-12-30 14:20:00* Test Item Value Reference Range Interpretation Comments Creatinine (test code = 2160-0) 1.36 0.72-1.25 [facility]er[facility] or plasma urea nitrogen/creatinine mass mskmi0657-31-77 14:20:00* Test Item Value Reference Range Interpretation Comments BUN/Creatinine Ratio (test code = 3097-3) 14 6-25 [facility] HospitalEstimated glomerular filtration rate (GFR) ehgorjatqhbzr9350-61-77 14:20:00* Test Item Value Reference Range Interpretation Comments Estimat Glomerular Filtration Rate (test code = 808689563) 51 >60 Ranges were taken from the National Kidney Disease Education Program and the [facility] literature.Reference ranges:60 or greater: Ycmwbi85-62 ( for 3 consecutive months): Chronic kidney disease 15 or less: Kidney failureUT [facility] HospitalGlucose nsxjtshnfhy5959-51-31 14:20:00* Test Item Value Reference Range Interpretation Comments Glucose Level (test code = HIA3162) 214 74-118 [facility]er[facility] or plasma calcium measurement (mass/volume)2019-12-30 14:20:00* Test Item Value Reference Range Interpretation Comments Calcium Level (test code = 05770-4) 9.9 8.4-10.2 [facility]er[facility] or plasma total bilirubin measurement (mass/volume)2019-12-30 14:20:00* Test Item Value Reference Range Interpretation Comments Total Bilirubin (test code = 1975-2) 0.8 0.2-1.2 [facility] HospitalFluoroscopic procedure less than one hour nkfgsexy0146-61-05 14:20:00* Test Item Value Reference Range Interpretation Comments Aspartate Amino Transf (AST/SGOT) (test code = Aspartate Amino Transf (AST/SGOT)) 21 5-34 [facility] Hospitalerum or plasma alanine aminotransferase measurement (enzymatic activity/volume)2019-12-30 14:20:00* Test Item Value Reference Range Interpretation Comments Alanine Aminotransferase (ALT/SGPT) (test code = 1742-6) 18 0-55 [facility] Hospitalerum or plasma protein measurement (mass/volume)2019-12-30 14:20:00* Test Item Value Reference Range Interpretation Comments Total Protein (test code = 2885-2) 7.7 6.5-8.1 [facility] Hospitaler[facility] or plasma albumin measurement (mass/volume)2019-12-30 14:20:00* Test Item Value Reference Range Interpretation Comments Albumin (test code = 1751-7) 3.8 3.5-5.0 [facility] HospitalPlasma globulin measurement (mass/volume) 2019-12-30 14:20:00* Test Item Value Reference Range Interpretation Comments Globulin (test code = 36732-3) 3.9 2.3-3.5 [facility]er[facility] or plasma albumin/globulin mass dilmf3847-81-11 14:20:00* Test Item Value Reference Range Interpretation Comments Albumin/Globulin Ratio (test code = 1759-0) 1.0 0.8-2.0 [facility]erum or plasma alkaline phosphatase measurement (enzymatic activity/volume)2019-12-30 14:20:00* Test Item Value Reference Range Interpretation Comments Alkaline Phosphatase (test code = 6768-6) 280 40-150 [facility]erum or plasma triglyceride measurement (mass/volume)2019-12-30 14:20:00* Test Item Value Reference Range Interpretation Comments Triglycerides Level (test code = 2571-8) 81 0-149 [facility]er[facility] or plasma cholesterol measurement (mass/volume)2019-12-30 14:20:00* Test Item Value Reference Range Interpretation Comments Cholesterol Level (test code = 2093-3) 112 0-199 Less than 200 mg/dL Low Xpnp177 - 239 mg/dL Borderline Dyag359 m g/dl and greater High Risk [facility]erum or plasma cholesterol in LDL measurement (mass/volume) 2019-12-30 14:20:00* Test Item Value Reference Range Interpretation Comments LDL Cholesterol (test code = 2089-1) 59 60-130 [facility]erum or plasma cholesterol in HDL measurement (mass/volume)2019-12-30 14:20:00* Test Item Value Reference Range Interpretation Comments HDL Cholesterol (test code = 2085-9) 37 40-60 [facility]er[facility] or plasma total cholesterol/cholesterol in HDL mass trzti3694-44-92 14:20:00* Test Item Value Reference Range Interpretation Comments Cholesterol/HDL Ratio (test code = 9830-1) 3.0 3.9-4.7 [facility] HospitalProthrombin time (PT) in platelet poor plasma by coagulation apckp9896-92-46 14:20:00* Test Item Value Reference Range Interpretation Comments Prothrombin Time (test code = 5902-2) 14.5 11.9-14.5 [facility] HospitalINR in Platelet poor plasma by Coagulation ykfqi3568-59-61 14:20:00* Test Item Value Reference Range Interpretation Comments Prothromb Time International Ratio (test code = 6301-6) 1.06 Oral Anticoagulant Therapy INR Values:1. Low Intensity Therapy 1.5 - 2.02 . Moderate Intensity Therapy 2.0 - 3.03. High Intensity Therapy(1) 2.5 - 3. 54. High Intensity Therapy(2) 3.0 - 4.05. Panic Value INR > 5.0 [facility] HospitalActivated partial thromboplastin time (aPTT) in platelet poor plasma by coagulation kfqyp7987-81-05 14:20:00* Test Item Value Reference Range Interpretation Comments Activated Partial Thromboplast Time (test code = 15228-3) 34.5 23.8-35.5 [facility]erum or plasma triglyceride measurement (mass/volume)2019-12-30 14:20:00* Test Item Value Reference Range Interpretation Comments Triglycerides Level (test code = 2571-8) 81 0-149 [facility]erum or plasma cholesterol measurement (mass/volume)2019-12-30 14:20:00* Test Item Value Reference Range Interpretation Comments Cholesterol Level (test code = 2093-3) 112 0-199 Less than 200 mg/dL Low Rrrm097 - 239 mg/dL Borderline Reus600 m g/dl and greater High Risk [facility]erum or plasma cholesterol in LDL measurement (mass/volume) 2019-12-30 14:20:00* Test Item Value Reference Range Interpretation Comments LDL Cholesterol (test code = 2089-1) 59 60-130 [facility]erum or plasma cholesterol in HDL measurement (mass/volume)2019-12-30 14:20:00* Test Item Value Reference Range Interpretation Comments HDL Cholesterol (test code = 2085-9) 37 40-60 [facility]erum or plasma total cholesterol/cholesterol in HDL mass bdwxn2235-44-89 14:20:00* Test Item Value Reference Range Interpretation Comments Cholesterol/HDL Ratio (test code = 9830-1) 3.0 3.9-4.7 [facility] HospitalUrine Ixzgpcp1243-75-74 11:43:00* Test Item Value Reference Range Interpretation Comments Urine Culture (test code = 630-4) No Result Data Provided [facility] HospitalBacterial urine xfftssw7501-69-09 01:21:00* Test Item Value Reference Range Interpretation Comments Urine Culture (test code = 630-4) PSEUDOMONAS AERUGINOSA [facility] HospitalBacterial urine skddkbo8870-29-32 01:21:00* Test Item Value Reference Range Interpretation Comments Urine Culture (test code = 630-4) PSEUDOMONAS AERUGINOSA [facility] HospitalCT C-SPINE W/O - [id number] 20:28:00 [facility] [address] [address] Patient Name: EVANS DANIELSON MR #: [id number] : [birth year] Age/Sex: 74/M Req #: [id number] Adm Physician: Ordered by: DELPHINE KRAFT MD Report #: [id number] Location: [facility] Room/Bed: Procedure: [id number] H OPD/CT C-SPINE W/O - HOPD Exam [...] COPY TO: DELPHINE KRAFT MD CT BRAIN IU-IOBM9212-54-30 20:28:00 [address] [address] Patient Name: EVANS DANIELSON MR #: [id number] : 1945 Age/Sex: 74/M Req #: [id number] Adm Physician: Ordered by: DELPHINE KRAFT MD Report #: [id number] Location: [facility] Room/Bed: Procedure: [id number] H OPD/CT BRAIN WO-HOPD Exam Date: 09/28/19 [...] rtical vascular insults. Sellar/suprasellar region: No abnormalities. Industrial Cleaning Technician niocervical junction: Patent foramen magnum. No Chiari [...] DELPHINE KRAFT MD CXR 2 VIEW - [id number] 20:24:00 [address] [address] Patient Name: EVANS DANIELSON MR #: [id number] : 1945 Age/Sex: 74/M Req #: [id number] Adm Physician: Ordered by: DELPHINE KRAFT MD Report #: [id number] Location: [facility] Room/Bed: Procedure: [id number] H OPD/CXR 2 VIEW - HOPD Exam [...] COPY TO: DELPHINE KRAFT MD BASIC METABOLIC [id number] 05:05:00* Test Item Value Reference Range Interpretation [...] CA) 8.7 mg/dL 8.5-10.1 N BASIC METABOLIC [id number] 04:52:00* Test Item Value Reference Range Interpretation [...] code = CA) mg/dL 8.5-10.1 CBC W/AUTO [id number] 04:27:00* Test Item Value Reference Range Interpretation [...] DIFF REQUIRED (test code = MDIFF) NO [id number] 12:26:00* Test Item Value Reference Range Interpretation Comments GLUBED (test code = GLUBED) 167 mg/dL 74-106 H Performed by certified microfiche camera operator at [facility] BASIC METABOLIC [id number] 05:39:00* Test Item Value Reference Range Interpretation [...] CA) 8.1 mg/dL 8.5-10.1 L BASIC METABOLIC [id number] 05:29:00* Test Item Value Reference Range Interpretation [...] code = CA) mg/dL 8.5-10.1 CBC W/AUTO [id number] 05:09:00* Test Item Value Reference Range Interpretation [...] DIFF REQUIRED (test code = MDIFF) NO [id number] 18:46:00* Test Item Value Reference Range Interpretation Comments GLUBED (test code = GLUBED) 104 mg/dL 74-106 N Performed by certified microfiche camera operator at [facility] COMPREHENSIVE METABOLIC [id number] 06:36:00* Test Item Value Reference Range Interpretation [...] due to change in reagent. COMPREHENSIVE METABOLIC [id number] 06:23:00* Test Item Value Reference Range Interpretation [...] code = ALKP) IUnit/L 45-117 CBC W/AUTO [id number] 06:03:00* Test Item Value Reference Range Interpretation [...] (test code = MDIFF) NO BASIC METABOLIC [id number] 23:03:00* Test Item Value Reference Range Interpretation [...] CA) 8.4 mg/dL 8.5-10.1 L CBC W/AUTO [id number] 22:09:00* Test Item Value Reference Range Interpretation [...] DIFF REQUIRED (test code = MDIFF) NO [id number] 02:01:00* Test Item Value Reference Range Interpretation Comments TROPONIN-I (test code = TROPI) 0.028 ng/mL 0-0.045 N COMMENTS TO RING CUTTER LATHE OPERATOR: COLLECT 3 HOURS AFTER PREVIOUS [id number] 22:29:00* Test Item Value Reference Range Interpretation Comments TROPONIN-I (test code = TROPI) 0.026 ng/mL 0-0.045 N COMMENTS TO RING CUTTER LATHE OPERATOR: COLLECT 3 HOURS AFTER PREVIOUS SAMPLEURINALYSIS [id number] 16:35:00* Test Item Value Reference Range Interpretation [...] Urine Source? Clean CatchDRUGS OF ABUSE SCREEN [id number] 16:35:00* Test Item Value Reference Range Interpretation [...] NEGATIVE <300 ng/mL Urine Source? Clean CatchURINALYSIS [id number] 16:22:00* Test Item Value Reference Range Interpretation [...] Urine Source? Clean CatchDRUGS OF ABUSE SCREEN [id number] 16:22:00* Test Item Value Reference Range Interpretation [...] Urine Source? Clean Catch- CT C-SPINE W/O [id number] 16:21:00 Name: EVANS DANIELSON [facility] : 1945 Age/S: 74 / M [address] [facility] Unit #: [id number] Loc: [place] [address] Phys: Zaid Retana MD Acct: [id number] Di s Date: Status: REG ER PHONE #: Exam Date: 07/11/2019 1537 FAX #: Reason: fall EXAMS: CPT CODE: [id number] CT C-SPINE W/ O CONTRAST 83005 HISTORY: fall TECHNIQUE: Noncontrast 2.5 mm axial [...] 1 Signed Report (CONTINUED) Name: EVANS DANIELSON [facility] : 1945 Age/S: 74 / M [address] [facility] Unit #: [id number] Loc: [place] [address] Phys: Maeve Retana MD Acct: [id number] Dis Date: Status: REG ER PHONE #: [phone] Exam Date: 07/11/2019 1537 FAX #: [phone] Reason: fall EXAMS: CPT CODE: [id number] CT C-SPINE W/O CONTRAST 51152 < Continued> IMPRESSION: No acute intracranial process. 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 Correlate with physical exam for cortical atrophy. No fracture or subluxation is seen however. at 162 Reported and signed by: Kael Lobato MD CC: Justen Krueger; Maeve Retana MD Technologist:Caatlina Miller RT(R),CT; CTDI: DLP: Trnscb Date/Time: 07/11/2019 (3381) t.JOJOR.RR31 Orig Print D/T: S: 07/11/2019 (2958) PAGE 2 Signed Report - CT HEAD/BRAIN W/O [id number] 16:21:00 Name: EVANS DANIELSON [facility] : 1945 Age/S: 74 / M Bhupendra Pruitt Unit #: [id number] Loc: [place] [address] Phys: Maeve Retana MD Acct: [id number] Dis Date: Status: REG ER PHONE #: [phone] Exam Date: 07/11/2019 8569 FAX #: [phone] Reason: fall EXAMS: CPT CODE: [id number] CT HEAD/BRAIN W/O CONT 98501 HISTORY: fall TECHNIQUE: Noncontrast 2.5 mm axial [...] 1 Signed Report (CONTINUED) Name: EVANS DANIELSON [facility] : 1945 Age/S: 74 / M [address] [place] [address] Unit #: [id number] Loc: [place] [address] Phys: Maeve Retana MD Acct: [id number] Dis Date: Status: REG ER PHONE #: [phone] Exam Date: 07/11/2019 1537 FAX #: [phone] Reason: fall EXAMS: CPT CODE: [id number] CT HEAD/BRAIN W/O CONT 19190 < Continued> IMPRESSION: No acute intracranial process. 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 Correlate with physical exam for cortical atrophy. No fracture or subluxation is seen however. at 1621 Reported and signed by: Kael Lobato MD CC: Justen Krueger; Maeve Retnaa MD Technologist:Catalina Miller RT(R),CT; CTDI: DLP: Trnscb Date/Time: 07/11/2019 (162) t.SDR.RR31 Orig Print D/T: S: 07/11/2019 (7351) PAGE 2 Signed Report URINALYSIS [id number] 16:07:00* Test Item Value Reference Range Interpretation [...] Urine Source? Clean CatchDRUGS OF ABUSE SCREEN [id number] 16:07:00* Test Item Value Reference Range Interpretation [...] [place]) <300 ng/mL Urine Source? Clean CatchLACTIC [id number] 15:50:00* Test Item Value Reference Range Interpretation Comments LACTIC ACID (test code = LACT) 2.4 mmol/L 0.4-1.9 HH Results called to [email or web address]/Jaylon Goel.LAB.SPR 07/11/19 1550Critical results verified and read back by Nurse? Y BASIC METABOLIC [id number] 15:50:00* Test Item Value Reference Range Interpretation [...] CA) 9.2 mg/dL 8.5-10.1 N HEPATIC FUNCTION [id number] 15:50:00* Test Item Value Reference Range Interpretation [...] reference range due to change in reagent. [id number] 15:50:00* Test Item Value Reference Range Interpretation Comments LIPASE (test code = LIP) 64 U/L 73.0-393.0 L [id number] 15:50:00* Test Item Value Reference Range Interpretation Comments TROPONIN-I (test code = TROPI) 0.021 ng/mL 0-0.045 N [id number] 15:50:00* Test Item Value Reference Range Interpretation [...] AT ANADDITIONAL CHARGE TO THE PATIENT. PROTHROMBIN [id number] 15:41:00* Test Item Value Reference Range Interpretation [...] (2.5-3.5) IS PATIENT ON ANTICOAGULANTS? NTHROMBOPLASTIN TIME [id number] 15:41:00* Test Item Value Reference Range Interpretation Comments THROMBOPLASTIN TIME PARTIAL (test code = PTT) 32.4 seconds 25.0-36. 5 N IS PATIENT ON ANTICOAGULANTS? NCBC W/O [id number] 15:33:00* Test Item Value Reference Range Interpretation [...] 6.7-11.0 N - MRI ABDOMEN W WO [id number] 13:08:00 FAX: Justen Bartlett MD [phone] [place]: St: REG Name: EVANS LANDIS [facility] : [birth year] Age/S: 74/M [address] [facility] Unit #: [id number] Loc: [place] [address] Phys: Justen Krueger MD Acct: [id number] Dis Date: Status: REG CLI PHONE #: [phone] Exam Date: 05/27/2019 1130 FAX #: [phone] Reason: R74.8 EXAMS: CPT CODE: [id number] MRI ABDOMEN W WO CONT 05490 HISTORY: Elevated alkaline phospha tase. COMPARISON: None [...] M.D. PAGE 1 Signed Report (CONTINUED) FAX: Justne Bartlett MD [phone] [facility] s: [address] St: REG Name: EVANS DANIELSON [facility] : 1945 Age/S: 74/M [address] Unit #: [id number] Loc: [place] [address] Ph ys: Justen Krueger MD Acct: [id number] Dis Date: Status: REG CLI PHONE #: [phone] Exam Date: 05/27/2019 1130 FAX #: [phone] Reason: R74.8 EXAMS: CPT CODE: [id number] MRI ABDOMEN W WO CONT 49813 <Continued> CC: Justen Krueger Technologist: RT [facility]ESUS [facility] Date/Time/By: 05/27/2019 (2803) : By: [email or web address] Orig Print D/T: S: 05/27/2019 (3126) PAGE 2 Signed Report CREATININE W ESTIMATED GFR 2019-05-27 10:01:00* Test Item Value Reference Range Interpretation Comments BEDSIDE CREATININE (test code = CREATBED) mg/dL 0.7-1.3 N GLOMERULAR FILTRATION RATE POC (test code = GFRBED) 57 >6 0 LL CREATININE W ESTIMATED [id number] 10:01:00* Test Item Value Reference Range Interpretation Comments BEDSIDE CREATININE (test code = CREATBED) 1.24 mg/dL 0.7-1.3 N GLOMERULAR FILTRATION RATE POC (test code = GFRBED) 60 >6 0 Previously reported result: 57 Edited by: ANSELMO on 05/27/19:728691 1001: GFRBED previously reported as: 57 *L Sodium [id number] 10:56:00* Test Item Value Reference Range Interpretation Comments Sodium Level (test code = 2951-2) 141 136-145 [facility] HospitalPotassium Jyeit2608-12-86 10:56:00* Test Item Value Reference Range Interpretation Comments Potassium Level (test code = 2823-3) 3.5 3.5-5.1 [facility] HospitalChloride [id number] 10:56:00* Test Item Value Reference Range Interpretation Comments Chloride Level (test code = 2075-0) 104 98-107 [facility] HospitalCarbon Dioxide Kaxmq7615-70-74 10:56:00* Test Item Value Reference Range Interpretation Comments Carbon Dioxide Level (test code = 2028-9) 24 22-29 [facility] HospitalAnion [id number] 10:56:00* Test Item Value Reference Range Interpretation Comments Anion Gap (test code = 18432-6) 16.5 8-16 H [facility] HospitalBlood Urea Qlnwffwu4228-01-79 10:56:00* Test Item Value Reference Range Interpretation Comments Blood Urea Nitrogen (test code = 3094-0) 27 7-26 H [facility] HospitalCreatinine2019-07-11 10:56:00* Test Item Value Reference Range Interpretation Comments Creatinine (test code = 2160-0) 1.51 0.72-1.25 H [facility] HospitalBUN/Creatinine Sdkjr3671-00-20 10:56:00* Test Item Value Reference Range Interpretation Comments BUN/Creatinine Ratio (test code = 3097-3) 18 6-25 [facility] HospitalEstimat Glomerular Filtration Rate 2019-05-09 10:56:00* Test Item Value Reference Range Interpretation Comments Estimat Glomerular Filtration Rate (test code = 219927632) 45 >60 L Ranges were taken from the National Kidney Disease Education Program and the [facility] Kidney Foundation literature.Reference ranges:60 or greater: Ubmzkv24-94 ( for 3 consecutive months): Chronic kidney disease 15 or less: Kidney failureUT Southwestern William P. Clements Jr. University HospitalGlucose Gccgy0740-56-37 10:56:00* Test Item Value Reference Range Interpretation Comments Glucose Level (test code = KSE4030) 156 74-118 H [facility] HospitalCalcium Vnmhz4050-14-54 10:56:00* Test Item Value Reference Range Interpretation Comments Calcium Level (test code = 45059-4) 10.1 8.4-10.2 [facility] HospitalTotal Msyfvbhmr5530-00-82 10:56:00* Test Item Value Reference Range Interpretation Comments Total Bilirubin (test code = 1975-2) 1.2 0.2-1.2 [facility] HospitalAspartate Amino Transf (AST/SGOT) 2019-05-09 10:56:00* Test Item Value Reference Range Interpretation Comments Aspartate Amino Transf (AST/SGOT) (test code = Aspartate Amino Transf (AST/SGOT)) 26 5-34 [facility] HospitalAlanine Aminotransferase (ALT/SGPT) 2019-05-09 10:56:00* Test Item Value Reference Range Interpretation Comments Alanine Aminotransferase (ALT/SGPT) (test code = 1742-6) 21 0-55 [facility] HospitalTotal Nrzjlgr5489-95-01 10:56:00* Test Item Value Reference Range Interpretation Comments Total Protein (test code = 2885-2) 7.9 6.5-8.1 [facility] HospitalAlbumin2019-07-11 10:56:00* Test Item Value Reference Range Interpretation Comments Albumin (test code = 1751-7) 4.0 3.5-5.0 [facility] HospitalGlobulin2019-07-11 10:56:00* Test Item Value Reference Range Interpretation Comments Globulin (test code = 41480-7) 3.9 2.3-3.5 H [facility] HospitalAlbumin/Globulin [id number] 10:56:00 * Test Item Value Reference Range Interpretation Comments Albumin/Globulin Ratio (test code = 1759-0) 1.0 0.8-2.0 [facility] HospitalAlkaline Zethslncxvs3091-08-11 10:56:00* Test Item Value Reference Range Interpretation Comments Alkaline Phosphatase (test code = 6768-6) 253 40-[address] [facility] Hospitalodium Scdey8070-69-95 10:56:00* Test Item Value Reference Range Interpretation Comments Sodium Level (test code = 2951-2) 141 136-145 [facility] HospitalPotassium Nadbq4573-73-22 10:56:00* Test Item Value Reference Range Interpretation Comments Potassium Level (test code = 2823-3) 3.5 3.5-5.1 [facility] HospitalChloride Ukdql9722-17-57 10:56:00* Test Item Value Reference Range Interpretation Comments Chloride Level (test code = 2075-0) 104 98-107 [facility] HospitalCarbon Dioxide Kxbbm3258-35-72 10:56:00* Test Item Value Reference Range Interpretation Comments Carbon Dioxide Level (test code = 2028-9) 24 22-29 [facility] HospitalAnion Prj2398-64-53 10:56:00* Test Item Value Reference Range Interpretation Comments Anion Gap (test code = 78699-7) 16.5 8-16 H [facility] HospitalBlood Urea Vpdzhywc5128-20-58 10:56:00* Test Item Value Reference Range Interpretation Comments Blood Urea Nitrogen (test code = 3094-0) 27 7-26 H [facility] HospitalCreatinine2019-07-11 10:56:00* Test Item Value Reference Range Interpretation Comments Creatinine (test code = 2160-0) 1.51 0.72-1.25 H [facility] HospitalBUN/Creatinine Fghtk7870-34-34 10:56:00* Test Item Value Reference Range Interpretation Comments BUN/Creatinine Ratio (test code = 3097-3) 18 6-25 [facility] HospitalEstimat Glomerular Filtration Rate 2019-05-09 10:56:00* Test Item Value Reference Range Interpretation Comments Estimat Glomerular Filtration Rate (test code = 506573280) 45 >60 L Ranges were taken from the National Kidney Disease Education Program and the [facility] Foundation literature.Reference ranges:60 or greater: Swinpw37-45 ( for 3 consecutive months): Chronic kidney disease 15 or less: Kidney failureUT [facility] HospitalGlucose Xikpz5088-11-57 10:56:00* Test Item Value Reference Range Interpretation Comments Glucose Level (test code = KNR2593) 156 74-118 H [facility] HospitalCalcium Untxt7854-45-02 10:56:00* Test Item Value Reference Range Interpretation Comments Calcium Level (test code = 40616-5) 10.1 8.4-10.2 [facility] HospitalTotal Dzyioxmoc6692-54-71 10:56:00* Test Item Value Reference Range Interpretation Comments Total Bilirubin (test code = 1975-2) 1.2 0.2-1.2 [facility] HospitalAspartate Amino Transf (AST/SGOT) 2019-05-09 10:56:00* Test Item Value Reference Range Interpretation Comments Aspartate Amino Transf (AST/SGOT) (test code = Aspartate Amino Transf (AST/SGOT)) 26 5-34 [facility] HospitalAlanine Aminotransferase (ALT/SGPT) 2019-05-09 10:56:00* Test Item Value Reference Range Interpretation Comments Alanine Aminotransferase (ALT/SGPT) (test code = 1742-6) 21 0-55 [facility] HospitalTotal Fmiaonf8892-00-67 10:56:00* Test Item Value Reference Range Interpretation Comments Total Protein (test code = 2885-2) 7.9 6.5-8.1 [facility] HospitalAlbumin2019-07-11 10:56:00* Test Item Value Reference Range Interpretation Comments Albumin (test code = 1751-7) 4.0 3.5-5.0 [facility] HospitalGlobulin2019-07-11 10:56:00* Test Item Value Reference Range Interpretation Comments Globulin (test code = 35621-1) 3.9 2.3-3.5 H [facility] HospitalAlbumin/Globulin Qcqjp4461-49-19 10:56:00 * Test Item Value Reference Range Interpretation Comments Albumin/Globulin Ratio (test code = 1759-0) 1.0 0.8-2.0 [facility] HospitalAlkaline Qkkimihjdvl6457-16-27 10:56:00* Test Item Value Reference Range Interpretation Comments Alkaline Phosphatase (test code = 6768-6) 253 40-[address] [facility]odium Oubzo7038-14-98 10:56:00* Test Item Value Reference Range Interpretation Comments Sodium Level (test code = 2951-2) 141 136-145 [facility] HospitalPotassium Wgkup9331-33-96 10:56:00* Test Item Value Reference Range Interpretation Comments Potassium Level (test code = 2823-3) 3.5 3.5-5.1 [facility] HospitalChloride Ekwiy9238-12-48 10:56:00* Test Item Value Reference Range Interpretation Comments Chloride Level (test code = 2075-0) 104 98-107 [facility] HospitalCarbon Dioxide Wtsdb6585-04-62 10:56:00* Test Item Value Reference Range Interpretation Comments Carbon Dioxide Level (test code = 2028-9) 24 22-29 [facility] HospitalAnion Fhk9041-66-38 10:56:00* Test Item Value Reference Range Interpretation Comments Anion Gap (test code = 75218-6) 16.5 8-16 H [facility] HospitalBlood Urea Jqrvnyyu6345-54-74 10:56:00* Test Item Value Reference Range Interpretation Comments Blood Urea Nitrogen (test code = 3094-0) 27 7-26 H [facility] HospitalCreatinine2019-07-11 10:56:00* Test Item Value Reference Range Interpretation Comments Creatinine (test code = 2160-0) 1.51 0.72-1.25 H [facility] HospitalBUN/Creatinine Bqnfu1762-72-67 10:56:00* Test Item Value Reference Range Interpretation Comments BUN/Creatinine Ratio (test code = 3097-3) 18 6-25 [facility] HospitalEstimat Glomerular Filtration Rate 2019-05-09 10:56:00* Test Item Value Reference Range Interpretation Comments Estimat Glomerular Filtration Rate (test code = 481848105) 45 >60 L Ranges were taken from the National Kidney Disease Education Program and the [facility] Foundation literature.Reference ranges:60 or greater: Lsbjjd68-67 ( for 3 consecutive months): Chronic kidney disease 15 or less: Kidney failureUT [facility] HospitalGlucose Xllue1763-70-10 10:56:00* Test Item Value Reference Range Interpretation Comments Glucose Level (test code = YQH9581) 156 74-118 H [facility] HospitalCalcium Rzlvc8800-10-54 10:56:00* Test Item Value Reference Range Interpretation Comments Calcium Level (test code = 51043-0) 10.1 8.4-10.2 [facility] HospitalTotal Lirfgeelr8014-51-39 10:56:00* Test Item Value Reference Range Interpretation Comments Total Bilirubin (test code = 1975-2) 1.2 0.2-1.2 [facility] HospitalAspartate Amino Transf (AST/SGOT) 2019-05-09 10:56:00* Test Item Value Reference Range Interpretation Comments Aspartate Amino Transf (AST/SGOT) (test code = Aspartate Amino Transf (AST/SGOT)) 26 5-34 [facility] HospitalAlanine Aminotransferase (ALT/SGPT) 2019-05-09 10:56:00* Test Item Value Reference Range Interpretation Comments Alanine Aminotransferase (ALT/SGPT) (test code = 1742-6) 21 0-55 [facility] HospitalTotal Cxsrszz8565-71-20 10:56:00* Test Item Value Reference Range Interpretation Comments Total Protein (test code = 2885-2) 7.9 6.5-8.1 [facility] HospitalAlbumin2019-07-11 10:56:00* Test Item Value Reference Range Interpretation Comments Albumin (test code = 1751-7) 4.0 3.5-5.0 [facility] HospitalGlobulin2019-07-11 10:56:00* Test Item Value Reference Range Interpretation Comments Globulin (test code = 87135-8) 3.9 2.3-3.5 H [facility] HospitalAlbumin/Globulin Nyhkh6460-70-03 10:56:00 * Test Item Value Reference Range Interpretation Comments Albumin/Globulin Ratio (test code = 1759-0) 1.0 0.8-2.0 [facility] HospitalAlkaline Pijvmtbxzcn5923-02-91 10:56:00* Test Item Value Reference Range Interpretation Comments Alkaline Phosphatase (test code = 6768-6) 253 40-[address] [facility] Hospitalodium Giutd5438-51-35 10:56:00* Test Item Value Reference Range Interpretation Comments Sodium Level (test code = 2951-2) 141 136-145 [facility] HospitalPotassium Fqfst9072-67-92 10:56:00* Test Item Value Reference Range Interpretation Comments Potassium Level (test code = 2823-3) 3.5 3.5-5.1 [facility] HospitalChloride Vezik3732-79-67 10:56:00* Test Item Value Reference Range Interpretation Comments Chloride Level (test code = 2075-0) 104 98-107 [facility] HospitalCarbon Dioxide Gewmu4860-12-01 10:56:00* Test Item Value Reference Range Interpretation Comments Carbon Dioxide Level (test code = 2028-9) 24 22-29 [facility] HospitalAnion Heu8655-36-85 10:56:00* Test Item Value Reference Range Interpretation Comments Anion Gap (test code = 45170-4) 16.5 8-16 H [facility] HospitalBlood Urea Icschbgp6973-70-35 10:56:00* Test Item Value Reference Range Interpretation Comments Blood Urea Nitrogen (test code = 3094-0) 27 7-26 H [facility] HospitalCreatinine2019-07-11 10:56:00* Test Item Value Reference Range Interpretation Comments Creatinine (test code = 2160-0) 1.51 0.72-1.25 H [facility] HospitalBUN/Creatinine Sgevx7135-43-01 10:56:00* Test Item Value Reference Range Interpretation Comments BUN/Creatinine Ratio (test code = 3097-3) 18 6-25 [facility] HospitalEstimat Glomerular Filtration Rate 2019-05-09 10:56:00* Test Item Value Reference Range Interpretation Comments Estimat Glomerular Filtration Rate (test code = 947570648) 45 >60 L Ranges were taken from the National Kidney Disease Education Program and the [facility] literature.Reference ranges:60 or greater: Cuhizk88-25 ( for 3 consecutive months): Chronic kidney disease 15 or less: Kidney failureUT [facility] HospitalGlucose Sogas7551-12-55 10:56:00* Test Item Value Reference Range Interpretation Comments Glucose Level (test code = DJB8913) 156 74-118 H [facility] HospitalCalcium Vqyvz0885-90-32 10:56:00* Test Item Value Reference Range Interpretation Comments Calcium Level (test code = 06727-4) 10.1 8.4-10.2 [facility] HospitalTotal Gaqfiocmn0198-51-90 10:56:00* Test Item Value Reference Range Interpretation Comments Total Bilirubin (test code = 1975-2) 1.2 0.2-1.2 [facility] HospitalAspartate Amino Transf (AST/SGOT) 2019-05-09 10:56:00* Test Item Value Reference Range Interpretation Comments Aspartate Amino Transf (AST/SGOT) (test code = Aspartate Amino Transf (AST/SGOT)) 26 5-34 [facility] HospitalAlanine Aminotransferase (ALT/SGPT) 2019-05-09 10:56:00* Test Item Value Reference Range Interpretation Comments Alanine Aminotransferase (ALT/SGPT) (test code = 1742-6) 21 0-55 [facility] HospitalTotal Simxhcp4540-70-74 10:56:00* Test Item Value Reference Range Interpretation Comments Total Protein (test code = 2885-2) 7.9 6.5-8.1 [facility] HospitalAlbumin2019-07-11 10:56:00* Test Item Value Reference Range Interpretation Comments Albumin (test code = 1751-7) 4.0 3.5-5.0 [facility] HospitalGlobulin2019-07-11 10:56:00* Test Item Value Reference Range Interpretation Comments Globulin (test code = 42419-4) 3.9 2.3-3.5 H [facility] HospitalAlbumin/Globulin Cfzit1938-62-84 10:56:00 * Test Item Value Reference Range Interpretation Comments Albumin/Globulin Ratio (test code = 1759-0) 1.0 0.8-2.0 [facility] HospitalAlkaline Zxfkjovvzwy1656-56-39 10:56:00* Test Item Value Reference Range Interpretation Comments Alkaline Phosphatase (test code = 6768-6) 253 40-150 H [facility] HospitalUrine VUN3544-39-32 10:55:00* Test Item Value Reference Range Interpretation Comments Urine WBC (test code = 5821-4) NONE 0-5 [facility] HospitalUrine QGE7163-62-23 10:55:00* Test Item Value Reference Range Interpretation Comments Urine RBC (test code = 53081-3) 6-10 0-5 H [facility] HospitalUrine Potwucze5382-07-56 10:55:00* Test Item Value Reference Range Interpretation Comments Urine Bacteria (test code = 99559-6) RARE NONE [facility] HospitalUrine Epithelial Wisld4336-20-57 10:55:00 * Test Item Value Reference Range Interpretation Comments Urine Epithelial Cells (test code = 69426-0) RARE NONE [facility] HospitalUrine Hyaline Pfify4405-49-09 10:55:00* Test Item Value Reference Range Interpretation Comments Urine Hyaline Casts (test code = 88425-0) 2-5 0-1 H [facility] HospitalUrine GXR7478-18-92 10:55:00* Test Item Value Reference Range Interpretation Comments Urine WBC (test code = 5821-4) NONE 0-5 [facility] HospitalUrine ARE9462-80-69 10:55:00* Test Item Value Reference Range Interpretation Comments Urine RBC (test code = 53438-5) 6-10 0-5 H [facility] HospitalUrine Xvylbwwr8717-60-98 10:55:00* Test Item Value Reference Range Interpretation Comments Urine Bacteria (test code = 07664-6) RARE NONE [facility] HospitalUrine Epithelial Jjgms3715-95-71 10:55:00 * Test Item Value Reference Range Interpretation Comments Urine Epithelial Cells (test code = 10231-4) RARE NONE [facility] Hyaline Memgy1856-08-33 10:55:00* Test Item Value Reference Range Interpretation Comments Urine Hyaline Casts (test code = 53253-5) 2-5 0-1 H [facility] HospitalUrine LYK6899-43-68 10:55:00* Test Item Value Reference Range Interpretation Comments Urine WBC (test code = 5821-4) NONE 0-5 [facility] HospitalUrine BBH9882-83-01 10:55:00* Test Item Value Reference Range Interpretation Comments Urine RBC (test code = 27693-8) 6-10 0-5 H [facility] HospitalUrine Fiddqxwm2507-43-01 10:55:00* Test Item Value Reference Range Interpretation Comments Urine Bacteria (test code = 12718-5) RARE NONE [facility] HospitalUrine Epithelial Nqyut4571-05-99 10:55:00 * Test Item Value Reference Range Interpretation Comments Urine Epithelial Cells (test code = 11902-7) RARE NONE [facility] HospitalUrine Hyaline Dhbbb0468-13-19 10:55:00* Test Item Value Reference Range Interpretation Comments Urine Hyaline Casts (test code = 43362-4) 2-5 0-1 H [facility] HospitalUrine ZET5016-79-09 10:55:00* Test Item Value Reference Range Interpretation Comments Urine WBC (test code = 5821-4) NONE 0-5 [facility] HospitalUrine GGX5766-92-70 10:55:00* Test Item Value Reference Range Interpretation Comments Urine RBC (test code = 83731-8) 6-10 0-5 H [facility] HospitalUrine Lkftsakw1456-98-68 10:55:00* Test Item Value Reference Range Interpretation Comments Urine Bacteria (test code = 60354-3) RARE NONE [facility] HospitalUrine Epithelial Vhznv2146-49-61 10:55:00 * Test Item Value Reference Range Interpretation Comments Urine Epithelial Cells (test code = 04014-7) RARE NONE [facility] HospitalUrine Hyaline Jolwu1639-48-76 10:55:00* Test Item Value Reference Range Interpretation Comments Urine Hyaline Casts (test code = 14844-5) 2-5 0-1 H [facility] HospitalUrine RAA7850-75-26 10:55:00* Test Item Value Reference Range Interpretation Comments Urine WBC (test code = 5821-4) NONE 0-5 [facility] HospitalUrine ZWN0157-33-29 10:55:00* Test Item Value Reference Range Interpretation Comments Urine RBC (test code = 07561-2) 6-10 0-5 H [facility] HospitalUrine Exkogqoj4943-72-02 10:55:00* Test Item Value Reference Range Interpretation Comments Urine Bacteria (test code = 91066-1) RARE NONE [facility] HospitalUrine Epithelial Cemch9481-71-18 10:55:00 * Test Item Value Reference Range Interpretation Comments Urine Epithelial Cells (test code = 48839-7) RARE NONE [facility] HospitalU[facility] Hyaline Urnag5981-43-64 10:55:00* Test Item Value Reference Range Interpretation Comments Urine Hyaline Casts (test code = 69750-2) 2-5 0-1 H [facility] HospitalUrine Irngf2802-85-90 10:47:00* Test Item Value Reference Range Interpretation Comments Urine Color (test code = 5778-6) ORANGE YELLOW H [facility] HospitalUrine Ouhkpks2321-48-52 10:47:00* Test Item Value Reference Range Interpretation Comments Urine Clarity (test code = 85392-0) CLOUDY CLEAR H [facility] HospitalUrine Specific Haebvaj6093-09-26 10:47:00 * Test Item Value Reference Range Interpretation Comments Urine Specific Abercrombie (test code = 5811-5) 1.010 1.010-1.02 5 [facility] HospitalU[facility] bS0759-55-82 10:47:00* Test Item Value Reference Range Interpretation Comments Urine pH (test code = 84304-2) 5.5 5-7 [facility] Leukocyte Sttmlkbq5223-75-97 10:47:00* Test Item Value Reference Range Interpretation Comments Urine Leukocyte Esterase (test code = 02357-8) NEGATIVE NEGATIV E [facility] Onphjpy9420-19-75 10:47:00* Test Item Value Reference Range Interpretation Comments Urine Nitrite (test code = 27361-3) POSITIVE NEGATIVE H [facility] Exzsryi4259-46-48 10:47:00* Test Item Value Reference Range Interpretation Comments Urine Protein (test code = 69103-2) 1+ NEGATIVE H [facility] Glucose (UA)2019-05-09 10:47:00* Test Item Value Reference Range Interpretation Comments Urine Glucose (UA) (test code = 43332-7) 1+ NEGATIVE H [facility] Camlgil9592-21-22 10:47:00* Test Item Value Reference Range Interpretation Comments Urine Ketones (test code = 19628-6) NEGATIVE NEGATIVE [facility] Qynonprwnyag3823-38-00 10:47:00* Test Item Value Reference Range Interpretation Comments Urine Urobilinogen (test code = 88280-1) 2 0.2-1 [facility] HospitalU[facility] Iqacavelq9563-24-14 10:47:00* Test Item Value Reference Range Interpretation Comments Urine Bilirubin (test code = 1977-8) NEGATIVE NEGATIVE [facility] Wjqau9805-79-43 10:47:00* Test Item Value Reference Range Interpretation Comments Urine Blood (test code = 05601-6) TRACE NEGATIVE [facility] HospitalU[facility] Wwqhf3842-03-46 10:47:00* Test Item Value Reference Range Interpretation Comments Urine Color (test code = 5778-6) ORANGE YELLOW H [facility] HospitalUrine Jfgxibc8566-40-43 10:47:00* Test Item Value Reference Range Interpretation Comments Urine Clarity (test code = 89945-9) CLOUDY CLEAR H [facility] HospitalUrine Specific Hceqhju1884-03-13 10:47:00 * Test Item Value Reference Range Interpretation Comments Urine Specific Abercrombie (test code = 5811-5) 1.010 1.010-1.02 5 [facility] HospitalU[facility] rW4162-91-73 10:47:00* Test Item Value Reference Range Interpretation Comments Urine pH (test code = 25599-7) 5.5 5-7 [facility] Leukocyte Nuvwbmnf3039-08-18 10:47:00* Test Item Value Reference Range Interpretation Comments Urine Leukocyte Esterase (test code = 56069-3) NEGATIVE NEGATIV E [facility] Tcgzror7271-60-08 10:47:00* Test Item Value Reference Range Interpretation Comments Urine Nitrite (test code = 51863-6) POSITIVE NEGATIVE H [facility] Xkosipu5827-30-81 10:47:00* Test Item Value Reference Range Interpretation Comments Urine Protein (test code = 81869-3) 1+ NEGATIVE H [facility] Glucose (UA)2019-05-09 10:47:00* Test Item Value Reference Range Interpretation Comments Urine Glucose (UA) (test code = 03377-1) 1+ NEGATIVE H [facility] Jcunxxw0032-64-69 10:47:00* Test Item Value Reference Range Interpretation Comments Urine Ketones (test code = 92086-2) NEGATIVE NEGATIVE [facility] Hwvovpzulgym7712-54-54 10:47:00* Test Item Value Reference Range Interpretation Comments Urine Urobilinogen (test code = 25889-8) 2 0.2-1 [facility] Dadwjndpk9325-14-47 10:47:00* Test Item Value Reference Range Interpretation Comments Urine Bilirubin (test code = 1977-8) NEGATIVE NEGATIVE [facility] Ycsnm8069-24-65 10:47:00* Test Item Value Reference Range Interpretation Comments Urine Blood (test code = 91830-9) TRACE NEGATIVE [facility] Rwnuj1366-58-34 10:47:00* Test Item Value Reference Range Interpretation Comments Urine Color (test code = 5778-6) ORANGE YELLOW H [facility] HospitalU[facility] Wghyobu2766-67-16 10:47:00* Test Item Value Reference Range Interpretation Comments Urine Clarity (test code = 11514-4) CLOUDY CLEAR H [facility] HospitalU[facility] Specific Gkcwybz0052-21-44 10:47:00 * Test Item Value Reference Range Interpretation Comments Urine Specific Abercrombie (test code = 5811-5) 1.010 1.010-1.02 5 [facility] bO7401-15-84 10:47:00* Test Item Value Reference Range Interpretation Comments Urine pH (test code = 56458-9) 5.5 5-7 [facility] Leukocyte Lriicshk5436-80-05 10:47:00* Test Item Value Reference Range Interpretation Comments Urine Leukocyte Esterase (test code = 37078-6) NEGATIVE NEGATIV E [facility] Gdssqfy0427-93-84 10:47:00* Test Item Value Reference Range Interpretation Comments Urine Nitrite (test code = 91688-0) POSITIVE NEGATIVE H [facility] Pqgcedm1364-28-92 10:47:00* Test Item Value Reference Range Interpretation Comments Urine Protein (test code = 23231-1) 1+ NEGATIVE H [facility] Glucose (UA)2019-05-09 10:47:00* Test Item Value Reference Range Interpretation Comments Urine Glucose (UA) (test code = 17333-4) 1+ NEGATIVE H [facility] HospitalU[facility] Cutscfq3879-20-56 10:47:00* Test Item Value Reference Range Interpretation Comments Urine Ketones (test code = 50384-1) NEGATIVE NEGATIVE [facility] Muhefehkzszg9579-94-34 10:47:00* Test Item Value Reference Range Interpretation Comments Urine Urobilinogen (test code = 46896-9) 2 0.2-1 [facility] Ixkximhjy6852-54-20 10:47:00* Test Item Value Reference Range Interpretation Comments Urine Bilirubin (test code = 1977-8) NEGATIVE NEGATIVE [facility] Wubjp9836-19-35 10:47:00* Test Item Value Reference Range Interpretation Comments Urine Blood (test code = 63078-4) TRACE NEGATIVE [facility] Ettjv3837-09-75 10:47:00* Test Item Value Reference Range Interpretation Comments Urine Color (test code = 5778-6) ORANGE YELLOW H [facility] [facility] Mwmvvvq8708-23-00 10:47:00* Test Item Value Reference Range Interpretation Comments Urine Clarity (test code = 59563-4) CLOUDY CLEAR H [facility] Specific Ufcsror7174-80-30 10:47:00 * Test Item Value Reference Range Interpretation Comments Urine Specific Abercrombie (test code = 5811-5) 1.010 1.010-1.02 5 [facility] [id number] 10:47:00* Test Item Value Reference Range Interpretation Comments Urine pH (test code = 57338-7) 5.5 5-7 [facility] Leukocyte Wxyhpwwb5155-96-06 10:47:00* Test Item Value Reference Range Interpretation Comments Urine Leukocyte Esterase (test code = 14189-6) NEGATIVE NEGATIV E [facility] Kbjulup9868-82-24 10:47:00* Test Item Value Reference Range Interpretation Comments Urine Nitrite (test code = 71823-5) POSITIVE NEGATIVE H [facility] Jvhxlrv3504-28-59 10:47:00* Test Item Value Reference Range Interpretation Comments Urine Protein (test code = 95986-1) 1+ NEGATIVE H [facility] Glucose (UA)2019-05-09 10:47:00* Test Item Value Reference Range Interpretation Comments Urine Glucose (UA) (test code = 50920-8) 1+ NEGATIVE H [facility] Yiemaos4660-84-58 10:47:00* Test Item Value Reference Range Interpretation Comments Urine Ketones (test code = 78492-1) NEGATIVE NEGATIVE [facility] Zzgyffhupyeq6666-11-86 10:47:00* Test Item Value Reference Range Interpretation Comments Urine Urobilinogen (test code = 03997-2) 2 0.2-1 [facility] Enkfqvtav2977-29-60 10:47:00* Test Item Value Reference Range Interpretation Comments Urine Bilirubin (test code = 1977-8) NEGATIVE NEGATIVE [facility] Lopmp6536-07-38 10:47:00* Test Item Value Reference Range Interpretation Comments Urine Blood (test code = 04028-5) TRACE NEGATIVE [facility] Cneyk0997-87-03 10:47:00* Test Item Value Reference Range Interpretation Comments Urine Color (test code = 5778-6) ORANGE YELLOW H [facility] Qzutjwm5315-41-17 10:47:00* Test Item Value Reference Range Interpretation Comments Urine Clarity (test code = 34189-2) CLOUDY CLEAR H [facility] Specific Rwqidnr6422-46-42 10:47:00 * Test Item Value Reference Range Interpretation Comments Urine Specific Abercrombie (test code = 5811-5) 1.010 1.010-1.02 5 [facility] [id number] 10:47:00* Test Item Value Reference Range Interpretation Comments Urine pH (test code = 04956-2) 5.5 5-7 [facility] Leukocyte Enysygrw9430-63-30 10:47:00* Test Item Value Reference Range Interpretation Comments Urine Leukocyte Esterase (test code = 05467-4) NEGATIVE NEGATIV E [facility] Inusqig7775-22-36 10:47:00* Test Item Value Reference Range Interpretation Comments Urine Nitrite (test code = 90945-3) POSITIVE NEGATIVE H [facility] Pxmfgdj9109-35-85 10:47:00* Test Item Value Reference Range Interpretation Comments Urine Protein (test code = 71603-5) 1+ NEGATIVE H [facility] HospitalU[facility] Glucose (UA)2019-05-09 10:47:00* Test Item Value Reference Range Interpretation Comments Urine Glucose (UA) (test code = 07036-2) 1+ NEGATIVE H [facility] Sqcdpzz2118-89-34 10:47:00* Test Item Value Reference Range Interpretation Comments Urine Ketones (test code = 66448-9) NEGATIVE NEGATIVE [facility] Xzqehvmsrmyx0939-03-68 10:47:00* Test Item Value Reference Range Interpretation Comments Urine Urobilinogen (test code = 96592-5) 2 0.2-1 [facility] Ccydggrqz7554-19-09 10:47:00* Test Item Value Reference Range Interpretation Comments Urine Bilirubin (test code = 1977-8) NEGATIVE NEGATIVE [facility] Uoqzf8703-09-62 10:47:00* Test Item Value Reference Range Interpretation Comments Urine Blood (test code = 65094-7) TRACE NEGATIVE [facility] HospitalProthrombin Javx4887-50-86 10:46:00* Test Item Value Reference Range Interpretation Comments Prothrombin Time (test code = 5902-2) 13.1 11.9-14.5 [facility] HospitalProthromb Time International Ratio 2019-05-09 10:46:00* Test Item Value Reference Range Interpretation Comments Prothromb Time International Ratio (test code = 6301-6) 0.94 Oral Anticoagulant Therapy INR Values:1. Low Intensity Therapy 1.5 - 2.02 . Moderate Intensity Therapy 2.0 - 3.03. High Intensity Therapy(1) 2.5 - 3. 54. High Intensity Therapy(2) 3.0 - 4.05. Panic Value INR > 5.0 [facility] HospitalActivated Partial Thromboplast Time 2019-05-09 10:46:00* Test Item Value Reference Range Interpretation Comments Activated Partial Thromboplast Time (test code = 30174-3) 31.8 23.8-35.5 [facility] HospitalProthrombin Auid4104-72-95 10:46:00* Test Item Value Reference Range Interpretation Comments Prothrombin Time (test code = 5902-2) 13.1 11.9-14.5 [facility] HospitalProthromb Time International Ratio 2019-05-09 10:46:00* Test Item Value Reference Range Interpretation Comments Prothromb Time International Ratio (test code = 6301-6) 0.94 Oral Anticoagulant Therapy INR Values:1. Low Intensity Therapy 1.5 - 2.02 . Moderate Intensity Therapy 2.0 - 3.03. High Intensity Therapy(1) 2.5 - 3. 54. High Intensity Therapy(2) 3.0 - 4.05. Panic Value INR > 5.0 [facility] HospitalActivated Partial Thromboplast Time 2019-05-09 10:46:00* Test Item Value Reference Range Interpretation Comments Activated Partial Thromboplast Time (test code = 49536-2) 31.8 23.8-35.5 [facility] HospitalProthrombin Oswb4149-21-23 10:46:00* Test Item Value Reference Range Interpretation Comments Prothrombin Time (test code = 5902-2) 13.1 11.9-14.5 [facility] HospitalProthromb Time International Ratio 2019-05-09 10:46:00* Test Item Value Reference Range Interpretation Comments Prothromb Time International Ratio (test code = 6301-6) 0.94 Oral Anticoagulant Therapy INR Values:1. Low Intensity Therapy 1.5 - 2.02 . Moderate Intensity Therapy 2.0 - 3.03. High Intensity Therapy(1) 2.5 - 3. 54. High Intensity Therapy(2) 3.0 - 4.05. Panic Value INR > 5.0 [facility] HospitalActivated Partial Thromboplast Time 2019-05-09 10:46:00* Test Item Value Reference Range Interpretation Comments Activated Partial Thromboplast Time (test code = 21464-0) 31.8 23.8-35.5 [facility] HospitalProthrombin Mhcb2555-93-41 10:46:00* Test Item Value Reference Range Interpretation Comments Prothrombin Time (test code = 5902-2) 13.1 11.9-14.5 [facility] HospitalProthromb Time International Ratio 2019-05-09 10:46:00* Test Item Value Reference Range Interpretation Comments Prothromb Time International Ratio (test code = 6301-6) 0.94 Oral Anticoagulant Therapy INR Values:1. Low Intensity Therapy 1.5 - 2.02 . Moderate Intensity Therapy 2.0 - 3.03. High Intensity Therapy(1) 2.5 - 3. 54. High Intensity Therapy(2) 3.0 - 4.05. Panic Value INR > 5.0 [facility] HospitalActivated Partial Thromboplast Time 2019-05-09 10:46:00* Test Item Value Reference Range Interpretation Comments Activated Partial Thromboplast Time (test code = 81260-1) 31.8 23.8-35.5 [facility] HospitalWhite Blood Vzlzh2967-14-03 10:41:00* Test Item Value Reference Range Interpretation Comments White Blood Count (test code = 6690-2) 6.48 4.8-10.8 [facility] HospitalRed Blood Eqxre8878-42-82 10:41:00* Test Item Value Reference Range Interpretation Comments Red Blood Count (test code = 789-8) 4.72 4.3-5.7 [facility] HospitalHemoglobin2019-07-11 10:41:00* Test Item Value Reference Range Interpretation Comments Hemoglobin (test code = 02048-0) 14.6 14.0-18.0 [facility] HospitalHematocrit2019-07-11 10:41:00* Test Item Value Reference Range Interpretation Comments Hematocrit (test code = 4544-3) 43.6 38.2-49.6 [facility] HospitalMean Corpuscular Owqdfi5648-80-95 10:41:00* Test Item Value Reference Range Interpretation Comments Mean Corpuscular Volume (test code = 787-2) 92.4 81-99 [facility] HospitalMean Corpuscular Ryipuxeihc8830-18-53 10:41:00* Test Item Value Reference Range Interpretation Comments Mean Corpuscular Hemoglobin (test code = 785-6) 30.9 28-32 [facility] HospitalMean Corpuscular Hemoglobin Concent 2019-05-09 10:41:00* Test Item Value Reference Range Interpretation Comments Mean Corpuscular Hemoglobin Concent (test code = 786-4) 33.5 31-35 [facility] HospitalRed Cell Distribution Cfbwv1737-87-06 10:41:00* Test Item Value Reference Range Interpretation Comments Red Cell Distribution Width (test code = 84137-2) 13.3 11.7 -14.4 [facility] HospitalPlatelet Kubjc6246-47-40 10:41:00* Test Item Value Reference Range Interpretation Comments Platelet Count (test code = 777-3) 195 140-360 [facility] HospitalNeutrophils (%) (Auto)2019-05-09 10:41:00 * Test Item Value Reference Range Interpretation Comments Neutrophils (%) (Auto) (test code = 62108-1) 77.2 38.7-80.0 [facility] HospitalLymphocytes (%) (Auto)2019-05-09 10:41:00 * Test Item Value Reference Range Interpretation Comments Lymphocytes (%) (Auto) (test code = 736-9) 13.4 18.0-39.1 L [facility] HospitalMonocytes (%) (Auto)2019-05-09 10:41:00* Test Item Value Reference Range Interpretation Comments Monocytes (%) (Auto) (test code = 5905-5) 7.9 4.4-11.3 [facility] HospitalEosinophils (%) (Auto)2019-05-09 10:41:00 * Test Item Value Reference Range Interpretation Comments Eosinophils (%) (Auto) (test code = 713-8) 0.6 0.0-6.0 [facility] HospitalBasophils (%) (Auto)2019-05-09 10:41:00* Test Item Value Reference Range Interpretation Comments Basophils (%) (Auto) (test code = 706-2) 0.6 0.0-1.0 [facility] HospitalIM GRANULOCYTES %2019-05-09 10:41:00* Test Item Value Reference Range Interpretation Comments IM GRANULOCYTES % (test code = IM GRANULOCYTES %) 0.3 0.0- 1.0 [facility] HospitalNeutrophils # (Auto)2019-05-09 10:41:00* Test Item Value Reference Range Interpretation Comments Neutrophils # (Auto) (test code = 751-8) 5.0 2.1-6.9 [facility] HospitalLymphocytes # (Auto)2019-05-09 10:41:00* Test Item Value Reference Range Interpretation Comments Lymphocytes # (Auto) (test code = 71789-9) 0.9 1.0-3.2 L [facility] HospitalMonocytes # (Auto)2019-05-09 10:41:00* Test Item Value Reference Range Interpretation Comments Monocytes # (Auto) (test code = 742-7) 0.5 0.2-0.8 [facility] HospitalEosinophils # (Auto)2019-05-09 10:41:00* Test Item Value Reference Range Interpretation Comments Eosinophils # (Auto) (test code = 711-2) 0.0 0.0-0.4 [facility] HospitalBasophils # (Auto)2019-05-09 10:41:00* Test Item Value Reference Range Interpretation Comments Basophils # (Auto) (test code = 704-7) 0.0 0.0-0.1 [facility] HospitalAbsolute Immature Granulocyte (auto 2019-05-09 10:41:00* Test Item Value Reference Range Interpretation Comments Absolute Immature Granulocyte (auto (sara t code = Absolute Immature Granulocyte (auto) 0.02 0-0.1 [facility] HospitalWhite Blood Lsood2348-54-76 10:41:00* Test Item Value Reference Range Interpretation Comments White Blood Count (test code = 6690-2) 6.48 4.8-10.8 [facility] HospitalRed Blood Qezjr2123-35-15 10:41:00* Test Item Value Reference Range Interpretation Comments Red Blood Count (test code = 789-8) 4.72 4.3-5.7 [facility] HospitalHemoglobin2019-07-11 10:41:00* Test Item Value Reference Range Interpretation Comments Hemoglobin (test code = 82551-3) 14.6 14.0-18.0 [facility] HospitalHematocrit2019-07-11 10:41:00* Test Item Value Reference Range Interpretation Comments Hematocrit (test code = 4544-3) 43.6 38.2-49.6 [facility] HospitalMean Corpuscular Crwzlg6386-90-01 10:41:00* Test Item Value Reference Range Interpretation Comments Mean Corpuscular Volume (test code = 787-2) 92.4 81-99 [facility] HospitalMean Corpuscular Wjdbaqhncn1182-05-61 10:41:00* Test Item Value Reference Range Interpretation Comments Mean Corpuscular Hemoglobin (test code = 785-6) 30.9 28-32 [facility] HospitalMean Corpuscular Hemoglobin Concent 2019-05-09 10:41:00* Test Item Value Reference Range Interpretation Comments Mean Corpuscular Hemoglobin Concent (test code = 786-4) 33.5 31-35 [facility] HospitalRed Cell Distribution Ktsef8357-72-21 10:41:00* Test Item Value Reference Range Interpretation Comments Red Cell Distribution Width (test code = 81179-6) 13.3 11.7 -14.4 [facility] HospitalPlatelet Ojjvn4237-49-39 10:41:00* Test Item Value Reference Range Interpretation Comments Platelet Count (test code = 777-3) 195 140-360 [facility] HospitalNeutrophils (%) (Auto)2019-05-09 10:41:00 * Test Item Value Reference Range Interpretation Comments Neutrophils (%) (Auto) (test code = 44717-8) 77.2 38.7-80.0 [facility] HospitalLymphocytes (%) (Auto)2019-05-09 10:41:00 * Test Item Value Reference Range Interpretation Comments Lymphocytes (%) (Auto) (test code = 736-9) 13.4 18.0-39.1 L [facility] HospitalMonocytes (%) (Auto)2019-05-09 10:41:00* Test Item Value Reference Range Interpretation Comments Monocytes (%) (Auto) (test code = 5905-5) 7.9 4.4-11.3 [facility] HospitalEosinophils (%) (Auto)2019-05-09 10:41:00 * Test Item Value Reference Range Interpretation Comments Eosinophils (%) (Auto) (test code = 713-8) 0.6 0.0-6.0 [facility] HospitalBasophils (%) (Auto)2019-05-09 10:41:00* Test Item Value Reference Range Interpretation Comments Basophils (%) (Auto) (test code = 706-2) 0.6 0.0-1.0 [facility] HospitalIM GRANULOCYTES %2019-05-09 10:41:00* Test Item Value Reference Range Interpretation Comments IM GRANULOCYTES % (test code = IM GRANULOCYTES %) 0.3 0.0- 1.0 [facility] HospitalNeutrophils # (Auto)2019-05-09 10:41:00* Test Item Value Reference Range Interpretation Comments Neutrophils # (Auto) (test code = 751-8) 5.0 2.1-6.9 [facility] HospitalLymphocytes # (Auto)2019-05-09 10:41:00* Test Item Value Reference Range Interpretation Comments Lymphocytes # (Auto) (test code = 36081-5) 0.9 1.0-3.2 L [facility] HospitalMonocytes # (Auto)2019-05-09 10:41:00* Test Item Value Reference Range Interpretation Comments Monocytes # (Auto) (test code = 742-7) 0.5 0.2-0.8 [facility] HospitalEosinophils # (Auto)2019-05-09 10:41:00* Test Item Value Reference Range Interpretation Comments Eosinophils # (Auto) (test code = 711-2) 0.0 0.0-0.4 [facility] HospitalBasophils # (Auto)2019-05-09 10:41:00* Test Item Value Reference Range Interpretation Comments Basophils # (Auto) (test code = 704-7) 0.0 0.0-0.1 [facility] HospitalAbsolute Immature Granulocyte (auto 2019-05-09 10:41:00* Test Item Value Reference Range Interpretation Comments Absolute Immature Granulocyte (auto (sara t code = Absolute Immature Granulocyte (auto) 0.02 0-0.1 [facility] HospitalWhite Blood Xdwgr9499-60-72 10:41:00* Test Item Value Reference Range Interpretation Comments White Blood Count (test code = 6690-2) 6.48 4.8-10.8 [facility] HospitalRed Blood Gqxyq4304-94-62 10:41:00* Test Item Value Reference Range Interpretation Comments Red Blood Count (test code = 789-8) 4.72 4.3-5.7 [facility] HospitalHemoglobin2019-07-11 10:41:00* Test Item Value Reference Range Interpretation Comments Hemoglobin (test code = 36593-6) 14.6 14.0-18.0 [facility] HospitalHematocrit2019-07-11 10:41:00* Test Item Value Reference Range Interpretation Comments Hematocrit (test code = 4544-3) 43.6 38.2-49.6 [facility] HospitalMean Corpuscular Indcrk5997-28-14 10:41:00* Test Item Value Reference Range Interpretation Comments Mean Corpuscular Volume (test code = 787-2) 92.4 81-99 [facility] HospitalMean Corpuscular Vhvdducpfs7304-52-21 10:41:00* Test Item Value Reference Range Interpretation Comments Mean Corpuscular Hemoglobin (test code = 785-6) 30.9 28-32 [facility] HospitalMean Corpuscular Hemoglobin Concent 2019-05-09 10:41:00* Test Item Value Reference Range Interpretation Comments Mean Corpuscular Hemoglobin Concent (test code = 786-4) 33.5 31-35 [facility] HospitalRed Cell Distribution Fpyci1964-18-43 10:41:00* Test Item Value Reference Range Interpretation Comments Red Cell Distribution Width (test code = 84943-5) 13.3 11.7 -14.4 [facility] HospitalPlatelet Psduj1457-25-45 10:41:00* Test Item Value Reference Range Interpretation Comments Platelet Count (test code = 777-3) 195 140-360 [facility] HospitalNeutrophils (%) (Auto)2019-05-09 10:41:00 * Test Item Value Reference Range Interpretation Comments Neutrophils (%) (Auto) (test code = 15918-7) 77.2 38.7-80.0 [facility] HospitalLymphocytes (%) (Auto)2019-05-09 10:41:00 * Test Item Value Reference Range Interpretation Comments Lymphocytes (%) (Auto) (test code = 736-9) 13.4 18.0-39.1 L [facility] HospitalMonocytes (%) (Auto)2019-05-09 10:41:00* Test Item Value Reference Range Interpretation Comments Monocytes (%) (Auto) (test code = 5905-5) 7.9 4.4-11.3 [facility] HospitalEosinophils (%) (Auto)2019-05-09 10:41:00 * Test Item Value Reference Range Interpretation Comments Eosinophils (%) (Auto) (test code = 713-8) 0.6 0.0-6.0 [facility] HospitalBasophils (%) (Auto)2019-05-09 10:41:00* Test Item Value Reference Range Interpretation Comments Basophils (%) (Auto) (test code = 706-2) 0.6 0.0-1.0 [facility] HospitalIM GRANULOCYTES %2019-05-09 10:41:00* Test Item Value Reference Range Interpretation Comments IM GRANULOCYTES % (test code = IM GRANULOCYTES %) 0.3 0.0- 1.0 [facility] HospitalNeutrophils # (Auto)2019-05-09 10:41:00* Test Item Value Reference Range Interpretation Comments Neutrophils # (Auto) (test code = 751-8) 5.0 2.1-6.9 [facility] HospitalLymphocytes # (Auto)2019-05-09 10:41:00* Test Item Value Reference Range Interpretation Comments Lymphocytes # (Auto) (test code = 57901-0) 0.9 1.0-3.2 L [facility] HospitalMonocytes # (Auto)2019-05-09 10:41:00* Test Item Value Reference Range Interpretation Comments Monocytes # (Auto) (test code = 742-7) 0.5 0.2-0.8 [facility] HospitalEosinophils # (Auto)2019-05-09 10:41:00* Test Item Value Reference Range Interpretation Comments Eosinophils # (Auto) (test code = 711-2) 0.0 0.0-0.4 [facility] HospitalBasophils # (Auto)2019-05-09 10:41:00* Test Item Value Reference Range Interpretation Comments Basophils # (Auto) (test code = 704-7) 0.0 0.0-0.1 [facility] HospitalAbsolute Immature Granulocyte (auto 2019-05-09 10:41:00* Test Item Value Reference Range Interpretation Comments Absolute Immature Granulocyte (auto (sara t code = Absolute Immature Granulocyte (auto) 0.02 0-0.1 [facility] HospitalWhite Blood Abiim6827-15-10 10:41:00* Test Item Value Reference Range Interpretation Comments White Blood Count (test code = 6690-2) 6.48 4.8-10.8 [facility] HospitalRed Blood Cuvvk5613-44-25 10:41:00* Test Item Value Reference Range Interpretation Comments Red Blood Count (test code = 789-8) 4.72 4.3-5.7 [facility] HospitalHemoglobin2019-07-11 10:41:00* Test Item Value Reference Range Interpretation Comments Hemoglobin (test code = 58021-2) 14.6 14.0-18.0 [facility] HospitalHematocrit2019-07-11 10:41:00* Test Item Value Reference Range Interpretation Comments Hematocrit (test code = 4544-3) 43.6 38.2-49.6 [facility] HospitalMean Corpuscular Ntrsgn4651-80-00 10:41:00* Test Item Value Reference Range Interpretation Comments Mean Corpuscular Volume (test code = 787-2) 92.4 81-99 [facility] HospitalMean Corpuscular Sxwnocoooh1017-46-43 10:41:00* Test Item Value Reference Range Interpretation Comments Mean Corpuscular Hemoglobin (test code = 785-6) 30.9 28-32 [facility] HospitalMean Corpuscular Hemoglobin Concent 2019-05-09 10:41:00* Test Item Value Reference Range Interpretation Comments Mean Corpuscular Hemoglobin Concent (test code = 786-4) 33.5 31-35 [facility] HospitalRed Cell Distribution Qtykq2598-42-72 10:41:00* Test Item Value Reference Range Interpretation Comments Red Cell Distribution Width (test code = 32633-7) 13.3 11.7 -14.4 [facility] HospitalPlatelet Kbpcv4979-69-04 10:41:00* Test Item Value Reference Range Interpretation Comments Platelet Count (test code = 777-3) 195 140-360 [facility] HospitalNeutrophils (%) (Auto)2019-05-09 10:41:00 * Test Item Value Reference Range Interpretation Comments Neutrophils (%) (Auto) (test code = 55268-7) 77.2 38.7-80.0 [facility] HospitalLymphocytes (%) (Auto)2019-05-09 10:41:00 * Test Item Value Reference Range Interpretation Comments Lymphocytes (%) (Auto) (test code = 736-9) 13.4 18.0-39.1 L [facility] ([facility]2019[facility]09 10:41:00* Test Item Value Reference Range Interpretation Comments Monocytes (%) (Auto) (test code = 5905-5) 7.9 4.4-11.3 [facility] (Auto)2019-05-09 10:41:00 * Test Item Value Reference Range Interpretation Comments Eosinophils (%) (Auto) (test code = 713-8) 0.6 0.0-6.0 [facility] (Auto)2019-05-09 10:41:00* Test Item Value Reference Range Interpretation Comments Basophils (%) (Auto) (test code = 706-2) 0.6 0.0-1.0 [facility]IM [facility] %2019-05-09 10:41:00* Test Item Value Reference Range Interpretation Comments IM GRANULOCYTES % (test code = IM GRANULOCYTES %) 0.3 0.0- 1.0 [facility]Neutrophils # (Auto)2019-05-09 10:41:00* Test Item Value Reference Range Interpretation Comments Neutrophils # (Auto) (test code = 751-8) 5.0 2.1-6.9 [facility]Lymphocytes # (Auto)2019-05-09 10:41:00* Test Item Value Reference Range Interpretation Comments Lymphocytes # (Auto) (test code = 80000-0) 0.9 1.0-3.2 L [facility]Mon[facility] # (Auto)2019-05-09 10:41:00* Test Item Value Reference Range Interpretation Comments Monocytes # (Auto) (test code = 742-7) 0.5 0.2-0.8 [facility]Eosinophils # (Auto)2019-05-09 10:41:00* Test Item Value Reference Range Interpretation Comments Eosinophils # (Auto) (test code = 711-2) 0.0 0.0-0.4 [facility]Basophils # (Auto)2019-05-09 10:41:00* Test Item Value Reference Range Interpretation Comments Basophils # (Auto) (test code = 704-7) 0.0 0.0-0.1 [facility] HospitalAbsolute Immature Granulocyte (auto 2019-05-09 10:41:00* Test Item Value Reference Range Interpretation Comments Absolute Immature Granulocyte (auto (sara t code = Absolute Immature Granulocyte (auto) 0.02 0-0.1 [facility]
--- NOTE | 2020-07-07 13:41 | NUR ---
Bladder Scan Volume 241 ML, Dr. Bland notified
[2020-07-07] MEDS ORDERED: MORPHINE SULFATE 2 MG/ML SYR 1ML IV STA (13:49)
[2020-07-07] MEDS ORDERED: ONDANSETRON HCL INJ 2MG/ML 2ML 2 MG/ML VIAL IV STA (13:49)
[2020-07-07] MEDS ORDERED: MORPHINE SULFATE INJ 4 MG/ML INJ 1ML ONE (14:07)
[2020-07-07] MEDS ORDERED: ONDANSETRON HCL INJ 2MG/ML 2ML 2 MG/ML VIAL ONE (14:07)
[2020-07-07 14:11] LABS: BASOPHILS # (AUTO) 0.1 (0.0-0.1); BASOPHILS % 0.7 % (0.0-1.0); EOSINOPHILS # (AUTO) 0.1 (0.0-0.4); EOSINOPHILS % 1.3 % (0.0-6.0); HEMATOCRIT 41.8 % (38.2-49.6); HEMOGLOBIN 13.4 g/dL (14.0-18.0); MEAN CORPUSCULAR HEMOGLOBIN 29.6 pg (28-32); MEAN CORPUSCULAR HGB CONC 32.1 g/dL (31-35); MEAN CORPUSCULAR VOLUME 92.3 fL (81-99); MONOCYTES # (AUTO) 0.7 (0.2-0.8); MONOCYTES % 8.3 % (4.4-11.3); NEUTROPHILS # (AUTO) 6.5 (2.1-6.9); NEUTROPHILS % 77.2 % (38.7-80.0); PLATELET COUNT 251 x10e3/uL (140-360); RED BLOOD COUNT 4.53 x10e6/uL (4.3-5.7); RED CELL DISTRIBUTION WIDTH 14.5 % (11.7-14.4)
[2020-07-07] MEDS ORDERED: VANCOMYCIN 1GM/NS 250 ML 250 ML IV ONE (14:15)
[2020-07-07] MEDS ORDERED: SODIUM CHLORIDE 0.9% 1000ML 1,000 ML IV SCH (14:30)
[2020-07-07 14:34] LABS: ALBUMIN 4.4 g/dL (3.5-5.0); ALBUMIN/GLOBULIN RATIO 1.4 (0.8-2.0); ANION GAP 17.5 mmol/L (8-16); CALCIUM 9.2 mg/dL (8.4-10.2); CREATININE, SERUM 1.42 mg/dL (0.72-1.25); POTASSIUM 3.5 mmol/L (3.5-5.1)
--- NOTE | 2020-07-07 14:37 | NUR ---
continous bladder irrigation started at this time
[2020-07-07] MEDS: CEFEPIME 1GM/NS 0.9% 50 ML 50 ML IV SCH (14:38)
[2020-07-07 14:41] LABS: CREATINE KINASE MB 1.2 ng/mL (0-5.0)
--- OUTSIDE RECORDS SUMMARY | 2020-07-07 14:41 | XMS REPORT | Continuity of Care Document ---
Author Author [facility] t Organization [facility] Address [address] [place] [address] Phone Unavailable Care Team Providers Care Child And Youth Program Assistant Name Role Phone MD Benny KRUEGER MD PCP Mumtaz Raymond Attphys Unavailable NAFISA YODER Attphys Unavailable DELPHINE KRAFT Attphys Unavailable Payers Payer Name Policy Type Policy Number Effective Date Expiration Date Benny daley Aegurpreet Medicare Replacement [id number] 2017 00:00:00 [facility] Cdc Review [id number] [facility] Problems Condition Name Condition Details Condition Category Status Onset Date Resolution Date Last Treatment Date Treating Clinician Comments Source Hemorrhagic cystitis Problem Active [facility] Obstruction of Urena catheter Problem Active [facility] Constipation Problem Active [facility] Allergies, Adverse Reactions, Alerts Allergy Name Allergy Type Status Severity Reaction(s) Onset Date Inacti ve Date Treating Clinician Comments Source No Known Allergies DA Active U 2019-07-11 00:00:00 [facility] Social History Social Habit Start Date Stop Date Quantity Comments Source Sex Assigned At 1945 00:00:00 1945 00:00:00 Male [facility] Medications Ordered Medication Name Filled Medication Name Start Date Stop Da te Current Medication? Ordering Clinician Indication Dosage Frequency Signature (SIG) Comments Components Source Acetaminophen/Codeine Phosphate (Tylenol # 3*) 1 Ea TA B Acetaminophen/Codeine Phosphate (Tylenol # 3*) 1 Ea TAB 2020-05-28 07:39:00 2020-06-24 00:00:00 No 1 Every 4 Hours as needed for Pain Or Cough [facility] Ibuprofen (Ibuprofen Ib) 200 Mg TABLET Ibuprofen (Ibuprofen Ib) 200 Mg TABLET 2020-05-28 07:39:00 2020-06-24 00:00:00 No 3 Every 6 Hours as needed for Pain [facility] Ondansetron Hcl (Zofran*) 4 Mg TABLET Ondansetron Hcl (Zofra n*) 4 Mg TABLET 2020-05-28 07:39:00 2020-06-24 00:00:00 No 4 Every 6 Hours as needed for Nausea [facility] Amoxicillin/Potassium Clav (Augmentin 875-125 Tablet) 1 Each TABLET Amoxicillin/Potassium Clav (Augmentin 875-125 Tablet) 1 Each TABLET 2020-02-22 22:42:00 2020-06-24 00:00:00 No 500 Three Times A Day for Urinary Tract Infection [facility] Cefdinir (Omnicef) 300 Mg CAPSULE Cefdinir (Omnicef) 300 Mg CAPSULE 2019-12-13 19:51:00 2019-12-30 00:00:00 No 300 Twice A Day [facility] Cefuroxime Axetil (Cefuroxime) 250 Mg TABLET Cefuroxim e Axetil (Cefuroxime) 250 Mg TABLET 2019-05-09 11:18:00 2019-12-30 00:00:00 No 250 Every 12 Hours [facility] Tamsulosin Hcl (Flomax*) 0.4 Mg CAP Tamsulosin Hcl (Flomax*) 0.4 Mg CAP 2019-05-09 11:18:00 2019-12-30 00:00:00 No .4 Daily [facility] Aspirin Aspirin Yes 325 Daily [facility] Atorvastatin Calcium Atorvastatin Calcium Yes 40 Daily [facility] Clopidogrel Bisulfate (Plavix) 75 Mg TABLET Clopidogre l Bisulfate (Plavix) 75 Mg TABLET Yes 75 Daily [facility] Losartan Potassium Losartan Potassium Yes Da christie [facility] Metoprolol Tartrate Metoprolol Tartrate Yes 25 Twice A Day [facility] Multivitamin (Multi-Vitamin Daily) 1 Each TABLET Multi vitamin (Multi-Vitamin Daily) 1 Each TABLET Yes Daily [facility] Potassium Chloride Potassium Chloride Yes 10 Tw ice A Day [facility] Vit D Vit D Yes Daily [facility] Potassium Bicarbonate/Cit Ac (Effer-K 10 Meq Tablet Ef f) 10 Meq TABLET.EFF Potassium Bicarbonate/Cit Ac (Effer-K 10 Meq Tablet Eff) 10 Meq TABLET.EFF 2020-01-01 00:00:00 No 1 Daily [facility] Tamsulosin Hcl (Flomax*) 0.4 Mg CAP Tamsulosin Hcl (Flomax*) 0.4 Mg CAP 2020-01-01 00:00:00 No .4 Daily [facility] Vitamin D Vitamin D 2019-12-30 00:00:00 No [id number] [facility] Vital Signs Vital Name Observation Time Observation Value Comments Source Body Temperature 2020-07-01 18:01:00 98.7 [degF] [facility] Weight 2020-07-01 13:31:00 180 [lb_av] [facility] BMI (Body Mass Index) 2020-07-01 13:31:00 23.1 kg/m2 [facility] Weight 2020-05-28 07:27:00 180 [lb_av] [facility] BMI (Body Mass Index) 2020-05-28 07:27:00 23.1 kg/m2 [facility] Body Temperature 2020-02-22 23:50:00 98.6 [degF] [facility] Procedures Procedure Date / Time Performed Performing Clinician [facility] e Computed tomography of abdomen and pelvis with contrast 00:00:00 [facility] X-ray of chest, two views 2020-06-24 00:00:00 [facility] INSERT TEMP BLADDER CATH 2020-05-28 00:00:00 [facility] L HRT ARTERY/VENTRICLE ANGIO 2020-01-01 00:00:00 [facility] INSERT TEMP BLADDER CATH 2019-12-13 00:00:00 [facility] Plan of Care Planned Activity Planned Date Details Comments Source Instructions Constipation - Adult [facility] Encounters Start Date/Time End Date/Time Encounter Type Admission Type Attendi [facility] Care Department Encounter ID Source 2020-07-01 12:55:00 2020-07-01 18:30:00 Departed Emergency Room 1 Toy Raymond [facility] [id number] [facility] 2020-06-26 10:17:00 2020-06-26 10:17:00 Registered Surgical Day Car e 3 NAFISA YODER [facility] [id number] [facility] 2020-05-28 07:35:00 2020-05-28 08:51:00 Departed Emergency Room [facility] [id number] [facility] 2020-02-22 17:56:00 2020-02-22 23:50:00 Departed Emergency Room [facility] [id number] [facility] 15:18:00 2020-01-01 20:18:00 Discharged Inpatient (obs) [facility] [id number] [facility] [place] 2019-12-13 17:36:00 2019-12-13 20:27:00 Departed Emergency Room [facility] [id number] [facility] 2019-12-02 08:45:00 2019-12-02 10:01:00 Departed Emergency Room [facility] [id number] [facility] dical [place] 2019-09-28 17:11:00 2019-09-28 20:46:00 Departed Emergency Room 1 DELPHINE KRAFT [facility] [id number] [facility] 2019-05-09 08:42:00 2019-05-09 12:29:00 Departed Emergency Room [facility] [id number] [facility] Results Test Description Test Time Test Comments Results Result Comments Source CT ABDOMEN/PELVIS W 2020-07-01 15:44:00 [facility] [address] [address] Patient Name: EVANS DANIELSON MR #: [id number] : 1945 Age/Sex: 75/M Req #: [id number] Adm Physician: Ordered by: Toy Raymond MD Report #: [id number] Location: ER Room/Bed: Procedure: CT/CT ABDOMEN/PELVIS W [...] Color (test code = 5778-6) RED YELLOW [facility] [id number] 14:08:00* Test Item Value Reference Range Interpretation Comments Urine Clarity (test code = 75097-9) [facility]URBID [facility]AR [facility] by Test strip 2020-07-01 14:08:00* Test Item Value Reference Range Interpretation Comments Urine Specific [place] (test code = 5811-5) 1.030 1.010-1.02 5 [facility] pH measurement by automated test [id number] 14:08:00* Test Item Value Reference Range Interpretation Comments Urine pH (test code = 39206-4) 6 5-7 [facility] leukocyte esterase detection by wkhbjvpr8275-74-04 14:08:00* Test Item Value Reference Range Interpretation Comments Urine Leukocyte Esterase (test code = 5799-2) 1+ NEGATIVE [facility] nitrite rviyohwvv8261-91-41 14:08:00* Test Item Value Reference Range Interpretation Comments Urine Nitrite (test code = 01958-1) NEGATIVE NEGATIVE [facility] protein measurement by test strip (mass/volume)2020-07-01 14:08:00* Test Item Value Reference Range Interpretation Comments Urine Protein (test code = 5804-0) 3+ NEGATIVE [facility] glucose [id number] 14:08:00* Test Item Value Reference Range Interpretation Comments Urine Glucose (UA) (test code = 2349-9) NEGATIVE NEGATIVE [facility] ketones detection by automated test [id number] 14:08:00* Test Item Value Reference Range Interpretation Comments Urine Ketones (test code = 01022-3) NEGATIVE NEGATIVE [facility] urobilinogen measurement by test strip (mass/volume)2020-07-01 14:08:00* Test Item Value Reference Range Interpretation Comments Urine Urobilinogen (test code = 17612-8) 0.2 0.2-1 [facility] total bilirubin measurement (mass/volume)2020-07-01 14:08:00* Test Item Value Reference Range Interpretation Comments Urine Bilirubin (test code = 1978-6) NEGATIVE NEGATIVE [facility] erythrocytes fwyrilfry3983-69-71 14:08:00* Test Item Value Reference Range Interpretation Comments Urine Blood (test code = 72370-5) 4+ NEGATIVE [facility] Antonio[facility] urine sediment leukocyte count by microscopy (number/high power field)2020-07-01 14:08:00* Test Item Value Reference Range Interpretation Comments Urine WBC (test code = 5821-4) 6-10 0-5 [facility] Antonio[facility]rythrocytes detection in urine sediment by light osjlmutrhm6717-30-40 14:08:00* Test Item Value Reference Range Interpretation Comments Urine RBC (test code = 86960-0) >50 0-5 [facility] Antonio[facility]acteria detection in urine sediment by light [id number] 14:08:00* Test Item Value Reference Range Interpretation Comments Urine Bacteria (test code = 26543-7) FEW NONE [facility] AntonioEpithelial cells detection in urine sediment by light dapdisjdfz1324-90-52 14:08:00* Test Item Value Reference Range Interpretation Comments Urine Epithelial Cells (test code = 70225-0) NONE NONE [facility] Antonio[facility] leukocytes automated count (number/volume)2020-07-01 13:50:00* Test Item Value Reference Range Interpretation Comments White Blood Count (test code = 6690-2) 7.06 4.8-10.8 [facility] Antonio[facility] erythrocytes automated count (number/volume)2020-07-01 13:50:00* Test Item Value Reference Range Interpretation Comments Red Blood Count (test code = 789-8) 4.52 4.3-5.7 [facility] Antonio[facility] hemoglobin measurement (moles/volume)2020-07-01 13:50:00* Test Item Value Reference Range Interpretation Comments Hemoglobin (test code = 57197-4) 13.5 14.0-18.0 [facility] AntonioAutomated blood hematocrit (volume fraction)2020-07-01 13:50:00* Test Item Value Reference Range Interpretation Comments Hematocrit (test code = 4544-3) 41.2 38.2-49.6 [facility] AntonioAutomated erythrocyte mean corpuscular oymqwe5873-03-33 13:50:00* Test Item Value Reference Range Interpretation Comments Mean Corpuscular Volume (test code = 787-2) 91.2 81-99 [facility] AntonioAutomated erythrocyte mean corpuscular hemoglobin (mass per erythrocyte)2020-07-01 13:50:00* Test Item Value Reference Range Interpretation Comments Mean Corpuscular Hemoglobin (test code = 785-6) 29.9 28-32 [facility] AntonioAutomated erythrocyte mean corpuscular hemoglobin concentration measurement (mass/volume)2020-07-01 13:50:00* Test Item Value Reference Range Interpretation Comments Mean Corpuscular Hemoglobin Concent (test code = 786-4) 32.8 31-35 [facility] AntonioRDW IijZy-Bev9282-76-02 13:50:00* Test Item Value Reference Range Interpretation Comments Red Cell Distribution Width (test code = 39997-7) 14.6 11.7 -14.4 [facility] AntonioAutomated blood platelet count (count/volume)2020-07-01 13:50:00* Test Item Value Reference Range Interpretation Comments Platelet Count (test code = 777-3) 191 140-360 [facility] AntonioAutomated blood segmented neutrophil count as percentage of total uovaxdmpqv1474-29-68 13:50:00* Test Item Value Reference Range Interpretation Comments Neutrophils (%) (Auto) (test code = 15615-0) 76.6 38.7-80.0 [facility] AntonioAut[facility] blood lymphocyte count as percentage ot total wdvueokdje1489-02-62 13:50:00* Test Item Value Reference Range Interpretation Comments Lymphocytes (%) (Auto) (test code = 736-9) 11.3 18.0-39.1 [facility] AntonioAutomated blood monocyte count as percentage of total tlamkgjxvx4129-21-47 13:50:00* Test Item Value Reference Range Interpretation Comments Monocytes (%) (Auto) (test code = 5905-5) 8.5 4.4-11.3 [facility] AntonioAutomated blood eosinophil count as percentage of total mthmbsabac8268-95-06 13:50:00* Test Item Value Reference Range Interpretation Comments Eosinophils (%) (Auto) (test code = 713-8) 2.5 0.0-6.0 [facility] basophil count as percentage of total wapdlcyxiy2537-37-40 13:50:00* Test Item Value Reference Range Interpretation Comments Basophils (%) (Auto) (test code = 706-2) 0.7 0.0-1.0 [facility] AntonioFluoroscopic procedure less than one hour cwbtjxjv6161-12-40 13:50:00* Test Item Value Reference Range Interpretation Comments IM GRANULOCYTES % (test code = IM GRANULOCYTES %) 0.4 0.0- 1.0 [facility] AntonioAutomated blood neutrophil count 2020-07-01 13:50:00* Test Item Value Reference Range Interpretation Comments Neutrophils # (Auto) (test code = 751-8) 5.4 2.1-6.9 [facility] AntonioBlood lymphocytes count (number/volume) 2020-07-01 13:50:00* Test Item Value Reference Range Interpretation Comments Lymphocytes # (Auto) (test code = 44526-4) 0.8 1.0-3.2 [facility] AntonioBlood monocytes automated count (number/volume)2020-07-01 13:50:00* Test Item Value Reference Range Interpretation Comments Monocytes # (Auto) (test code = 742-7) 0.6 0.2-0.8 [facility] AntonioAutomated blood eosinophil count 2020-07-01 13:50:00* Test Item Value Reference Range Interpretation Comments Eosinophils # (Auto) (test code = 711-2) 0.2 0.0-0.4 [facility] AntonioAutomated blood basophil count (count/volume)2020-07-01 13:50:00* Test Item Value Reference Range Interpretation Comments Basophils # (Auto) (test code = 704-7) 0.1 0.0-0.1 [facility] AntonioFluoroscopic procedure less than one hour mygkthpk7220-69-98 13:50:00* Test Item Value Reference Range Interpretation Comments Absolute Immature Granulocyte (auto (sara t code = Absolute Immature Granulocyte (auto) 0.03 0-0.1 [facility] or plasma sodium measurement (moles/volume)2020-07-01 13:50:00* Test Item Value Reference Range Interpretation Comments Sodium Level (test code = 2951-2) 143 136-145 [facility]er[facility] or plasma potassium measurement (moles/volume)2020-07-01 13:50:00* Test Item Value Reference Range Interpretation Comments Potassium Level (test code = 2823-3) 3.5 3.5-5.1 [facility] or plasma chloride measurement (moles/volume)2020-07-01 13:50:00* Test Item Value Reference Range Interpretation Comments Chloride Level (test code = 2075-0) 109 98-107 [facility]er[facility] or plasma carbon dioxide, total measurement (moles/volume)2020-07-01 13:50:00* Test Item Value Reference Range Interpretation Comments Carbon Dioxide Level (test code = 2028-9) 21 22-29 [facility]er[facility] or plasma anion cbu6109-03-31 13:50:00* Test Item Value Reference Range Interpretation Comments Anion Gap (test code = 54034-4) 16.5 8-16 [facility] or plasma urea nitrogen measurement (mass/volume)2020-07-01 13:50:00* Test Item Value Reference Range Interpretation Comments Blood Urea Nitrogen (test code = 3094-0) 21 7-26 [facility] or plasma creatinine measurement (mass/volume)2020-07-01 13:50:00* Test Item Value Reference Range Interpretation Comments Creatinine (test code = 2160-0) 1.41 0.72-1.25 [facility] or plasma urea nitrogen/creatinine mass fitmf5664-10-61 13:50:00* Test Item Value Reference Range Interpretation Comments BUN/Creatinine Ratio (test code = 3097-3) 15 6-25 [facility] AntonioEstimated glomerular filtration rate (GFR) frxrfzrtupicx3804-51-41 13:50:00* Test Item Value Reference Range Interpretation Comments Estimat Glomerular Filtration Rate (test code = 103861833) 49 >60 Ranges were taken from the National Kidney Disease Education Program and the [facility] Foundation literature.Reference ranges:60 or greater: Lsfqog41-55 ( for 3 consecutive months): Chronic kidney disease 15 or less: Kidney failureChildren's Hospital of San AntonioGlucose akvihudrlme0158-97-16 13:50:00* Test Item Value Reference Range Interpretation Comments Glucose Level (test code = JXR6742) 112 74-118 [facility] plasma calcium measurement (mass/volume)2020-07-01 13:50:00* Test Item Value Reference Range Interpretation Comments Calcium Level (test code = 66258-7) 9.4 8.4-10.2 [facility] plasma total bilirubin measurement (mass/volume)2020-07-01 13:50:00* Test Item Value Reference Range Interpretation Comments Total Bilirubin (test code = 1975-2) 1.6 0.2-1.2 [facility] AntonioFluoroscopic procedure less than one hour droniktw1126-83-55 13:50:00* Test Item Value Reference Range Interpretation Comments Aspartate Amino Transf (AST/SGOT) (test code = Aspartate Amino Transf (AST/SGOT)) 24 5-34 [facility]er[facility] or plasma alanine aminotransferase measurement (enzymatic activity/volume)2020-07-01 13:50:00* Test Item Value Reference Range Interpretation Comments Alanine Aminotransferase (ALT/SGPT) (test code = 1742-6) 21 0-55 [facility] plasma protein measurement (mass/volume)2020-07-01 13:50:00* Test Item Value Reference Range Interpretation Comments Total Protein (test code = 2885-2) 7.4 6.5-8.1 [facility]er[facility] or plasma albumin measurement (mass/volume)2020-07-01 13:50:00* Test Item Value Reference Range Interpretation Comments Albumin (test code = 1751-7) 4.2 3.5-5.0 [facility] AntonioPlasma globulin measurement (mass/volume) 2020-07-01 13:50:00* Test Item Value Reference Range Interpretation Comments Globulin (test code = 20242-7) 3.2 2.3-3.5 [facility] or plasma albumin/globulin mass dbiuv2095-65-35 13:50:00* Test Item Value Reference Range Interpretation Comments Albumin/Globulin Ratio (test code = 1759-0) 1.3 0.8-2.0 [facility]er[facility] or plasma alkaline phosphatase measurement (enzymatic activity/volume)2020-07-01 13:50:00* Test Item Value Reference Range Interpretation Comments Alkaline Phosphatase (test code = 6768-6) 128 40-150 [facility] AntonioTroponin I measurement by highly sensitive enzyme nymjkxftcxi0614-70-72 13:50:00* Test Item Value Reference Range Interpretation Comments Troponin I (test code = 31142-4) 0.041 0-0.300 [facility] AntonioCapillary blood glucose measurement by glucometer (mass/volume)2020-06-26 11:50:00* Test Item Value Reference Range Interpretation Comments Bedside Glucose (test code = 46526-8) 120 70-120 Meter ID: [id number]'s Hospital of San AntonioFluoroscopic procedure less than one hour gmwimout3852-44-08 14:20:00* Test Item Value Reference Range Interpretation [...] under 564(g) of the ACT.Testing performed by [address] 2 KPEUZ0041-08-98 14:00:[address] [address] Patient Name: EVANS DANIELSON MR #: [id number] : 1945 Age/Sex: 75/M Req #: [id number] Adm Physician: Ordered by: NAFISA YODER MD Report #: [id number] Location: OR Room/Bed: Procedure: [id number] DX/CHEST 2 VIEWS Exam Date: 06/24/20 Exam [...] MD 01 Transcribed By: DAGMAR on 06/24/201401 TELEPHONE MESSENGER Y TO: NAFISA YODER MD Bacterial urine cercnus8748-19-10 08:30:00* Test Item Value Reference Range Interpretation Comments Urine Culture (test code = 630-4) PROVIDESEANIA RETTGERI [facility] AntonioGLUBED2020-05-13 15:29:00* Test Item Value Reference Range Interpretation Comments GLUBED (test code = GLUBED) 123 mg/dL 74-106 H Performed by certified do all operator at [facility] [id number] 05:27:00* Test Item Value Reference Range Interpretation Comments GLUBED (test code = GLUBED) 165 mg/dL 74-106 H Performed by certified do all operator at [facility] BASIC METABOLIC LONGS0312-91-23 18:56:00* Test Item Value Reference Range Interpretation [...] CA) 8.8 mg/dL 8.5-10.1 N CBC W/AUTO [id number] 18:42:00* Test Item Value Reference Range Interpretation [...] code = NRBC#) 0.00 K/mm3 0.0-0.1 N [id number] 17:59:00* Test Item Value Reference Range Interpretation Comments GLUBED (test code = GLUBED) 91 mg/dL 74-106 N Performed by certified do all operator at [facility] [id number] 13:40:00* Test Item Value Reference Range Interpretation Comments GLUBED (test code = GLUBED) 140 mg/dL 74-106 H Performed by certified do all operator at [facility] Novel Coronavirus 2019 Cakkfgr8239-28-93 13:40:00* Test Item Value Reference Range Interpretation Comments Novel Coronavirus 2019 Inhouse (test code = COVNONPUI) Negative Negative Testing Criteria: Preprocedure ScreeningNovel Coronavirus 2019 Inhouse 2020-03-10 13:40:00* Test Item Value Reference Range Interpretation Comments Novel Coronavirus 2019 Inhouse (test code = COVNONPUI) Negative Negative SENT TO 03/09/20Testing Criteria: Preprocedure ScreeningTesting Criteria: Preprocedure ScreeningCOAGULATION TIME [id number] 11:58:00* Test Item Value Reference Range Interpretation Comments COAGULATION TIME ACTIVATED (test code = ACT) 275 seconds 62.8-88.0 H COAGULATION TIME [id number] 11:58:00* Test Item Value Reference Range Interpretation Comments COAGULATION TIME ACTIVATED (test code = ACT) 286 seconds 62.8-88.0 H [id number] 10:48:00* Test Item Value Reference Range Interpretation Comments GLUBED (test code = GLUBED) 99 mg/dL 74-106 N Performed by certified do all operator at [facility] Coronavirus 2019 nCoV Zzxkvum4452-26-03 10:01:00* Test Item Value Reference Range Interpretation Comments Coronavirus 2019 nCoV Bedside (test code = COVNONPUIBED) Negative COMPREHENSIVE METABOLIC [id number] 11:21:00* Test Item Value Reference Range Interpretation [...] LDL result is a direct measurement.========= PROTHROMBIN [id number] 11:17:00* Test Item Value Reference Range Interpretation [...] (2.5-3.5) IS PATIENT ON ANTICOAGULANTS? NTHROMBOPLASTIN TIME [id number] 11:17:00* Test Item Value Reference Range Interpretation Comments THROMBOPLASTIN TIME PARTIAL (test code = PTT) 37.0 seconds 23.0-37. 0 N IS PATIENT ON ANTICOAGULANTS? NCOMPREHENSIVE METABOLIC [id number] 11:06:00 * Test Item Value Reference Range [...] code = LDL) mg/dL 100-129 CBC W/AUTO [id number] 11:05:00* Test Item Value Reference Range Interpretation [...] (test code = MDIFF) NO CBC W/AUTO [id number] 11:04:00* Test Item Value Reference Range Interpretation [...] code = BA#) K/mm3 0.0-0.2 Bacterial urine kmmkmiw6108-90-32 20:36:00* Test Item Value Reference Range Interpretation Comments Urine Culture (test code = 630-4) PSEUDOMONAS AERUGINOSA [facility] AntonioBacterial urine vlsyfbp5527-83-28 20:36:00* Test Item Value Reference Range Interpretation Comments Urine Culture (test code = 630-4) PSEUDOMONAS AERUGINOSA [facility] AntonioBedside Ytmmyju2362-65-72 20:29:00* Test Item Value Reference Range Interpretation Comments Bedside Glucose (test code = 52513-1) 175 70-120 H Meter ID: [id number]'s Hospital of San AntonioCapillary blood glucose measurement by glucometer (mass/volume)2020-01-01 18:03:00* Test Item Value Reference Range Interpretation Comments Bedside Glucose (test code = 84482-2) 175 70-120 Meter ID: [id number]'s Hospital of San AntonioTriglycerides Level 2019-12-30 16:21:00* Test Item Value Reference Range Interpretation Comments Triglycerides Level (test code = 2571-8) 81 0-149 [facility] AntonioCholesterol Zognj4583-03-63 16:21:00* Test Item Value Reference Range Interpretation Comments Cholesterol Level (test code = 2093-3) 112 0-199 Less than 200 mg/dL Low Twtf962 - 239 mg/dL Borderline Khcy367 m g/dl and greater High Risk [facility] AntonioLDL Gxrgmmqxzoo2753-34-55 16:21:00* Test Item Value Reference Range Interpretation Comments LDL Cholesterol (test code = 2089-1) 59 60-130 L [facility] AntonioHDL Fkgxticusgb1711-22-53 16:21:00* Test Item Value Reference Range Interpretation Comments HDL Cholesterol (test code = 2085-9) 37 40-60 L [facility] AntonioCholesterol/HDL Aivkj0311-32-66 16:21:00 * Test Item Value Reference Range Interpretation Comments Cholesterol/HDL Ratio (test code = 9830-1) 3.0 3.9-4.7 [facility] Qxqum8056[facility]49-45 16:18:00* Test Item Value Reference Range Interpretation Comments Sodium Level (test code = 2951-2) 137 136-145 [facility] AntonioPotassium Jsxpg8847-08-19 16:18:00* Test Item Value Reference Range Interpretation Comments Potassium Level (test code = 2823-3) 4.0 3.5-5.1 [facility] AntonioChloride Lwgjv4385-00-98 16:18:00* Test Item Value Reference Range Interpretation Comments Chloride Level (test code = 2075-0) 104 98-107 [facility] AntonioCarbon Dioxide Gurbi7746-11-42 16:18:00* Test Item Value Reference Range Interpretation Comments Carbon Dioxide Level (test code = 2028-9) 26 22-29 [facility] AntonioAnion Fzf3732-19-69 16:18:00* Test Item Value Reference Range Interpretation Comments Anion Gap (test code = 48389-2) 11.0 8-16 [facility] AntonioBlood Urea Qlhditgs2929-98-80 16:18:00* Test Item Value Reference Range Interpretation Comments Blood Urea Nitrogen (test code = 3094-0) 19 7-26 [facility] AntonioCreatinine2020-03-02 16:18:00* Test Item Value Reference Range Interpretation Comments Creatinine (test code = 2160-0) 1.36 0.72-1.25 H [facility] AntonioBUN/Creatinine Ouimr2984-46-29 16:18:00* Test Item Value Reference Range Interpretation Comments BUN/Creatinine Ratio (test code = 3097-3) 14 6-25 [facility] AntonioEstimat Glomerular Filtration Rate 2019-12-30 16:18:00* Test Item Value Reference Range Interpretation Comments Estimat Glomerular Filtration Rate (test code = 416295969) 51 >60 L Ranges were taken from the National Kidney Disease Education Program and the [facility] literature.Reference ranges:60 or greater: Aooroo23-49 ( for 3 consecutive months): Chronic kidney disease 15 or less: Kidney failureChildren's Hospital of San AntonioGlucose Sjdzl4413-68-70 16:18:00* Test Item Value Reference Range Interpretation Comments Glucose Level (test code = TJW2627) 214 74-118 H [facility] AntonioCalcium Atikw3251-07-44 16:18:00* Test Item Value Reference Range Interpretation Comments Calcium Level (test code = 62711-9) 9.9 8.4-10.2 [facility] AntonioTotal Uziuotyno7532-06-35 16:18:00* Test Item Value Reference Range Interpretation Comments Total Bilirubin (test code = 1975-2) 0.8 0.2-1.2 [facility] AntonioAspartate Amino Transf (AST/SGOT) 2019-12-30 16:18:00* Test Item Value Reference Range Interpretation Comments Aspartate Amino Transf (AST/SGOT) (test code = Aspartate Amino Transf (AST/SGOT)) 21 5-34 [facility] AntonioAlanine Aminotransferase (ALT/SGPT) 2019-12-30 16:18:00* Test Item Value Reference Range Interpretation Comments Alanine Aminotransferase (ALT/SGPT) (test code = 1742-6) 18 0-55 [facility] AntonioTotal Excymuq3146-26-65 16:18:00* Test Item Value Reference Range Interpretation Comments Total Protein (test code = 2885-2) 7.7 6.5-8.1 [facility] AntonioAlbumin2020-03-02 16:18:00* Test Item Value Reference Range Interpretation Comments Albumin (test code = 1751-7) 3.8 3.5-5.0 [facility] AntonioGlobulin2020-03-02 16:18:00* Test Item Value Reference Range Interpretation Comments Globulin (test code = 78276-2) 3.9 2.3-3.5 H [facility] AntonioAlbumin/Globulin Ykjpw3140-44-10 16:18:00 * Test Item Value Reference Range Interpretation Comments Albumin/Globulin Ratio (test code = 1759-0) 1.0 0.8-2.0 [facility] AntonioAlkaline Xtwcvwcstgb7885-60-24 16:18:00* Test Item Value Reference Range Interpretation Comments Alkaline Phosphatase (test code = 6768-6) 280 40-150 H [facility] AntonioProthrombin Bsca0560-10-75 16:01:00* Test Item Value Reference Range Interpretation Comments Prothrombin Time (test code = 5902-2) 14.5 11.9-14.5 [facility] AntonioProthromb Time International Ratio 2019-12-30 16:01:00* Test Item Value Reference Range Interpretation Comments Prothromb Time International Ratio (test code = 6301-6) 1.06 Oral Anticoagulant Therapy INR Values:1. Low Intensity Therapy 1.5 - 2.02 . Moderate Intensity Therapy 2.0 - 3.03. High Intensity Therapy(1) 2.5 - 3. 54. High Intensity Therapy(2) 3.0 - 4.05. Panic Value INR > 5.0 [facility] AntonioActivated Partial Thromboplast Time 2019-12-30 16:01:00* Test Item Value Reference Range Interpretation Comments Activated Partial Thromboplast Time (test code = 69402-0) 34.5 23.8-35.5 [facility] AntonioWhite Blood Lorqm6682-98-03 15:54:00* Test Item Value Reference Range Interpretation Comments White Blood Count (test code = 6690-2) 7.94 4.8-10.8 [facility] AntonioRed Blood Rruzq8028-32-30 15:54:00* Test Item Value Reference Range Interpretation Comments Red Blood Count (test code = 789-8) 4.59 4.3-5.7 [facility] AntonioHemoglobin2020-03-02 15:54:00* Test Item Value Reference Range Interpretation Comments Hemoglobin (test code = 71877-9) 13.8 14.0-18.0 L [facility] AntonioHematocrit2020-03-02 15:54:00* Test Item Value Reference Range Interpretation Comments Hematocrit (test code = 4544-3) 41.7 38.2-49.6 [facility] AntonioMean Corpuscular Lnyple7839-16-23 15:54:00* Test Item Value Reference Range Interpretation Comments Mean Corpuscular Volume (test code = 787-2) 90.8 81-99 [facility] AntonioMean Corpuscular Tceapgbjvs4419-28-97 15:54:00* Test Item Value Reference Range Interpretation Comments Mean Corpuscular Hemoglobin (test code = 785-6) 30.1 28-32 [facility] AntonioMean Corpuscular Hemoglobin Concent 2019-12-30 15:54:00* Test Item Value Reference Range Interpretation Comments Mean Corpuscular Hemoglobin Concent (test code = 786-4) 33.1 31-35 [facility] AntonioRed Cell Distribution Kuuvw8202-95-18 15:54:00* Test Item Value Reference Range Interpretation Comments Red Cell Distribution Width (test code = 78116-5) 14.3 11.7 -14.4 [facility] AntonioPlatelet Tigsm9547-58-58 15:54:00* Test Item Value Reference Range Interpretation Comments Platelet Count (test code = 777-3) 199 140-360 [facility] AntonioNeutrophils (%) (Auto)2019-12-30 15:54:00 * Test Item Value Reference Range Interpretation Comments Neutrophils (%) (Auto) (test code = 46537-4) 73.4 38.7-80.0 [facility] AntonioLymphocytes (%) (Auto)2019-12-30 15:54:00 * Test Item Value Reference Range Interpretation Comments Lymphocytes (%) (Auto) (test code = 736-9) 15.1 18.0-39.1 L [facility] AntonioMonocytes (%) (Auto)2019-12-30 15:54:00* Test Item Value Reference Range Interpretation Comments Monocytes (%) (Auto) (test code = 5905-5) 8.1 4.4-11.3 [facility] AntonioEosinophils (%) (Auto)2019-12-30 15:54:00 * Test Item Value Reference Range Interpretation Comments Eosinophils (%) (Auto) (test code = 713-8) 2.6 0.0-6.0 [facility] AntonioBasophils (%) (Auto)2019-12-30 15:54:00* Test Item Value Reference Range Interpretation Comments Basophils (%) (Auto) (test code = 706-2) 0.4 0.0-1.0 [facility] AntonioIM GRANULOCYTES %2019-12-30 15:54:00* Test Item Value Reference Range Interpretation Comments IM GRANULOCYTES % (test code = IM GRANULOCYTES %) 0.4 0.0- 1.0 [facility] AntonioNeutrophils # (Auto)2019-12-30 15:54:00* Test Item Value Reference Range Interpretation Comments Neutrophils # (Auto) (test code = 751-8) 5.8 2.1-6.9 [facility] AntonioLymphocytes # (Auto)2019-12-30 15:54:00* Test Item Value Reference Range Interpretation Comments Lymphocytes # (Auto) (test code = 43778-8) 1.2 1.0-3.2 [facility] AntonioMonocytes # (Auto)2019-12-30 15:54:00* Test Item Value Reference Range Interpretation Comments Monocytes # (Auto) (test code = 742-7) 0.6 0.2-0.8 [facility] AntonioEosinophils # (Auto)2019-12-30 15:54:00* Test Item Value Reference Range Interpretation Comments Eosinophils # (Auto) (test code = 711-2) 0.2 0.0-0.4 [facility] AntonioBasophils # (Auto)2019-12-30 15:54:00* Test Item Value Reference Range Interpretation Comments Basophils # (Auto) (test code = 704-7) 0.0 0.0-0.1 [facility] AntonioAbsolute Immature Granulocyte (auto 2019-12-30 15:54:00* Test Item Value Reference Range Interpretation Comments Absolute Immature Granulocyte (auto (sara t code = Absolute Immature Granulocyte (auto) 0.03 0-0.1 [facility]Bl[facility] leukocytes automated count (number/volume)2019-12-30 14:20:00* Test Item Value Reference Range Interpretation Comments White Blood Count (test code = 6690-2) 7.94 4.8-10.8 [facility] AntonioBlcook hospital erythrocytes automated count (number/volume)2019-12-30 14:20:00* Test Item Value Reference Range Interpretation Comments Red Blood Count (test code = 789-8) 4.59 4.3-5.7 [facility] AntonioBlood hemoglobin measurement (moles/volume)2019-12-30 14:20:00* Test Item Value Reference Range Interpretation Comments Hemoglobin (test code = 19440-0) 13.8 14.0-18.0 [facility] AntonioAutomated blood hematocrit (volume fraction)2019-12-30 14:20:00* Test Item Value Reference Range Interpretation Comments Hematocrit (test code = 4544-3) 41.7 38.2-49.6 [facility] AntonioAutomated erythrocyte mean corpuscular xbtqbr7104-86-86 14:20:00* Test Item Value Reference Range Interpretation Comments Mean Corpuscular Volume (test code = 787-2) 90.8 81-99 [facility] AntonioAutomated erythrocyte mean corpuscular hemoglobin (mass per erythrocyte)2019-12-30 14:20:00* Test Item Value Reference Range Interpretation Comments Mean Corpuscular Hemoglobin (test code = 785-6) 30.1 28-32 [facility] AntonioAutomated erythrocyte mean corpuscular hemoglobin concentration measurement (mass/volume)2019-12-30 14:20:00* Test Item Value Reference Range Interpretation Comments Mean Corpuscular Hemoglobin Concent (test code = 786-4) 33.1 31-35 [facility] AntonioRDW KduDa-Hcx7908-09-02 14:20:00* Test Item Value Reference Range Interpretation Comments Red Cell Distribution Width (test code = 62351-3) 14.3 11.7 -14.4 [facility] AntonioAutomated blood platelet count (count/volume)2019-12-30 14:20:00* Test Item Value Reference Range Interpretation Comments Platelet Count (test code = 777-3) 199 140-360 [facility] AntonioAutomated blood segmented neutrophil count as percentage of total mzvppexeom9163-79-04 14:20:00* Test Item Value Reference Range Interpretation Comments Neutrophils (%) (Auto) (test code = 29795-6) 73.4 38.7-80.0 [facility] AntonioAutomated blood lymphocyte count as percentage ot total vpguzblnvn8204-05-37 14:20:00* Test Item Value Reference Range Interpretation Comments Lymphocytes (%) (Auto) (test code = 736-9) 15.1 18.0-39.1 [facility] AntonioAutomated blood monocyte count as percentage of total ncmkpxxmcl1371-32-31 14:20:00* Test Item Value Reference Range Interpretation Comments Monocytes (%) (Auto) (test code = 5905-5) 8.1 4.4-11.3 [facility] AntonioAutomated blood eosinophil count as percentage of total xcailbsojg3435-57-33 14:20:00* Test Item Value Reference Range Interpretation Comments Eosinophils (%) (Auto) (test code = 713-8) 2.6 0.0-6.0 [facility] AntonioAutomated blood basophil count as percentage of total zllufgmgmo4113-46-01 14:20:00* Test Item Value Reference Range Interpretation Comments Basophils (%) (Auto) (test code = 706-2) 0.4 0.0-1.0 [facility] AntonioFluoroscopic procedure less than one hour orwteraz3806-59-85 14:20:00* Test Item Value Reference Range Interpretation Comments IM GRANULOCYTES % (test code = IM GRANULOCYTES %) 0.4 0.0- 1.0 [facility] AntonioAutomated blood neutrophil count 2019-12-30 14:20:00* Test Item Value Reference Range Interpretation Comments Neutrophils # (Auto) (test code = 751-8) 5.8 2.1-6.9 [facility] AntonioBlood lymphocytes count (number/volume) 2019-12-30 14:20:00* Test Item Value Reference Range Interpretation Comments Lymphocytes # (Auto) (test code = 47528-2) 1.2 1.0-3.2 [facility] AntonioBlood monocytes automated count (number/volume)2019-12-30 14:20:00* Test Item Value Reference Range Interpretation Comments Monocytes # (Auto) (test code = 742-7) 0.6 0.2-0.8 [facility] AntonioAutomated blood eosinophil count 2019-12-30 14:20:00* Test Item Value Reference Range Interpretation Comments Eosinophils # (Auto) (test code = 711-2) 0.2 0.0-0.4 [facility] AntonioAutomated blood basophil count (count/volume)2019-12-30 14:20:00* Test Item Value Reference Range Interpretation Comments Basophils # (Auto) (test code = 704-7) 0.0 0.0-0.1 [facility] AntonioFluoroscopic procedure less than one hour orygkkos6012-92-57 14:20:00* Test Item Value Reference Range Interpretation Comments Absolute Immature Granulocyte (auto (sara t code = Absolute Immature Granulocyte (auto) 0.03 0-0.1 [facility] AntonioProthrombin time (PT) in platelet poor plasma by coagulation rsxzc8656-38-00 14:20:00* Test Item Value Reference Range Interpretation Comments Prothrombin Time (test code = 5902-2) 14.5 11.9-14.5 [facility] AntonioINR in Platelet poor plasma by Coagulation ntcxp1474-32-59 14:20:00* Test Item Value Reference Range Interpretation Comments Prothromb Time International Ratio (test code = 6301-6) 1.06 Oral Anticoagulant Therapy INR Values:1. Low Intensity Therapy 1.5 - 2.02 . Moderate Intensity Therapy 2.0 - 3.03. High Intensity Therapy(1) 2.5 - 3. 54. High Intensity Therapy(2) 3.0 - 4.05. Panic Value INR > 5.0 [facility] AntonioActivated partial thromboplastin time (aPTT) in platelet poor plasma by coagulation gxcqi7212-63-58 14:20:00* Test Item Value Reference Range Interpretation Comments Activated Partial Thromboplast Time (test code = 01247-1) 34.5 23.8-35.5 [facility]er[facility] plasma sodium measurement (moles/volume)2019-12-30 14:20:00* Test Item Value Reference Range Interpretation Comments Sodium Level (test code = 2951-2) 137 136-145 [facility]erum or plasma potassium measurement (moles/volume)2019-12-30 14:20:00* Test Item Value Reference Range Interpretation Comments Potassium Level (test code = 2823-3) 4.0 3.5-5.1 [facility] Hospitalerum or plasma chloride measurement (moles/volume)2019-12-30 14:20:00* Test Item Value Reference Range Interpretation Comments Chloride Level (test code = 2075-0) 104 98-107 [facility] Hospitalerum or plasma carbon dioxide, total measurement (moles/volume)2019-12-30 14:20:00* Test Item Value Reference Range Interpretation Comments Carbon Dioxide Level (test code = 2028-9) 26 22-29 [facility]erum or plasma anion hsc4235-93-40 14:20:00* Test Item Value Reference Range Interpretation Comments Anion Gap (test code = 83027-5) 11.0 8-16 [facility]er[facility] or plasma urea nitrogen measurement (mass/volume)2019-12-30 14:20:00* Test Item Value Reference Range Interpretation Comments Blood Urea Nitrogen (test code = 3094-0) 19 7-26 [facility]erum [facility] plasma creatinine measurement (mass/volume)2019-12-30 14:20:00* Test Item Value Reference Range Interpretation Comments Creatinine (test code = 2160-0) 1.36 0.72-1.25 [facility]erum or plasma urea nitrogen/creatinine mass uyrkg0681-88-82 14:20:00* Test Item Value Reference Range Interpretation Comments BUN/Creatinine Ratio (test code = 3097-3) 14 6-25 [facility] AntonioEstimated glomerular filtration rate (GFR) teoxjyxalwhph5914-94-00 14:20:00* Test Item Value Reference Range Interpretation Comments Estimat Glomerular Filtration Rate (test code = 950704242) 51 >60 Ranges were taken from the National Kidney Disease Education Program and the [facility] literature.Reference ranges:60 or greater: Evgfuo76-31 ( for 3 consecutive months): Chronic kidney disease 15 or less: Kidney failureChildren[facility] Hospital of San AntonioGlucose jqhlvzwnceu8641-73-56 14:20:00* Test Item Value Reference Range Interpretation Comments Glucose Level (test code = EJB9578) 214 74-118 [facility]er[facility] or plasma calcium measurement (mass/volume)2019-12-30 14:20:00* Test Item Value Reference Range Interpretation Comments Calcium Level (test code = 27809-4) 9.9 8.4-10.2 [facility] Hospitalerum or plasma total bilirubin measurement (mass/volume)2019-12-30 14:20:00* Test Item Value Reference Range Interpretation Comments Total Bilirubin (test code = 1975-2) 0.8 0.2-1.2 [facility] AntonioFluoroscopic procedure less than one hour fzntlbto7835-37-73 14:20:00* Test Item Value Reference Range Interpretation Comments Aspartate Amino Transf (AST/SGOT) (test code = Aspartate Amino Transf (AST/SGOT)) 21 5-34 [facility] Hospitalerum or plasma alanine aminotransferase measurement (enzymatic activity/volume)2019-12-30 14:20:00* Test Item Value Reference Range Interpretation Comments Alanine Aminotransferase (ALT/SGPT) (test code = 1742-6) 18 0-55 [facility]er[facility] plasma protein measurement (mass/volume)2019-12-30 14:20:00* Test Item Value Reference Range Interpretation Comments Total Protein (test code = 2885-2) 7.7 6.5-8.1 [facility]erum or plasma albumin measurement (mass/volume)2019-12-30 14:20:00* Test Item Value Reference Range Interpretation Comments Albumin (test code = 1751-7) 3.8 3.5-5.0 [facility] AntonioPlasma globulin measurement (mass/volume) 2019-12-30 14:20:00* Test Item Value Reference Range Interpretation Comments Globulin (test code = 53309-0) 3.9 2.3-3.5 [facility]erum or plasma albumin/globulin mass xfgmf5751-99-56 14:20:00* Test Item Value Reference Range Interpretation Comments Albumin/Globulin Ratio (test code = 1759-0) 1.0 0.8-2.0 [facility]er[facility] or plasma alkaline phosphatase measurement (enzymatic activity/volume)2019-12-30 14:20:00* Test Item Value Reference Range Interpretation Comments Alkaline Phosphatase (test code = 6768-6) 280 40-150 [facility]er[facility] plasma triglyceride measurement (mass/volume)2019-12-30 14:20:00* Test Item Value Reference Range Interpretation Comments Triglycerides Level (test code = 2571-8) 81 0-149 [facility]er[facility] plasma cholesterol measurement (mass/volume)2019-12-30 14:20:00* Test Item Value Reference Range Interpretation Comments Cholesterol Level (test code = 2093-3) 112 0-199 Less than 200 mg/dL Low Epvb696 - 239 mg/dL Borderline Ikau001 m g/dl and greater High Risk [facility]er[facility] plasma cholesterol in LDL measurement (mass/volume) 2019-12-30 14:20:00* Test Item Value Reference Range Interpretation Comments LDL Cholesterol (test code = 2089-1) 59 60-130 [facility]er[facility] plasma cholesterol in HDL measurement (mass/volume)2019-12-30 14:20:00* Test Item Value Reference Range Interpretation Comments HDL Cholesterol (test code = 2085-9) 37 40-60 [facility]erum or plasma total cholesterol/cholesterol in HDL mass rpkax9744-30-26 14:20:00* Test Item Value Reference Range Interpretation Comments Cholesterol/HDL Ratio (test code = 9830-1) 3.0 3.9-4.7 [facility] AntonioProthrombin time (PT) in platelet poor plasma by coagulation kreif5469-58-94 14:20:00* Test Item Value Reference Range Interpretation Comments Prothrombin Time (test code = 5902-2) 14.5 11.9-14.5 [facility] AntonioINR in Platelet poor plasma by Coagulation qmsiu9287-18-40 14:20:00* Test Item Value Reference Range Interpretation Comments Prothromb Time International Ratio (test code = 6301-6) 1.06 Oral Anticoagulant Therapy INR Values:1. Low Intensity Therapy 1.5 - 2.02 . Moderate Intensity Therapy 2.0 - 3.03. High Intensity Therapy(1) 2.5 - 3. 54. High Intensity Therapy(2) 3.0 - 4.05. Panic Value INR > 5.0 [facility] AntonioActivated partial thromboplastin time (aPTT) in platelet poor plasma by coagulation thgha0278-63-95 14:20:00* Test Item Value Reference Range Interpretation Comments Activated Partial Thromboplast Time (test code = 24341-6) 34.5 23.8-35.5 [facility]er[facility] plasma triglyceride measurement (mass/volume)2019-12-30 14:20:00* Test Item Value Reference Range Interpretation Comments Triglycerides Level (test code = 2571-8) 81 0-149 [facility]er[facility] plasma cholesterol measurement (mass/volume)2019-12-30 14:20:00* Test Item Value Reference Range Interpretation Comments Cholesterol Level (test code = 2093-3) 112 0-199 Less than 200 mg/dL Low Webj834 - 239 mg/dL Borderline Yjbc943 m g/dl and greater High [facility]er[facility] cholesterol in LDL measurement (mass/volume) 2019-12-30 14:20:00* Test Item Value Reference Range Interpretation Comments LDL Cholesterol (test code = 2089-1) 59 60-130 [facility]er[facility] cholesterol in HDL measurement (mass/volume)2019-12-30 14:20:00* Test Item Value Reference Range Interpretation Comments HDL Cholesterol (test code = 2085-9) 37 40-60 [facility]er[facility] or plasma total cholesterol/cholesterol in HDL mass czlnt2974-64-41 14:20:00* Test Item Value Reference Range Interpretation Comments Cholesterol/HDL Ratio (test code = 9830-1) 3.0 3.9-4.7 [facility] AntonioUrine Dafutlt9088-50-66 11:43:00* Test Item Value Reference Range Interpretation Comments Urine Culture (test code = 630-4) No Result Data Provided [facility] AntonioBacterial urine uvnhwsr4917-85-56 01:21:00* Test Item Value Reference Range Interpretation Comments Urine Culture (test code = 630-4) PSEUDOMONAS AERUGINOSA [facility] AntonioBacterial urine uzoqwcr2816-26-00 01:21:00* Test Item Value Reference Range Interpretation Comments Urine Culture (test code = 630-4) [facility]ERUGIN[facility]/O - [id number] 20:28:00 [facility] [address] [address] Patient Name: EVANS DANIELSON MR #: [id number] : [birth year] Age/Sex: 74/M Req #: [id number] Adm Physician: Ordered by: DELPHINE KRAFT MD Report #: [id number] Location: [facility] Room/Bed: Procedure: [id number] H OPD/CT C-SPINE W/O - HOPD Exam [...] COPY TO: DELPHINE KRAFT MD CT BRAIN [id number] 20:28:00 [address] [address] Patient Name: EVANS DANIELSON MR #: [id number] : 1945 Age/Sex: 74/M Req #: [id number] Adm Physician: Ordered by: DELPHINE KRAFT MD Report #: [id number] Location: [facility] Room/Bed: Procedure: [id number] H OPD/CT BRAIN WO-HOPD Exam Date: 09/28/19 [...] rtical vascular insults. Sellar/suprasellar region: No abnormalities. Top Precipitator Operator Helper niocervical junction: Patent foramen magnum. No Chiari [...] DELPHINE KRAFT MD CXR 2 VIEW - [id number] 20:24:00 [address] [address] Patient Name: EVANS DANIELSON MR #: [id number] : 1945 Age/Sex: 74/M Req #: [id number] Adm Physician: Ordered by: DELPHINE KRAFT MD Report #: [id number] Location: [facility] Room/Bed: Procedure: [id number] H OPD/CXR 2 VIEW - HOPD Exam [...] COPY TO: DELPHINE KRAFT MD BASIC METABOLIC [id number] 05:05:00* Test Item Value Reference Range Interpretation [...] CA) 8.7 mg/dL 8.5-10.1 N BASIC METABOLIC [id number] 04:52:00* Test Item Value Reference Range Interpretation [...] code = CA) mg/dL 8.5-10.1 CBC W/AUTO [id number] 04:27:00* Test Item Value Reference Range Interpretation [...] DIFF REQUIRED (test code = MDIFF) NO [id number] 12:26:00* Test Item Value Reference Range Interpretation Comments GLUBED (test code = GLUBED) 167 mg/dL 74-106 H Performed by certified do all operator at [facility] BASIC METABOLIC [id number] 05:39:00* Test Item Value Reference Range Interpretation [...] CA) 8.1 mg/dL 8.5-10.1 L BASIC METABOLIC [id number] 05:29:00* Test Item Value Reference Range Interpretation [...] code = CA) mg/dL 8.5-10.1 CBC W/AUTO [id number] 05:09:00* Test Item Value Reference Range Interpretation [...] DIFF REQUIRED (test code = MDIFF) NO [id number] 18:46:00* Test Item Value Reference Range Interpretation Comments GLUBED (test code = GLUBED) 104 mg/dL 74-106 N Performed by certified do all operator at [facility] COMPREHENSIVE METABOLIC [id number] 06:36:00* Test Item Value Reference Range Interpretation [...] due to change in reagent. COMPREHENSIVE METABOLIC [id number] 06:23:00* Test Item Value Reference Range Interpretation [...] code = ALKP) IUnit/L 45-117 CBC W/AUTO [id number] 06:03:00* Test Item Value Reference Range Interpretation [...] (test code = MDIFF) NO BASIC METABOLIC [id number] 23:03:00* Test Item Value Reference Range Interpretation [...] CA) 8.4 mg/dL 8.5-10.1 L CBC W/AUTO [id number] 22:09:00* Test Item Value Reference Range Interpretation [...] DIFF REQUIRED (test code = MDIFF) NO [id number] 02:01:00* Test Item Value Reference Range Interpretation Comments TROPONIN-I (test code = TROPI) 0.028 ng/mL 0-0.045 N COMMENTS TO TOOL AND GAUGE INSPECTOR: COLLECT 3 HOURS AFTER PREVIOUS [id number] 22:29:00* Test Item Value Reference Range Interpretation Comments TROPONIN-I (test code = TROPI) 0.026 ng/mL 0-0.045 N COMMENTS TO TOOL AND GAUGE INSPECTOR: COLLECT 3 HOURS AFTER PREVIOUS SAMPLEURINALYSIS [id number] 16:35:00* Test Item Value Reference Range Interpretation [...] Urine Source? Clean CatchDRUGS OF ABUSE SCREEN [id number] 16:35:00* Test Item Value Reference Range Interpretation [...] NEGATIVE <300 ng/mL Urine Source? Clean CatchURINALYSIS [id number] 16:22:00* Test Item Value Reference Range Interpretation [...] Urine Source? Clean CatchDRUGS OF ABUSE SCREEN [id number] 16:22:00* Test Item Value Reference Range Interpretation [...] Urine Source? Clean Catch- CT C-SPINE W/O [id number] 16:21:00 Name: EVANS DANIELSON [facility] : 1945 Age/S: 74 / M [address] [facility] Unit #: [id number] Loc: [place] [address] Phys: Zaid Retana MD Acct: [id number] Di s Date: Status: REG ER PHONE #: Exam Date: 07/11/2019 1537 FAX #: Reason: fall EXAMS: CPT CODE: [id number] CT C-SPINE W/ O CONTRAST 27637 HISTORY: fall TECHNIQUE: Noncontrast 2.5 mm axial [...] 1 Signed Report (CONTINUED) Name: EVANS DANIELSON [facility] : 1945 Age/S: 74 / M [address] [facility] Unit #: [id number] Loc: [place] [address] Phys: Maeve Retana MD Acct: [id number] Dis Date: Status: REG ER PHONE #: [phone] Exam Date: 07/11/2019 1537 FAX #: [phone] Reason: fall EXAMS: CPT CODE: [id number] CT C-SPINE W/O CONTRAST 82739 < Continued> IMPRESSION: No acute intracranial process. 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 Correlate with physical exam for cortical atrophy. No fracture or subluxation is seen however. at 1624 Reported and signed by: Kael Lobato MD CC: Justen Krueger; Maeve Retana MD Technologist:Catalina Miller RT(R),CT; CTDI: DLP: Trnscb Date/Time: 07/11/2019 (3251) t.JOJOR.RR31 Orig Print D/T: S: 07/11/2019 (0137) PAGE 2 Signed Report - CT HEAD/BRAIN W/O [id number] 16:21:00 Name: EVANS DANIELSON [facility] : 1945 Age/S: 74 / M Bhupendra Pruitt Unit #: [id number] Loc: [place] [address] Phys: Maeve Retana MD Acct: [id number] Dis Date: Status: REG ER PHONE #: [phone] Exam Date: 07/11/2019 1489 FAX #: [phone] Reason: fall EXAMS: CPT CODE: [id number] CT HEAD/BRAIN W/O CONT 50142 HISTORY: fall TECHNIQUE: Noncontrast 2.5 mm axial [...] 1 Signed Report (CONTINUED) Name: EVANS DANIELSON [facility] : 1945 Age/S: 74 / M [address] [place] [address] Unit #: [id number] Loc: [place] [address] Phys: Maeve Retana MD Acct: [id number] Dis Date: Status: REG ER PHONE #: [phone] Exam Date: 07/11/2019 1537 FAX #: [phone] Reason: fall EXAMS: CPT CODE: [id number] CT HEAD/BRAIN W/O CONT 81781 < Continued> IMPRESSION: No acute intracranial process. [...] (162) t.SDR.RR31 Orig Print D/T: S: 07/11/2019 (8005) PAGE 2 Signed Report URINALYSIS [id number] 16:07:00* Test Item Value Reference Range Interpretation [...] Urine Source? Clean CatchDRUGS OF ABUSE SCREEN [id number] 16:07:00* Test Item Value Reference Range Interpretation [...] MET[place]URN) <300 ng/mL Urine Source? Clean CatchLACTIC [id number] 15:50:00* Test Item Value Reference Range Interpretation Comments LACTIC ACID (test code = LACT) 2.4 mmol/L 0.4-1.9 HH Results called to OYW5013/Jaylon Goel.LAB.SPR 07/11/19 1550Critical results verified and read back by Nurse? Y BASIC METABOLIC [id number] 15:50:00* Test Item Value Reference Range Interpretation [...] CA) 9.2 mg/dL 8.5-10.1 N HEPATIC FUNCTION [id number] 15:50:00* Test Item Value Reference Range Interpretation [...] reference range due to change in reagent. [id number] 15:50:00* Test Item Value Reference Range Interpretation Comments LIPASE (test code = LIP) 64 U/L 73.0-393.0 L [id number] 15:50:00* Test Item Value Reference Range Interpretation Comments TROPONIN-I (test code = TROPI) 0.021 ng/mL 0-0.045 N [id number] 15:50:00* Test Item Value Reference Range Interpretation [...] AT ANADDITIONAL CHARGE TO THE PATIENT. PROTHROMBIN [id number] 15:41:00* Test Item Value Reference Range Interpretation [...] (2.5-3.5) IS PATIENT ON ANTICOAGULANTS? NTHROMBOPLASTIN TIME [id number] 15:41:00* Test Item Value Reference Range Interpretation Comments THROMBOPLASTIN TIME PARTIAL (test code = PTT) 32.4 seconds 25.0-36. 5 N IS PATIENT ON ANTICOAGULANTS? NCBC W/O [id number] 15:33:00* Test Item Value Reference Range Interpretation [...] 6.7-11.0 N - MRI ABDOMEN W WO [id number] 13:08:00 FAX: Justen Bartlett MD [phone] [place]: St: REG Name: EVANS LANDIS [facility] : [birth year] Age/S: 74/M [address] [facility] Unit #: [id number] Loc: [place] [address] Phys: Justen Krueger MD Acct: [id number] Dis Date: Status: REG CLI PHONE #: [phone] Exam Date: 05/27/2019 1130 FAX #: [phone] Reason: R74.8 EXAMS: CPT CODE: [id number] MRI ABDOMEN W WO CONT 58098 HISTORY: Elevated alkaline phospha tase. COMPARISON: None [...] Signed Report (CONTINUED) FAX: Justen Bartlett MD [phone] [facility] s: [address]: REG Name: EVANS DANIELSON [facility] : 1945 Age/S: 74/M [address] Unit #: [id number] Loc: [place] [address] Ph ys: Justen Krueger MD Acct: [id number] Dis Date: Status: REG CLI PHONE #: [phone] Exam Date: 05/27/2019 1130 FAX #: [phone] Reason: R74.8 EXAMS: CPT CODE: [id number] MRI ABDOMEN W WO CONT 63858 <Continued> CC: Justen Krueger Technologist: RT [facility]ES[facility] Date/Time/By: 05/27/2019 (5244) : By: [email or web address] Orig Print D/T: S: 05/27/2019 (7531) PAGE 2 Signed Report CREATININE W ESTIMATED GFR 2019-05-27 10:01:00* Test Item Value Reference Range Interpretation Comments BEDSIDE CREATININE (test code = CREATBED) mg/dL 0.7-1.3 N GLOMERULAR FILTRATION RATE POC (test code = GFRBED) 57 >6 0 LL CREATININE W ESTIMATED [id number] 10:01:00* Test Item Value Reference Range Interpretation Comments BEDSIDE CREATININE (test code = CREATBED) 1.24 mg/dL 0.7-1.3 N GLOMERULAR FILTRATION RATE POC (test code = GFRBED) 60 >6 0 Previously reported result: 57 Edited by: ANSELMO on 05/27/19:716110 1001: GFRBED previously reported as: 57 *L Sodium Ztans5176-91-04 10:56:00* Test Item Value Reference Range Interpretation Comments Sodium Level (test code = 2951-2) 141 136-145 [facility]Potassium Lgmjd2054-74-78 10:56:00* Test Item Value Reference Range Interpretation Comments Potassium Level (test code = 2823-3) 3.5 3.5-5.1 [facility] AntonioChloride Ogmcb1004-96-03 10:56:00* Test Item Value Reference Range Interpretation Comments Chloride Level (test code = 2075-0) 104 98-107 [facility] AntonioCarbon Dioxide Gnvlk0779-17-57 10:56:00* Test Item Value Reference Range Interpretation Comments Carbon Dioxide Level (test code = 2028-9) 24 22-29 [facility] AntonioAnion Mxe8276-63-57 10:56:00* Test Item Value Reference Range Interpretation Comments Anion Gap (test code = 30910-5) 16.5 8-16 H [facility] AntonioBlood Urea Wyzfitvf1231-50-87 10:56:00* Test Item Value Reference Range Interpretation Comments Blood Urea Nitrogen (test code = 3094-0) 27 7-26 H [facility] AntonioCreatinine2019-07-11 10:56:00* Test Item Value Reference Range Interpretation Comments Creatinine (test code = 2160-0) 1.51 0.72-1.25 H [facility] AntonioBUN/Creatinine Pvtsj0515-91-34 10:56:00* Test Item Value Reference Range Interpretation Comments BUN/Creatinine Ratio (test code = 3097-3) 18 6-25 [facility] AntonioEstimat Glomerular Filtration Rate 2019-05-09 10:56:00* Test Item Value Reference Range Interpretation Comments Estimat Glomerular Filtration Rate (test code = 322853663) 45 >60 L Ranges were taken from the National Kidney Disease Education Program and the [facility] Kidney Foundation literature.Reference ranges:60 or greater: Lqkoeo48-47 ( for 3 consecutive months): Chronic kidney disease 15 or less: Kidney failureChildren's Hospital of San AntonioGlucose Wdapj5055-37-51 10:56:00* Test Item Value Reference Range Interpretation Comments Glucose Level (test code = TGU4162) 156 74-118 H [facility] AntonioCalcium Tzplk5083-98-23 10:56:00* Test Item Value Reference Range Interpretation Comments Calcium Level (test code = 27113-7) 10.1 8.4-10.2 [facility] AntonioTotal Obtgyolws5131-03-31 10:56:00* Test Item Value Reference Range Interpretation Comments Total Bilirubin (test code = 1975-2) 1.2 0.2-1.2 [facility] AntonioAspartate Amino Transf (AST/SGOT) 2019-05-09 10:56:00* Test Item Value Reference Range Interpretation Comments Aspartate Amino Transf (AST/SGOT) (test code = Aspartate Amino Transf (AST/SGOT)) 26 5-34 [facility] AntonioAlanine Aminotransferase (ALT/SGPT) 2019-05-09 10:56:00* Test Item Value Reference Range Interpretation Comments Alanine Aminotransferase (ALT/SGPT) (test code = 1742-6) 21 0-55 [facility] AntonioTotal Mcnvfoh2332-61-96 10:56:00* Test Item Value Reference Range Interpretation Comments Total Protein (test code = 2885-2) 7.9 6.5-8.1 [facility] AntonioAlbumin2019-07-11 10:56:00* Test Item Value Reference Range Interpretation Comments Albumin (test code = 1751-7) 4.0 3.5-5.0 [facility] AntonioGlobulin2019-07-11 10:56:00* Test Item Value Reference Range Interpretation Comments Globulin (test code = 06834-6) 3.9 2.3-3.5 H [facility] AntonioAlbumin/Globulin Xnvbm9246-57-92 10:56:00 * Test Item Value Reference Range Interpretation Comments Albumin/Globulin Ratio (test code = 1759-0) 1.0 0.8-2.0 [facility] AntonioAlkaline Splrqpqhgkj0163-67-16 10:56:00* Test Item Value Reference Range Interpretation Comments Alkaline Phosphatase (test code = 6768-6) 253 40-150 [facility] Wcocx5100-61-03 10:56:00* Test Item Value Reference Range Interpretation Comments Sodium Level (test code = 2951-2) 141 136-145 [facility] AntonioPotassium Yrlpj2251-45-02 10:56:00* Test Item Value Reference Range Interpretation Comments Potassium Level (test code = 2823-3) 3.5 3.5-5.1 [facility] AntonioChloride Vfgdc3374-28-68 10:56:00* Test Item Value Reference Range Interpretation Comments Chloride Level (test code = 2075-0) 104 98-107 [facility] AntonioCarbon Dioxide Wqkji1339-75-87 10:56:00* Test Item Value Reference Range Interpretation Comments Carbon Dioxide Level (test code = 2028-9) 24 22-29 [facility] AntonioAnion Jqo0617-12-38 10:56:00* Test Item Value Reference Range Interpretation Comments Anion Gap (test code = 83514-1) 16.5 8-16 H [facility] AntonioBlood Urea Gxyfxmny3111-19-04 10:56:00* Test Item Value Reference Range Interpretation Comments Blood Urea Nitrogen (test code = 3094-0) 27 7-26 H [facility] AntonioCreatinine2019-07-11 10:56:00* Test Item Value Reference Range Interpretation Comments Creatinine (test code = 2160-0) 1.51 0.72-1.25 H [facility] AntonioBUN/Creatinine Aacrf6062-45-98 10:56:00* Test Item Value Reference Range Interpretation Comments BUN/Creatinine Ratio (test code = 3097-3) 18 6-25 [facility] AntonioEstimat Glomerular Filtration Rate 2019-05-09 10:56:00* Test Item Value Reference Range Interpretation Comments Estimat Glomerular Filtration Rate (test code = 543819110) 45 >60 L Ranges were taken from the National Kidney Disease Education Program and the [facility] Kidney Foundation literature.Reference ranges:60 or greater: Ffyidw12-43 ( for 3 consecutive months): Chronic kidney disease 15 or less: Kidney failureChildren's Hospital of San AntonioGlucose Ajqef2240-55-53 10:56:00* Test Item Value Reference Range Interpretation Comments Glucose Level (test code = WBO0622) 156 74-118 H [facility] AntonioCalcium Crfkm7850-76-34 10:56:00* Test Item Value Reference Range Interpretation Comments Calcium Level (test code = 37127-9) 10.1 8.4-10.2 [facility] AntonioTotal Ceaojxdmx9300-43-48 10:56:00* Test Item Value Reference Range Interpretation Comments Total Bilirubin (test code = 1975-2) 1.2 0.2-1.2 [facility] AntonioAspartate Amino Transf (AST/SGOT) 2019-05-09 10:56:00* Test Item Value Reference Range Interpretation Comments Aspartate Amino Transf (AST/SGOT) (test code = Aspartate Amino Transf (AST/SGOT)) 26 5-34 [facility] AntonioAlanine Aminotransferase (ALT/SGPT) 2019-05-09 10:56:00* Test Item Value Reference Range Interpretation Comments Alanine Aminotransferase (ALT/SGPT) (test code = 1742-6) 21 0-55 [facility] AntonioTotal Mfbngxa1208-70-52 10:56:00* Test Item Value Reference Range Interpretation Comments Total Protein (test code = 2885-2) 7.9 6.5-8.1 [facility] AntonioAlbumin2019-07-11 10:56:00* Test Item Value Reference Range Interpretation Comments Albumin (test code = 1751-7) 4.0 3.5-5.0 [facility] AntonioGlobulin2019-07-11 10:56:00* Test Item Value Reference Range Interpretation Comments Globulin (test code = 07981-8) 3.9 2.3-3.5 H [facility] AntonioAlbumin/Globulin Opmtv6414-69-72 10:56:00 * Test Item Value Reference Range Interpretation Comments Albumin/Globulin Ratio (test code = 1759-0) 1.0 0.8-2.0 [facility] AntonioAlkaline Uvrqifqhevq8141-83-07 10:56:00* Test Item Value Reference Range Interpretation Comments Alkaline Phosphatase (test code = 6768-6) 253 40-150 [facility]odium Xmvok7705-19-90 10:56:00* Test Item Value Reference Range Interpretation Comments Sodium Level (test code = 2951-2) 141 136-145 [facility] AntonioPotassium Zabzj1760-94-73 10:56:00* Test Item Value Reference Range Interpretation Comments Potassium Level (test code = 2823-3) 3.5 3.5-5.1 [facility] AntonioChloride Tnhqt5175-15-06 10:56:00* Test Item Value Reference Range Interpretation Comments Chloride Level (test code = 2075-0) 104 98-107 [facility] AntonioCarbon Dioxide Qhvfr6609-09-08 10:56:00* Test Item Value Reference Range Interpretation Comments Carbon Dioxide Level (test code = 2028-9) 24 22-29 [facility] AntonioAnion Aja2747-30-45 10:56:00* Test Item Value Reference Range Interpretation Comments Anion Gap (test code = 76676-1) 16.5 8-16 H [facility] AntonioBlood Urea Eejtuyto9324-08-30 10:56:00* Test Item Value Reference Range Interpretation Comments Blood Urea Nitrogen (test code = 3094-0) 27 7-26 H [facility] AntonioCreatinine2019-07-11 10:56:00* Test Item Value Reference Range Interpretation Comments Creatinine (test code = 2160-0) 1.51 0.72-1.25 H [facility] AntonioBUN/Creatinine Rizhc8711-68-15 10:56:00* Test Item Value Reference Range Interpretation Comments BUN/Creatinine Ratio (test code = 3097-3) 18 6-25 [facility] AntonioEstimat Glomerular Filtration Rate 2019-05-09 10:56:00* Test Item Value Reference Range Interpretation Comments Estimat Glomerular Filtration Rate (test code = 044504585) 45 >60 L Ranges were taken from the National Kidney Disease Education Program and the [facility] Kidney Foundation literature.Reference ranges:60 or greater: Kmytlm02-06 ( for 3 consecutive months): Chronic kidney disease 15 or less: Kidney failureChildren's Hospital of San AntonioGlucose Pgnqn3311-17-82 10:56:00* Test Item Value Reference Range Interpretation Comments Glucose Level (test code = AZM0348) 156 74-118 H [facility] AntonioCalcium Yxipu0163-16-04 10:56:00* Test Item Value Reference Range Interpretation Comments Calcium Level (test code = 74287-5) 10.1 8.4-10.2 [facility] AntonioTotal Eatxylgxi4632-12-73 10:56:00* Test Item Value Reference Range Interpretation Comments Total Bilirubin (test code = 1975-2) 1.2 0.2-1.2 [facility] AntonioAspartate Amino Transf (AST/SGOT) 2019-05-09 10:56:00* Test Item Value Reference Range Interpretation Comments Aspartate Amino Transf (AST/SGOT) (test code = Aspartate Amino Transf (AST/SGOT)) 26 5-34 [facility] AntonioAlanine Aminotransferase (ALT/SGPT) 2019-05-09 10:56:00* Test Item Value Reference Range Interpretation Comments Alanine Aminotransferase (ALT/SGPT) (test code = 1742-6) 21 0-55 [facility] AntonioTotal Kzinstg7040-14-06 10:56:00* Test Item Value Reference Range Interpretation Comments Total Protein (test code = 2885-2) 7.9 6.5-8.1 [facility] AntonioAlbumin2019-07-11 10:56:00* Test Item Value Reference Range Interpretation Comments Albumin (test code = 1751-7) 4.0 3.5-5.0 [facility] AntonioGlobulin2019-07-11 10:56:00* Test Item Value Reference Range Interpretation Comments Globulin (test code = 82554-2) 3.9 2.3-3.5 H [facility] AntonioAlbumin/Globulin Yazro8126-37-72 10:56:00 * Test Item Value Reference Range Interpretation Comments Albumin/Globulin Ratio (test code = 1759-0) 1.0 0.8-2.0 [facility] AntonioAlkaline Pqwfkrzhluj1835-07-75 10:56:00* Test Item Value Reference Range Interpretation Comments Alkaline Phosphatase (test code = 6768-6) 253 40-150 [facility]odium Pakbh5200-32-26 10:56:00* Test Item Value Reference Range Interpretation Comments Sodium Level (test code = 2951-2) 141 136-145 [facility] AntonioPotassium Wzwjh5758-02-47 10:56:00* Test Item Value Reference Range Interpretation Comments Potassium Level (test code = 2823-3) 3.5 3.5-5.1 [facility] AntonioChloride Wdnph5725-78-95 10:56:00* Test Item Value Reference Range Interpretation Comments Chloride Level (test code = 2075-0) 104 98-107 [facility] AntonioCarbon Dioxide Ucfvj4794-07-19 10:56:00* Test Item Value Reference Range Interpretation Comments Carbon Dioxide Level (test code = 2028-9) 24 22-29 [facility] AntonioAnion Rmr6762-36-62 10:56:00* Test Item Value Reference Range Interpretation Comments Anion Gap (test code = 45864-7) 16.5 8-16 H [facility] AntonioBlood Urea Ueblwaxs1216-77-78 10:56:00* Test Item Value Reference Range Interpretation Comments Blood Urea Nitrogen (test code = 3094-0) 27 7-26 H [facility] AntonioCreatinine2019-07-11 10:56:00* Test Item Value Reference Range Interpretation Comments Creatinine (test code = 2160-0) 1.51 0.72-1.25 H [facility] AntonioBUN/Creatinine Jpcnp5679-70-55 10:56:00* Test Item Value Reference Range Interpretation Comments BUN/Creatinine Ratio (test code = 3097-3) 18 6-25 [facility] AntonioEstimat Glomerular Filtration Rate 2019-05-09 10:56:00* Test Item Value Reference Range Interpretation Comments Estimat Glomerular Filtration Rate (test code = 269661895) 45 >60 L Ranges were taken from the National Kidney Disease Education Program and the [facility] Foundation literature.Reference ranges:60 or greater: Omvtjv94-85 ( for 3 consecutive months): Chronic kidney disease 15 or less: Kidney failureChildren's Hospital of San AntonioGlucose Pwhmx0397-06-43 10:56:00* Test Item Value Reference Range Interpretation Comments Glucose Level (test code = KVT5559) 156 74-118 H [facility] AntonioCalcium Pgbxc4329-98-33 10:56:00* Test Item Value Reference Range Interpretation Comments Calcium Level (test code = 12128-6) 10.1 8.4-10.2 [facility] AntonioTotal Gdosrlrfn9823-73-78 10:56:00* Test Item Value Reference Range Interpretation Comments Total Bilirubin (test code = 1975-2) 1.2 0.2-1.2 [facility] AntonioAspartate Amino Transf (AST/SGOT) 2019-05-09 10:56:00* Test Item Value Reference Range Interpretation Comments Aspartate Amino Transf (AST/SGOT) (test code = Aspartate Amino Transf (AST/SGOT)) 26 5-34 [facility] AntonioAlanine Aminotransferase (ALT/SGPT) 2019-05-09 10:56:00* Test Item Value Reference Range Interpretation Comments Alanine Aminotransferase (ALT/SGPT) (test code = 1742-6) 21 0-55 [facility] AntonioTotal Rdgoqeo8230-77-93 10:56:00* Test Item Value Reference Range Interpretation Comments Total Protein (test code = 2885-2) 7.9 6.5-8.1 [facility] AntonioAlbumin2019-07-11 10:56:00* Test Item Value Reference Range Interpretation Comments Albumin (test code = 1751-7) 4.0 3.5-5.0 [facility]ulin[facility] 10:56:[facility]* Test Item Value Reference Range Interpretation Comments Globulin (test code = 60119-1) 3.9 2.3-3.5 H [facility] AntonioAlbumin/Globulin [id number] 10:56:00 * Test Item Value Reference Range Interpretation Comments Albumin/Globulin Ratio (test code = 1759-0) 1.0 0.8-2.0 [facility] AntonioAlkaline Qmhflicbfce0548-65-69 10:56:00* Test Item Value Reference Range Interpretation Comments Alkaline Phosphatase (test code = 6768-6) 253 40-150 H [facility] AntonioU[facility] [id number] 10:55:00* Test Item Value Reference Range Interpretation Comments Urine WBC (test code = 5821-4) NONE 0-5 [facility] [id number] 10:55:00* Test Item Value Reference Range Interpretation Comments Urine RBC (test code = 20504-0) 6-10 0-5 H [facility] Yblnwgqg8051-12-61 10:55:00* Test Item Value Reference Range Interpretation Comments Urine Bacteria (test code = 60473-1) RARE NONE [facility] Epithelial Yzgkf9704-51-55 10:55:00 * Test Item Value Reference Range Interpretation Comments Urine Epithelial Cells (test code = 35263-1) RARE NONE [facility] Antonio[facility] Hyaline Mcljo5276-14-38 10:55:00* Test Item Value Reference Range Interpretation Comments Urine Hyaline Casts (test code = 04849-4) 2-5 0-1 H [facility] Antonio[facility] [id number] 10:55:00* Test Item Value Reference Range Interpretation Comments Urine WBC (test code = 5821-4) NONE 0-5 [facility] [id number] 10:55:00* Test Item Value Reference Range Interpretation Comments Urine RBC (test code = 51418-3) 6-10 0-5 [facility] Wujwlrwl9903-57-34 10:55:00* Test Item Value Reference Range Interpretation Comments Urine Bacteria (test code = 71951-3) RARE NONE [facility] Epithelial Qoswh7554-96-98 10:55:00 * Test Item Value Reference Range Interpretation Comments Urine Epithelial Cells (test code = 86676-5) RARE NONE [facility] Hyaline Pwscj2713-95-98 10:55:00* Test Item Value Reference Range Interpretation Comments Urine Hyaline Casts (test code = 98029-1) 2-5 0-1 H [facility] [id number] 10:55:00* Test Item Value Reference Range Interpretation Comments Urine WBC (test code = 5821-4) NONE 0-5 [facility] [id number] 10:55:00* Test Item Value Reference Range Interpretation Comments Urine RBC (test code = 18300-7) 6-10 0-5 H [facility] Tjzbizdd4779-45-17 10:55:00* Test Item Value Reference Range Interpretation Comments Urine Bacteria (test code = 43093-9) RARE NONE [facility] Epithelial Grxtn3250-64-39 10:55:00 * Test Item Value Reference Range Interpretation Comments Urine Epithelial Cells (test code = 41439-5) RARE NONE [facility] Hyaline Tzucq6605-60-86 10:55:00* Test Item Value Reference Range Interpretation Comments Urine Hyaline Casts (test code = 44071-4) 2-5 0-1 H [facility] [id number] 10:55:00* Test Item Value Reference Range Interpretation Comments Urine WBC (test code = 5821-4) NONE 0-5 [facility] [id number] 10:55:00* Test Item Value Reference Range Interpretation Comments Urine RBC (test code = 04978-0) 6-10 0-5 H [facility] Tcttgrle7112-00-07 10:55:00* Test Item Value Reference Range Interpretation Comments Urine Bacteria (test code = 17945-4) RARE NONE [facility] Epithelial Qfmlf8286-83-06 10:55:00 * Test Item Value Reference Range Interpretation Comments Urine Epithelial Cells (test code = 11262-8) RARE NONE [facility] Hyaline Icizd7772-27-25 10:55:00* Test Item Value Reference Range Interpretation Comments Urine Hyaline Casts (test code = 62356-0) 2-5 0-1 H [facility] [id number] 10:55:00* Test Item Value Reference Range Interpretation Comments Urine WBC (test code = 5821-4) NONE 0-5 [facility] [id number] 10:55:00* Test Item Value Reference Range Interpretation Comments Urine RBC (test code = 78785-6) 6-10 0-5 H [facility] Ifyfyvla1891-50-68 10:55:00* Test Item Value Reference Range Interpretation Comments Urine Bacteria (test code = 07124-6) RARE NONE [facility] Epithelial Psqqr9895-59-33 10:55:00 * Test Item Value Reference Range Interpretation Comments Urine Epithelial Cells (test code = 90743-0) RARE NONE [facility] Hyaline Ubdug7796-46-89 10:55:00* Test Item Value Reference Range Interpretation Comments Urine Hyaline Casts (test code = 01264-7) 2-5 0-1 [facility] Xeesq0435-78-05 10:47:00* Test Item Value Reference Range Interpretation Comments Urine Color (test code = 5778-6) ORANGE YELLOW H [facility] Tjukdnn6089-52-36 10:47:00* Test Item Value Reference Range Interpretation Comments Urine Clarity (test code = 54438-7) CLOUDY CLEAR H [facility] Specific Kmssmgc1095-24-37 10:47:00 * Test Item Value Reference Range Interpretation Comments Urine Specific [place] (test code = 5811-5) 1.010 1.010-1.02 5 [facility] [id number] 10:47:00* Test Item Value Reference Range Interpretation Comments Urine pH (test code = 85914-8) 5.5 5-7 [facility] Leukocyte Bixxnkjs8273-67-05 10:47:00* Test Item Value Reference Range Interpretation Comments Urine Leukocyte Esterase (test code = 75695-8) NEGATIVE NEGATIV E [facility] Skysrqv5200-60-82 10:47:00* Test Item Value Reference Range Interpretation Comments Urine Nitrite (test code = 18965-0) POSITIVE NEGATIVE H [facility] Wmszjus6108-78-53 10:47:00* Test Item Value Reference Range Interpretation Comments Urine Protein (test code = 94415-5) 1+ NEGATIVE H [facility] Glucose (UA)2019-05-09 10:47:00* Test Item Value Reference Range Interpretation Comments Urine Glucose (UA) (test code = 52057-1) 1+ NEGATIVE H [facility] Agyhkvh6938-19-52 10:47:00* Test Item Value Reference Range Interpretation Comments Urine Ketones (test code = 32000-0) NEGATIVE NEGATIVE [facility] Cwrpjauamgxy5012-86-21 10:47:00* Test Item Value Reference Range Interpretation Comments Urine Urobilinogen (test code = 53810-9) 2 0.2-1 [facility] Frmabpjbi5791-83-66 10:47:00* Test Item Value Reference Range Interpretation Comments Urine Bilirubin (test code = 1977-8) NEGATIVE NEGATIVE [facility] Cjcla2389-93-38 10:47:00* Test Item Value Reference Range Interpretation Comments Urine Blood (test code = 36115-8) TRACE NEGATIVE [facility] Oproo9865-39-12 10:47:00* Test Item Value Reference Range Interpretation Comments Urine Color (test code = 5778-6) ORANGE YELLOW [facility] Gdlwshk3155-47-59 10:47:00* Test Item Value Reference Range Interpretation Comments Urine Clarity (test code = 27040-6) CLOUDY CLEAR H [facility] Specific Nqsamjf1128-02-91 10:47:00 * Test Item Value Reference Range Interpretation Comments Urine Specific [place] (test code = 5811-5) 1.010 1.010-1.02 5 [facility] [id number] 10:47:00* Test Item Value Reference Range Interpretation Comments Urine pH (test code = 05483-4) 5.5 5-7 [facility] Leukocyte Ficifkvj8895-88-09 10:47:00* Test Item Value Reference Range Interpretation Comments Urine Leukocyte Esterase (test code = 22877-6) NEGATIVE NEGATIV E [facility] Fclpskx1358-87-84 10:47:00* Test Item Value Reference Range Interpretation Comments Urine Nitrite (test code = 41866-0) POSITIVE NEGATIVE H [facility] Xpqhidg5237-87-69 10:47:00* Test Item Value Reference Range Interpretation Comments Urine Protein (test code = 95879-1) 1+ NEGATIVE H [facility] Glucose (UA)2019-05-09 10:47:00* Test Item Value Reference Range Interpretation Comments Urine Glucose (UA) (test code = 73731-3) 1+ NEGATIVE H [facility] Imfjong0271-65-08 10:47:00* Test Item Value Reference Range Interpretation Comments Urine Ketones (test code = 91352-5) NEGATIVE NEGATIVE [facility] Rwhxvqqrraen2769-62-05 10:47:00* Test Item Value Reference Range Interpretation Comments Urine Urobilinogen (test code = 04529-9) 2 0.2-1 [facility] Qunizvksk3970-34-17 10:47:00* Test Item Value Reference Range Interpretation Comments Urine Bilirubin (test code = 1977-8) NEGATIVE NEGATIVE [facility] Swwvs0006-80-38 10:47:00* Test Item Value Reference Range Interpretation Comments Urine Blood (test code = 31809-8) TRACE NEGATIVE [facility] Xmhdc4796-60-86 10:47:00* Test Item Value Reference Range Interpretation Comments Urine Color (test code = 5778-6) ORANGE YELLOW [facility] Lzhxyjg0145-02-16 10:47:00* Test Item Value Reference Range Interpretation Comments Urine Clarity (test code = 50674-9) CLOUDY CLEAR H [facility] Specific Hoqocle3317-95-72 10:47:00 * Test Item Value Reference Range Interpretation Comments Urine Specific [place] (test code = 5811-5) 1.010 1.010-1.02 5 [facility] [id number] 10:47:00* Test Item Value Reference Range Interpretation Comments Urine pH (test code = 47420-9) 5.5 5-7 [facility] Leukocyte Lvaehnbp7263-21-47 10:47:00* Test Item Value Reference Range Interpretation Comments Urine Leukocyte Esterase (test code = 16443-2) NEGATIVE NEGATIV E [facility] Iqwnzmi1735-47-87 10:47:00* Test Item Value Reference Range Interpretation Comments Urine Nitrite (test code = 09977-6) POSITIVE NEGATIVE H [facility] Fwhdiam6489-57-73 10:47:00* Test Item Value Reference Range Interpretation Comments Urine Protein (test code = 01782-5) 1+ NEGATIVE H [facility] Glucose (UA)2019-05-09 10:47:00* Test Item Value Reference Range Interpretation Comments Urine Glucose (UA) (test code = 60290-4) 1+ NEGATIVE H [facility] Ilbianh3287-11-65 10:47:00* Test Item Value Reference Range Interpretation Comments Urine Ketones (test code = 99743-1) NEGATIVE NEGATIVE [facility] Uapcbakmclpy3862-53-00 10:47:00* Test Item Value Reference Range Interpretation Comments Urine Urobilinogen (test code = 60769-5) 2 0.2-1 [facility] Glvafvysz8868-12-37 10:47:00* Test Item Value Reference Range Interpretation Comments Urine Bilirubin (test code = 1977-8) NEGATIVE NEGATIVE [facility] Qacez1687-80-31 10:47:00* Test Item Value Reference Range Interpretation Comments Urine Blood (test code = 04733-8) TRACE NEGATIVE [facility] Pvehj1750-58-92 10:47:00* Test Item Value Reference Range Interpretation Comments Urine Color (test code = 5778-6) ORANGE YELLOW H [facility] Nruwkwq1167-49-07 10:47:00* Test Item Value Reference Range Interpretation Comments Urine Clarity (test code = 50776-4) CLOUDY CLEAR H [facility] Specific Pwqhpee7416-56-67 10:47:00 * Test Item Value Reference Range Interpretation Comments Urine Specific [place] (test code = 5811-5) 1.010 1.010-1.02 5 [facility] [id number] 10:47:00* Test Item Value Reference Range Interpretation Comments Urine pH (test code = 76360-4) 5.5 5-7 [facility] Leukocyte Jebsjqua1760-07-44 10:47:00* Test Item Value Reference Range Interpretation Comments Urine Leukocyte Esterase (test code = 28172-3) NEGATIVE NEGATIV E [facility] Opqvxlx9609-84-99 10:47:00* Test Item Value Reference Range Interpretation Comments Urine Nitrite (test code = 79832-8) POSITIVE NEGATIVE H [facility] Stqhuao3174-97-21 10:47:00* Test Item Value Reference Range Interpretation Comments Urine Protein (test code = 83919-4) 1+ NEGATIVE H [facility] Glucose (UA)2019-05-09 10:47:00* Test Item Value Reference Range Interpretation Comments Urine Glucose (UA) (test code = 20196-1) 1+ NEGATIVE H [facility] Wfwlckb4457-65-86 10:47:00* Test Item Value Reference Range Interpretation Comments Urine Ketones (test code = 35289-2) NEGATIVE NEGATIVE [facility] Ttzysqnrycty6903-48-26 10:47:00* Test Item Value Reference Range Interpretation Comments Urine Urobilinogen (test code = 37435-8) 2 0.2-1 [facility] Yspdvlpug1528-76-80 10:47:00* Test Item Value Reference Range Interpretation Comments Urine Bilirubin (test code = 1977-8) NEGATIVE NEGATIVE [facility] Cfbny6788-27-58 10:47:00* Test Item Value Reference Range Interpretation Comments Urine Blood (test code = 72400-2) TRACE NEGATIVE [facility] Ronye8573-85-29 10:47:00* Test Item Value Reference Range Interpretation Comments Urine Color (test code = 5778-6) ORANGE YELLOW H [facility] Tmosnge4532-63-27 10:47:00* Test Item Value Reference Range Interpretation Comments Urine Clarity (test code = 31222-9) CLOUDY CLEAR H [facility] Specific Uxgustj3221-14-23 10:47:00 * Test Item Value Reference Range Interpretation Comments Urine Specific [place] (test code = 5811-5) 1.010 1.010-1.02 5 [facility] tE3115-09-87 10:47:00* Test Item Value Reference Range Interpretation Comments Urine pH (test code = 80967-7) 5.5 5-7 [facility] Leukocyte Nqbzuthq5818-13-14 10:47:00* Test Item Value Reference Range Interpretation Comments Urine Leukocyte Esterase (test code = 32815-4) NEGATIVE NEGATIV E [facility] Cqriguj8067-89-12 10:47:00* Test Item Value Reference Range Interpretation Comments Urine Nitrite (test code = 60010-2) POSITIVE NEGATIVE H [facility] Hfohfdw6700-64-20 10:47:00* Test Item Value Reference Range Interpretation Comments Urine Protein (test code = 16401-0) 1+ NEGATIVE H [facility] Glucose (UA)2019-05-09 10:47:00* Test Item Value Reference Range Interpretation Comments Urine Glucose (UA) (test code = 28498-4) 1+ NEGATIVE H [facility] Dajhmax0417-41-66 10:47:00* Test Item Value Reference Range Interpretation Comments Urine Ketones (test code = 59565-7) NEGATIVE NEGATIVE [facility] Czeqjprkdxns0453-29-23 10:47:00* Test Item Value Reference Range Interpretation Comments Urine Urobilinogen (test code = 04323-7) 2 0.2-1 [facility] Qepyxxecx4981-23-58 10:47:00* Test Item Value Reference Range Interpretation Comments Urine Bilirubin (test code = 1977-8) NEGATIVE NEGATIVE [facility] Bujwf5495-01-95 10:47:00* Test Item Value Reference Range Interpretation Comments Urine Blood (test code = 58386-6) TRACE NEGATIVE [facility] AntonioProthrombin Wudn6264-52-44 10:46:00* Test Item Value Reference Range Interpretation Comments Prothrombin Time (test code = 5902-2) 13.1 11.9-14.5 [facility] AntonioProthromb Time International Ratio 2019-05-09 10:46:00* Test Item Value Reference Range Interpretation Comments Prothromb Time International Ratio (test code = 6301-6) 0.94 Oral Anticoagulant Therapy INR Values:1. Low Intensity Therapy 1.5 - 2.02 . Moderate Intensity Therapy 2.0 - 3.03. High Intensity Therapy(1) 2.5 - 3. 54. High Intensity Therapy(2) 3.0 - 4.05. Panic Value INR > 5.0 [facility] AntonioActivated Partial Thromboplast Time 2019-05-09 10:46:00* Test Item Value Reference Range Interpretation Comments Activated Partial Thromboplast Time (test code = 73372-1) 31.8 23.8-35.5 [facility] AntonioProthrombin Frvy7680-37-62 10:46:00* Test Item Value Reference Range Interpretation Comments Prothrombin Time (test code = 5902-2) 13.1 11.9-14.5 [facility] AntonioProthromb Time International Ratio 2019-05-09 10:46:00* Test Item Value Reference Range Interpretation Comments Prothromb Time International Ratio (test code = 6301-6) 0.94 Oral Anticoagulant Therapy INR Values:1. Low Intensity Therapy 1.5 - 2.02 . Moderate Intensity Therapy 2.0 - 3.03. High Intensity Therapy(1) 2.5 - 3. 54. High Intensity Therapy(2) 3.0 - 4.05. Panic Value INR > 5.0 [facility] AntonioActivated Partial Thromboplast Time 2019-05-09 10:46:00* Test Item Value Reference Range Interpretation Comments Activated Partial Thromboplast Time (test code = 51359-1) 31.8 23.8-35.5 [facility] AntonioProthrombin Wbuz0863-10-85 10:46:00* Test Item Value Reference Range Interpretation Comments Prothrombin Time (test code = 5902-2) 13.1 11.9-14.5 [facility] AntonioProthromb Time International Ratio 2019-05-09 10:46:00* Test Item Value Reference Range Interpretation Comments Prothromb Time International Ratio (test code = 6301-6) 0.94 Oral Anticoagulant Therapy INR Values:1. Low Intensity Therapy 1.5 - 2.02 . Moderate Intensity Therapy 2.0 - 3.03. High Intensity Therapy(1) 2.5 - 3. 54. High Intensity Therapy(2) 3.0 - 4.05. Panic Value INR > 5.0 [facility] AntonioActivated Partial Thromboplast Time 2019-05-09 10:46:00* Test Item Value Reference Range Interpretation Comments Activated Partial Thromboplast Time (test code = 04274-0) 31.8 23.8-35.5 [facility] AntonioProthrombin Lvzz4105-82-16 10:46:00* Test Item Value Reference Range Interpretation Comments Prothrombin Time (test code = 5902-2) 13.1 11.9-14.5 [facility] AntonioProthromb Time International Ratio 2019-05-09 10:46:00* Test Item Value Reference Range Interpretation Comments Prothromb Time International Ratio (test code = 6301-6) 0.94 Oral Anticoagulant Therapy INR Values:1. Low Intensity Therapy 1.5 - 2.02 . Moderate Intensity Therapy 2.0 - 3.03. High Intensity Therapy(1) 2.5 - 3. 54. High Intensity Therapy(2) 3.0 - 4.05. Panic Value INR > 5.0 [facility] AntonioAct[facility] Partial Thromboplast Time 2019-05-09 10:46:00* Test Item Value Reference Range Interpretation Comments Activated Partial Thromboplast Time (test code = 87724-6) 31.8 23.8-35.5 [facility] AntonioWhite Blood Fpzdo7037-40-89 10:41:00* Test Item Value Reference Range Interpretation Comments White Blood Count (test code = 6690-2) 6.48 4.8-10.8 [facility] AntonioRed Blood Vbify6735-09-94 10:41:00* Test Item Value Reference Range Interpretation Comments Red Blood Count (test code = 789-8) 4.72 4.3-5.7 [facility] AntonioHemoglobin2019-07-11 10:41:00* Test Item Value Reference Range Interpretation Comments Hemoglobin (test code = 65056-1) 14.6 14.0-18.0 [facility] AntonioHematocrit2019-07-11 10:41:00* Test Item Value Reference Range Interpretation Comments Hematocrit (test code = 4544-3) 43.6 38.2-49.6 [facility] AntonioMean Corpuscular Qbfbeh9127-48-74 10:41:00* Test Item Value Reference Range Interpretation Comments Mean Corpuscular Volume (test code = 787-2) 92.4 81-99 [facility] AntonioMean Corpuscular Wwaojazkiy8062-89-54 10:41:00* Test Item Value Reference Range Interpretation Comments Mean Corpuscular Hemoglobin (test code = 785-6) 30.9 28-32 [facility] AntonioMean Corpuscular Hemoglobin Concent 2019-05-09 10:41:00* Test Item Value Reference Range Interpretation Comments Mean Corpuscular Hemoglobin Concent (test code = 786-4) 33.5 31-35 [facility] AntonioRed Cell Distribution Jqkbw8445-71-38 10:41:00* Test Item Value Reference Range Interpretation Comments Red Cell Distribution Width (test code = 24747-4) 13.3 11.7 -14.4 [facility] AntonioPlatelet Bequh5221-12-45 10:41:00* Test Item Value Reference Range Interpretation Comments Platelet Count (test code = 777-3) 195 140-360 [facility] AntonioNeutrophils (%) (Auto)2019-05-09 10:41:00 * Test Item Value Reference Range Interpretation Comments Neutrophils (%) (Auto) (test code = 81375-4) 77.2 38.7-80.0 [facility] AntonioLymphocytes (%) (Auto)2019-05-09 10:41:00 * Test Item Value Reference Range Interpretation Comments Lymphocytes (%) (Auto) (test code = 736-9) 13.4 18.0-39.1 L [facility] AntonioMonocytes (%) (Auto)2019-05-09 10:41:00* Test Item Value Reference Range Interpretation Comments Monocytes (%) (Auto) (test code = 5905-5) 7.9 4.4-11.3 [facility] AntonioEosinophils (%) (Auto)2019-05-09 10:41:00 * Test Item Value Reference Range Interpretation Comments Eosinophils (%) (Auto) (test code = 713-8) 0.6 0.0-6.0 [facility] AntonioBasophils (%) (Auto)2019-05-09 10:41:00* Test Item Value Reference Range Interpretation Comments Basophils (%) (Auto) (test code = 706-2) 0.6 0.0-1.0 [facility] AntonioIM GRANULOCYTES %2019-05-09 10:41:00* Test Item Value Reference Range Interpretation Comments IM GRANULOCYTES % (test code = IM GRANULOCYTES %) 0.3 0.0- 1.0 [facility] AntonioNeutrophils # (Auto)2019-05-09 10:41:00* Test Item Value Reference Range Interpretation Comments Neutrophils # (Auto) (test code = 751-8) 5.0 2.1-6.9 [facility] AntonioLymphocytes # (Auto)2019-05-09 10:41:00* Test Item Value Reference Range Interpretation Comments Lymphocytes # (Auto) (test code = 50425-1) 0.9 1.0-3.2 L [facility] AntonioMonocytes # (Auto)2019-05-09 10:41:00* Test Item Value Reference Range Interpretation Comments Monocytes # (Auto) (test code = 742-7) 0.5 0.2-0.8 [facility] AntonioEosinophils # (Auto)2019-05-09 10:41:00* Test Item Value Reference Range Interpretation Comments Eosinophils # (Auto) (test code = 711-2) 0.0 0.0-0.4 [facility] AntonioBasophils # (Auto)2019-05-09 10:41:00* Test Item Value Reference Range Interpretation Comments Basophils # (Auto) (test code = 704-7) 0.0 0.0-0.1 [facility] AntonioAbsolute Immature Granulocyte (auto 2019-05-09 10:41:00* Test Item Value Reference Range Interpretation Comments Absolute Immature Granulocyte (auto (sara t code = Absolute Immature Granulocyte (auto) 0.02 0-0.1 [facility] AntonioWhite Blood Njqmg6134-03-48 10:41:00* Test Item Value Reference Range Interpretation Comments White Blood Count (test code = 6690-2) 6.48 4.8-10.8 [facility] AntonioRed Blood Momfd3471-03-12 10:41:00* Test Item Value Reference Range Interpretation Comments Red Blood Count (test code = 789-8) 4.72 4.3-5.7 [facility] AntonioHemoglobin2019-07-11 10:41:00* Test Item Value Reference Range Interpretation Comments Hemoglobin (test code = 44467-5) 14.6 14.0-18.0 [facility] AntonioHematocrit2019-07-11 10:41:00* Test Item Value Reference Range Interpretation Comments Hematocrit (test code = 4544-3) 43.6 38.2-49.6 [facility] AntonioMean Corpuscular Btfdlr1046-59-65 10:41:00* Test Item Value Reference Range Interpretation Comments Mean Corpuscular Volume (test code = 787-2) 92.4 81-99 [facility] AntonioMean Corpuscular Bziaziaile4597-44-47 10:41:00* Test Item Value Reference Range Interpretation Comments Mean Corpuscular Hemoglobin (test code = 785-6) 30.9 28-32 [facility] AntonioMean Corpuscular Hemoglobin Concent 2019-05-09 10:41:00* Test Item Value Reference Range Interpretation Comments Mean Corpuscular Hemoglobin Concent (test code = 786-4) 33.5 31-35 [facility] AntonioRed Cell Distribution [id number] 10:41:00* Test Item Value Reference Range Interpretation Comments Red Cell Distribution Width (test code = 13912-1) 13.3 11.7 -14.4 [facility] AntonioPlatelet [id number] 10:41:00* Test Item Value Reference Range Interpretation Comments Platelet Count (test code = 777-3) 195 140-360 [facility] AntonioNeutrophils (%) (Auto)2019-05-09 10:41:00 * Test Item Value Reference Range Interpretation Comments Neutrophils (%) (Auto) (test code = 48995-8) 77.2 38.7-80.0 [facility] AntonioLymphocytes (%) (Auto)2019-05-09 10:41:00 * Test Item Value Reference Range Interpretation Comments Lymphocytes (%) (Auto) (test code = 736-9) 13.4 18.0-39.1 L [facility] AntonioMonocytes (%) (Auto)2019-05-09 10:41:00* Test Item Value Reference Range Interpretation Comments Monocytes (%) (Auto) (test code = 5905-5) 7.9 4.4-11.3 [facility] AntonioEosinophils (%) (Auto)2019-05-09 10:41:00 * Test Item Value Reference Range Interpretation Comments Eosinophils (%) (Auto) (test code = 713-8) 0.6 0.0-6.0 [facility] AntonioBasophils (%) (Auto)2019-05-09 10:41:00* Test Item Value Reference Range Interpretation Comments Basophils (%) (Auto) (test code = 706-2) 0.6 0.0-1.0 [facility] AntonioIM GRANULOCYTES %2019-05-09 10:41:00* Test Item Value Reference Range Interpretation Comments IM GRANULOCYTES % (test code = IM GRANULOCYTES %) 0.3 0.0- 1.0 [facility] AntonioNeutrophils # (Auto)2019-05-09 10:41:00* Test Item Value Reference Range Interpretation Comments Neutrophils # (Auto) (test code = 751-8) 5.0 2.1-6.9 [facility] AntonioLymphocytes # (Auto)2019-05-09 10:41:00* Test Item Value Reference Range Interpretation Comments Lymphocytes # (Auto) (test code = 43555-0) 0.9 1.0-3.2 L [facility] AntonioMonocytes # (Auto)2019-05-09 10:41:00* Test Item Value Reference Range Interpretation Comments Monocytes # (Auto) (test code = 742-7) 0.5 0.2-0.8 [facility] AntonioEosinophils # (Auto)2019-05-09 10:41:00* Test Item Value Reference Range Interpretation Comments Eosinophils # (Auto) (test code = 711-2) 0.0 0.0-0.4 [facility] AntonioBasophils # (Auto)2019-05-09 10:41:00* Test Item Value Reference Range Interpretation Comments Basophils # (Auto) (test code = 704-7) 0.0 0.0-0.1 [facility] AntonioAbsolute Immature Granulocyte (auto 2019-05-09 10:41:00* Test Item Value Reference Range Interpretation Comments Absolute Immature Granulocyte (auto (sara t code = Absolute Immature Granulocyte (auto) 0.02 0-0.1 [facility] AntonioWhite Blood [id number] 10:41:00* Test Item Value Reference Range Interpretation Comments White Blood Count (test code = 6690-2) 6.48 4.8-10.8 [facility] AntonioRed Blood [id number] 10:41:00* Test Item Value Reference Range Interpretation Comments Red Blood Count (test code = 789-8) 4.72 4.3-5.7 [facility] AntonioHemoglobin2019-07-11 10:41:00* Test Item Value Reference Range Interpretation Comments Hemoglobin (test code = 05048-0) 14.6 14.0-18.0 [facility] AntonioHematocrit2019-07-11 10:41:00* Test Item Value Reference Range Interpretation Comments Hematocrit (test code = 4544-3) 43.6 38.2-49.6 [facility] AntonioMean Corpuscular [id number] 10:41:00* Test Item Value Reference Range Interpretation Comments Mean Corpuscular Volume (test code = 787-2) 92.4 81-99 [facility] AntonioMean Corpuscular [id number] 10:41:00* Test Item Value Reference Range Interpretation Comments Mean Corpuscular Hemoglobin (test code = 785-6) 30.9 28-32 [facility] AntonioMean Corpuscular Hemoglobin Concent 2019-05-09 10:41:00* Test Item Value Reference Range Interpretation Comments Mean Corpuscular Hemoglobin Concent (test code = 786-4) 33.5 31-35 [facility] AntonioRed Cell Distribution [id number] 10:41:00* Test Item Value Reference Range Interpretation Comments Red Cell Distribution Width (test code = 29327-3) 13.3 11.7 -14.4 [facility] AntonioPlatelet [id number] 10:41:00* Test Item Value Reference Range Interpretation Comments Platelet Count (test code = 777-3) 195 140-360 [facility] AntonioNeutrophils (%) (Auto)2019-05-09 10:41:00 * Test Item Value Reference Range Interpretation Comments Neutrophils (%) (Auto) (test code = 85059-3) 77.2 38.7-80.0 [facility] AntonioLymphocytes (%) (Auto)2019-05-09 10:41:00 * Test Item Value Reference Range Interpretation Comments Lymphocytes (%) (Auto) (test code = 736-9) 13.4 18.0-39.1 L [facility] AntonioMonocytes (%) (Auto)2019-05-09 10:41:00* Test Item Value Reference Range Interpretation Comments Monocytes (%) (Auto) (test code = 5905-5) 7.9 4.4-11.3 [facility] AntonioEosinophils (%) (Auto)2019-05-09 10:41:00 * Test Item Value Reference Range Interpretation Comments Eosinophils (%) (Auto) (test code = 713-8) 0.6 0.0-6.0 [facility] AntonioBasophils (%) (Auto)2019-05-09 10:41:00* Test Item Value Reference Range Interpretation Comments Basophils (%) (Auto) (test code = 706-2) 0.6 0.0-1.0 [facility] AntonioIM GRANULOCYTES %2019-05-09 10:41:00* Test Item Value Reference Range Interpretation Comments IM GRANULOCYTES % (test code = IM GRANULOCYTES %) 0.3 0.0- 1.0 [facility] AntonioNeutrophils # (Auto)2019-05-09 10:41:00* Test Item Value Reference Range Interpretation Comments Neutrophils # (Auto) (test code = 751-8) 5.0 2.1-6.9 [facility] AntonioLymphocytes # (Auto)2019-05-09 10:41:00* Test Item Value Reference Range Interpretation Comments Lymphocytes # (Auto) (test code = 01045-2) 0.9 1.0-3.2 L [facility] AntonioMonocytes # (Auto)2019-05-09 10:41:00* Test Item Value Reference Range Interpretation Comments Monocytes # (Auto) (test code = 742-7) 0.5 0.2-0.8 [facility] AntonioEosinophils # (Auto)2019-05-09 10:41:00* Test Item Value Reference Range Interpretation Comments Eosinophils # (Auto) (test code = 711-2) 0.0 0.0-0.4 [facility] AntonioBasophils # (Auto)2019-05-09 10:41:00* Test Item Value Reference Range Interpretation Comments Basophils # (Auto) (test code = 704-7) 0.0 0.0-0.1 [facility] AntonioAbsolute Immature Granulocyte (auto 2019-05-09 10:41:00* Test Item Value Reference Range Interpretation Comments Absolute Immature Granulocyte (auto (sara t code = Absolute Immature Granulocyte (auto) 0.02 0-0.1 [facility] AntonioWhite Blood [id number] 10:41:00* Test Item Value Reference Range Interpretation Comments White Blood Count (test code = 6690-2) 6.48 4.8-10.8 [facility] AntonioRed Blood [id number] 10:41:00* Test Item Value Reference Range Interpretation Comments Red Blood Count (test code = 789-8) 4.72 4.3-5.7 [facility] AntonioHemoglobin2019-07-11 10:41:00* Test Item Value Reference Range Interpretation Comments Hemoglobin (test code = 28375-1) 14.6 14.0-18.0 [facility] AntonioHematocrit2019-07-11 10:41:00* Test Item Value Reference Range Interpretation Comments Hematocrit (test code = 4544-3) 43.6 38.2-49.6 [facility] AntonioMean Corpuscular [id number] 10:41:00* Test Item Value Reference Range Interpretation Comments Mean Corpuscular Volume (test code = 787-2) 92.4 81-99 [facility] AntonioMean Corpuscular [id number] 10:41:00* Test Item Value Reference Range Interpretation Comments Mean Corpuscular Hemoglobin (test code = 785-6) 30.9 28-32 [facility] AntonioMean Corpuscular Hemoglobin Concent 2019-05-09 10:41:00* Test Item Value Reference Range Interpretation Comments Mean Corpuscular Hemoglobin Concent (test code = 786-4) 33.5 31-35 [facility] AntonioRed Cell Distribution [id number] 10:41:00* Test Item Value Reference Range Interpretation Comments Red Cell Distribution Width (test code = 32046-3) 13.3 11.7 -14.4 [facility] AntonioPlatelet [id number] 10:41:00* Test Item Value Reference Range Interpretation Comments Platelet Count (test code = 777-3) 195 140-360 [facility] AntonioNeutrophils (%) (Auto)2019-05-09 10:41:00 * Test Item Value Reference Range Interpretation Comments Neutrophils (%) (Auto) (test code = 17060-1) 77.2 38.7-80.0 [facility] AntonioLymphocytes (%) (Auto)2019-05-09 10:41:00 * Test Item Value Reference Range Interpretation Comments Lymphocytes (%) (Auto) (test code = 736-9) 13.4 18.0-39.1 L [facility] AntonioMonocytes (%) (Auto)2019-05-09 10:41:00* Test Item Value Reference Range Interpretation Comments Monocytes (%) (Auto) (test code = 5905-5) 7.9 4.4-11.3 [facility] AntonioEosinophils (%) (Auto)2019-05-09 10:41:00 * Test Item Value Reference Range Interpretation Comments Eosinophils (%) (Auto) (test code = 713-8) 0.6 0.0-6.0 [facility] AntonioBasophils (%) (Auto)2019-05-09 10:41:00* Test Item Value Reference Range Interpretation Comments Basophils (%) (Auto) (test code = 706-2) 0.6 0.0-1.0 [facility] AntonioIM GRANULOCYTES %2019-05-09 10:41:00* Test Item Value Reference Range Interpretation Comments IM GRANULOCYTES % (test code = IM GRANULOCYTES %) 0.3 0.0- 1.0 [facility] AntonioNeutrophils # (Auto)2019-05-09 10:41:00* Test Item Value Reference Range Interpretation Comments Neutrophils # (Auto) (test code = 751-8) 5.0 2.1-6.9 [facility] AntonioLymphocytes # (Auto)2019-05-09 10:41:00* Test Item Value Reference Range Interpretation Comments Lymphocytes # (Auto) (test code = 40591-2) 0.9 1.0-3.2 L [facility] AntonioMonocytes # (Auto)2019-05-09 10:41:00* Test Item Value Reference Range Interpretation Comments Monocytes # (Auto) (test code = 742-7) 0.5 0.2-0.8 [facility] AntonioEosinophils # (Auto)2019-05-09 10:41:00* Test Item Value Reference Range Interpretation Comments Eosinophils # (Auto) (test code = 711-2) 0.0 0.0-0.4 [facility] AntonioBasophils # (Auto)2019-05-09 10:41:00* Test Item Value Reference Range Interpretation Comments Basophils # (Auto) (test code = 704-7) 0.0 0.0-0.1 [facility] AntonioAbsolute Immature Granulocyte (auto 2019-05-09 10:41:00* Test Item Value Reference Range Interpretation Comments Absolute Immature Granulocyte (auto (sara t code = Absolute Immature Granulocyte (auto) 0.02 0-0.1 [facility]
[2020-07-07 14:48] LABS: BILIRUBIN,URINE NEGATIVE (NEGATIVE); CLARITY,URINE TURBID (CLEAR); COLOR,URINE RED (YELLOW); KETONES,URINE NEGATIVE (NEGATIVE); LEUKOCYTE ESTERASE ,URINE 1+ (NEGATIVE); NITRITE,URINE NEGATIVE (NEGATIVE); PROTEIN,URINE DIPSTICK 2+ (NEGATIVE); URINE UROBILINOGEN 0.2 mg/dL (0.2 - 1)
--- NOTE | 2020-07-07 14:51 | NUR ---
1st attempt to call report, no answer
[2020-07-07 14:53] LABS: INR 1.01; PROTHROMBIN TIME 13.8 seconds (11.9-14.5)
[2020-07-07 15:03] LABS: BACTERIA,URINE FEW /HPF; MUCUS,URINE FEW (RARE); RBC,URINE >50 /HPF (0-5)
--- NOTE | 2020-07-07 15:07 | NUR ---
2nd attempt to call report, according to Kailey RN from Med-Surg [facility], she is the only nurse available to take report so we ER has to "wait an hour" to give report for next patient, charge nurse notified
--- NOTE | 2020-07-07 15:29 | Emergency Department Note ---
History of Present Illnes History of Present Illness Chief Complaint: Genitourinary History of Present Illness This is a 75 year old male patient came in POV for lower pelvic pain, pt states that he had a prostate surgery on 06/26, pt c/o leaking around his catheter insertion site and states that now he is experiencing hematuria that started this AM. Historian: Patient Arrival Mode: Car Traveling Plant Operator Required: No Onset (how long ago): day(s) (TODAY) Location: URETHRAL CATH, SUPRAPUBIC Quality: LEAKING, PAIN Radiation: Reports non-radiation Severity: moderate Onset quality: gradual Timing of current episode: constant Progression: worsening Chronicity: new Context: Reports recent illness Relieving factors: none Exacerbating factors: none Associated symptoms: Reports denies other symptoms Past Medical/Family History Physician Review I have reviewed the patient's past medical and family history. Any updates have been documented here. Past Medical History Recent Fever: No Clinical Suspicion of Infectio: No New/Unexplained Change in Ment: No Past Medical History: Hypertension, Diabetes, Hyperlipedemia Other Medical History: BPH, Past Surgical History: None Other Surgery: prostate surgery Social History Smoking Cessation: Unknown if ever smoked Counseling Performed: No Alcohol Use: None Any Illegal Drug Use: No TB Exposure/Symptoms: No Physically hurt or threatened: No Family History Family history of heart diseas: No Other Last Tetanus: utd Any Pre-Existing Lines (PICC,: No Review of Systems Review of Systems Constitutional: Reports no symptoms EENTM: Reports no symptoms Cardiovascular: Reports no symptoms Respiratory: Reports no symptoms Gastrointestinal: Reports as per HPI Genitourinary: Reports as per HPI Musculoskeletal: Reports no symptoms Integumentary: Reports no symptoms Neurological: Reports no symptoms Psychological: Reports no symptoms Endocrine: Reports no symptoms Hematological/Lymphatic: Reports no symptoms Physical Exam Related Data Allergies: Coded Allergies: No Known Allergies (Unverified , 05/09/19) Triage Vital Signs Vital Signs Date Time Temp Pulse Resp B/P (MAP) Pulse Ox O2 Delivery O2 Flow Rate FiO2 07/07/20 13:14 98.1 83 20 163/97 99 Room Air Vital signs reviewed: Yes Physical Exam CONSTITUTIONAL Constitutional: Present well-developed, Present well-nourished HENT HENT: Present normocephalic, Present atraumatic, Present oropharynx clear/moist, Present nose normal HENT L/R: Present left ext ear normal, Present right ext ear normal EYES Eyes: Reports PERRL, Reports conjunctivae normal NECK Neck: Present ROM normal PULMONARY Pulmonary: Present effort normal, Present breath sounds normal CARDIOVASCULAR Cardiovascular: Present regular rhythm, Present heart sounds normal, Present capillary refill normal, Present normal rate GASTROINTESTINAL Abdominal: Present soft, Present bowel sounds normal, Present tender (MOD SUPRAPUBIC, NO R/G); Absent guarding, Absent rebound, Absent left CVA tenderness, Absent right CVA tenderness GENITOURINARY Genitourinary: Present other (CALDWELL IN PLACE, DRAINING GROSS BLOOD) SKIN Skin: Present warm, Present dry MUSCULOSKELETAL Musculoskeletal: Present ROM normal NEUROLOGICAL Neurological: Present alert, Present oriented x 3, Present no gross motor or sensory deficits PSYCHOLOGICAL Psychological: Present mood/affect normal, Present judgement normal Results Laboratory Result Diagram: 07/07/20 1400 07/07/20 1400 Laboratory Laboratory Tests Test 07/07/20 14:47 07/07/20 14:21 07/07/20 14:00 Urine Color Red (YELLOW) Urine Clarity Turbid (CLEAR) Urine pH 7.5 (5 - 7) Urine Specific [place] 1.010 (1.010-1.025) Urine Protein 2+ (NEGATIVE) Urine Glucose (UA) Negative (NEGATIVE) Urine Ketones Negative (NEGATIVE) Urine Blood 4+ (NEGATIVE) Urine Nitrite Negative (NEGATIVE) Urine Bilirubin Negative (NEGATIVE) Urine Urobilinogen 0.2 mg/dL (0.2 - 1) Urine Leukocyte Esterase 1+ (NEGATIVE) Urine RBC >50 /HPF (0-5) Urine WBC 6-10 /HPF (0-5) Urine Epithelial Cells None /LPF (NONE) Urine Bacteria Few /HPF (NONE) Urine Mucus Few (RARE) White Blood Count 8.35 x10e3/uL (4.8-10.8) Red Blood Count 4.53 x10e6/uL (4.3-5.7) Hemoglobin 13.4 g/dL (14.0-18.0) Hematocrit 41.8 % (38.2-49.6) Mean Corpuscular Volume 92.3 fL (81-99) Mean Corpuscular Hemoglobin 29.6 pg (28-32) Mean Corpuscular Hemoglobin Concent 32.1 g/dL (31-35) Red Cell Distribution Width 14.5 % (11.7-14.4) Platelet Count 251 x10e3/uL (140-360) Neutrophils (%) (Auto) 77.2 % (38.7-80.0) Lymphocytes (%) (Auto) 12.0 % (18.0-39.1) Monocytes (%) (Auto) 8.3 % (4.4-11.3) Eosinophils (%) (Auto) 1.3 % (0.0-6.0) Basophils (%) (Auto) 0.7 % (0.0-1.0) Neutrophils # (Auto) 6.5 (2.1-6.9) Lymphocytes # (Auto) 1.0 (1.0-3.2) Monocytes # (Auto) 0.7 (0.2-0.8) Eosinophils # (Auto) 0.1 (0.0-0.4) Basophils # (Auto) 0.1 (0.0-0.1) Absolute Immature Granulocyte (auto 0.04 x10e3/uL (0-0.1) Prothrombin Time 13.8 seconds (11.9-14.5) Prothromb Time International Ratio 1.01 Activated Partial Thromboplast Time 32.0 seconds (23.8-35.5) Sodium Level 140 mmol/L (136-145) Potassium Level 3.5 mmol/L (3.5-5.1) Chloride Level 106 mmol/L (98-107) Carbon Dioxide Level 20 mmol/L (22-29) Anion Gap 17.5 mmol/L (8-16) Blood Urea Nitrogen 12 mg/dL (7-26) Creatinine 1.42 mg/dL (0.72-1.25) Estimat Glomerular Filtration Rate 48 ML/MIN (60-) BUN/Creatinine Ratio 8 (6-25) Glucose Level 101 mg/dL (74-118) Calcium Level 9.2 mg/dL (8.4-10.2) Total Bilirubin 1.0 mg/dL (0.2-1.2) Aspartate Amino Transf (AST/SGOT) 20 IU/L (5-34) Alanine Aminotransferase (ALT/SGPT) 18 IU/L (0-55) Alkaline Phosphatase 157 IU/L (40-150) Creatine Kinase 38 IU/L (30-200) Creatine Kinase MB 1.20 ng/mL (0-5.0) Troponin I 0.027 ng/mL (0-0.300) Total Protein 7.6 g/dL (6.5-8.1) Albumin 4.4 g/dL (3.5-5.0) Globulin 3.2 g/dL (2.3-3.5) Albumin/Globulin Ratio 1.4 (0.8-2.0) Lab results reviewed: Yes Imaging Imaging Comments DR YODER WANTS NO IMAGING Assessment & Plan Medical Decision Making MDM HEMATURIA, SUPRAPUBIC PAIN - BLADDER SCAN, CBC, CHEM, CARDIACS, UA/CX - EVAL URINARY RETENTION/CLOT RETENTION, UTI, RENAL INSUFF, ELECTROLYTE ABNL Reassessment Reassessment I SPOKE WITH DR YODER AFTER SEEING PT IN TRIAGE - WANTS HIM ADMITTED FOR CBI, NO IMAGING. I WILL COVER WITH ABX'S (I REVIEWED PREVIOUS CX'S) WITH CEFEPIME, VANCO. I SPOKE WITH DR KRUEGER FOR ADMISSION Assessment & Plan Final Impression: (1) UTI (urinary tract infection) (2) Clot retention of urine (3) Hematuria Depart Disposition: ADMITTED Last Vital Signs Date Time Temp Pulse Resp B/P (MAP) Pulse Ox O2 Delivery O2 Flow Rate FiO2 07/07/20 14:17 84 18 136/76 98 Room Air 07/07/20 13:14 98.1 Home Meds Reported Medications Clopidogrel Bisulfate* (PLAVIX) 75 Mg Tablet, 75 MG PO DAILY, #30 TAB 06/24/20 Losartan Potassium (LOSARTAN POTASSIUM) 25 Mg Tablet, PO DAILY 06/24/20 Multivitamin (MULTI-VITAMIN DAILY) 1 Each Tablet, PO DAILY 06/24/20 [Vit D] No Conflict Check, PO DAILY 06/24/20 Potassium Chloride (POTASSIUM CHLORIDE) 10 Meq Tab.er.prt, 10 MEQ PO BID, TAB 01/01/20 Atorvastatin Calcium (ATORVASTATIN CALCIUM) 20 Mg Tablet, 40 MG PO DAILY, #30 TAB 12/30/19 Metoprolol Tartrate (METOPROLOL TARTRATE) 25 Mg Tablet, 25 MG PO BID, TAB 12/30/19 Aspirin (ASPIRIN) 325 Mg Tablet, 325 MG PO DAILY, #30 TAB 12/30/19 Medications in the ED Morphine Sulfate 4 mg ONCE STAT IV Last administered on 07/07/20at 14:15; Admin Dose 4 MG; Start 07/07/20 at 13:49; Stop 07/07/20 at 13:59; Status DC Ondansetron HCl 4 mg ONCE STAT IV Last administered on 07/07/20at 14:15; Admin Dose 4 MG; Start 07/07/20 at 13:49; Stop 07/07/20 at 13:59; Status DC Morphine Sulfate 4 mg STK-MED ONCE .ROUTE ; Start 07/07/20 at 14:07; Stop 07/07/20 at 14:01; Status DC Ondansetron HCl 4 mg STK-MED ONCE .ROUTE ; Start 07/07/20 at 14:07; Stop 07/07/20 at 14:01; Status DC Vancomycin HCl 250 ml @ 167 mls/hr NOW ONCE IV ; Start 07/07/20 at 14:15; Stop 07/07/20 at 15:44 Ondansetron HCl 4 mg Q4H PRN IV NAUSEA AND VOMITING; Start 07/07/20 at 14:30; Stop 08/06/20 at 14:29 Sodium Chloride 1,000 ml @ 75 mls/hr [id number] IV Last administered on 07/07/20at 14:38; Admin Dose 75 MLS/HR; Start 07/07/20 at 14:30; Stop 07/08/20 at 03:49 Morphine Sulfate 4 mg Q4H PRN IV SEVERE PAIN (7-10); Start 07/07/20 at 14:30; Stop 07/14/20 at 14:29 HEIDY CHAO MD Jul 07, 2020 15:29
[2020-07-07] MEDS ORDERED: HYDROMORPHONE 1MG/1ML INJ IV STA (15:31)
--- NOTE | 2020-07-07 15:42 | NUR ---
Received report from FRANCHESKA Barrios in ER at 1530. Addendum: 07/07/20 at 1841 by Kailey Owens RN Patient came with 24 [address] continuous bladder in place. Urena was not flowing and after many flushes it began flowing again. Patient was assessed and oriented to room, procedures, and plan of care. Patient has a Right ac 20g in place.
[2020-07-07] MEDS ORDERED: HYDROMORPHONE 1MG/1ML INJ ONE (15:44)
--- NOTE | 2020-07-07 15:45 | NUR ---
informed Kailey PRITCHARD that Dilaudid was given but Vanco IV is currently unavailable in the Pyxis
--- NOTE | 2020-07-07 19:25 | NUR ---
Received change of shift report from AM nurse. Walking rounds completed.
[2020-07-07 20:00] VITALS: BP 132/82
[2020-07-07] MEDS: MORPHINE SULFATE 2 MG/ML SYR 1ML IV PRN (20:20)
[2020-07-07] MEDS: ONDANSETRON HCL INJ 2MG/ML 2ML 2 MG/ML VIAL IV PRN (20:21)
[2020-07-07 21:00] VITALS: BP 132/82
--- NOTE | 2020-07-07 21:00 | NUR ---
Irrigated clots from jang. Flushing fast to maintain patency. Patient received pain meds as required.
[2020-07-08] VITALS (7 sets, daily range): BP systolic 141–192; BP diastolic 84–104
--- NOTE | 2020-07-08 | NUR ---
Blood sip from jang. Roxanna care done. Continue monitor.
[2020-07-08] MEDS: ONDANSETRON HCL INJ 2MG/ML 2ML 2 MG/ML VIAL IV PRN ×3 (00:25→19:35)
[2020-07-08] MEDS: MORPHINE SULFATE 2 MG/ML SYR 1ML IV PRN ×4 (00:25→19:34)
[2020-07-08] MEDS: CEFEPIME 1GM/NS 0.9% 50 ML 50 ML IV SCH ×2 (03:00→15:32)
[2020-07-08 05:36] LABS: BASOPHILS # (AUTO) 0.1 (0.0-0.1); BASOPHILS % 0.6 % (0.0-1.0); EOSINOPHILS # (AUTO) 0.3 (0.0-0.4); EOSINOPHILS % 3.5 % (0.0-6.0); HEMATOCRIT 36.4 % (38.2-49.6); HEMOGLOBIN 11.7 g/dL (14.0-18.0); LYMPHOCYTES # (AUTO) 1.3 (1.0-3.2); MEAN CORPUSCULAR HEMOGLOBIN 30.1 pg (28-32); MEAN CORPUSCULAR HGB CONC 32.1 g/dL (31-35); MEAN CORPUSCULAR VOLUME 93.6 fL (81-99); MONOCYTES # (AUTO) 0.8 (0.2-0.8); MONOCYTES % 9.6 % (4.4-11.3); NEUTROPHILS # (AUTO) 5.6 (2.1-6.9); NEUTROPHILS % 69.8 % (38.7-80.0); PLATELET COUNT 198 x10e3/uL (140-360); RED BLOOD COUNT 3.89 x10e6/uL (4.3-5.7); RED CELL DISTRIBUTION WIDTH 14.5 % (11.7-14.4)
[2020-07-08 06:00] LABS: ALBUMIN 3.6 g/dL (3.5-5.0); ALBUMIN/GLOBULIN RATIO 1.3 (0.8-2.0); ANION GAP 14.6 mmol/L (8-16); CALCIUM 8.4 mg/dL (8.4-10.2); CREATININE, SERUM 1.3 mg/dL (0.72-1.25); POTASSIUM 3.6 mmol/L (3.5-5.1)
--- NOTE | 2020-07-08 06:09 | NUR ---
Patient received pain meds as ordered by MD q4 hours. Continue monitor.
--- NOTE | 2020-07-08 08:23 | History and Physical ---
The patient in with hematuria. HISTORY OF PRESENT ILLNESS: This is Mr. Jovani Kenney with a recent history of TURP by Dr. Block with usual state of health. The patient came in yesterday with leaking of blood around the catheter insertion and the patient has been experiencing gross hematuria, admitted to the hospital for bladder lavage. The patient is currently having pain and is undergoing bladder lavage at this time. PAST MEDICAL HISTORY: History of atrial fibrillation, history of COPD, history of diabetes mellitus, history of hypertension, history of coronary artery disease, and history of benign prostatic hypertrophy. PAST SURGICAL HISTORY: Recent surgery by Dr. Block, otherwise noncontributory. SOCIAL HISTORY: No history of smoking still. No EtOH. No IV drug abuse. No history of exposure to COVID and/or TB. FAMILY HISTORY: Positive for coronary artery disease. ALLERGIES: NO COATED ALLERGIES. REVIEW OF SYSTEMS: Negative for chest pain. No shortness of breath. No nausea. No vomiting. No diarrhea. No constipation. No rectal bleeding. Positive for hematuria. Catheter in place and positive for pain in the suprapubic area. No diplopia. No blurry vision. The patient has baseline cognitive decline. PHYSICAL EXAMINATION: VITAL SIGNS: On arrival, temperature is 98.1, pulse of 83, respirations of 20, blood pressure is 163/97, pulse oximetry of 99% on room air. HEENT: Normocephalic, atraumatic. The patient is alert and oriented x3. CVS: S1 and S2 normal. Regular rate and rhythm. No irregularities present. ABDOMEN: Tender in the suprapubic area. EXTREMITIES: No clubbing, no cyanosis, no edema. The patient has a Urena catheter with drainage of blood in it. MUSCULOSKELETAL: Tenderness in the lower back. NEUROLOGICAL: Again alert and oriented x3. LABORATORY DATA: The patient's initial lab values white count is 8.35, hemoglobin 13.4, hematocrit 41.8, BUN of 12, creatinine is 1.42, no left shift present. PT is 13.8, INR was 1.01. Troponin x1 was negative. ALT and AST within normal limit. ASSESSMENT: Mr. Kenney with hematuria, suprapubic pain, status post urological surgery. PLAN: Continue with continuous irrigation of the bladder antibiotic prophylactic has been started. Cefepime has been given. Cultures are pending. We will hold back on his anticoagulation. We will continue on Plavix at this time. Restart his losartan, potassium, atorvastatin and metoprolol. Further recommendation and clinical course. We will continue to monitor the patient. A consult with Dr. Kwesi Block has been done too. MD CARLOS ALBERTO Diaz/JAELYN /[id number]
[2020-07-08] MEDS: HYDROCODONE/APAP 5MG-325MG TAB PO PRN ×2 (08:24→15:34)
[2020-07-08] MEDS: LACTOBACILLUS ACIDOPHILUS CAPSULE PO SCH ×2 (08:26→15:34)
[2020-07-08] MEDS: POTASSIUM CHLORIDE 10MEQ EA PO SCH ×2 (08:26→15:34)
[2020-07-08] MEDS: ATORVASTATIN 40 MG TAB PO SCH (08:26)
[2020-07-08] MEDS ORDERED: CLOPIDOGREL BISULFATE 75 MG TAB PO SCH (09:00)
[2020-07-08] MEDS: LOSARTAN POTASSIUM 25 MG TAB PO SCH (09:02)
[2020-07-08] MEDS: METOPROLOL TARTRATE 25 MG TAB PO SCH ×2 (09:02→16:32)
--- NOTE | 2020-07-08 20:57 | NUR ---
Received change of shift report from AM nurse. Walking rounds completed.
--- NOTE | 2020-07-08 21:26 | NUR ---
Patient c/o pain-6-7. Given pain and nausea meds as ordered by MD. Patient given a bath and changed linens. Patient had bloody secretions coming from around catheter. MD made aware. Roxanna care done. Patient tolerated well.
[2020-07-09] VITALS (7 sets, daily range): BP systolic 122–152; BP diastolic 75–92
[2020-07-09] MEDS: CEFEPIME 1GM/NS 0.9% 50 ML 50 ML IV SCH (02:03)
[2020-07-09] MEDS: LOSARTAN POTASSIUM 25 MG TAB PO SCH (09:04)
[2020-07-09] MEDS: ATORVASTATIN 40 MG TAB PO SCH (09:05)
[2020-07-09] MEDS: POTASSIUM CHLORIDE 10MEQ EA PO SCH ×2 (09:05→16:46)
--- NOTE | 2020-07-09 09:05 | Progress Note ---
DATE: SUBJECTIVE: A 75-year-old, who came in, status post urological surgery with hematuria and pain. The patient is currently on IV antibiotics, irrigation of the bladder. The patient is currently still having some hematuria. Pain continues. The patient's hydromorphone has been discontinued and is on hydrocodone at this time. No chest pain. No shortness of breath, wants to go home. OBJECTIVE: VITAL SIGNS: Temperature is 97.0, pulse 73, respirations of 19, blood pressure is 147/89, pulse oximetry of 97% on room air. HEENT: Normocephalic, atraumatic. CVS: S1 and S2 normal. Regular rate and rhythm. ABDOMEN: Tender in the suprapubic area. EXTREMITIES: No clubbing, no cyanosis. No edema. LABORATORY STUDIES: , hemoglobin 7.7, hematocrit 36.4 yesterday. Sodium 144, BUN of 13 and creatinine of 1.30. Serology: Coronavirus is nondetected. MICROBIOLOGY: Urine culture preliminary shows culture in progress. Re-incubation required. ASSESSMENT: This is Mr. Jovani Kenney, status post urological surgery with hematuria and possible urinary tract infection. PLAN: Continue on IV antibiotics at this time. Bladder irrigation to be continued. Acute kidney injury is better. The patient will continue with his current medication Plavix and all anticoagulation has been held at this time. Further recommendation per clinical course. We will continue to monitor the patient and continue following up with Urology and microbiology. MD CARLOS ALBERTO Diaz/JAELYN /[id number]
[2020-07-09] MEDS: LACTOBACILLUS ACIDOPHILUS CAPSULE PO SCH ×2 (09:06→16:46)
[2020-07-09] MEDS: METOPROLOL TARTRATE 25 MG TAB PO SCH ×2 (09:06→16:46)
[2020-07-09] MEDS: VANCOMYCIN 1GM/NS 250 ML 250 ML IV SCH (15:06)
--- NOTE | 2020-07-09 20:00 | NUR ---
Received change of shift report from AM nurse. Walking rounds completed.
[2020-07-09] MEDS: HYDROCODONE/APAP 5MG-325MG TAB PO PRN (21:30)
--- NOTE | 2020-07-09 22:00 | NUR ---
Patient had a BM x2. Pt pulled off connection to jang. Patient refuse to replace. Patient moved from room 109 to room 101 to be closer to nursing station. Continue monitor.
[2020-07-09] MEDS ORDERED: LORAZEPAM INJ 2 MG/ML VIAL IV PRN (22:30)
--- NOTE | 2020-07-10 | NUR ---
Patient is becoming very combative and pulling off jang connection. Patient walking in burns with irrigation intact. Called to get some help with patient. states patient dont listen to anyone. She states it wound do no good for her to come up because he dont listen. Informed my house sup. Manasa Tovar and charge nurse Jayne Andres. Called Dr Block and he could onlly order 1:[address] Hahn and received order for ativan. Med given as ordered. Jayne Andres sat with patient for a short period. Patient returned to bed and re attach irrigation. Patient resting quitly at this time.
--- NOTE | 2020-07-10 01:00 | NUR ---
Patient resring quitly at this time.
[2020-07-10] MEDS: VANCOMYCIN 1GM/NS 250 ML 250 ML IV SCH ×2 (01:23→13:57)
[2020-07-10] MEDS ORDERED: SODIUM CHLORIDE 0.9% 250ML 250 ML ONE (02:45)
--- NOTE | 2020-07-10 03:49 | NUR ---
Patient c/o itching. He is scrating all over including lynda area. Called and received order for good. Med given.
[2020-07-10] MEDS ORDERED: DIPHENHYDRAMINE HCL INJ 50 MG/ML VIAL IV PRN (04:00)
--- NOTE | 2020-07-10 07:10 | NUR ---
BEDSIDE SHIFT REPORT RECEIVED FORM THE SHOWCASE MAKER RN. PT IS RESTING ON BED. PT REMOVED CALDWELL CONNECTION AND PT IS COMBATIVE PER SHOWCASE MAKER RN. NO BLADDER IRRIGATION GOING ON. BED IS LOW AND LOCKED. SIDE RAILS X2. CALL LIGHT WITH IN EASY REACH.
--- NOTE | 2020-07-10 07:20 | NUR ---
PT REFUSED TO ATTACH CBI. UNABLE TO CHECK CALDWELL SINCE PT IS KICKING AND HITTING. UNABLE TO GET PT VITAL SIGNS TOO . PAGED DR. KRUEGER AND REPORTED THE SAME. NEW ORDER FOR PSYCHIATRY CONSULT RECEIVED.
--- NOTE | 2020-07-10 07:30 | NUR ---
PAGED DR. YODER AND INFORMED PT CALDWELL CONNECTION IS REMOVED AND NO CBI GOING ON.
--- NOTE | 2020-07-10 10:15 | NUR ---
Pt unavailable at this time. Pt's nurse at bedside. I will follow up as able. [facility] O: [phone]
[2020-07-10] MEDS ORDERED: HALOPERIDOL LACTATE 5 MG/ML VIAL IM PRN (10:30)
[2020-07-10] MEDS: LOSARTAN POTASSIUM 25 MG TAB PO SCH (10:30)
[2020-07-10] MEDS ORDERED: OLANZAPINE 5 MG TAB PO PRN (10:30)
--- NOTE | 2020-07-10 10:30 | NUR ---
PT IS AAOX3. DENIES NEEDS AT THIS TIME.
[2020-07-10] MEDS: METOPROLOL TARTRATE 25 MG TAB PO SCH (10:42)
[2020-07-10] MEDS: ATORVASTATIN 40 MG TAB PO SCH (10:42)
[2020-07-10] MEDS: POTASSIUM CHLORIDE 10MEQ EA PO SCH ×2 (10:42→16:02)
[2020-07-10] MEDS: LACTOBACILLUS ACIDOPHILUS CAPSULE PO SCH ×2 (10:42→16:02)
[2020-07-10 10:58] VITALS: BP 111/85
[2020-07-10] MEDS ORDERED: ONDANSETRON HCL 4 MG ORAL DISINTEGRATING TAB PO PRN (11:00)
--- NOTE | 2020-07-10 11:00 | NUR ---
PT IS ON CBI PER DR. YODER. CLEAR PINK URINE NOTED. PT DENIED FURTHER NEEDS.
[2020-07-10 12:00] VITALS: BP 144/67
[2020-07-10] MEDS: HYDROCODONE/APAP 5MG-325MG TAB PO PRN (12:18)
--- NOTE | 2020-07-10 13:00 | NUR ---
CALL RECEIVED FROM TELE. PT HR ON 40'S. PT IS RESTING ON BED WITH EYES CLOSED. PT IS AAOX3. PT DENIES NEEDS AT THIS TIME. PAGED DR. KRUEGER AND REPORTED THE SAME.
--- NOTE | 2020-07-10 13:05 | NUR ---
METOPROLOL 25 MG BID CHANGED TO 12.[address] KRUEGER
[2020-07-10 13:18] LABS: BASOPHILS % 0.6 % (0.0-1.0); EOSINOPHILS # (AUTO) 0.2 (0.0-0.4); EOSINOPHILS % 2.3 % (0.0-6.0); HEMATOCRIT 31.1 % (38.2-49.6); HEMOGLOBIN 10.2 g/dL (14.0-18.0); LYMPHOCYTES # (AUTO) 0.7 (1.0-3.2); LYMPHOCYTES % 11.3 % (18.0-39.1); MEAN CORPUSCULAR HEMOGLOBIN 29.7 pg (28-32); MEAN CORPUSCULAR HGB CONC 32.8 g/dL (31-35); MEAN CORPUSCULAR VOLUME 90.4 fL (81-99); MONOCYTES # (AUTO) 0.6 (0.2-0.8); MONOCYTES % 8.4 % (4.4-11.3); NEUTROPHILS % 76.8 % (38.7-80.0); PLATELET COUNT 185 x10e3/uL (140-360); RED BLOOD COUNT 3.44 x10e6/uL (4.3-5.7); RED CELL DISTRIBUTION WIDTH 14.3 % (11.7-14.4)
--- NOTE | 2020-07-10 13:28 | NUR ---
PT VITALS SIGNS RECHECKED. BP 103/67 AND HR 50 NOTED. PT IS AAOX3. BAGMAN/WOMAN NOTIFIED AND PRESENT AT BEDSIDE. PT DENIES NEEDS AT THIS TIME.
[2020-07-10 13:36] LABS: BLOOD UREA NITROGEN 13 mg/dL (7-26); BUN/CREATININE RATIO 13 (6-25); CALCIUM 8.1 mg/dL (8.4-10.2); CARBON DIOXIDE 26 mmol/L (22-29); CHLORIDE 107 mmol/L (98-107); CREATININE, SERUM 0.98 mg/dL (0.72-1.25); EST GLOMERULAR FILTRATION RATE > 60 ML/MIN (60-); GLUCOSE 140 mg/dL (74-118); SODIUM 138 mmol/L (136-145)
[2020-07-10 13:39] VITALS: BP 107/70
--- NOTE | 2020-07-10 13:46 | Consultation ---
DATE OF CONSULTATION: Psychiatric Initial Evaluation REASON FOR CONSULTATION: For treatment and evaluation of patient's confusion and agitation. HISTORY OF PRESENT ILLNESS: The patient is a 75-year-old male who was admitted to [facility] due to multiple medical problems, psychiatric consult is called to evaluate patient's confusion and agitation during his inpatient stay. Upon evaluation today, the patient is found to be very anxious. He is alert, awake, oriented to situation. He states that he is feeling stress and anxious because of his health issues. He denies any depression. He claims that his also getting confused and does not know what is happening around him. He is not able to sleep very well, but his appetite is fair. He denies any hallucinations and/or any suicidal ideation at this time. As per the nursing staff, the patient has been combative and agitated during his inpatient stay. He is pulling on his IV lines and catheter and he is hitting the staff. PAST PSYCHIATRIC HISTORY: The patient states that he has never been treated by psychiatrist in the past. He has never attempted any suicide. He does not drink alcohol. FAMILY HISTORY: The patient does not report any family history of psychiatric illness. SOCIAL HISTORY: The patient lives with his and his daughter. CURRENT LABORATORIES: WBC 8, hemoglobin 11.7, hematocrit 36.4, and platelets 198. Sodium 144, potassium 3.6, chloride 111, carbon dioxide 22, BUN 13, and creatinine 1.3. CURRENT MEDICATIONS: 1. Lipitor. 2. Plavix. 3. P.r.n. Nelson. 4. Metoprolol. MENTAL STATUS EXAMINATION: The patient is an elderly male, who is currently lying on his bed. He is restless, but cooperative. He is alert, awake, oriented to situation. His mood is anxious with appropriate affect. He denies any suicidal or homicidal ideation at present. He denies any abnormal perception at present. No delusions are elicited. His thought process is mostly goal directed with some confusion. His insight and judgement are limited. DIAGNOSES: AXIS I: 1. Unspecified psychosis. 2. Adjustment disorder with mixed mood, depression and anxiety. PLAN OF CARE: 1. Add Zyprexa 2.5 mg p.o. q.6 p.r.n. for agitation. 2. Add Haldol 2 mg IM q.6 p.r.n. for agitation. 3. Monitor for agitation. 4. We will continue to follow this patient during his inpatient stay for management of his psychiatric symptoms. Thank you very much for this consult. MD ABDIAZIZ Cagle/JAELYN /[id number]
--- NOTE | 2020-07-10 13:58 | NUR ---
PT HR ON 30'S WHILE SLEEPING. PAGED DR. KRUEGER AND REPORTED THE SAME. NEW CONSULT ORDER RECEIVED FOR DR. DAS.
--- NOTE | 2020-07-10 14:00 | NUR ---
PAGED DR. DAS REGARDING NEW CONSULT. INFORMED PT HR ON 30'S TO THE CONTINUE MONITOR PER THE
[2020-07-10 16:00] VITALS: BP 100/68
--- NOTE | 2020-07-10 16:30 | NUR ---
DR. YODER AT BEDSIDE. CONTINUE CBI PER THE
[2020-07-10] MEDS ORDERED: ATROPINE SULFATE INJ 0.4 MG/ML VIAL IV PRN (17:00)
[2020-07-10] MEDS ORDERED: METOPROLOL TARTRATE 25 MG TAB PO SCH ×2 (17:00→21:00)
--- NOTE | 2020-07-10 19:00 | NUR ---
BEDSIDE SHIFT REPORT GIVEN TO THE FRONT END LOADER OPERATOR RN. PT IS AAOX3. PT DENIED FURTHER NEEDS.
--- NOTE | 2020-07-10 19:03 | Progress Note ---
DATE: SUBJECTIVE: The patient came in with hematuria, status post urological surgery, is under direct irrigation of the bladder. The patient was doing well until yesterday. The patient had psychotic episode and was transiently incoherent, walking around, and a consult with Psychiatry has been done. This morning, the patient was feeling better. 0.5 mg of Ativan was given last night. The patient is currently on hydromorphone and [place] for breakthrough pain. Stable at this time. The patient had episodes of bradycardia this morning, rate is down to 30. Metoprolol stopped at this time. OBJECTIVE: VITAL SIGNS: Currently temperature is 97.7, pulse of 76, respirations of 12, blood pressure is 100/68. HEENT: Normocephalic and atraumatic. Pupils are reactive to light and accommodation. CVS: S1 and S2. Regular rate now. ABDOMEN: Soft, nontender, nondistended. EXTREMITIES: No clubbing, no cyanosis, no edema. : Bladder irrigation in progress. LABORATORY VALUES: White count of 6.52, hemoglobin of 10.2, hematocrit of 31.1. Chemistries show sodium 138, potassium 4.0, BUN of 13, creatinine is 0.98. Serology; coronavirus nondetected. MICROBIOLOGY: Staphylococcus epidermidis. Possibly contaminant. ASSESSMENT AND PLAN: Mr. Jovani Kenney with: 1. Postsurgical hematuria. Continue with bladder irrigation. Urena is almost clear. Continue antibiotics. 2. Bradycardia. Stop the metoprolol for right now. 3. The patient has unspecified psychosis. Zyprexa has been added, also Haldol 2 mg IM q.6 p.r.n. for agitation has been given. Further recommendation per clinical course. We will continue to monitor the patient. 4. Possible disposition will be discharged tomorrow if urine is clear. MD CARLOS ALBERTO Diaz/MODL /[id number]
[2020-07-11] VITALS: BP 118/80
[2020-07-11] MEDS: VANCOMYCIN 1GM/NS 250 ML 250 ML IV SCH ×2 (01:31→14:32)
--- NOTE | 2020-07-11 02:39 | Consultation ---
DATE OF CONSULTATION: 07/10/2020 Cardiology Consultation REASON FOR CONSULTATION: Atrial fibrillation, vasculopath. HISTORY OF PRESENT ILLNESS: Mr. Kenney is a pleasant 75-year-old man well- known to me, history of COPD, diabetes, hypertension, CAD, BPH has history of atrial fibrillation and hematuria. He has chronic systolic HF. He also has episodes of observed asymptomatic atrial fibrillation with slow ventricular response into 30s when he was asleep. Heart rate has been ranging from high 30s to low 130s, averaging within normal ventricular response most of the time. Jovani denies any syncope/loss of consciousness or lightheaded spells that he can recall. He also denies any chest pain or shortness of breath currently. He has a history of severe chronic systolic heart failure as well as CAD, for which he underwent high risk PCI in the past. REVIEW OF SYSTEMS: A 12-system review negative except for as noted above. PAST MEDICAL HISTORY: As per HPI. SOCIAL HISTORY: No current smoking, alcohol, or drugs. FAMILY HISTORY: Remarkable for CAD. PHYSICAL EXAMINATION: VITAL SIGNS: Temperature 97.7, heart rate 76, blood pressure 100/68, respiratory rate 12, O2 saturation 100%. GENERAL: No acute distress, chronically ill-appearing, awake, somewhat confused. NECK: No JVD. CHEST: With decreased breath sounds in bilateral bases. CARDIOVASCULAR: Irregularly irregular rate and rhythm. Normal S1, S2. Systolic ejection murmur. ABDOMEN: Soft. Bowel sounds positive. EXTREMITIES: No edema. Warm extremities. CARDIOVASCULAR MEDICATIONS: Have been reviewed. Clopidogrel 75 mg daily, atorvastatin 20 mg at bedtime, losartan 50 mg daily, beta yogesh has been held for slow ventricular response. STUDIES: Reviewed. Sodium 138, potassium 4, chloride 107, bicarbonate 26, BUN 13 and creatinine 0.98, glucose 140. White blood cells 6.5, hemoglobin 10.2, platelets 185. PT 13.8, PTT 32. INR 1.01. AST 19, ALT 14, total bilirubin 0.8, alkaline phosphatase 124. ASSESSMENT AND PLAN: 1. A 75-year-old man with hematuria, status post recent urologic procedure, atrial fibrillation with episodes of tachy-terrance/sick sinus syndrome. 2. Chronic obstructive pulmonary disease. 3. Diabetes. 4. Hypertension. 5. CAD status post heart rate PCI, mechanical support assisted, chronic systolic heart failure. 6. Benign prostatic hyperplasia. RECOMMENDATIONS: Continue current cardiovascular medications and monitor for gross recurrent bleeding. Continue to hold beta-yogesh for now and monitor on telemetry. Suspect some increased vagal tone, status post recent urology procedure. We will follow along with you. Please call with any questions [phone]. MD PERNELL Flores/JAELYN /[id number] MTDD
[2020-07-11 04:00] VITALS: BP 139/76
[2020-07-11 05:15] LABS: BASOPHILS % 0.7 % (0.0-1.0); EOSINOPHILS # (AUTO) 0.3 (0.0-0.4); EOSINOPHILS % 5.1 % (0.0-6.0); HEMATOCRIT 31.6 % (38.2-49.6); HEMOGLOBIN 10.3 g/dL (14.0-18.0); LYMPHOCYTES # (AUTO) 1.2 (1.0-3.2); LYMPHOCYTES % 19.1 % (18.0-39.1); MEAN CORPUSCULAR HEMOGLOBIN 30.5 pg (28-32); MEAN CORPUSCULAR HGB CONC 32.6 g/dL (31-35); MEAN CORPUSCULAR VOLUME 93.5 fL (81-99); MONOCYTES # (AUTO) 0.6 (0.2-0.8); NEUTROPHILS % 64.6 % (38.7-80.0); PLATELET COUNT 176 x10e3/uL (140-360); RED BLOOD COUNT 3.38 x10e6/uL (4.3-5.7); RED CELL DISTRIBUTION WIDTH 14.2 % (11.7-14.4)
[2020-07-11 05:45] LABS: ALANINE AMINOTRANSFERASE 16 IU/L (0-55); ALBUMIN 3.3 g/dL (3.5-5.0); ALBUMIN/GLOBULIN RATIO 1.4 (0.8-2.0); ALKALINE PHOSPHATASE 132 IU/L (40-150); ANION GAP 16.2 mmol/L (8-16); BLOOD UREA NITROGEN 14 mg/dL (7-26); BUN/CREATININE RATIO 13 (6-25); CALCIUM 8.1 mg/dL (8.4-10.2); CARBON DIOXIDE 23 mmol/L (22-29); CHLORIDE 108 mmol/L (98-107); CREATININE, SERUM 1.09 mg/dL (0.72-1.25); EST GLOMERULAR FILTRATION RATE > 60 ML/MIN (60-); GLUCOSE 99 mg/dL (74-118); POTASSIUM 4.2 mmol/L (3.5-5.1); SODIUM 143 mmol/L (136-145)
[2020-07-11 08:00] VITALS: BP 157/67
[2020-07-11] MEDS: LOSARTAN POTASSIUM 25 MG TAB PO SCH (08:27)
[2020-07-11] MEDS: ATORVASTATIN 40 MG TAB PO SCH (08:28)
[2020-07-11] MEDS: POTASSIUM CHLORIDE 10MEQ EA PO SCH ×2 (08:28→17:26)
[2020-07-11] MEDS: LACTOBACILLUS ACIDOPHILUS CAPSULE PO SCH ×2 (08:28→17:26)
[2020-07-11 16:00] VITALS: BP 138/109
[2020-07-11 20:00] VITALS: BP 158/110
[2020-07-11 22:06] VITALS: BP 158/110
[2020-07-12] VITALS (7 sets, daily range): BP systolic 86–159; BP diastolic 67–82
--- NOTE | 2020-07-12 00:18 | Progress Note ---
DATE: 07/11/2020 Cardiology Progress Note SUBJECTIVE: No complaints today. Hematuria, improving. OBJECTIVE: VITAL SIGNS: Temperature 98.1, heart rate 63, blood pressure 157/67, respiratory rate 22, O2 saturation 98%. GENERAL: No acute distress alert. NECK: JVD. CHEST: Clear to auscultation. CARDIOVASCULAR: Regular rate and rhythm. Normal S1, S2. Systolic ejection murmur. ABDOMEN: Bowel sounds positive. EXTREMITIES: No edema. CARDIOVASCULAR MEDICATIONS: Reviewed. Clopidogrel 75 mg daily, atorvastatin 20 mg daily, atropine 0.4 mg q.2 hours p.r.n., losartan 50 mg daily. STUDIES: Reviewed. Creatinine 1. White blood cells 6, hemoglobin 10.3, and platelets 176. ASSESSMENT AND PLAN: A 75-year-old man presents with coronary artery disease, status post coronary artery bypass graft with PCI, chronic systolic heart failure, hypertension, dyslipidemia, paroxysmal atrial fibrillation, anemia, presenting with hematuria and urinary retention. RECOMMENDATIONS: 1. Monitor and continue resolution of hematuria. Once okay with Urology, please resume antiplatelet therapy. The patient is status post recent PCI, has elevated risk for recurrent thrombosis. 2. Heart rate remains in normal ventricular response in spite of discontinuation of beta yogesh. Continue to monitor on telemetry. MD PERNELL Flores/JAELYN /[id number]
[2020-07-12] MEDS: VANCOMYCIN 1GM/NS 250 ML 250 ML IV SCH (01:52)
--- NOTE | 2020-07-12 06:31 | NUR ---
VANCO TROUGH IS 30.5. NOTIFIED. RECEIVED ORDER TO HOLD VANCOMYCIN UNTIL 07/13/20. RESUME VANCOMYCIN ON 07/13/20 AT 1400.
[2020-07-12] MEDS: LOSARTAN POTASSIUM 25 MG TAB PO SCH ×2 (09:32→09:35)
[2020-07-12] MEDS: POTASSIUM CHLORIDE 10MEQ EA PO SCH ×2 (09:33→17:52)
[2020-07-12] MEDS: LACTOBACILLUS ACIDOPHILUS CAPSULE PO SCH ×2 (09:33→17:52)
[2020-07-12] MEDS: ATORVASTATIN 40 MG TAB PO SCH (09:33)
[2020-07-13] VITALS: BP 146/77
[2020-07-13 04:00] VITALS: BP 168/74
[2020-07-13 06:11] LABS: BASOPHILS % 0.6 % (0.0-1.0); EOSINOPHILS # (AUTO) 0.2 (0.0-0.4); EOSINOPHILS % 3.7 % (0.0-6.0); HEMATOCRIT 30.3 % (38.2-49.6); HEMOGLOBIN 9.8 g/dL (14.0-18.0); LYMPHOCYTES # (AUTO) 1.3 (1.0-3.2); LYMPHOCYTES % 21.2 % (18.0-39.1); MEAN CORPUSCULAR HEMOGLOBIN 30.2 pg (28-32); MEAN CORPUSCULAR HGB CONC 32.3 g/dL (31-35); MEAN CORPUSCULAR VOLUME 93.5 fL (81-99); MONOCYTES # (AUTO) 0.6 (0.2-0.8); MONOCYTES % 9.7 % (4.4-11.3); NEUTROPHILS % 64.3 % (38.7-80.0); PLATELET COUNT 202 x10e3/uL (140-360); RED BLOOD COUNT 3.24 x10e6/uL (4.3-5.7); RED CELL DISTRIBUTION WIDTH 14.3 % (11.7-14.4)
[2020-07-13 06:24] LABS: ANION GAP 12.4 mmol/L (8-16); BLOOD UREA NITROGEN 16 mg/dL (7-26); BUN/CREATININE RATIO 15 (6-25); CALCIUM 8.7 mg/dL (8.4-10.2); CARBON DIOXIDE 25 mmol/L (22-29); CHLORIDE 107 mmol/L (98-107); CREATININE, SERUM 1.05 mg/dL (0.72-1.25); EST GLOMERULAR FILTRATION RATE > 60 ML/MIN (60-); GLUCOSE 95 mg/dL (74-118); POTASSIUM 4.4 mmol/L (3.5-5.1); SODIUM 140 mmol/L (136-145)
[2020-07-13 07:53] VITALS: BP 146/96
[2020-07-13] MEDS ORDERED: [UNRECOGNIZED DRUG - OTHER] ×2 (08:31→08:32)
--- NOTE | 2020-07-13 10:23 | Progress Note ---
DATE: 07/13/2020 Cardiology Progress Note SUBJECTIVE: Jovani denies any chest pain or shortness of breath. Hematuria seems to continue to improve. OBJECTIVE: VITAL SIGNS: Temperature 98 degrees, heart rate 59, blood pressure 146/96, respiratory rate 19, and O2 saturation 100%. GENERAL: In no acute distress. Alert. NECK: No JVD. CHEST: Clear to auscultation. CARDIOVASCULAR: Regular rate and rhythm. Normal S1 and S2. Systolic ejection murmur. ABDOMEN: Soft. Bowel sounds positive. EXTREMITIES: No edema. CARDIOVASCULAR MEDICATIONS: Clopidogrel 75 mg daily, atorvastatin 40 mg at bedtime, atropine 0.4 mg q.2 hours p.r.n., and losartan 50 mg daily. STUDIES: Reviewed. Sodium 140, potassium 4.4, creatinine 1, and glucose 95. White blood cells 6, hemoglobin 9.8, and platelets 202. INR 1. ASSESSMENT AND PLAN: A 75-year-old man with anemia, hematuria, chronic systolic heart failure, and coronary artery disease, status post drug-eluting stent. RECOMMEND: Coordinating care with Urology. Resume clopidogrel 75 mg daily. Continue statin therapy and ARB and add low-dose beta-yogesh. Monitor on telemetry. MD PERNELL Flores/JAELYN /[id number]
--- NOTE | 2020-07-13 14:29 | Progress Note ---
DATE: 07/12/2020 Cardiology Progress Note SUBJECTIVE: No complaints. OBJECTIVE: VITAL SIGNS: Temperature 98.2, heart rate 71, blood pressure 129/82, respiratory rate 20, O2 saturation 100%. GENERAL: No acute distress, alert. NECK: No JVD. CHEST: Clear to auscultation. CARDIOVASCULAR: Regular rate and rhythm. Normal S1, S2. Systolic ejection murmur. ABDOMEN: Soft. EXTREMITIES: No edema. CARDIOVASCULAR MEDICATIONS: Reviewed. Atropine 0.4 mg q.2 hours p.r.n., losartan 50 mg daily, and atorvastatin 40 mg at bedtime. STUDIES: Reviewed. Creatinine 1, glucose 99. White blood cell 6, hemoglobin 10, platelets 176,000. INR 1.01. ASSESSMENT AND PLAN: 1. A 75-year-old man presents with hematuria post urologic procedure. 2. Atrial fibrillation. 3. Chronic systolic heart failure. 4. Coronary artery disease with previous coronary stents. RECOMMENDATIONS: Initiate clopidogrel 75 mg daily starting tomorrow. Continue to monitor on telemetry, so far no recurrent episodes of bradycardia. MD DevriesV/MODL /[id number]
--- NOTE | 2020-07-13 16:26 | Progress Note ---
DATE: SUBJECTIVE: A 75-year-old male that came in with hematuria and abdominal pain. Currently, the patient is afebrile, no complaints. Hematuria has resolved. Urena has been removed. Continuous irrigation has been done. No complaints. Wants to go home. No chest pain or no shortness of breath. No nausea, no vomiting or diarrhea. OBJECTIVE: VITAL SIGNS: Temperature is 97.9, T-max 98.1, pulse of 68, respirations 17, blood pressure 146/77 with a pulse oximetry of 100% on room air. HEENT: Normocephalic. Edentulous. CVS: S1 and S2 normal. Regular rate and rhythm. ABDOMEN: Soft right now, nontender and nondistended. EXTREMITIES: No clubbing, no cyanosis, and no edema. LABORATORY VALUES: Pending from today. White count yesterday was 6.12, hemoglobin of 10.3, and hematocrit 31.6. Chemistries; sodium 140, potassium 4.4, BUN of 16, creatinine of 1.05, and vancomycin trough noted. MICROBIOLOGY: Urine culture grew Staph epidermidis probably contaminant. ASSESSMENT: 1. Hematuria. Continue current management. Okay to be discharge if okay with Urology. The patient's hematuria has resolved. 2. Atrial fibrillation. Stop the anticoagulation at this time. 3. Psychosis, unspecified. Currently, the patient is on Zyprexa and Haldol has been given. PLAN AND DISPOSITION: Okay to be discharged today. Home medications reviewed and will be continued on losartan, atorvastatin, and holding back still on the anticoagulation. Continue current plan. Okay to be discharged. Follow up in the clinic in about one week. We will still hold back on his anticoagulation. Further recommendation as an outpatient. MD CARLOS ALBERTO Diaz/JOEL /[id number]
== END 2020-07-13 08:58 | disposition home or self-care (01) | DRG 920 ==
LOC: ER 13:10 → ERHOLD 14:30 → MED/SURG 15:39
PROVIDERS: ADMIT Family Medicine; ATTEND Family Medicine
DX: N99.821 Postprocedural hemorrhage of a genitourinary system organ or structure following other procedure (principal); N39.0 Urinary tract infection, site not specified; N17.9 Acute kidney failure, unspecified; I50.22 Chronic systolic (congestive) heart failure; E11.9 Type 2 diabetes mellitus without complications; I48.0 Paroxysmal atrial fibrillation; E78.5 Hyperlipidemia, unspecified; N40.0 Benign prostatic hyperplasia without lower urinary tract symptoms; R31.0 Gross hematuria; I25.10 Atherosclerotic heart disease of native coronary artery without angina pectoris; J44.9 Chronic obstructive pulmonary disease, unspecified; Z82.49 Family history of ischemic heart disease and other diseases of the circulatory system; Z11.59 Encounter for screening for other viral diseases; F43.23 Adjustment disorder with mixed anxiety and depressed mood; F29 Unspecified psychosis not due to a substance or known physiological condition; I49.5 Sick sinus syndrome; D64.9 Anemia, unspecified; I11.0 Hypertensive heart disease with heart failure; F41.9 Anxiety disorder, unspecified; Z79.82 Long term (current) use of aspirin
CPT/HCPCS: 36415; 80048; 80053; 80202; 81001; 82550; 82553; 82948; 84443; 84484; 85025; 85610; 85730; 86850; 86900; 87086; 87186; 93005; 99284; J0692; J1170; J2060; J2270; J2405; J3370; J7030; J7050; U0002

== ENCOUNTER 2020-10-05 12:29 | Observation (INO) | payer MEDICARE ==
[2020-09-30 11:02] LABS: BASOPHILS # (AUTO) 0.1 (0.0-0.1); BASOPHILS % 0.8 % (0.0-1.0); EOSINOPHILS # (AUTO) 0.2 (0.0-0.4); EOSINOPHILS % 2.9 % (0.0-6.0); HEMATOCRIT 35.4 % (38.2-49.6); HEMOGLOBIN 10.8 g/dL (14.0-18.0); LYMPHOCYTES % 14.5 % (18.0-39.1); MEAN CORPUSCULAR HEMOGLOBIN 25.5 pg (28-32); MEAN CORPUSCULAR HGB CONC 30.5 g/dL (31-35); MEAN CORPUSCULAR VOLUME 83.7 fL (81-99); MONOCYTES # (AUTO) 0.6 (0.2-0.8); MONOCYTES % 8.6 % (4.4-11.3); NEUTROPHILS # (AUTO) 4.9 (2.1-6.9); PLATELET COUNT 187 x10e3/uL (140-360); RED BLOOD COUNT 4.23 x10e6/uL (4.3-5.7); RED CELL DISTRIBUTION WIDTH 15.3 % (11.7-14.4)
[2020-09-30 11:24] LABS: INR 1.01; PROTHROMBIN TIME 13.8 seconds (11.9-14.5)
[2020-09-30 13:55] LABS: ANION GAP 10.8 mmol/L (8-16); CALCIUM 8.9 mg/dL (8.4-10.2); CREATININE, SERUM 1.21 mg/dL (0.72-1.25); POTASSIUM 3.8 mmol/L (3.5-5.1)
[2020-10-05] VITALS (7 sets, daily range): BP systolic 133–148; BP diastolic 80–89
[~2020-10-05] VITALS: Ht 188 cm; Wt 85.7 kg
[~2020-10-05 12:29] MED LIST changes: +MYRBETRIQ50 MG PO; +[UNRECOGNIZED DRUG - OTHER]
[2020-10-05] MEDS ORDERED: FENTANYL CITRATE/PF 100MCG/2 ML INJ ONE ×2 (13:37→14:39)
[2020-10-05] MEDS ORDERED: MIDAZOLAM HCL 2 MG/2 ML VIAL ONE ×4 (13:37→15:47)
[2020-10-05] MEDS ORDERED: SODIUM CHLORIDE 0.9% 1000ML 2,000 ML ONE (13:41)
[2020-10-05] MEDS ORDERED: LIDOCAINE 1% W/EPINEPHRINE 20 ML VIAL ONE (13:41)
[2020-10-05] MEDS ORDERED: VANCOMYCIN 1GM/NS 250 ML 500 ML ONE (13:41)
[2020-10-05] MEDS ORDERED: VANCOMYCIN 1GM/NS 250 ML 250 ML ONE (14:12)
[2020-10-05] MEDS ORDERED: SODIUM CHLORIDE 0.9% 1000ML 1,000 ML ONE (14:12)
[2020-10-05] MEDS: MINOCYCLINE HCL 50 MG CAP PO SCH (20:06)
[2020-10-05] MEDS: ACETAMINOPHEN/CODEINE 300MG - 30MG TAB PO PRN (20:07)
[2020-10-06] VITALS: BP 134/77
[2020-10-06] MEDS ORDERED: VANCOMYCIN 1GM/NS 250 ML 250 ML IV ONE (02:00)
[2020-10-06] MEDS: ACETAMINOPHEN/CODEINE 300MG - 30MG TAB PO PRN (02:19)
[2020-10-06 04:00] VITALS: BP 121/95
[2020-10-06 04:43] LABS: BASOPHILS % 0.3 % (0.0-1.0); EOSINOPHILS # (AUTO) 0.1 (0.0-0.4); EOSINOPHILS % 1.4 % (0.0-6.0); HEMATOCRIT 31.1 % (38.2-49.6); HEMOGLOBIN 9.5 g/dL (14.0-18.0); LYMPHOCYTES # (AUTO) 0.6 (1.0-3.2); LYMPHOCYTES % 8.3 % (18.0-39.1); MEAN CORPUSCULAR HEMOGLOBIN 25.3 pg (28-32); MEAN CORPUSCULAR HGB CONC 30.5 g/dL (31-35); MEAN CORPUSCULAR VOLUME 82.7 fL (81-99); MONOCYTES # (AUTO) 0.7 (0.2-0.8); MONOCYTES % 9.4 % (4.4-11.3); NEUTROPHILS # (AUTO) 5.7 (2.1-6.9); NEUTROPHILS % 80.5 % (38.7-80.0); PLATELET COUNT 135 x10e3/uL (140-360); RED BLOOD COUNT 3.76 x10e6/uL (4.3-5.7); RED CELL DISTRIBUTION WIDTH 15.8 % (11.7-14.4)
[2020-10-06 04:59] LABS: ANION GAP 10.8 mmol/L (8-16); BLOOD UREA NITROGEN 24 mg/dL (7-26); BUN/CREATININE RATIO 22 (6-25); CALCIUM 8.5 mg/dL (8.4-10.2); CARBON DIOXIDE 25 mmol/L (22-29); CHLORIDE 106 mmol/L (98-107); CREATININE, SERUM 1.08 mg/dL (0.72-1.25); EST GLOMERULAR FILTRATION RATE > 60 ML/MIN (60-); GLUCOSE 204 mg/dL (74-118); POTASSIUM 3.8 mmol/L (3.5-5.1); SODIUM 138 mmol/L (136-145)
[2020-10-06 07:30] VITALS: BP 144/92
[2020-10-06] MEDS: MINOCYCLINE HCL 50 MG CAP PO SCH (08:20)
[2020-10-06] MEDS ORDERED: MINOCYCLINE HCL50 MG PO (10:14)
[2020-10-06] MEDS ORDERED: TYLENOL # 31 EA PO (10:14)
== END 2020-10-06 10:52 | disposition home or self-care (01) ==
LOC: CATH LAB 12:29 → EDSTATUS 14:00 → CATH LAB V 15:28 → IMCU 16:40
PROVIDERS: ADMIT Internal Medicine Clinical Cardiac Electrophysiology; ATTEND Internal Medicine Clinical Cardiac Electrophysiology
DX: I48.0 Paroxysmal atrial fibrillation (principal); I42.8 Other cardiomyopathies; I11.0 Hypertensive heart disease with heart failure; I50.22 Chronic systolic (congestive) heart failure; I44.7 Left bundle-branch block, unspecified; I49.5 Sick sinus syndrome; Z86.73 Personal history of transient ischemic attack (TIA), and cerebral infarction without residual deficits; Z83.3 Family history of diabetes mellitus; Z82.49 Family history of ischemic heart disease and other diseases of the circulatory system; Z95.5 Presence of coronary angioplasty implant and graft; Z01.812 Encounter for preprocedural laboratory examination; Z20.828 Contact with and (suspected) exposure to other viral communicable diseases
CPT/HCPCS: 33225; 33249; 36005; 36415 ×3; 71045; 71046; 75820 ×2; 80048 ×2; 82948; 85025 ×2; 85610; 93005; C1769 ×4; C1777; C1898; C1900; G0378 ×2; J2250; J3010; J3370 ×2; J7030; U0002; 99152; 99153

== ENCOUNTER → 2020-11-20 | Day surgery (SDC) | payer MEDICARE ==
[2020-11-17 12:14] LABS: BASOPHILS % 0.5 % (0.0-1.0); EOSINOPHILS # (AUTO) 0.2 (0.0-0.4); EOSINOPHILS % 2.7 % (0.0-6.0); HEMATOCRIT 36.2 % (38.2-49.6); HEMOGLOBIN 10.9 g/dL (14.0-18.0); LYMPHOCYTES # (AUTO) 1.1 (1.0-3.2); LYMPHOCYTES % 16.5 % (18.0-39.1); MEAN CORPUSCULAR HEMOGLOBIN 24.3 pg (28-32); MEAN CORPUSCULAR HGB CONC 30.1 g/dL (31-35); MEAN CORPUSCULAR VOLUME 80.8 fL (81-99); MONOCYTES # (AUTO) 0.7 (0.2-0.8); MONOCYTES % 11.1 % (4.4-11.3); NEUTROPHILS # (AUTO) 4.5 (2.1-6.9); NEUTROPHILS % 68.7 % (38.7-80.0); PLATELET COUNT 199 x10e3/uL (140-360); RED BLOOD COUNT 4.48 x10e6/uL (4.3-5.7); RED CELL DISTRIBUTION WIDTH 15.9 % (11.7-14.4)
[2020-11-17 12:37] LABS: ALANINE AMINOTRANSFERASE 15 IU/L (0-55); ALBUMIN 3.6 g/dL (3.5-5.0); ALBUMIN/GLOBULIN RATIO 0.9 (0.8-2.0); ALKALINE PHOSPHATASE 161 IU/L (40-150); ANION GAP 14.8 mmol/L (8-16); BLOOD UREA NITROGEN 24 mg/dL (7-26); BUN/CREATININE RATIO 21 (6-25); CALCIUM 8.7 mg/dL (8.4-10.2); CARBON DIOXIDE 23 mmol/L (22-29); CHLORIDE 106 mmol/L (98-107); CREATININE, SERUM 1.15 mg/dL (0.72-1.25); EST GLOMERULAR FILTRATION RATE > 60 ML/MIN (60-); GLUCOSE 101 mg/dL (74-118); POTASSIUM 3.8 mmol/L (3.5-5.1); SODIUM 140 mmol/L (136-145)
[~2020-11-20] MED LIST changes: +B&O 60MG R/S 60 MG SUPP PR ONE; +CEFTRIAXONE SOD 1 GM/NS 50 ML 50 ML IV ONE; +DEXAMETHASONE SOD PHOS INJ 4 MG/ML VIAL ONE; +ETOMIDATE 2 MG/ML 10 ML INJ IV ONE; +GENTAMICIN 80MG/NS 100 ML 100 ML IV ONE; +IOPAMIDOL 300MG/ML 50ML INFUS..BTL IV ONE; +MINOCYCLINE HCL50 MG PO; +ONDANSETRON HCL INJ 2MG/ML 2ML 2 MG/ML VIAL ONE; +POTASSIUM PO; +SEVOFLURANE INHAL SOLN 250 ML PEN BTL ONE
[2020-11-20 13:10] VITALS: BP 138/88
== END | disposition home or self-care (01) ==
LOC: OR 10:04
PROVIDERS: ATTEND Urology
DX: N39.0 Urinary tract infection, site not specified (principal); N32.3 Diverticulum of bladder; N32.89 Other specified disorders of bladder; N13.30 Unspecified hydronephrosis; E11.22 Type 2 diabetes mellitus with diabetic chronic kidney disease; I13.0 Hypertensive heart and chronic kidney disease with heart failure and stage 1 through stage 4 chronic kidney disease, or unspecified chronic kidney disease; N18.9 Chronic kidney disease, unspecified; I50.9 Heart failure, unspecified; I25.10 Atherosclerotic heart disease of native coronary artery without angina pectoris; I25.2 Old myocardial infarction; E78.5 Hyperlipidemia, unspecified; J44.9 Chronic obstructive pulmonary disease, unspecified; M19.90 Unspecified osteoarthritis, unspecified site; F17.200 Nicotine dependence, unspecified, uncomplicated; Z46.6 Encounter for fitting and adjustment of urinary device; Z01.810 Encounter for preprocedural cardiovascular examination; Z01.812 Encounter for preprocedural laboratory examination; Z01.818 Encounter for other preprocedural examination; Z20.822 Contact with and (suspected) exposure to COVID-19; Z95.5 Presence of coronary angioplasty implant and graft; Z95.0 Presence of cardiac pacemaker
CPT/HCPCS: 36415 ×2; 52005; 71046; 74018; 74420; 80053; 82948; 85025; 87086; 87186; 93005; C1758; J0696; J1100; J1580; J2405; Q9967; U0002

== ENCOUNTER 2021-02-01 19:45 | Emergency (ER) | payer MEDICARE ==
[~2021-02-01] VITALS: Ht 188 cm; Wt 85.7 kg
[~2021-02-01 19:45] MED LIST changes: -B&O 60MG R/S 60 MG SUPP PR ONE; -CEFTRIAXONE SOD 1 GM/NS 50 ML 50 ML IV ONE; -DEXAMETHASONE SOD PHOS INJ 4 MG/ML VIAL ONE; -ETOMIDATE 2 MG/ML 10 ML INJ IV ONE; -GENTAMICIN 80MG/NS 100 ML 100 ML IV ONE; -IOPAMIDOL 300MG/ML 50ML INFUS..BTL IV ONE; -ONDANSETRON HCL INJ 2MG/ML 2ML 2 MG/ML VIAL ONE; -SEVOFLURANE INHAL SOLN 250 ML PEN BTL ONE
== END 2021-02-01 23:59 | disposition home or self-care (01) ==
LOC: ER 20:27
DX: R06.00 Dyspnea, unspecified (principal); I10 Essential (primary) hypertension; E11.9 Type 2 diabetes mellitus without complications; I50.9 Heart failure, unspecified; I48.91 Unspecified atrial fibrillation; I25.2 Old myocardial infarction; Z86.73 Personal history of transient ischemic attack (TIA), and cerebral infarction without residual deficits; Z95.810 Presence of automatic (implantable) cardiac defibrillator
CPT/HCPCS: 71045; 93005; 99283

== ENCOUNTER → 2021-02-22 | Outpatient (CLI) | payer MEDICARE ==
[~2021-02-22] MED LIST changes: +IOPAMIDOL 370 MG/ML 200 ML INFUS..BTL INJ ONE; +SODIUM CHLORIDE 0.9% 500ML 500 ML ONE; +SODIUM CHLORIDE 0.9% 50ML 50 ML ONE
[2021-02-22 12:14] LABS: CREATININE, SERUM 1.34 mg/dL (0.72-1.25)
== END ==
LOC: CT 11:34
PROVIDERS: ATTEND Urology
DX: C67.9 Malignant neoplasm of bladder, unspecified (principal)
CPT/HCPCS: 36415; 74178; 82565; 84520; 96360; J7040; Q9967

== ENCOUNTER → 2023-12-01 | Outpatient (REF) | payer MEDICARE ==
[~2023-12-01] MED LIST changes: -IOPAMIDOL 370 MG/ML 200 ML INFUS..BTL INJ ONE; -SODIUM CHLORIDE 0.9% 500ML 500 ML ONE; -SODIUM CHLORIDE 0.9% 50ML 50 ML ONE
== END ==
LOC: CT 08:26
PROVIDERS: ATTEND Family Medicine
DX: G81.91 Hemiplegia, unspecified affecting right dominant side (principal); I50.22 Chronic systolic (congestive) heart failure; I48.91 Unspecified atrial fibrillation
CPT/HCPCS: 70450